=== PATIENT | male | born 1980 | race Hispanic/Latino ===

== ENCOUNTER 2016-05-14 04:59 | Inpatient (IN) | payer OTHER ==
[~2016-05-14 04:59] MED LIST: NARCAN 2 MG/2 ML ONE
[2016-05-14] MEDS ORDERED: NARCAN 2 MG/2 ML IV ONE (05:05)
[2016-05-14] MEDS ORDERED: AMIDATE IV ONE ×2 (05:08→11:13)
[2016-05-14] MEDS ORDERED: QUELICIN IV ONE (05:08)
[2016-05-14] MEDS ORDERED: NACL 0.9% 1000 ML 1,000 ML IV ONE (05:30)
[2016-05-14 05:33] LABS: Urine Drugs of Abuse Note Disclamer
[2016-05-14 05:44] LABS: Basophils % (Auto) 0.2 % (0.0-1.8); Eosinophils % (Auto) 0.8 % (0.0-4.3); Hematocrit 41.7 % (35.5-45.6); Mean Corpuscular HGB Conc 34 % (32-34); Mean Corpuscular Hemoglobin 31 pg (28-32); Mean Corpuscular Volume 92 fl (84-94); Platelet Count 367 K/mm3 (140-440); Red Blood Count 4.56 M/mm3 (3.65-5.03); Red Cell Distribution Width 12.8 % (13.2-15.2); White Blood Count 8.3 K/mm3 (4.5-11.0)
[2016-05-14 05:44] LABS: Bacteria,Urine 1+ /HPF (Negative); Bilirubin,Urine NEG (Negative); Blood,Urine NEG (Negative); Ketones,Urine 20 mg/dL (Negative); Leukocyte Esterase,Urine NEG (Negative); Mucus,Urine 2+ /HPF; Nitrite,Urine NEG (Negative); Urobilinogen,Urine < 2.0 mg/dL (<2.0)
[2016-05-14 05:58] LABS: Alanine Aminotransferase 29 units/L (7-56); Albumin 4.1 g/dL (3.9-5); Albumin/Globulin Ratio 1.9 %; Alkaline Phosphatase 81 units/L (35-129); BUN/Creatinine Ratio 21.66; Bilirubin,Total 0.6 mg/dL (0.1-1.2); Blood Urea Nitrogen 13 mg/dL (9-20); Calcium 8.6 mg/dL (8.4-10.2); Carbon Dioxide 25 mmol/L (22-30); Chloride 100.8 mmol/L (98-107); Glucose 191 mg/dL (75-100); Potassium 3.1 mmol/L (3.6-5.0); Sodium 140 mmol/L (137-145); Total Protein 6.3 g/dL (6.3-8.2)
[2016-05-14 06:05] LABS: Anion Gap 17 mmol/L
[2016-05-14 06:18] LABS: ISTAT Base Excess 4; ISTAT HCO3 29.5; ISTAT PCO2 49.9 (35-45); ISTAT PO2 398 (80-105); ISTAT SO2 100; ISTAT TCO2 31
--- NOTE | 2016-05-14 06:30 | Emergency Department Report ---
History of Present Illness - General Chief Complaint: Overdose Stated Complaint: POSSIBLE OD Time Seen by Provider: 05/14/16 05:05 Source: EMS Mode of arrival: Ambulatory Limitations: No Limitations - History of Present Illness Initial Comments: 35-year-old male with a psychiatric history presents to the hospital with unresponsiveness status post possible drug overdose. Patient had a bottle of Seroquel 50 mg 90 tablets that was dated for May 04 that was completely empty at his side. Patient has superficial cutting wounds to bilateral arms and has a history of suicidal ideation and attempts in the past. Patient also has stickers on his chest from previous hospital leads to indicate that he was likely recently seen at a hospital. Patient presents with nasal trumpet in unresponsive and unable to obtain any history of present illness. No meds given in route. - Related Data Allergies Allergy/AdvReac Type Severity Reaction Status Date / Time Unable to Assess Allergy Unverified 05/14/16 05:27 ED Review of Systems ROS: Stated complaint: POSSIBLE OD Other details as noted in HPI Comment: Unobtainable due to pts medical conditions ED Past Medical Hx - Past Medical History Previous Medical History?: Yes Additional medical history: previous OD per EMS - Surgical History Past Surgical History?: No - Social History Smoking Status: Unknown if ever smoked ED Physical Exam - General Limitations: No Limitations - Other Other exam information: General: No limitations, patient is alert in no acute distress Head exam: Atraumatic, normocephalic Eyes exam: Pupils 4 mm equal reactive ENT: Moist mucous membrane, nasal trumpet Neck exam: Normal inspection Respiratory exam: Clear to auscultation bilateral, no wheezes, rales, crackles Cardiovascular: Normal rate and rhythm Abdomen: Soft, nondistended, and nontender, with normal bowel sounds, no rebound, or guarding Extremity: Full range of motion normal inspection no deformity Back: Normal Inspection, full range of motion, no tenderness Neurologic: Patient unresponsive no response to painful stimulation. No spontaneous movement Psychiatric: normal affect, normal mood Skin: Superficial facial lacerations to bilateral arms. Skin adhesive from previous [facility] and chest and abdominal wall ED Course Vital Signs 05/14/16 05/14/16 05/14/16 05:07 05:14 05:41 Temperature 97.9 F Pulse Rate 110 H 111 H Respiratory 12 11 L Rate Blood Pressure 120/76 123/76 O2 Sat by Pulse 100 100 100 Oximetry - Reevaluation(s) Reevaluation #1: 05/14/16 06:33 Narcan 2 mg given without any response. Therefore pt was intubated given that it is likely pt overdosed on seroquel and will need further respiratory support and airway protection 05/14/16 06:38 - Intubation Time Out Performed: Yes Sedative: Etomidate Mg Given: 20 Paralytic: Succinylcholine Mg Given: 100 Laryngoscope: Cm Size: 3 ET Tube Size: 7.5 Tube Secured Depth (cm): 21 Tube Secured Location: teeth Tube Placement Confirmation: visualized tube passing t, equal breath sounds bilat, no breath sounds over epi, confirmation by capnometr Patient Tolerated Procedure: well Intubation Complications: other (initial esophageal intubation. Tube removed and changed with successful reattachment) Additional Comments: Chest x-ray reveals ET tube with high position in the trachea. Respiratory therapist informed to push to down to 23 at the [facility] ED Medical Decision Making - Lab Data Result diagrams: 05/14/16 05:28 05/14/16 05:28 Lab Results 05/14/16 05/14/16 05/14/16 Range/Units 05:22 05:22 05:28 WBC 8.3 (4.5-11.0) K/mm3 RBC 4.56 (3.65-5.03) M/mm3 Hgb 14.0 (11.8-15.2) gm/dl Hct 41.7 (35.5-45.6) % MCV 92 (84-94) fl MCH 31 (28-32) pg MCHC 34 (32-34) % RDW 12.8 L (13.2-15.2) % Plt Count 367 (140-440) K/mm3 Lymph % (Auto) 14.6 (13.4-35.0) % [place] % (Auto) 5.0 (0.0-7.3) % Eos % (Auto) 0.8 (0.0-4.3) % Baso % (Auto) 0.2 (0.0-1.8) % Lymph # 1.2 (1.2-5.4) K/mm3 [place] # 0.4 (0.0-0.8) K/mm3 Eos # 0.1 (0.0-0.4) K/mm3 Baso # 0.0 (0.0-0.1) K/mm3 Seg Neutrophils % 79.4 H (40.0-70.0) % Seg Neutrophils # 6.6 (1.8-7.7) K/mm3 POC ABG pH (7.35-7.45) POC ABG pCO2 (35-45) POC ABG pO2 (80-105) POC ABG HCO3 POC ABG Total CO2 POC ABG O2 Sat POC ABG Base Excess FiO2 % Sodium (137-145) mmol/L Potassium (3.6-5.0) mmol/L Chloride (98-107) mmol/L Carbon Dioxide (22-30) mmol/L Anion Gap mmol/L BUN (9-20) mg/dL Creatinine (0.8-1.5) mg/dL Estimated GFR ml/min BUN/Creatinine Ratio % Glucose (75-100) mg/dL Calcium (8.4-10.2) mg/dL Total Bilirubin (0.1-1.2) mg/dL AST (5-40) units/L ALT (7-56) units/L Alkaline Phosphatase (35-129) units/L Total Creatine Kinase (55-170) units/L Total Protein (6.3-8.2) g/dL Albumin (3.9-5) g/dL Albumin/Globulin Ratio % Urine Color Yellow (Yellow) Urine Turbidity Cloudy (Clear) Urine pH 5.0 (5.0-7.0) Ur Specific [place] 1.027 (1.003-1.030) Urine Protein 30 mg/dl (Negative) mg/dL Urine Glucose (UA) Neg (Negative) mg/dL Urine Ketones 20 (Negative) mg/dL Urine Blood Neg (Negative) Urine Nitrite Neg (Negative) Urine Bilirubin Neg (Negative) Urine Urobilinogen < 2.0 (<2.0) mg/dL Ur Leukocyte Esterase Neg (Negative) Urine WBC (Auto) 6.0 (0.0-6.0) /HPF Urine RBC (Auto) 4.0 (0.0-6.0) /HPF Urine Bacteria (Auto) 1+ (Negative) /HPF Urine Mucus 2+ /HPF Urine Opiates Screen Presumptive negative Urine Methadone Screen Presumptive negative Acetaminophen (10.0-30.0) ug/mL Ur Barbiturates Screen Presumptive negative Ur Phencyclidine Scrn Presumptive negative Ur Amphetamines Screen Presumptive positive U Benzodiazepines Scrn Presumptive negative Urine Cocaine Screen Presumptive positive U Marijuana (THC) Screen Presumptive positive Drugs of Abuse Note Disclamer Plasma/Serum Alcohol (0-0.07) gm% 05/14/16 05/14/16 05/14/16 Range/Units 05:28 05:28 05:28 WBC (4.5-11.0) K/mm3 RBC (3.65-5.03) M/mm3 Hgb (11.8-15.2) gm/dl Hct (35.5-45.6) % MCV (84-94) fl MCH (28-32) pg MCHC (32-34) % RDW (13.2-15.2) % Plt Count (140-440) K/mm3 Lymph % (Auto) (13.4-35.0) % [place] % (Auto) (0.0-7.3) % Eos % (Auto) (0.0-4.3) % Baso % (Auto) (0.0-1.8) % Lymph # (1.2-5.4) K/mm3 [place] # (0.0-0.8) K/mm3 Eos # (0.0-0.4) K/mm3 Baso # (0.0-0.1) K/mm3 Seg Neutrophils % (40.0-70.0) % Seg Neutrophils # (1.8-7.7) K/mm3 POC ABG pH (7.35-7.45) POC ABG pCO2 (35-45) POC ABG pO2 (80-105) POC ABG HCO3 POC ABG Total CO2 POC ABG O2 Sat POC ABG Base Excess FiO2 % Sodium 140 (137-145) mmol/L Potassium 3.1 L (3.6-5.0) mmol/L Chloride 100.8 (98-107) mmol/L Carbon Dioxide 25 (22-30) mmol/L Anion Gap 17 mmol/L BUN 13 (9-20) mg/dL Creatinine 0.6 L (0.8-1.5) mg/dL Estimated GFR > 60 ml/min BUN/Creatinine Ratio 21.66 % Glucose 191 H (75-100) mg/dL Calcium 8.6 (8.4-10.2) mg/dL Total Bilirubin 0.6 (0.1-1.2) mg/dL AST 36 (5-40) units/L ALT 29 (7-56) units/L Alkaline Phosphatase 81 (35-129) units/L Total Creatine Kinase (55-170) units/L Total Protein 6.3 (6.3-8.2) g/dL Albumin 4.1 (3.9-5) g/dL Albumin/Globulin Ratio 1.9 % Urine Color (Yellow) Urine Turbidity (Clear) Urine pH (5.0-7.0) Ur Specific [place] (1.003-1.030) Urine Protein (Negative) mg/dL Urine Glucose (UA) (Negative) mg/dL Urine Ketones (Negative) mg/dL Urine Blood (Negative) Urine Nitrite (Negative) Urine Bilirubin (Negative) Urine Urobilinogen (<2.0) mg/dL Ur Leukocyte Esterase (Negative) Urine WBC (Auto) (0.0-6.0) /HPF Urine RBC (Auto) (0.0-6.0) /HPF Urine Bacteria (Auto) (Negative) /HPF Urine Mucus /HPF Urine Opiates Screen Urine Methadone Screen Acetaminophen < 15.0 (10.0-30.0) ug/mL Ur Barbiturates Screen Ur Phencyclidine Scrn Ur Amphetamines Screen U Benzodiazepines Scrn Urine Cocaine Screen U Marijuana (THC) Screen Drugs of Abuse Note Plasma/Serum Alcohol < 0.01 (0-0.07) gm% 05/14/16 05/14/16 Range/Units 05:28 06:11 WBC (4.5-11.0) K/mm3 RBC (3.65-5.03) M/mm3 Hgb (11.8-15.2) gm/dl Hct (35.5-45.6) % MCV (84-94) fl MCH (28-32) pg MCHC (32-34) % RDW (13.2-15.2) % Plt Count (140-440) K/mm3 Lymph % (Auto) (13.4-35.0) % [place] % (Auto) (0.0-7.3) % Eos % (Auto) (0.0-4.3) % Baso % (Auto) (0.0-1.8) % Lymph # (1.2-5.4) K/mm3 [place] # (0.0-0.8) K/mm3 Eos # (0.0-0.4) K/mm3 Baso # (0.0-0.1) K/mm3 Seg Neutrophils % (40.0-70.0) % Seg Neutrophils # (1.8-7.7) K/mm3 POC ABG pH 7.380 (7.35-7.45) POC ABG pCO2 49.9 H (35-45) POC ABG pO2 398 H (80-105) POC ABG HCO3 29.5 POC ABG Total CO2 31 POC ABG O2 Sat 100 POC ABG Base Excess 4 FiO2 100 % Sodium (137-145) mmol/L Potassium (3.6-5.0) mmol/L Chloride (98-107) mmol/L Carbon Dioxide (22-30) mmol/L Anion Gap mmol/L BUN (9-20) mg/dL Creatinine (0.8-1.5) mg/dL Estimated GFR ml/min BUN/Creatinine Ratio % Glucose (75-100) mg/dL Calcium (8.4-10.2) mg/dL Total Bilirubin (0.1-1.2) mg/dL AST (5-40) units/L ALT (7-56) units/L Alkaline Phosphatase (35-129) units/L Total Creatine Kinase < 7 L (55-170) units/L Total Protein (6.3-8.2) g/dL Albumin (3.9-5) g/dL Albumin/Globulin Ratio % Urine Color (Yellow) Urine Turbidity (Clear) Urine pH (5.0-7.0) Ur Specific [place] (1.003-1.030) Urine Protein (Negative) mg/dL Urine Glucose (UA) (Negative) mg/dL Urine Ketones (Negative) mg/dL Urine Blood (Negative) Urine Nitrite (Negative) Urine Bilirubin (Negative) Urine Urobilinogen (<2.0) mg/dL Ur Leukocyte Esterase (Negative) Urine WBC (Auto) (0.0-6.0) /HPF Urine RBC (Auto) (0.0-6.0) /HPF Urine Bacteria (Auto) (Negative) /HPF Urine Mucus /HPF Urine Opiates Screen Urine Methadone Screen Acetaminophen (10.0-30.0) ug/mL Ur Barbiturates Screen Ur Phencyclidine Scrn Ur Amphetamines Screen U Benzodiazepines Scrn Urine Cocaine Screen U Marijuana (THC) Screen Drugs of Abuse Note Plasma/Serum Alcohol (0-0.07) gm% - EKG Data -: EKG Interpreted by Me (nsr 108 qtc 503) - Radiology Data Radiology results: image reviewed (cxr: et tube at clavicle, lungs clear) - Medical Decision Making abg reveal normal acid base status. O2 adjusted. Intubated For airway protection. IV potassium ordered. Mag pending. Patient was restrained at this time without sedation to monitor mental status and response. Vital signs stable at this time. Poison control was contacted by RN supportive care recommended. Risk of respiratory depression, seizures, and hypotension. no Specific antidote - Differential Diagnosis overdose, encephalopathy Critical Care Time: No Critical care attestation.: If time is entered above; I have spent that time in minutes in the direct care of this critically ill patient, excluding procedure time. ED Disposition Clinical Impression: Endotracheally intubated, Hypokalemia Overdose Qualifiers: Encounter type: initial encounter Disposition: OP ADMITTED IP TO THIS HOSP Is pt being admited?: Yes Condition: Stable Time of Disposition: 06:29 (Dr black/hosp)
[2016-05-14] MEDS: KCL 10MEQ/100ML 10 MEQ/100 ML BAG IV SCH ×4 (07:00→10:59)
--- NOTE | 2016-05-14 07:17 | XRay Report ---
AP CHEST: HISTORY: Endotracheal tube placement, overdose. AP view of the chest demonstrates a normal mediastinal and cardiac contour with clear lungs and normal bony and soft tissue structures. An endotracheal tube has been inserted which terminates at the level of the clavicles 6.9 cm from the [facility]. IMPRESSION: Unremarkable AP chest.
[2016-05-14] MEDS ORDERED: MILK OF MAGNESIA PO PRN (09:00)
[2016-05-14] MEDS ORDERED: ALUM-MAG HYDROX-SIMETH 200-200-20MG/5ML PO PRN (09:00)
[2016-05-14] MEDS: DUONEB 0.5 MG-3 MG/3 ML SOLN IH SCH ×3 (09:01→20:59)
--- NOTE | 2016-05-14 09:22 | Admit Criteria Form ---
Admission Criteria Documentation: DRUG INGESTION OR OVERDOSE Clinical Indications for Admission to Inpatient Care ( Place 'X' for any and all applicable criteria): Admission is indicated for severe toxicity as indicated by ANY ONE of the following(1)(2)(3)(4)(5)(6): [X ]I. Inpatient admission required rather than observation care (Also use Drug Ingestion or Overdose: Observation Care guideline as appropriate) because of ANY ONE of the following: [X ]a) Altered mental status that is severe or persistent [ ]b) Clinical finding (eg, metabolic acidosis, hypoglycemia, bradycardia) that is severe or persistent [ ]c) Toxic drug level that is persistent [X ]d) Psychiatric risk status not acceptable for outpatient management [ ]e) Continuous intravenous infusion of anticoagulation, platelet inhibitor, vasoactive, or antiarrhythmic medication (15)(16) [ ]f) Other condition, treatment or monitoring requiring inpatient admission [ ]II. Respiratory abnormalities [ ]III. Specific finding indicating severe and likely prolonged drug toxicity [ ]IV. Hemodynamic instability [ ]V. Dangerous arrhythmia [ ]. Hypertension requiring inpatient treatment Extended stay beyond goal length of stay may be needed for (4): [ ]a) Neurologic or respiratory compromise [ ]b) Hemodynamic instability [ ]c) Persistent toxic drug levels (25) [ ]d) Severe drug toxicities or complications [ ]e) Ongoing antidote treatment (eg, acetaminophen overdose)(5) [ ]f) Older patients(65 years or older) The original [employer] [facility] [employer] content created by [employer] has been revised. The portions of the content which have been revised are identified through the use of italic text or in bold, and [facility] has neither reviewed nor approved the modified material. All other unmodified content is copyright [facility] [employer]. Please see references footnoted in the original [facility] [employer] edition 2016 Admission Criteria Met: Yes
[2016-05-14] MEDS ORDERED: DULCOLAX PR PRN (10:00)
[2016-05-14] MEDS: LOVENOX SUB-Q SCH (10:59)
[2016-05-14] MEDS ORDERED: PROVENTIL IH PRN (11:00)
[2016-05-14] MEDS ORDERED: QUELICIN ONE (11:13)
--- NOTE | 2016-05-14 12:32 | Consultation ---
History of Present Illness Consult date: 05/14/16 Requesting physician: JOSH BARNES Reason for consult: other (vent management) History of present illness: 35 y/o male admitted through the ED with what is thought to be an overdose. Per report, patient may have taken a substantial amount of seroquel. UDS was also positive for cocaine and amphetamines. patient intubated in Ed for airway protection. Currently not on any sedation. () and mother at bedside. Remainder is negative. Past History Past Medical History: other (unable to assess) Past Surgical History: Other (unable to obtain) Social history: (but per the at the bedside), other Medications and Allergies Allergies Allergy/AdvReac Type Severity Reaction Status Date / Time Unable to Assess Allergy Unverified 05/14/16 05:27 Home Medications Medication Instructions Recorded Confirmed Last Taken Type Atomoxetine HCl [Strattera] 40 mg PO QDAY 05/14/16 05/14/16 Unknown History Buprenorphine HCl/Naloxone HCl 2 film SL QID 05/14/16 05/14/16 Unknown History [Suboxone 8 mg-2 mg SL Film] FLUoxetine HCL [PROzac] 40 mg PO QDAY 05/14/16 05/14/16 Unknown History [place] Carbonate [Eskalith] 300 mg PO BID 05/14/16 05/14/16 Unknown History Quetiapine Fumarate [SEROquel] 50 mg PO QHS 05/14/16 05/14/16 Unknown History hydrOXYzine PAMOATE [Vistaril] 25 mg PO Q6HR PRN 05/14/16 05/14/16 Unknown History Active Meds: Active Medications Al Hydrox/Mg Hydrox/Simethicone (Alum-Mag Hydrox-Simeth [id number]/5ml) 30 ml PO Q4H PRN PRN Reason: Indigestion Albuterol (Proventil) 2.5 mg IH Q3HRT PRN PRN Reason: Shortness Of Breath Albuterol/Ipratropium (Duoneb 0.5 Mg-3 Mg/3 Ml Soln) 1 ampul IH Q6HRT DOLORES Last Admin: 05/14/16 09:01 Dose: Not Given Bisacodyl (Dulcolax) 10 mg MT QDAY PRN PRN Reason: constipation unrelieved by MOM Enoxaparin Sodium (Lovenox) 40 mg SUB-Q QDAY DOLORES Last Admin: 05/14/16 10:59 Dose: 40 mg Magnesium Hydroxide (Milk Of Magnesia) 30 ml PO Q4H PRN PRN Reason: Constipation Review of Systems ROS unobtainable: due to endotracheal tube, due to mental status Physical Examination Vital signs: Vital Signs Temp Pulse Resp BP Pulse Ox 97.9 F 110 H 12 120/76 100 05/14/16 05:07 05/14/16 05:07 05/14/16 05:07 05/14/16 05:07 05/14/16 05:07 General appearance: comatose Eyes: non-icteric ENT: other (orally intubated) Effort: normal Ascultation: Bilateral: clear Percussion: Bilateral: not dull Cardiovascular: regular rate and rhythm Gastrointestinal: normoactive bowel sounds, soft, non-tender Extremities: no cyanosis, no edema unable to assess other (unable to assess) Results - Laboratory Findings CBC and BMP: 05/14/16 05:28 05/14/16 05:28 ABG POC ABG pH 7.380 (7.35-7.45) 05/14/16 06:11 POC ABG pCO2 49.9 (35-45) H 05/14/16 06:11 POC ABG pO2 398 (80-105) H 05/14/16 06:11 POC ABG HCO3 29.5 05/14/16 06:11 POC ABG Total CO2 31 05/14/16 06:11 POC ABG O2 Sat 100 05/14/16 06:11 - Diagnostic Findings Chest x-ray: image reviewed (clear CXR) Assessment and Plan 35 y/o male with acute respiratory failure thought secondary to overdose. 1. Long discussion at bedside with and mother. Explained to them that we would continue support and see if the patient will wake up. Explained that the ventilator, at this time is more of a precautionary measure than a necessity and that EEG monitoring at this time would be ill advised until he has had time to metabolize all the drug out of his system. They expressed understanding. Will insert dobhoff tube and start tube feedings. Will also give free water. Will need psych eval if mental status returns to baseline and patient can be assessed by them. CCT 31 minutes.
--- NOTE | 2016-05-14 14:11 | XRay Report ---
ABDOMEN RADIOGRAPH INDICATION: Dobbhoff tube placement. COMPARISON: None similar. FINDINGS: Frontal abdominal radiograph demonstrates a Dobbhoff tube tip about the gastric pylorus. Nonobstructive bowel gas pattern. Ascending colon stool. Clear imaged lungs. EKG leads. Mild spinal dextrocurvature, possibly positional versus scoliosis. CONCLUSION: Satisfactory Dobbhoff tube placement, as described. Thank you for the opportunity to participate in this patient's care.
[2016-05-14] MEDS ORDERED: SIMPLE SYRUP FEEDTUBE PRN ×2 (16:19)
[2016-05-14] MEDS ORDERED: SODIUM BICARBONATE FEEDTUBE PRN (16:19)
[2016-05-14] MEDS ORDERED: PANCREAZE DR 10,500 UNIT FEEDTUBE PRN (16:19)
[2016-05-14] MEDS ORDERED: D50W (25GM) IV PRN (17:46)
--- NOTE | 2016-05-14 17:57 | History and Physical Report ---
History of Present Illness Date of examination: 05/14/16 Date of admission: 05/14/16 06:30 Chief complaint: overdose History of present illness: Patient is a 35 y/o male admitted through the ED with what is thought to be an overdose and intubated. Information obtained obtained from family (mother) indicates that the patient was recently discharged from [place] hospital stay and was started on lithium, and was subsequently admitted to [facility] with concern for suicidal ideation and was discharged from the hospital and according to the family with seroquel without any psych evaluation. The family reports that the patient subsequently became more suicidal and more withdrawn, he subsequently had altercation with his ex- and also with his children. Per the mother the son had called the police informing them that he had people in his car who he did not know the police on arrival did not see anybody and left the patient continue his drive home. The mother reports that this weekend before admission the patient was hallucinating and seeing people that were not there. This morning he was found unresponsive felt to have overdosed on one of his medications noted seroquel as the bottle had 90 tablets dated May 04 and was completely empty on his side. Was also noted to have multiple superficial cuts in his bilateral arm. And also a history of suicidal ideation and attempts in the past, EMS was called and the patient was intubated in route and tube was exchanged here in the hospital. We are unable to obtain any further information from the patient. Past History Past Medical History: other (suicidal ideation, depression) Past Surgical History: Other (unable to obtain) Social history: (but per the at the bedside), smoking ( according to the family), other Family history: no significant family history Medications and Allergies Allergies Allergy/AdvReac Type Severity Reaction Status Date / Time Unable to Assess Allergy Unverified 05/14/16 05:27 Home Medications Medication Instructions Recorded Confirmed Last Taken Type Atomoxetine HCl [Strattera] 40 mg PO QDAY 05/14/16 05/14/16 Unknown History Buprenorphine HCl/Naloxone HCl 2 film SL QID 05/14/16 05/14/16 Unknown History [Suboxone 8 mg-2 mg SL Film] FLUoxetine HCL [PROzac] 40 mg PO QDAY 05/14/16 05/14/16 Unknown History [place] Carbonate [Eskalith] 300 mg PO BID 05/14/16 05/14/16 Unknown History Quetiapine Fumarate [SEROquel] 50 mg PO QHS 05/14/16 05/14/16 Unknown History hydrOXYzine PAMOATE [Vistaril] 25 mg PO Q6HR PRN 05/14/16 05/14/16 Unknown History Active Meds: Active Medications Al Hydrox/Mg Hydrox/Simethicone (Alum-Mag Hydrox-Simeth [id number]/5ml) 30 ml PO Q4H PRN PRN Reason: Indigestion Albuterol (Proventil) 2.5 mg IH Q3HRT PRN PRN Reason: Shortness Of Breath Albuterol/Ipratropium (Duoneb 0.5 Mg-3 Mg/3 Ml Soln) 1 ampul IH Q6HRT [facility] Last Admin: 05/14/16 15:50 Dose: 1 ampul Lipase/Protease/Amylase (Pancreaze Dr 10,500 Unit) 1 each FEEDTUBE PRN PRN PRN Reason: For Clogged Feeding Tube Bisacodyl (Dulcolax) 10 mg NC QDAY PRN PRN Reason: constipation unrelieved by MOM Dextrose (D50w (25gm)) 50 ml IV PRN PRN PRN Reason: Hypoglycemia Enoxaparin Sodium (Lovenox) 40 mg SUB-Q QDAY [facility] Last Admin: 05/14/16 10:59 Dose: 40 mg Insulin Human Regular (Novolin R) 0 units SUB-Q Q6HR [place] PRN Reason: Protocol Magnesium Hydroxide (Milk Of Magnesia) 30 ml PO Q4H PRN PRN Reason: Constipation Simple Syrup (Simple Syrup) 15 ml FEEDTUBE PRN PRN PRN Reason: Hypoglycemia Simple Syrup (Simple Syrup) 30 ml FEEDTUBE PRN PRN PRN Reason: Hypoglycemia Sodium Bicarbonate (Sodium Bicarbonate) 325 mg FEEDTUBE PRN PRN PRN Reason: For Clogged Feeding Tube Review of Systems ROS unobtainable: due to endotracheal tube (although family reports that he has been depressed, withdrawn, hallucinating) Exam - Physical Exam Narrative exam: VITAL SIGNS: Reviewed. GENERAL: Intubated and mechanically ventilated otherwise normal appearing. Vital signs as documented. HEAD: No signs of head trauma. EYES: Pupils are equal. Extraocular motions intact. EARS: Hearing grossly intact. MOUTH: ET tube in place NECK: No adenopathy, CHEST: Chest with hospital breath sounds bilaterally. CARDIAC: Regular rate and rhythm. S1 and S2, without murmurs, gallops, or rubs. VASCULAR: No Edema. Peripheral pulses normal and equal in all extremities. ABDOMEN: Soft, unable to examine tenderness due to sedation. no sign of distention. No rebound or guarding, and no masses palpated. Bowel Sounds normal. MUSCULOSKELETAL:Extremities without clubbing, cyanosis or edema. NEUROLOGIC EXAM: Intubated sedated. PSYCHIATRIC: Sedated SKIN: Multiple superficial cuts and bilateral upper extremity - Constitutional Vitals: Temp Pulse Resp BP Pulse Ox 97.7 F 89 18 113/67 100 05/14/16 15:00 05/14/16 10:00 05/14/16 12:34 05/14/16 09:30 05/14/16 12:34 Results - Labs CBC & Chem 7: 05/14/16 05:28 05/14/16 05:28 Labs: Laboratory Last Values WBC 8.3 K/mm3 (4.5-11.0) 05/14/16 05:28 RBC 4.56 M/mm3 (3.65-5.03) 05/14/16 05:28 Hgb 14.0 gm/dl (11.8-15.2) 05/14/16 05:28 Hct 41.7 % (35.5-45.6) 05/14/16 05:28 MCV 92 fl (84-94) 05/14/16 05:28 MCH 31 pg (28-32) 05/14/16 05:28 MCHC 34 % (32-34) 05/14/16 05:28 RDW 12.8 % (13.2-15.2) L 05/14/16 05:28 Plt Count 367 K/mm3 (140-440) 05/14/16 05:28 Lymph % (Auto) 14.6 % (13.4-35.0) 05/14/16 05:28 [place] % (Auto) 5.0 % (0.0-7.3) 05/14/16 05:28 Eos % (Auto) 0.8 % (0.0-4.3) 05/14/16 05:28 Baso % (Auto) 0.2 % (0.0-1.8) 05/14/16 05:28 Lymph # 1.2 K/mm3 (1.2-5.4) 05/14/16 05:28 [place] # 0.4 K/mm3 (0.0-0.8) 05/14/16 05:28 Eos # 0.1 K/mm3 (0.0-0.4) 05/14/16 05:28 Baso # 0.0 K/mm3 (0.0-0.1) 05/14/16 05:28 Seg Neutrophils % 79.4 % (40.0-70.0) H 05/14/16 05:28 Seg Neutrophils # 6.6 K/mm3 (1.8-7.7) 05/14/16 05:28 POC ABG pH 7.380 (7.35-7.45) 05/14/16 06:11 POC ABG pCO2 49.9 (35-45) H 05/14/16 06:11 POC ABG pO2 398 (80-105) H 05/14/16 06:11 POC ABG HCO3 29.5 05/14/16 06:11 POC ABG Total CO2 31 05/14/16 06:11 POC ABG O2 Sat 100 05/14/16 06:11 POC ABG Base Excess 4 05/14/16 06:11 FiO2 100 % 05/14/16 06:11 Sodium 140 mmol/L (137-145) 05/14/16 05:28 Potassium 3.1 mmol/L (3.6-5.0) L 05/14/16 05:28 Chloride 100.8 mmol/L (98-107) 05/14/16 05:28 Carbon Dioxide 25 mmol/L (22-30) 05/14/16 05:28 Anion Gap 17 mmol/L 05/14/16 05:28 BUN 13 mg/dL (9-20) 05/14/16 05:28 Creatinine 0.6 mg/dL (0.8-1.5) L 05/14/16 05:28 Estimated GFR > 60 ml/min 05/14/16 05:28 BUN/Creatinine Ratio 21.66 % 05/14/16 05:28 Glucose 191 mg/dL (75-100) H 05/14/16 05:28 Calcium 8.6 mg/dL (8.4-10.2) 05/14/16 05:28 Total Bilirubin 0.6 mg/dL (0.1-1.2) 05/14/16 05:28 AST 36 units/L (5-40) 05/14/16 05:28 ALT 29 units/L (7-56) 05/14/16 05:28 Alkaline Phosphatase 81 units/L (35-129) 05/14/16 05:28 Total Creatine Kinase < 7 units/L (55-170) L 05/14/16 05:28 Total Protein 6.3 g/dL (6.3-8.2) 05/14/16 05:28 Albumin 4.1 g/dL (3.9-5) 05/14/16 05:28 Albumin/Globulin Ratio 1.9 % 05/14/16 05:28 Urine Color Yellow (Yellow) 05/14/16 05:22 Urine Turbidity Cloudy (Clear) 05/14/16 05:22 Urine pH 5.0 (5.0-7.0) 05/14/16 05:22 Ur Specific [place] 1.027 (1.003-1.030) 05/14/16 05:22 Urine Protein 30 mg/dl mg/dL (Negative) 05/14/16 05:22 Urine Glucose (UA) Neg mg/dL (Negative) 05/14/16 05:22 Urine Ketones 20 mg/dL (Negative) 05/14/16 05:22 Urine Blood Neg (Negative) 05/14/16 05:22 Urine Nitrite Neg (Negative) 05/14/16 05:22 Urine Bilirubin Neg (Negative) 05/14/16 05:22 Urine Urobilinogen < 2.0 mg/dL (<2.0) 05/14/16 05:22 Ur Leukocyte Esterase Neg (Negative) 05/14/16 05:22 Urine WBC (Auto) 6.0 /HPF (0.0-6.0) 05/14/16 05:22 Urine RBC (Auto) 4.0 /HPF (0.0-6.0) 05/14/16 05:22 Urine Bacteria (Auto) 1+ /HPF (Negative) 05/14/16 05:22 Urine Mucus 2+ /HPF 05/14/16 05:22 Urine Opiates Screen Presumptive negative 05/14/16 05:22 Urine Methadone Screen Presumptive negative 05/14/16 05:22 Acetaminophen < 15.0 ug/mL (10.0-30.0) 05/14/16 05:28 Ur Barbiturates Screen Presumptive negative 05/14/16 05:22 Ur Phencyclidine Scrn Presumptive negative 05/14/16 05:22 Ur Amphetamines Screen Presumptive positive 05/14/16 05:22 U Benzodiazepines Scrn Presumptive negative 05/14/16 05:22 Urine Cocaine Screen Presumptive positive 05/14/16 05:22 U Marijuana (THC) Screen Presumptive positive 05/14/16 05:22 Drugs of Abuse Note Disclamer 05/14/16 05:22 Plasma/Serum Alcohol < 0.01 gm% (0-0.07) 05/14/16 05:28 - Imaging and Cardiology Chest x-ray: image reviewed (no acute pathology noted ET tube in place) Assessment and Plan Assessment and plan: Patient is a 35 y/o male admitted through the ED with what is thought to be an overdose and intubated. Information obtained obtained from family (mother) indicates that the patient was recently discharged from [place] hospital stay and was started on lithium, and was subsequently admitted to [facility] with concern for suicidal ideation and was discharged from the hospital and according to the family with seroquel without any psych evaluation. The family reports that the patient subsequently became more suicidal and more withdrawn, he subsequently had altercation with his ex- and also with his children. Per the mother the son had called the police informing them that he had people in his car who he did not know the police on arrival did not see anybody and left the patient continue his drive home. The mother reports that this weekend before admission the patient was hallucinating and seeing people that were not there. This morning he was found unresponsive felt to have overdosed on one of his medications noted seroquel as the bottle had 90 tablets dated May 04 and was completely empty on his side. Was also noted to have multiple superficial cuts in his bilateral arm. And also a history of suicidal ideation and attempts in the past, EMS was called and the patient was intubated in route and tube was exchanged here in the hospital. We are unable to obtain any further information from the patient. * Acute respiratory failure likely secondary to overdose * Suspect suicidal attempt * Hypokalemia * Acute psychosis per family report * Hyperglycemia question diabetes Plan * Patient already intubated we'll transfer to the ICU, grain cleaner consulted * We'll monitor to see if patient's mentation improves * Consult psychiatrist * Replace potassium * [place] insulin sliding scale * Requested reports and records from [facility] and also from [place] * Initiate 1013 * DVT and GI prophylaxis * Case discussed in detail with the patient's mother. The high probability of a clinically significant, sudden or life threatening deterioration of the [pulmonary] system(s) required my full and direct attention , intervention and personal management. The aggregate critical care time was [35 ] minutes. This time is in addition to time spent performing reported procedures but includes the following: [x] Data Review and interpretation [x] Patient assessment and monitoring of vital signs [x] Documentation [x] Medication orders and management Advance Directives: Yes Plan of care discussed with patient/family: Yes
[2016-05-14] MEDS: D5/0.45NS 1,000 ML IV SCH (21:30)
[2016-05-15] MEDS: DUONEB 0.5 MG-3 MG/3 ML SOLN IH SCH ×5 (02:17→20:44)
[2016-05-15 05:40] LABS: Basophils % (Auto) 0.3 % (0.0-1.8); Eosinophils % (Auto) 0.9 % (0.0-4.3); Hematocrit 39.9 % (35.5-45.6); Hemoglobin 13.2 gm/dl (11.8-15.2); Mean Corpuscular HGB Conc 33 % (32-34); Mean Corpuscular Hemoglobin 30 pg (28-32); Mean Corpuscular Volume 91 fl (84-94); Platelet Count 393 K/mm3 (140-440); Red Blood Count 4.41 M/mm3 (3.65-5.03)
[2016-05-15 05:43] LABS: ISTAT Base Excess 4; ISTAT HCO3 27.5; ISTAT PH 7.479 (7.35-7.45); ISTAT PO2 151 (80-105); ISTAT SO2 99; ISTAT TCO2 29
[2016-05-15] MEDS ORDERED: ATIVAN IV PRN (05:49)
[2016-05-15 06:07] LABS: BUN/Creatinine Ratio 11.25; Blood Urea Nitrogen 9 mg/dL (9-20); Calcium 8.7 mg/dL (8.4-10.2); Carbon Dioxide 26 mmol/L (22-30); Chloride 102.8 mmol/L (98-107); Glucose 99 mg/dL (75-100); Potassium 3.5 mmol/L (3.6-5.0); Sodium 143 mmol/L (137-145)
[2016-05-15 06:08] LABS: Anion Gap 18 mmol/L
[2016-05-15] MEDS ORDERED: DUONEB 0.5 MG-3 MG/3 ML SOLN IH ONE ×3 (06:08→21:20)
[2016-05-15] MEDS: LOVENOX SUB-Q SCH (11:42)
[2016-05-15] MEDS: PEPCID PO SCH ×2 (11:47→21:14)
[2016-05-15] MEDS ORDERED: POTASSIUM CHLORIDE FEEDTUBE ONE (12:00)
--- NOTE | 2016-05-15 12:36 | Progress Note ---
Assessment and Plan 35 y/o male with acute respiratory failure thought secondary to overdose. 1. Discontinue all sedative and do not give until extubated. 2. May need antipsychotics, like haldol once extubated 3. Tube feeds 4. DVT and GI Prophy 5. Will extubate once he wakes up, mental status will not allow him to tolerated PSV trial CCT 31 minutes. Subjective Date of service: 05/15/16 Interval history: Received sedative medication last night. Now he is comatose again. Family at bedside. Per them, he made purposeful movement with them last night and followed commands. Objective Vital Signs - 12hr 05/15/16 05/15/16 05/15/16 00:40 00:50 01:00 Pulse Rate 100 H 98 H 98 H Pulse Rate [ Anterior Bilateral Throughout] Pulse Rate [ Throughout] Respiratory 17 17 15 Rate Respiratory Rate [Anterior Bilateral Throughout] Respiratory Rate [ Throughout] Blood Pressure 147/92 143/93 147/89 O2 Sat by Pulse 100 100 100 Oximetry 05/15/16 05/15/16 05/15/16 01:10 01:20 01:30 Pulse Rate 97 H 98 H 99 H Pulse Rate [ Anterior Bilateral Throughout] Pulse Rate [ Throughout] Respiratory 18 18 18 Rate Respiratory Rate [Anterior Bilateral Throughout] Respiratory Rate [ Throughout] Blood Pressure 147/89 140/89 138/95 O2 Sat by Pulse 100 100 100 Oximetry 05/15/16 05/15/16 05/15/16 01:40 01:50 02:00 Pulse Rate 99 H 98 H 96 H Pulse Rate [ Anterior Bilateral Throughout] Pulse Rate [ Throughout] Respiratory 17 20 18 Rate Respiratory Rate [Anterior Bilateral Throughout] Respiratory Rate [ Throughout] Blood Pressure 138/95 144/89 146/86 O2 Sat by Pulse 100 100 100 Oximetry 05/15/16 05/15/16 05/15/16 02:10 02:20 02:21 Pulse Rate 96 H 96 H Pulse Rate [ Anterior Bilateral Throughout] Pulse Rate [ 79 Throughout] Respiratory 19 21 Rate Respiratory Rate [Anterior Bilateral Throughout] Respiratory 18 Rate [ Throughout] Blood Pressure 146/86 138/93 O2 Sat by Pulse 100 99 Oximetry 05/15/16 05/15/16 05/15/16 02:30 02:40 02:50 Pulse Rate 98 H 100 H 98 H Pulse Rate [ Anterior Bilateral Throughout] Pulse Rate [ 89 Throughout] Respiratory 17 16 14 Rate Respiratory Rate [Anterior Bilateral Throughout] Respiratory 18 Rate [ Throughout] Blood Pressure 142/91 142/91 150/91 O2 Sat by Pulse 100 99 100 Oximetry 05/15/16 05/15/16 05/15/16 03:00 03:11 03:21 Pulse Rate 98 H 102 H 100 H Pulse Rate [ Anterior Bilateral Throughout] Pulse Rate [ Throughout] Respiratory 17 19 14 Rate Respiratory Rate [Anterior Bilateral Throughout] Respiratory Rate [ Throughout] Blood Pressure 150/91 136/101 O2 Sat by Pulse 100 99 99 Oximetry 05/15/16 05/15/16 05/15/16 03:30 03:41 03:51 Pulse Rate 99 H 98 H 106 H Pulse Rate [ Anterior Bilateral Throughout] Pulse Rate [ Throughout] Respiratory 14 17 19 Rate Respiratory Rate [Anterior Bilateral Throughout] Respiratory Rate [ Throughout] Blood Pressure 142/94 142/94 143/100 O2 Sat by Pulse 100 100 99 Oximetry 05/15/16 05/15/16 05/15/16 04:00 04:11 04:21 Pulse Rate 100 H 101 H 100 H Pulse Rate [ Anterior Bilateral Throughout] Pulse Rate [ Throughout] Respiratory 21 15 16 Rate Respiratory Rate [Anterior Bilateral Throughout] Respiratory Rate [ Throughout] Blood Pressure 143/94 143/94 145/91 O2 Sat by Pulse 99 100 99 Oximetry 05/15/16 05/15/16 05/15/16 04:30 04:41 04:42 Pulse Rate 101 H 100 H 102 H Pulse Rate [ Anterior Bilateral Throughout] Pulse Rate [ Throughout] Respiratory 16 18 Rate Respiratory Rate [Anterior Bilateral Throughout] Respiratory Rate [ Throughout] Blood Pressure 146/89 146/89 146/89 O2 Sat by Pulse 99 99 99 Oximetry 05/15/16 05/15/16 05/15/16 04:51 05:00 05:11 Pulse Rate 107 H 104 H 105 H Pulse Rate [ Anterior Bilateral Throughout] Pulse Rate [ Throughout] Respiratory 14 18 19 Rate Respiratory Rate [Anterior Bilateral Throughout] Respiratory Rate [ Throughout] Blood Pressure 147/82 154/92 154/92 O2 Sat by Pulse 100 99 99 Oximetry 05/15/16 05/15/16 05/15/16 05:21 05:30 05:41 Pulse Rate 103 H 101 H 107 H Pulse Rate [ Anterior Bilateral Throughout] Pulse Rate [ Throughout] Respiratory 13 16 15 Rate Respiratory Rate [Anterior Bilateral Throughout] Respiratory Rate [ Throughout] Blood Pressure 149/104 151/90 151/90 O2 Sat by Pulse 99 99 99 Oximetry 05/15/16 05/15/16 05/15/16 05:51 06:00 06:11 Pulse Rate 107 H 103 H 102 H Pulse Rate [ Anterior Bilateral Throughout] Pulse Rate [ Throughout] Respiratory 14 14 19 Rate Respiratory Rate [Anterior Bilateral Throughout] Respiratory Rate [ Throughout] Blood Pressure 143/94 155/97 155/97 O2 Sat by Pulse 99 99 99 Oximetry 05/15/16 05/15/16 05/15/16 06:21 06:30 06:41 Pulse Rate 100 H 99 H 101 H Pulse Rate [ Anterior Bilateral Throughout] Pulse Rate [ Throughout] Respiratory 17 17 16 Rate Respiratory Rate [Anterior Bilateral Throughout] Respiratory Rate [ Throughout] Blood Pressure 151/93 130/101 130/101 O2 Sat by Pulse 99 99 99 Oximetry 05/15/16 05/15/16 05/15/16 06:51 07:00 07:11 Pulse Rate 99 H 97 H 95 H Pulse Rate [ Anterior Bilateral Throughout] Pulse Rate [ Throughout] Respiratory 16 16 19 Rate Respiratory Rate [Anterior Bilateral Throughout] Respiratory Rate [ Throughout] Blood Pressure 139/90 140/87 140/87 O2 Sat by Pulse 99 99 99 Oximetry 05/15/16 05/15/16 05/15/16 07:21 07:30 07:41 Pulse Rate 94 H 93 H 96 H Pulse Rate [ Anterior Bilateral Throughout] Pulse Rate [ Throughout] Respiratory 17 19 19 Rate Respiratory Rate [Anterior Bilateral Throughout] Respiratory Rate [ Throughout] Blood Pressure 132/87 130/85 130/85 O2 Sat by Pulse 99 99 99 Oximetry 05/15/16 05/15/16 05/15/16 07:51 08:00 08:11 Pulse Rate 97 H 97 H 98 H Pulse Rate [ Anterior Bilateral Throughout] Pulse Rate [ Throughout] Respiratory 16 16 22 Rate Respiratory Rate [Anterior Bilateral Throughout] Respiratory Rate [ Throughout] Blood Pressure 131/93 148/100 148/100 O2 Sat by Pulse 99 99 99 Oximetry 05/15/16 05/15/16 05/15/16 08:12 08:21 08:29 Pulse Rate 100 H 96 H 93 H Pulse Rate [ 98 H 93 H Anterior Bilateral Throughout] Pulse Rate [ Throughout] Respiratory 12 20 Rate Respiratory 21 20 Rate [Anterior Bilateral Throughout] Respiratory Rate [ Throughout] Blood Pressure 148/100 151/101 151/101 O2 Sat by Pulse 99 100 98 Oximetry 05/15/16 05/15/16 05/15/16 08:30 08:41 08:51 Pulse Rate 92 H 93 H 93 H Pulse Rate [ Anterior Bilateral Throughout] Pulse Rate [ Throughout] Respiratory 15 18 20 Rate Respiratory Rate [Anterior Bilateral Throughout] Respiratory Rate [ Throughout] Blood Pressure 142/90 142/90 146/89 O2 Sat by Pulse 98 98 98 Oximetry 05/15/16 05/15/16 05/15/16 09:00 09:11 09:21 Pulse Rate 93 H 92 H 91 H Pulse Rate [ Anterior Bilateral Throughout] Pulse Rate [ Throughout] Respiratory 19 20 17 Rate Respiratory Rate [Anterior Bilateral Throughout] Respiratory Rate [ Throughout] Blood Pressure 122/74 122/74 115/74 O2 Sat by Pulse 98 97 97 Oximetry 05/15/16 05/15/16 05/15/16 09:30 09:41 09:51 Pulse Rate 90 89 92 H Pulse Rate [ Anterior Bilateral Throughout] Pulse Rate [ Throughout] Respiratory 19 18 16 Rate Respiratory Rate [Anterior Bilateral Throughout] Respiratory Rate [ Throughout] Blood Pressure 118/72 118/72 117/72 O2 Sat by Pulse 97 97 98 Oximetry 05/15/16 05/15/16 05/15/16 10:00 10:11 10:21 Pulse Rate 89 93 H 90 Pulse Rate [ Anterior Bilateral Throughout] Pulse Rate [ Throughout] Respiratory 16 19 16 Rate Respiratory Rate [Anterior Bilateral Throughout] Respiratory Rate [ Throughout] Blood Pressure 115/71 115/71 120/77 O2 Sat by Pulse 98 98 98 Oximetry 05/15/16 05/15/16 05/15/16 10:30 10:41 10:51 Pulse Rate 91 H 90 94 H Pulse Rate [ Anterior Bilateral Throughout] Pulse Rate [ Throughout] Respiratory 18 18 17 Rate Respiratory Rate [Anterior Bilateral Throughout] Respiratory Rate [ Throughout] Blood Pressure 119/73 120/77 123/77 O2 Sat by Pulse 99 99 98 Oximetry 05/15/16 05/15/16 05/15/16 11:00 11:11 11:21 Pulse Rate 91 H 91 H 90 Pulse Rate [ Anterior Bilateral Throughout] Pulse Rate [ Throughout] Respiratory 16 16 19 Rate Respiratory Rate [Anterior Bilateral Throughout] Respiratory Rate [ Throughout] Blood Pressure 118/73 123/77 120/73 O2 Sat by Pulse 100 99 98 Oximetry Constitutional: comatose Eyes: non-icteric ENT: other (orally intubated) Effort: normal Ascultation: Bilateral: clear Percussion: Bilateral: not dull Cardiovascular: regular rate and rhythm Gastrointestinal: normoactive bowel sounds, soft, non-tender Extremities: no cyanosis, no edema Neurologic: unable to assess Psychiatric: other (unable to assess) CBC and BMP: 05/15/16 05:06 05/15/16 05:06 ABG, PT/INR, D-dimer: ABG POC ABG pH 7.479 (7.35-7.45) H 05/15/16 04:53 POC ABG pCO2 37.0 (35-45) 05/15/16 04:53 POC ABG pO2 151 (80-105) H 05/15/16 04:53 POC ABG HCO3 27.5 05/15/16 04:53 POC ABG Total CO2 29 05/15/16 04:53 POC ABG O2 Sat 99 05/15/16 04:53 Abnormal lab findings: Abnormal Labs 05/15/16 05/15/16 05/15/16 04:53 05:06 05:06 RDW 13.0 L Lymph % (Auto) 11.3 L Seg Neutrophils % 82.3 H Seg Neutrophils # 9.1 H POC ABG pH 7.479 H POC ABG pO2 151 H Potassium 3.5 L
--- NOTE | 2016-05-15 16:16 | Progress Note ---
Assessment and Plan Assessment and plan: Patient is a 35 y/o male admitted through the ED with what is thought to be an overdose and intubated. Information obtained obtained from family (mother) indicates that the patient was recently discharged from [place] hospital stay and was started on lithium, and was subsequently admitted to [facility] with concern for suicidal ideation and was discharged from the hospital and according to the family with seroquel without any psych evaluation. The family reports that the patient subsequently became more suicidal and more withdrawn, he subsequently had altercation with his ex- and also with his children. Per the mother the son had called the police informing them that he had people in his car who he did not know the police on arrival did not see anybody and left the patient continue his drive home. The mother reports that this weekend before admission the patient was hallucinating and seeing people that were not there. This morning he was found unresponsive felt to have overdosed on one of his medications noted seroquel as the bottle had 90 tablets dated May 04 and was completely empty on his side. Was also noted to have multiple superficial cuts in his bilateral arm. And also a history of suicidal ideation and attempts in the past, EMS was called and the patient was intubated in route and tube was exchanged here in the hospital. We are unable to obtain any further information from the patient. * Acute respiratory failure likely secondary to overdose * Suspect suicidal attempt * Hypokalemia * Acute psychosis per family report * Hyperglycemia question diabetes Plan * Patient remains intubated. I agree with discontinuing all sedatives * Await psychiatric consultation * Replace potassium * [place] insulin sliding scale * Awaiting records from [facility] and also from [place] * Continue 1013 * DVT and GI prophylaxis * and daughter at bedside The high probability of a clinically significant, sudden or life threatening deterioration of the [pulmonary] system(s) required my full and direct attention , intervention and personal management. The aggregate critical care time was [35 ] minutes. This time is in addition to time spent performing reported procedures but includes the following: [x] Data Review and interpretation [x] Patient assessment and monitoring of vital signs [x] Documentation [x] Medication orders and management History Interval history: Follow-up overdose Remains on the ventilator, sedated earlier on in the morning when I saw him. Per family and nursing was responsive somewhat agitated Hospitalist Physical - Physical exam Narrative exam: VITAL SIGNS: Reviewed. GENERAL: Intubated and mechanically ventilated . Vital signs as documented. HEAD: No signs of head trauma. EYES: Pupils are equal. Extraocular motions intact. EARS: Hearing grossly intact. MOUTH: ET tube in place NECK: No adenopathy, CHEST: Chest with hospital breath sounds bilaterally. CARDIAC: Regular rate and rhythm. S1 and S2, without murmurs, gallops, or rubs. VASCULAR: No Edema. Peripheral pulses normal and equal in all extremities. ABDOMEN: Soft, unable to examine tenderness due to sedation. no sign of distention. No rebound or guarding, and no masses palpated. Bowel Sounds normal. MUSCULOSKELETAL:Extremities without clubbing, cyanosis or edema. NEUROLOGIC EXAM: Intubated sedated. PSYCHIATRIC: Sedated SKIN: Multiple superficial cuts and bilateral upper extremity - Constitutional Vitals: Temp Pulse Resp BP Pulse Ox 97.7 F 98 H 17 126/87 100 05/14/16 15:00 05/15/16 13:05 05/15/16 13:05 05/15/16 12:49 05/15/16 13:36 Results - Labs CBC & Chem 7: 05/15/16 05:06 05/15/16 05:06 Labs: Laboratory Last Values WBC 11.0 K/mm3 (4.5-11.0) 05/15/16 05:06 RBC 4.41 M/mm3 (3.65-5.03) 05/15/16 05:06 Hgb 13.2 gm/dl (11.8-15.2) 05/15/16 05:06 Hct 39.9 % (35.5-45.6) 05/15/16 05:06 MCV 91 fl (84-94) 05/15/16 05:06 MCH 30 pg (28-32) 05/15/16 05:06 MCHC 33 % (32-34) 05/15/16 05:06 RDW 13.0 % (13.2-15.2) L 05/15/16 05:06 Plt Count 393 K/mm3 (140-440) 05/15/16 05:06 Lymph % (Auto) 11.3 % (13.4-35.0) L 05/15/16 05:06 [place] % (Auto) 5.2 % (0.0-7.3) 05/15/16 05:06 Eos % (Auto) 0.9 % (0.0-4.3) 05/15/16 05:06 Baso % (Auto) 0.3 % (0.0-1.8) 05/15/16 05:06 Lymph # 1.2 K/mm3 (1.2-5.4) 05/15/16 05:06 [place] # 0.6 K/mm3 (0.0-0.8) 05/15/16 05:06 Eos # 0.1 K/mm3 (0.0-0.4) 05/15/16 05:06 Baso # 0.0 K/mm3 (0.0-0.1) 05/15/16 05:06 Seg Neutrophils % 82.3 % (40.0-70.0) H 05/15/16 05:06 Seg Neutrophils # 9.1 K/mm3 (1.8-7.7) H 05/15/16 05:06 POC ABG pH 7.479 (7.35-7.45) H 05/15/16 04:53 POC ABG pCO2 37.0 (35-45) 05/15/16 04:53 POC ABG pO2 151 (80-105) H 05/15/16 04:53 POC ABG HCO3 27.5 05/15/16 04:53 POC ABG Total CO2 29 05/15/16 04:53 POC ABG O2 Sat 99 05/15/16 04:53 POC ABG Base Excess 4 05/15/16 04:53 FiO2 40 % 05/15/16 04:53 Sodium 143 mmol/L (137-145) 05/15/16 05:06 Potassium 3.5 mmol/L (3.6-5.0) L 05/15/16 05:06 Chloride 102.8 mmol/L (98-107) 05/15/16 05:06 Carbon Dioxide 26 mmol/L (22-30) 05/15/16 05:06 Anion Gap 18 mmol/L 05/15/16 05:06 BUN 9 mg/dL (9-20) 05/15/16 05:06 Creatinine 0.8 mg/dL (0.8-1.5) 05/15/16 05:06 Estimated GFR > 60 ml/min 05/15/16 05:06 BUN/Creatinine Ratio 11.25 % 05/15/16 05:06 Glucose 99 mg/dL (75-100) 05/15/16 05:06 POC Glucose 72 (70-105) 05/15/16 12:15 Calcium 8.7 mg/dL (8.4-10.2) 05/15/16 05:06 Total Bilirubin 0.6 mg/dL (0.1-1.2) 05/14/16 05:28 AST 36 units/L (5-40) 05/14/16 05:28 ALT 29 units/L (7-56) 05/14/16 05:28 Alkaline Phosphatase 81 units/L (35-129) 05/14/16 05:28 Total Creatine Kinase < 7 units/L (55-170) L 05/14/16 05:28 Total Protein 6.3 g/dL (6.3-8.2) 05/14/16 05:28 Albumin 4.1 g/dL (3.9-5) 05/14/16 05:28 Albumin/Globulin Ratio 1.9 % 05/14/16 05:28 Urine Color Yellow (Yellow) 05/14/16 05:22 Urine Turbidity Cloudy (Clear) 05/14/16 05:22 Urine pH 5.0 (5.0-7.0) 05/14/16 05:22 Ur Specific [place] 1.027 (1.003-1.030) 05/14/16 05:22 Urine Protein 30 mg/dl mg/dL (Negative) 05/14/16 05:22 Urine Glucose (UA) Neg mg/dL (Negative) 05/14/16 05:22 Urine Ketones 20 mg/dL (Negative) 05/14/16 05:22 Urine Blood Neg (Negative) 05/14/16 05:22 Urine Nitrite Neg (Negative) 05/14/16 05:22 Urine Bilirubin Neg (Negative) 05/14/16 05:22 Urine Urobilinogen < 2.0 mg/dL (<2.0) 05/14/16 05:22 Ur Leukocyte Esterase Neg (Negative) 05/14/16 05:22 Urine WBC (Auto) 6.0 /HPF (0.0-6.0) 05/14/16 05:22 Urine RBC (Auto) 4.0 /HPF (0.0-6.0) 05/14/16 05:22 Urine Bacteria (Auto) 1+ /HPF (Negative) 05/14/16 05:22 Urine Mucus 2+ /HPF 05/14/16 05:22 Urine Opiates Screen Presumptive negative 05/14/16 05:22 Urine Methadone Screen Presumptive negative 05/14/16 05:22 Acetaminophen < 15.0 ug/mL (10.0-30.0) 05/14/16 05:28 Ur Barbiturates Screen Presumptive negative 05/14/16 05:22 Ur Phencyclidine Scrn Presumptive negative 05/14/16 05:22 Ur Amphetamines Screen Presumptive positive 05/14/16 05:22 U Benzodiazepines Scrn Presumptive negative 05/14/16 05:22 [place] 0.1 mmol/L (0.0-1.2) 05/14/16 19:25 Urine Cocaine Screen Presumptive positive 05/14/16 05:22 U Marijuana (THC) Screen Presumptive positive 05/14/16 05:22 Drugs of Abuse Note Disclamer 05/14/16 05:22 Plasma/Serum Alcohol < 0.01 gm% (0-0.07) 05/14/16 05:28 - Imaging and Cardiology Abdominal x-ray: image reviewed (shows adequate Dobb[place] placement)
--- NOTE | 2016-05-15 16:27 | Event Note ---
Date: 05/15/16 Successfully extubated. Awake and mildly agitated. medically stable for transfer to [facility] facility.
[2016-05-15] MEDS ORDERED: KCL 10MEQ/100ML 10 MEQ/100 ML BAG IV SCH (17:00)
[2016-05-15] MEDS: KCL 10MEQ/100ML 10 MEQ/100 ML BAG IV SCH (19:35)
[2016-05-15] MEDS: HALDOL IM PRN (20:06)
[2016-05-15] MEDS: VISTARIL PO PRN (21:14)
[2016-05-15] MEDS ORDERED: ESKALITH PO SCH (22:00)
[2016-05-16] MEDS: DUONEB 0.5 MG-3 MG/3 ML SOLN IH SCH ×2 (01:41→09:30)
[2016-05-16] MEDS: HALDOL IM PRN ×2 (02:22→10:00)
[2016-05-16] MEDS: D5/0.45NS 1,000 ML IV SCH (04:06)
--- NOTE | 2016-05-16 09:08 | Progress Note ---
Assessment and Plan 35 y/o male with acute respiratory failure thought secondary to overdose. 1. stable, no critical care issues 2. Agree with restarting psych meds 3. As stated previously, medically stable to be discharged to psych facility Will sign off, call if questions. Subjective Date of service: 05/16/16 Interval history: Successful extubation but not transferred as no sitter was available Objective Vital Signs - 12hr 05/15/16 05/15/16 05/15/16 21:11 21:21 21:30 Temperature Pulse Rate 115 H 112 H 112 H Pulse Rate [ Right Dorsalis Pedis] Respiratory 19 19 21 Rate Blood Pressure 153/94 153/94 142/87 O2 Sat by Pulse 97 97 92 Oximetry 05/15/16 05/15/16 05/15/16 21:41 21:51 22:00 Temperature Pulse Rate 111 H 110 H 109 H Pulse Rate [ 105 H Right Dorsalis Pedis] Respiratory 20 21 14 Rate Blood Pressure 142/87 142/87 121/84 O2 Sat by Pulse 94 93 93 Oximetry 05/15/16 05/15/16 05/15/16 22:11 22:15 22:21 Temperature Pulse Rate 104 H 105 H 107 H Pulse Rate [ Right Dorsalis Pedis] Respiratory 20 20 14 Rate Blood Pressure 121/84 132/81 132/81 O2 Sat by Pulse 93 93 92 Oximetry 05/15/16 05/15/16 05/15/16 22:30 22:41 22:51 Temperature Pulse Rate 109 H 110 H 108 H Pulse Rate [ Right Dorsalis Pedis] Respiratory 20 19 19 Rate Blood Pressure 140/77 140/77 127/74 O2 Sat by Pulse 93 92 92 Oximetry 05/15/16 05/15/16 05/15/16 23:00 23:11 23:21 Temperature Pulse Rate 108 H 106 H 105 H Pulse Rate [ Right Dorsalis Pedis] Respiratory 20 18 21 Rate Blood Pressure 128/73 128/73 131/72 O2 Sat by Pulse 92 93 92 Oximetry 05/15/16 05/15/16 05/15/16 23:30 23:41 23:51 Temperature Pulse Rate 104 H 102 H 105 H Pulse Rate [ Right Dorsalis Pedis] Respiratory 19 18 17 Rate Blood Pressure 121/73 121/73 124/81 O2 Sat by Pulse 93 93 92 Oximetry 05/16/16 05/16/16 05/16/16 00:00 00:11 00:21 Temperature 100.8 F H Pulse Rate 104 H 102 H 100 H Pulse Rate [ Right Dorsalis Pedis] Respiratory 20 17 17 Rate Blood Pressure 122/79 122/79 126/80 O2 Sat by Pulse 92 93 93 Oximetry 05/16/16 05/16/16 05/16/16 00:30 00:41 00:51 Temperature Pulse Rate 99 H 100 H 100 H Pulse Rate [ Right Dorsalis Pedis] Respiratory 18 16 20 Rate Blood Pressure 122/77 122/77 130/80 O2 Sat by Pulse 93 93 90 Oximetry 05/16/16 05/16/16 05/16/16 01:00 01:11 01:21 Temperature Pulse Rate 97 H 99 H 100 H Pulse Rate [ Right Dorsalis Pedis] Respiratory 17 14 16 Rate Blood Pressure 124/77 124/77 129/79 O2 Sat by Pulse 92 92 92 Oximetry 05/16/16 05/16/16 05/16/16 01:30 01:41 01:51 Temperature Pulse Rate 101 H 99 H 99 H Pulse Rate [ Right Dorsalis Pedis] Respiratory 17 17 15 Rate Blood Pressure 124/80 124/80 128/75 O2 Sat by Pulse 92 93 93 Oximetry 05/16/16 05/16/16 05/16/16 02:00 02:11 02:21 Temperature Pulse Rate 95 H 96 H 97 H Pulse Rate [ Right Dorsalis Pedis] Respiratory 16 15 17 Rate Blood Pressure 126/77 126/77 122/78 O2 Sat by Pulse 92 92 92 Oximetry 05/16/16 05/16/16 05/16/16 02:30 02:41 02:51 Temperature Pulse Rate 96 H 96 H 92 H Pulse Rate [ Right Dorsalis Pedis] Respiratory 17 16 14 Rate Blood Pressure 124/79 124/79 130/75 O2 Sat by Pulse 92 92 92 Oximetry 05/16/16 05/16/16 05/16/16 03:00 03:11 03:21 Temperature Pulse Rate 94 H 93 H 90 Pulse Rate [ Right Dorsalis Pedis] Respiratory 17 14 16 Rate Blood Pressure 124/79 124/79 129/74 O2 Sat by Pulse 92 94 93 Oximetry 05/16/16 05/16/16 05/16/16 03:30 03:41 03:51 Temperature Pulse Rate 96 H 94 H 92 H Pulse Rate [ Right Dorsalis Pedis] Respiratory 17 17 17 Rate Blood Pressure 133/74 133/74 128/72 O2 Sat by Pulse 92 92 92 Oximetry 05/16/16 05/16/16 05/16/16 04:00 04:11 04:21 Temperature 100.5 F H Pulse Rate 91 H 94 H 92 H Pulse Rate [ Right Dorsalis Pedis] Respiratory 18 18 17 Rate Blood Pressure 129/75 129/75 120/76 O2 Sat by Pulse 92 92 91 Oximetry 05/16/16 05/16/16 05/16/16 04:30 04:41 04:51 Temperature Pulse Rate 95 H 92 H 93 H Pulse Rate [ Right Dorsalis Pedis] Respiratory 16 15 15 Rate Blood Pressure 125/78 125/78 118/82 O2 Sat by Pulse 92 91 92 Oximetry 05/16/16 05:00 Temperature Pulse Rate 95 H Pulse Rate [ Right Dorsalis Pedis] Respiratory 17 Rate Blood Pressure 119/83 O2 Sat by Pulse 92 Oximetry Constitutional: comatose Eyes: non-icteric ENT: other (orally intubated) Effort: normal Ascultation: Bilateral: clear Percussion: Bilateral: not dull Cardiovascular: regular rate and rhythm Gastrointestinal: normoactive bowel sounds, soft, non-tender Extremities: no cyanosis, no edema Neurologic: unable to assess Psychiatric: other (unable to assess) CBC and BMP: 05/15/16 05:06 05/15/16 05:06 ABG, PT/INR, D-dimer: ABG POC ABG pH 7.479 (7.35-7.45) H 05/15/16 04:53 POC ABG pCO2 37.0 (35-45) 05/15/16 04:53 POC ABG pO2 151 (80-105) H 05/15/16 04:53 POC ABG HCO3 27.5 05/15/16 04:53 POC ABG Total CO2 29 05/15/16 04:53 POC ABG O2 Sat 99 05/15/16 04:53 Abnormal lab findings: Abnormal Labs 05/15/16 05/15/16 05/15/16 04:53 05:06 05:06 RDW 13.0 L Lymph % (Auto) 11.3 L Seg Neutrophils % 82.3 H Seg Neutrophils # 9.1 H POC ABG pH 7.479 H POC ABG pO2 151 H Potassium 3.5 L POC Glucose 05/16/16 05/16/16 00:02 05:54 RDW Lymph % (Auto) Seg Neutrophils % Seg Neutrophils # POC ABG pH POC ABG pO2 Potassium POC Glucose 145 H 140 H
[2016-05-16] MEDS ORDERED: PROzac PO SCH (10:00)
[2016-05-16] MEDS: VISTARIL PO PRN (10:11)
[2016-05-16] MEDS: PEPCID PO SCH ×2 (10:11→21:27)
[2016-05-16] MEDS: LOVENOX SUB-Q SCH (10:12)
[2016-05-16] MEDS: SUBOXONE 2 MG-0.5 MG SL SCH (11:48)
[2016-05-16] MEDS: ESKALITH PO SCH ×2 (12:02→21:27)
[2016-05-16] MEDS: PROzac PO SCH (12:02)
[2016-05-16] MEDS: HABITROL TD SCH (12:05)
[2016-05-16] MEDS ORDERED: PROVENTIL IH PRN (16:00)
--- NOTE | 2016-05-16 23:02 | Progress Note ---
Subjective Date of service: 05/16/16 Principal diagnosis: respiratory failure Interval history: Lying quietly in bed with family members in the room including his mother. Patient's mother had refused patient to continued on lithium and antidepressiant Objective - Constitutional Vitals: Vital Signs - 12hr 05/16/16 05/16/16 05/16/16 12:00 14:01 14:51 Temperature 985 F H Pulse Rate 99 H 95 H 93 H Pulse Rate [ Brachial] Respiratory 17 14 14 Rate Blood Pressure 123/81 123/81 123/81 O2 Sat by Pulse 91 90 Oximetry 05/16/16 05/16/16 05/16/16 15:01 15:11 15:21 Temperature Pulse Rate 93 H 93 H 94 H Pulse Rate [ Brachial] Respiratory 14 15 14 Rate Blood Pressure 123/81 123/81 123/81 O2 Sat by Pulse 90 89 89 Oximetry 05/16/16 05/16/16 05/16/16 15:31 15:41 15:51 Temperature Pulse Rate 97 H 94 H 94 H Pulse Rate [ Brachial] Respiratory 13 19 12 Rate Blood Pressure 123/81 123/81 123/81 O2 Sat by Pulse 89 89 87 Oximetry 05/16/16 05/16/16 05/16/16 16:00 16:11 16:21 Temperature 98.4 F Pulse Rate 91 H 92 H 89 Pulse Rate [ Brachial] Respiratory 15 15 12 Rate Blood Pressure 122/78 122/78 122/78 O2 Sat by Pulse 96 96 96 Oximetry 05/16/16 05/16/16 05/16/16 16:31 16:41 16:51 Temperature Pulse Rate 91 H 90 91 H Pulse Rate [ Brachial] Respiratory 13 10 L 10 L Rate Blood Pressure 122/78 122/78 122/78 O2 Sat by Pulse 96 96 96 Oximetry 05/16/16 05/16/16 05/16/16 17:01 17:11 17:21 Temperature Pulse Rate 89 88 96 H Pulse Rate [ Brachial] Respiratory 12 10 L 16 Rate Blood Pressure 122/78 122/78 122/78 O2 Sat by Pulse 96 96 96 Oximetry 05/16/16 05/16/16 05/16/16 17:31 17:41 18:01 Temperature Pulse Rate 94 H 97 H 98 H Pulse Rate [ Brachial] Respiratory 17 10 L 17 Rate Blood Pressure 122/78 122/78 122/78 O2 Sat by Pulse 95 94 94 Oximetry 05/16/16 21:20 Temperature 98.2 F Pulse Rate Pulse Rate [ 100 H Brachial] Respiratory 20 Rate Blood Pressure 119/72 O2 Sat by Pulse 93 Oximetry General appearance: Present: no acute distress, well-nourished - EENT Eyes: PERRL, EOM intact ENT: hearing intact, clear oral mucosa Ears: bilateral: normal - Neck Neck: supple, normal ROM - Respiratory Respiratory effort: normal Respiratory: bilateral: CTA - Breasts Breasts: normal - Cardiovascular Rhythm: regular Heart Sounds: Present: S1 & S2. Absent: gallop, rub Extremities: pulses intact, No edema, normal color, Full ROM - Gastrointestinal General gastrointestinal: Present: soft, non-tender, non-distended, normal bowel sounds - Genitourinary Male genitourinary: normal - Integumentary Integumentary: clear, warm, dry - Musculoskeletal Musculoskeletal: 1, strength equal bilaterally - Neurologic Neurologic: moves all extremities - Psychiatric Psychiatric: agitated (because patient is more does not want him to take it easy and an antidepressive. Theses medications have helped him in the past) - Labs CBC & Chem 7: 05/15/16 05:06 05/15/16 05:06 Labs: Abnormal lab results 05/16/16 05/16/16 Range/Units 00:02 05:54 POC Glucose 145 H 140 H (70-105)
[2016-05-17] MEDS: ATIVAN IV PRN ×2 (06:25→21:14)
[2016-05-17] MEDS: ESKALITH PO SCH ×2 (10:06→21:15)
[2016-05-17] MEDS: PROzac PO SCH (10:06)
[2016-05-17] MEDS: LOVENOX SUB-Q SCH (10:07)
[2016-05-17] MEDS: PEPCID PO SCH ×2 (10:07→21:15)
[2016-05-17] MEDS: SUBOXONE 2 MG-0.5 MG SL SCH (11:05)
[2016-05-17] MEDS: HABITROL TD SCH (12:19)
[2016-05-17] MEDS ORDERED: TYLENOL PO PRN (16:00)
--- NOTE | 2016-05-17 16:58 | Progress Note ---
Assessment and Plan 1. Acute respiratory failure likely secondary to overdose: resolved 2. Suspect suicidal attempt. Suicidice watch with 1013 3. Hypokalemia - supplement 4. Acute psychosis per family report 5. Hyperglycemia question diabetes: A1c 5.8% - Pt is prediabetic Discussed with pt and his mother in the room. Awaiting Psych eval and inpt Psych placement Subjective Date of service: 05/17/16 Principal diagnosis: respiratory failure Interval history: Sitting up in bed. Interactive. Cognitive. Multivitamin bedside. Concerned about regular Accu-Cheks. Blood sugar has been in the 140s. Objective - Constitutional Vitals: Vital Signs - 12hr 05/17/16 15:27 Temperature 99.3 F Pulse Rate [ 92 H Left Radial] Respiratory 20 Rate Blood Pressure 117/71 O2 Sat by Pulse 98 Oximetry General appearance: Present: no acute distress, well-nourished - EENT Eyes: PERRL, EOM intact ENT: hearing intact, clear oral mucosa Ears: bilateral: normal - Neck Neck: supple, normal ROM - Respiratory Respiratory effort: normal Respiratory: bilateral: CTA - Breasts Breasts: normal - Cardiovascular Rhythm: regular Heart Sounds: Present: S1 & S2. Absent: gallop, rub Extremities: pulses intact, No edema, normal color, Full ROM - Gastrointestinal General gastrointestinal: Present: soft, non-tender, non-distended, normal bowel sounds - Integumentary Integumentary: clear, warm, dry - Musculoskeletal Musculoskeletal: 1, strength equal bilaterally - Neurologic Neurologic: moves all extremities - Psychiatric Psychiatric: memory intact, appropriate mood/affect, intact judgment & insight - Labs CBC & Chem 7: 05/15/16 05:06 05/15/16 05:06 Labs: Abnormal lab results 05/17/16 Range/Units 05:28 POC Glucose 144 H (70-105)
[2016-05-17] MEDS: HALDOL IM PRN (22:44)
[2016-05-18] MEDS: ATIVAN IV PRN (00:48)
[2016-05-18] MEDS: VISTARIL PO PRN (01:45)
[2016-05-18] MEDS ORDERED: HABITROL TD SCH (10:00)
[2016-05-18] MEDS: LOVENOX SUB-Q SCH (12:11)
[2016-05-18] MEDS: PROzac PO SCH (12:11)
[2016-05-18] MEDS: PEPCID PO SCH (12:12)
[2016-05-18] MEDS: ESKALITH PO SCH (12:12)
[2016-05-18 16:21] VITALS: BP 117/75
[2016-05-18] MEDS: SUBOXONE 2 MG-0.5 MG SL SCH (17:21)
--- NOTE | 2016-05-18 19:10 | Discharge Summary ---
Providers - Providers Date of Admission: 05/14/16 06:30 Date of discharge: 05/18/16 Attending physician: FRANK GROVES 05/14/16 07:37 Consult to Dietitian/Nutrition [CONS] Routine Physician Instructions: Reason For Exam: Reason for Consult: Malnutrition 05/14/16 07:38 Consult to Mental Health [CONS] Routine Reason For Exam: acute pyschosis Place consult to:: mental healt h Notified:: bernice Phone number called:: [phone] Was contact made?: Yes If yes, spoke with:: bernice Time called:: 10:51 Primary care physician: FRANK GROVES Hospitalization Condition: Stable Hospital course: Pt is a 35-yr old male seen on a mental health consult, as order by pt's attending MD (Dr. Groves). Pt originally presented to the ED, and subsequently admitted to the hospital, after suicide attempt via overdose on his prescribed Seroquel medication. At the time of this assessment, pt does not meet inpatient psychiatric services/detox guidelines: pt denies any current suicidal and/or homicidal ideations, does not report/display any overt signs/symptoms associated with psychosis, and denies any current withdrawal symptoms. Pt and his family, in particular his mother, are interested in pt entering a long-term treatment facility for substance abuse. Pt has been referred to [facility]: they take pt's on the , basis, Wednesday thru Wednesday, from 8AM til 1PM. Pt has been advised that pending discharge from the hospital, he should arrive at [facility] at approximately 7: 30AM, to assure a spot. It is the recommendation of this mental health clinical sales consultant that pt's 1013 be rescinded, and pt follow-up with referral recommendation to [facility]. Initialized on 05/18/16 16:40 - END OF NOTE By Bernice zhou mental health. See Notes from Hospital progress notes. Disposition: DISCHARGED TO HOME OR SELFCARE - Discharge Diagnoses (1) Endotracheally intubated Status: Resolved (2) Hypokalemia Status: Resolved (3) Overdose Status: Resolved Qualifiers: Encounter type: subsequent encounter Injury intent: I Core Measure Documentation - Palliative Care Palliative Care/ Comfort Measures: Not Applicable - Core Measures Any of the following diagnoses?: none Exam - Constitutional Vitals: Temp Pulse Resp BP Pulse Ox 98.4 F 87 20 117/75 95 05/18/16 15:00 05/18/16 15:00 05/18/16 15:00 05/18/16 15:00 05/18/16 08:00 General appearance: Present: no acute distress, well-nourished - EENT Eyes: Present: PERRL ENT: hearing intact, clear oral mucosa - Neck Neck: Present: supple, normal ROM - Respiratory Respiratory effort: normal Respiratory: bilateral: CTA - Cardiovascular Heart Sounds: Present: S1 & S2. Absent: rub, click - Extremities Extremities: pulses symmetrical, No edema Peripheral Pulses: within normal limits - Abdominal General gastrointestinal: Present: soft, non-tender, non-distended, normal bowel sounds Male genitourinary: Present: normal - Integumentary Integumentary: Present: clear, warm, dry - Musculoskeletal Musculoskeletal: gait normal, strength equal bilaterally - Psychiatric Psychiatric: appropriate mood/affect, intact judgment & insight - Neurologic Neurologic: CNII-XII intact, moves all extremities Plan Activity: no restrictions Diet: regular Follow up with: PRIMARY CARE, [Referring] - 3-5 Days Prescriptions: Atomoxetine HCl [Strattera] 40 mg PO QDAY #30 capsule Famotidine [Pepcid] 20 mg PO BID #60 tablet FLUoxetine [PROzac] 40 mg PO QDAY #30 capsule FLUoxetine HCL [PROzac] 40 mg PO QDAY #30 capsule hydrOXYzine PAMOATE [Vistaril] 25 mg PO Q6HR PRN #100 capsule PRN Reason: Allergy Symptoms [place] Carbonate [Eskalith] 300 mg PO BID #60 capsule [place] Carbonate [Eskalith] 300 mg PO BID #60 capsule QUEtiapine [SEROquel] 50 mg PO QHS #30 tablet Quetiapine Fumarate [SEROquel] 50 mg PO QHS #30 tablet
== END 2016-05-18 21:00 | disposition home or self-care (01) | DRG 917 ==
LOC: ED 04:59 → CC1 06:30 → 3A 05-16 20:03
PROVIDERS: ADMIT Internal Medicine; ATTEND Internal Medicine
PROC: 5A1945Z Respiratory Ventilation, 24-96 Consecutive Hours (ICD-10-PCS; principal; 2016-05-14)
PROC: 0BH17EZ Insertion of Endotracheal Airway into Trachea, Via Natural or Artificial Opening (ICD-10-PCS; 2016-05-14)
PROC: 4A033R1 Measurement of Arterial Saturation, Peripheral, Percutaneous Approach (ICD-10-PCS; 2016-05-14)
PROC: 4A033R1 Measurement of Arterial Saturation, Peripheral, Percutaneous Approach (ICD-10-PCS; 2016-05-15)
DX: T43.592A Poisoning by other antipsychotics and neuroleptics, intentional self-harm, initial encounter (principal); J96.00 Acute respiratory failure, unspecified whether with hypoxia or hypercapnia; F23 Brief psychotic disorder; E87.6 Hypokalemia; F17.200 Nicotine dependence, unspecified, uncomplicated; R73.9 Hyperglycemia, unspecified; T14.91 Suicide attempt; Z91.5 Personal history of self-harm; Z87.828 Personal history of other (healed) physical injury and trauma
CPT/HCPCS: 36415; 36600; 51702; 71010; 74000; 80048; 80053; 80178; 80307; 80320; 81001; 82550; 82803; 82962; 83036; 85025; 87205; 93005; 93010; 94002; 94003; 94640; 94760; 96361; 96374; 96375; G0480; J0330; J1630; J1650; J2060; J2310; J3480; J7030; Q0177

== ENCOUNTER 2016-06-17 22:54 | Inpatient (IN) | payer OTHER ==
[2016-06-17] MEDS ORDERED: ATIVAN IV ONE ×2 (23:12→23:14)
[2016-06-17] MEDS ORDERED: NACL 0.9% 1000 ML 1,000 ML IV ONE (23:13)
[2016-06-17] MEDS ORDERED: ATIVAN IM ONE (23:14)
[2016-06-17 23:45] LABS: Basophils % (Auto) 0.6 % (0.0-1.8); Eosinophils % (Auto) 2.4 % (0.0-4.3); Hemoglobin 13.6 gm/dl (11.8-15.2); Mean Corpuscular HGB Conc 33 % (32-34); Mean Corpuscular Hemoglobin 30 pg (28-32); Mean Corpuscular Volume 91 fl (84-94); Platelet Count 362 K/mm3 (140-440); Red Blood Count 4.53 M/mm3 (3.65-5.03); Red Cell Distribution Width 13.4 % (13.2-15.2); White Blood Count 10.1 K/mm3 (4.5-11.0)
[2016-06-18 00:05] LABS: Urine Drugs of Abuse Note Disclamer
[2016-06-18 00:06] LABS: Alanine Aminotransferase 14 units/L (7-56); Albumin 4.2 g/dL (3.9-5); Albumin/Globulin Ratio 1.8 %; Alkaline Phosphatase 86 units/L (35-129); Anion Gap 20 mmol/L; Bilirubin,Total 0.2 mg/dL (0.1-1.2); Blood Urea Nitrogen 7 mg/dL (9-20); Calcium 9.1 mg/dL (8.4-10.2); Carbon Dioxide 24 mmol/L (22-30); Chloride 100.1 mmol/L (98-107); Glucose 122 mg/dL (75-100); Potassium 3.5 mmol/L (3.6-5.0); Sodium 141 mmol/L (137-145); Total Protein 6.5 g/dL (6.3-8.2)
--- NOTE | 2016-06-18 00:06 | Emergency Department Report ---
History of Present Illness - General Chief Complaint: Overdose Stated Complaint: POSS OD Time Seen by Provider: 06/17/16 23:03 Source: patient, EMS, old records reviewed Mode of arrival: Stretcher Limitations: No Limitations - History of Present Illness Initial Comments: 35 yo male with a past psychiatric history presents to the hospital with possible overdose. EMS reports that at approximately 9:30 PM patient took 25 of Seroquel and 15 Wellbutrin tablets. Patient's plan was to kill himself. Patient of pain notified his mother visited overdose and she called 911. Upon arrival patient is belligerent and uncooperative. He is refusing to remove his clothes and demanding to go to [facility]. He states that if we do not submit to his demands we will see what what happened next. No physical complaints reported. Patient states he been feeling suicidal for "a while" Patient's med list includes lithium 300 mg every morning and 2 tablets at bedtime. Seroquel XL 400 mg at bedtime, Suboxone, Wellbutrin 75 mg 1 tab in a.m., and Vyvanse, geodon 60mg qhs, and vistaril. After mother arrival she states that patient did not take Wellbutrin. She found the tablets at home. She states that he did take Seroquel extended release overdose. He states she has a history of Seroquel (immediate release) overdose within the past 1 month resulting in intubation and ICU admission here. She states he was discharged home and stated to a psychiatric facility. He was still hallucinating upon discharge and they had him admitted to [facility]. He was there 1 week for "stabilization" and was discharged home. They state continue to have hallucinations involving his home he is currently . - Related Data Home Medications Medication Instructions Recorded Confirmed Last Taken Buprenorphine HCl/Naloxone HCl 2 film SL QID 05/14/16 05/14/16 Unknown [Suboxone 8 mg-2 mg SL Film] Previous Rx's Medication Instructions Recorded Last Taken Type Atomoxetine HCl [Strattera] 40 mg PO QDAY #30 capsule 05/18/16 Unknown Rx FLUoxetine HCL [PROzac] 40 mg PO QDAY #30 capsule 05/18/16 Unknown Rx FLUoxetine [PROzac] 40 mg PO QDAY #30 capsule 05/18/16 Unknown Rx Famotidine [Pepcid] 20 mg PO BID #60 tablet 05/18/16 Unknown Rx [place] Carbonate [Eskalith] 300 mg PO BID #60 capsule 05/18/16 Unknown Rx [place] Carbonate [Eskalith] 300 mg PO BID #60 capsule 05/18/16 Unknown Rx QUEtiapine [SEROquel] 50 mg PO QHS #30 tablet 05/18/16 Unknown Rx Quetiapine Fumarate [SEROquel] 50 mg PO QHS #30 tablet 05/18/16 Unknown Rx hydrOXYzine PAMOATE [Vistaril] 25 mg PO Q6HR PRN #100 capsule 05/18/16 Unknown Rx Allergies Allergy/AdvReac Type Severity Reaction Status Date / Time Unable to Assess Allergy Unverified 05/14/16 05:27 ED Review of Systems ROS: Stated complaint: POSS OD Other details as noted in HPI Comment: All other systems reviewed and negative Other: Constitutional: No fevers chills Neck: Denies pain Resp: SOB at rest shortness of breath or exertion Cardiovascular: Denies chest pain GI: Denies abdominal pain : Denies dysuria, joint swelling Skin: Denies rash, lesions, erythema Neurologic: Denies headache, numbness, weakness Psychiatric: As per HPI ED Past Medical Hx - Past Medical History Hx Congestive Heart Failure: No Hx Diabetes: No Hx Asthma: No Hx COPD: No Additional medical history: previous OD per EMS - Social History Smoking Status: Current Every Day Smoker Substance Use Type: Alcohol - Medications Home Medications: Home Medications Medication Instructions Recorded Confirmed Last Taken Type Buprenorphine HCl/Naloxone HCl 2 film SL QID 05/14/16 05/14/16 Unknown History [Suboxone 8 mg-2 mg SL Film] Atomoxetine HCl [Strattera] 40 mg PO QDAY #30 capsule 05/18/16 Unknown Rx FLUoxetine HCL [PROzac] 40 mg PO QDAY #30 capsule 05/18/16 Unknown Rx FLUoxetine [PROzac] 40 mg PO QDAY #30 capsule 05/18/16 Unknown Rx Famotidine [Pepcid] 20 mg PO BID #60 tablet 05/18/16 Unknown Rx [place] Carbonate [Eskalith] 300 mg PO BID #60 capsule 05/18/16 Unknown Rx [place] Carbonate [Eskalith] 300 mg PO BID #60 capsule 05/18/16 Unknown Rx QUEtiapine [SEROquel] 50 mg PO QHS #30 tablet 05/18/16 Unknown Rx Quetiapine Fumarate [SEROquel] 50 mg PO QHS #30 tablet 05/18/16 Unknown Rx hydrOXYzine PAMOATE [Vistaril] 25 mg PO Q6HR PRN #100 capsule 05/18/16 Unknown Rx ED Physical Exam - General Limitations: No Limitations - Other Other exam information: General: No limitations, patient is alert in no acute distress Head exam: Atraumatic, normocephalic Eyes exam: Normal appearance, pupils equal reactive to light ENT: Moist mucous membrane, normal oropharynx Neck exam: Normal inspection, full range of motion Respiratory exam: Clear to auscultation bilateral, no wheezes, rales, crackles Cardiovascular: Tachycardic regular rhythm Abdomen: Soft, nondistended, and nontender, with normal bowel sounds, no rebound, or guarding Extremity: Full range of motion normal inspection no deformity Back: Normal Inspection, full range of motion, no tenderness Neurologic: Alert, oriented x3, cranial nerves intact, no motor or sensory deficit Psychiatric: Agitated, belligerent Skin: Warm, dry, intact ED Course Vital Signs 06/17/16 06/18/16 23:09 00:47 Temperature 98.1 F Pulse Rate 128 H Respiratory 16 Rate Blood Pressure 109/64 O2 Sat by Pulse 100 Oximetry - Consultations Consultation #1: 06/18/16 23:05 Case d/w Poision control, do not advise haldol/geodon. Rec Benzo's as needed for agitation ED Medical Decision Making - Lab Data Result diagrams: 06/17/16 23:34 06/17/16 23:34 Lab Results 06/17/16 06/17/16 06/17/16 Range/Units 23:30 23:30 23:34 WBC 10.1 (4.5-11.0) K/mm3 RBC 4.53 (3.65-5.03) M/mm3 Hgb 13.6 (11.8-15.2) gm/dl Hct 41.0 (35.5-45.6) % MCV 91 (84-94) fl MCH 30 (28-32) pg MCHC 33 (32-34) % RDW 13.4 (13.2-15.2) % Plt Count 362 (140-440) K/mm3 Lymph % (Auto) 24.7 (13.4-35.0) % [place] % (Auto) 5.9 (0.0-7.3) % Eos % (Auto) 2.4 (0.0-4.3) % Baso % (Auto) 0.6 (0.0-1.8) % Lymph # 2.5 (1.2-5.4) K/mm3 [place] # 0.6 (0.0-0.8) K/mm3 Eos # 0.2 (0.0-0.4) K/mm3 Baso # 0.1 (0.0-0.1) K/mm3 Seg Neutrophils % 66.4 (40.0-70.0) % Seg Neutrophils # 6.7 (1.8-7.7) K/mm3 Sodium (137-145) mmol/L Potassium (3.6-5.0) mmol/L Chloride (98-107) mmol/L Carbon Dioxide (22-30) mmol/L Anion Gap mmol/L BUN (9-20) mg/dL Creatinine (0.8-1.5) mg/dL Estimated GFR ml/min BUN/Creatinine Ratio % Glucose (75-100) mg/dL Calcium (8.4-10.2) mg/dL Magnesium (1.7-2.3) mg/dL Total Bilirubin (0.1-1.2) mg/dL AST (5-40) units/L ALT (7-56) units/L Alkaline Phosphatase (35-129) units/L Total Creatine Kinase (55-170) units/L CK-MB (CK-2) (0.0-4.0) ng/mL CK-MB (CK-2) Rel Index (0-4) Total Protein (6.3-8.2) g/dL Albumin (3.9-5) g/dL Albumin/Globulin Ratio % Urine Color Straw (Yellow) Urine Turbidity Clear (Clear) Urine pH 7.0 (5.0-7.0) Ur Specific [place] 1.004 (1.003-1.030) Urine Protein <15 mg/dl (Negative) mg/dL Urine Glucose (UA) Neg (Negative) mg/dL Urine Ketones Neg (Negative) mg/dL Urine Blood Neg (Negative) Urine Nitrite Neg (Negative) Urine Bilirubin Neg (Negative) Urine Urobilinogen < 2.0 (<2.0) mg/dL Ur Leukocyte Esterase Neg (Negative) Urine WBC (Auto) 1.0 (0.0-6.0) /HPF Urine RBC (Auto) 1.0 (0.0-6.0) /HPF Urine Opiates Screen Presumptive negative Urine Methadone Screen Presumptive negative Ur Barbiturates Screen Presumptive negative Ur Phencyclidine Scrn Presumptive negative Ur Amphetamines Screen Presumptive positive U Benzodiazepines Scrn Presumptive negative [place] (0.0-1.2) mmol/L Urine Cocaine Screen Presumptive positive U Marijuana (THC) Screen Presumptive negative Drugs of Abuse Note Disclamer Plasma/Serum Alcohol (0-0.07) gm% 06/17/16 06/17/16 06/17/16 Range/Units 23:34 23:34 23:34 WBC (4.5-11.0) K/mm3 RBC (3.65-5.03) M/mm3 Hgb (11.8-15.2) gm/dl Hct (35.5-45.6) % MCV (84-94) fl MCH (28-32) pg MCHC (32-34) % RDW (13.2-15.2) % Plt Count (140-440) K/mm3 Lymph % (Auto) (13.4-35.0) % [place] % (Auto) (0.0-7.3) % Eos % (Auto) (0.0-4.3) % Baso % (Auto) (0.0-1.8) % Lymph # (1.2-5.4) K/mm3 [place] # (0.0-0.8) K/mm3 Eos # (0.0-0.4) K/mm3 Baso # (0.0-0.1) K/mm3 Seg Neutrophils % (40.0-70.0) % Seg Neutrophils # (1.8-7.7) K/mm3 Sodium 141 (137-145) mmol/L Potassium 3.5 L (3.6-5.0) mmol/L Chloride 100.1 (98-107) mmol/L Carbon Dioxide 24 (22-30) mmol/L Anion Gap 20 mmol/L BUN 7 L (9-20) mg/dL Creatinine 0.7 L (0.8-1.5) mg/dL Estimated GFR > 60 ml/min BUN/Creatinine Ratio 10.00 % Glucose 122 H (75-100) mg/dL Calcium 9.1 (8.4-10.2) mg/dL Magnesium (1.7-2.3) mg/dL Total Bilirubin 0.2 (0.1-1.2) mg/dL AST 13 (5-40) units/L ALT 14 (7-56) units/L Alkaline Phosphatase 86 (35-129) units/L Total Creatine Kinase (55-170) units/L CK-MB (CK-2) (0.0-4.0) ng/mL CK-MB (CK-2) Rel Index (0-4) Total Protein 6.5 (6.3-8.2) g/dL Albumin 4.2 (3.9-5) g/dL Albumin/Globulin Ratio 1.8 % Urine Color (Yellow) Urine Turbidity (Clear) Urine pH (5.0-7.0) Ur Specific [place] (1.003-1.030) Urine Protein (Negative) mg/dL Urine Glucose (UA) (Negative) mg/dL Urine Ketones (Negative) mg/dL Urine Blood (Negative) Urine Nitrite (Negative) Urine Bilirubin (Negative) Urine Urobilinogen (<2.0) mg/dL Ur Leukocyte Esterase (Negative) Urine WBC (Auto) (0.0-6.0) /HPF Urine RBC (Auto) (0.0-6.0) /HPF Urine Opiates Screen Urine Methadone Screen Ur Barbiturates Screen Ur Phencyclidine Scrn Ur Amphetamines Screen U Benzodiazepines Scrn [place] 0.2 (0.0-1.2) mmol/L Urine Cocaine Screen U Marijuana (THC) Screen Drugs of Abuse Note Plasma/Serum Alcohol < 0.01 (0-0.07) gm% 06/17/16 06/17/16 Range/Units 23:34 23:34 WBC (4.5-11.0) K/mm3 RBC (3.65-5.03) M/mm3 Hgb (11.8-15.2) gm/dl Hct (35.5-45.6) % MCV (84-94) fl MCH (28-32) pg MCHC (32-34) % RDW (13.2-15.2) % Plt Count (140-440) K/mm3 Lymph % (Auto) (13.4-35.0) % [place] % (Auto) (0.0-7.3) % Eos % (Auto) (0.0-4.3) % Baso % (Auto) (0.0-1.8) % Lymph # (1.2-5.4) K/mm3 [place] # (0.0-0.8) K/mm3 Eos # (0.0-0.4) K/mm3 Baso # (0.0-0.1) K/mm3 Seg Neutrophils % (40.0-70.0) % Seg Neutrophils # (1.8-7.7) K/mm3 Sodium (137-145) mmol/L Potassium (3.6-5.0) mmol/L Chloride (98-107) mmol/L Carbon Dioxide (22-30) mmol/L Anion Gap mmol/L BUN (9-20) mg/dL Creatinine (0.8-1.5) mg/dL Estimated GFR ml/min BUN/Creatinine Ratio % Glucose (75-100) mg/dL Calcium (8.4-10.2) mg/dL Magnesium 2.3 (1.7-2.3) mg/dL Total Bilirubin (0.1-1.2) mg/dL AST (5-40) units/L ALT (7-56) units/L Alkaline Phosphatase (35-129) units/L Total Creatine Kinase 85 (55-170) units/L CK-MB (CK-2) 1.7 (0.0-4.0) ng/mL CK-MB (CK-2) Rel Index 2.0 (0-4) Total Protein (6.3-8.2) g/dL Albumin (3.9-5) g/dL Albumin/Globulin Ratio % Urine Color (Yellow) Urine Turbidity (Clear) Urine pH (5.0-7.0) Ur Specific [place] (1.003-1.030) Urine Protein (Negative) mg/dL Urine Glucose (UA) (Negative) mg/dL Urine Ketones (Negative) mg/dL Urine Blood (Negative) Urine Nitrite (Negative) Urine Bilirubin (Negative) Urine Urobilinogen (<2.0) mg/dL Ur Leukocyte Esterase (Negative) Urine WBC (Auto) (0.0-6.0) /HPF Urine RBC (Auto) (0.0-6.0) /HPF Urine Opiates Screen Urine Methadone Screen Ur Barbiturates Screen Ur Phencyclidine Scrn Ur Amphetamines Screen U Benzodiazepines Scrn [place] (0.0-1.2) mmol/L Urine Cocaine Screen U Marijuana (THC) Screen Drugs of Abuse Note Plasma/Serum Alcohol (0-0.07) gm% - EKG Data -: EKG Interpreted by Me (sinus tach 120, qrs 90. qtc 466 ) - EKG Data When compared to previous EKG there are: no significant change (compared to ) - Medical Decision Making pt will need admission for overdose attempt. 1013 signed - Differential Diagnosis overdose, suicidal, psychosis Critical Care Time: No Critical care attestation.: If time is entered above; I have spent that time in minutes in the direct care of this critically ill patient, excluding procedure time. ED Disposition Clinical Impression: Suicide attempt by multiple drug overdose, Cocaine abuse Disposition: OP ADMITTED IP TO THIS HOSP Is pt being admited?: Yes Condition: Stable Time of Disposition: 01:00 (Dr schmitt/hosp)
[2016-06-18 00:17] LABS: Bilirubin,Urine NEG (Negative); Blood,Urine NEG (Negative); Ketones,Urine NEG (Negative); Leukocyte Esterase,Urine NEG (Negative); Nitrite,Urine NEG (Negative); Protein,Urine <15 mg/dL mg/dL (Negative); Urobilinogen,Urine < 2.0 mg/dL (<2.0)
[2016-06-18 00:57] LABS: Creatine Kinase MB 1.7 ng/mL (0.0-4.0)
--- NOTE | 2016-06-18 01:12 | Admit Criteria Form ---
Admission Criteria Documentation: DRUG INGESTION OR OVERDOSE Clinical Indications for Admission to Inpatient Care ( Place 'X' for any and all applicable criteria): Admission is indicated for severe toxicity as indicated by ANY ONE of the following(1)(2)(3)(4)(5)(6): [X ]I. Inpatient admission required rather than observation care (Also use Drug Ingestion or Overdose: Observation Care guideline as appropriate) because of ANY ONE of the following: [ ]a) Altered mental status that is severe or persistent [ ]b) Clinical finding (eg, metabolic acidosis, hypoglycemia, bradycardia) that is severe or persistent [ ]c) Toxic drug level that is persistent [ X]d) Psychiatric risk status not acceptable for outpatient management [ ]e) Continuous intravenous infusion of anticoagulation, platelet inhibitor, vasoactive, or antiarrhythmic medication (15)(16) [ ]f) Other condition, treatment or monitoring requiring inpatient admission [ ]II. Respiratory abnormalities [ ]III. Specific finding indicating severe and likely prolonged drug toxicity [ ]IV. Hemodynamic instability [ ]V. Dangerous arrhythmia [ ]. Hypertension requiring inpatient treatment Extended stay beyond goal length of stay may be needed for (4): [ ]a) Neurologic or respiratory compromise [ ]b) Hemodynamic instability [ ]c) Persistent toxic drug levels (25) [ ]d) Severe drug toxicities or complications [ ]e) Ongoing antidote treatment (eg, acetaminophen overdose)(5) [ ]f) Older patients(65 years or older) The original [facility] content created by [employer] has been revised. The portions of the content which have been revised are identified through the use of italic text or in bold, and [facility] has neither reviewed nor approved the modified material. All other unmodified content is copyright [facility] [employer]. Please see references footnoted in the original [facility] edition 2016 Admission Criteria Met: Yes
[2016-06-18] MEDS ORDERED: ATIVAN ONE (02:41)
[2016-06-18] MEDS ORDERED: ATIVAN IV ONE (03:00)
[2016-06-18] MEDS ORDERED: MILK OF MAGNESIA PO PRN (03:04)
[2016-06-18] MEDS ORDERED: TYLENOL PO PRN (03:04)
[2016-06-18] MEDS ORDERED: ZOFRAN IV PRN (03:04)
[2016-06-18] MEDS ORDERED: DULCOLAX PR PRN (03:04)
--- NOTE | 2016-06-18 03:08 | History and Physical Report ---
History of Present Illness Date of examination: 06/18/16 History of present illness: 35 -year-old man with a history of bipolar, previous suicide attempt was brought to the emergency room because of suicide attempt. Mother at bedside state that he receive a text message from the patient stating that he took some pills. Patient is having a difficult time, going through a divorce, he was recently admitted for previous suicide attempt. Since discharge she has been hallucinating. Patient is sedated, review of system is unobtainable PAST SURGICAL HISTORY: Tonsillectomy, arthroscopy of the knee SOCIAL HISTORY: Denies tobacco, heavy alcohol use, cocaine use positive on urine FAMILY HISTORY: Hypertension Medications and Allergies Allergies Allergy/AdvReac Type Severity Reaction Status Date / Time Unable to Assess Allergy Unverified 05/14/16 05:27 Home Medications Medication Instructions Recorded Confirmed Last Taken Type Buprenorphine HCl/Naloxone HCl 2 film SL QID 05/14/16 05/14/16 Unknown History [Suboxone 8 mg-2 mg SL Film] Atomoxetine HCl [Strattera] 40 mg PO QDAY #30 capsule 05/18/16 Unknown Rx FLUoxetine HCL [PROzac] 40 mg PO QDAY #30 capsule 05/18/16 Unknown Rx FLUoxetine [PROzac] 40 mg PO QDAY #30 capsule 05/18/16 Unknown Rx Famotidine [Pepcid] 20 mg PO BID #60 tablet 05/18/16 Unknown Rx [place] Carbonate [Eskalith] 300 mg PO BID #60 capsule 05/18/16 Unknown Rx [place] Carbonate [Eskalith] 300 mg PO BID #60 capsule 05/18/16 Unknown Rx QUEtiapine [SEROquel] 50 mg PO QHS #30 tablet 05/18/16 Unknown Rx Quetiapine Fumarate [SEROquel] 50 mg PO QHS #30 tablet 05/18/16 Unknown Rx hydrOXYzine PAMOATE [Vistaril] 25 mg PO Q6HR PRN #100 capsule 05/18/16 Unknown Rx Active Meds: Active Medications Acetaminophen (Tylenol) 650 mg PO Q4H PRN PRN Reason: Pain MILD(1-3)/Fever >100.5/ABRAHAM Bisacodyl (Dulcolax) 10 mg [place] QDAY PRN PRN Reason: Constipation unrelieved by MOM Enoxaparin Sodium (Lovenox) 40 mg SUB-Q QDAY [place] Sodium Chloride (Nacl 0.9% 1000 Ml) 1,000 mls @ 100 mls/hr IV DIRECT [place]OLOR[place] Magnesium Hydroxide (Milk Of Magnesia) 30 ml PO Q4H PRN PRN Reason: Constipation Ondansetron HCl (Zofran) 4 mg IV Q8H PRN PRN Reason: N/V unrelieved by Reglan Exam - Physical Exam Narrative exam: Gen. appearance: Patient lying in bed, no apparent distress HEENT: Normocephalic, atraumatic, pupils equally round and reactive to light, extraocular movement intact, and no sclericterus,. No JVD or thyromegaly or nodule,neck supple, no carotid bruit ,mucous membranes moist, no exudate or erythema Heart: S1, S2, regular rate and rhythm Lungs: Clear to auscultation bilaterally, breathing comfortable Abdomen: Positive bowel sounds, nontender, nondistended, no organomegaly Extremity: No edema, cyanosis, clubbing Skin: No rash, nodules, warm, dry Neuro: Sedated - Constitutional Vitals: Temp Pulse Resp BP Pulse Ox 98.1 F 128 H 16 109/64 100 06/18/16 00:47 06/17/16 23:09 06/17/16 23:09 06/17/16 23:09 06/17/16 23:09 Results - Labs CBC & Chem 7: 06/17/16 23:34 06/17/16 23:34 Labs: Abnormal lab results 06/17/16 Range/Units 23:34 Potassium 3.5 L (3.6-5.0) mmol/L BUN 7 L (9-20) mg/dL Creatinine 0.7 L (0.8-1.5) mg/dL Glucose 122 H (75-100) mg/dL Assessment and Plan Suicide attempt Bipolar Substance abuse Admit to medicine Consult psych, Place with a sitter, start IV fluid Give a dose of Ativan IV now, patient agitated Start DVT prophylaxis
[2016-06-18] MEDS: NACL 0.9% 1000 ML 1,000 ML IV SCH (07:32)
[2016-06-18] MEDS: LOVENOX SUB-Q SCH (10:33)
[2016-06-18] MEDS: HABITROL TD SCH (10:33)
--- NOTE | 2016-06-18 23:18 | Consultation ---
History of Present Illness - Reason for Consult Consult date: 06/18/16 Reason for consult: overdose - History of Present Psychiatric Illness This is a 35 year old male with a history of Bipolar Disorder who attempted overdose on 20 tablets of seroquel xr 400 mg (total dose 8000mg) and wellbutrin 15 tabs dose unknown. He was previously hospitalized in the ICU for a seroquel overdose about 1 months ago. He reportedly has several psychosocial stressors and a history of severe bipolar disorder complicated by non-adherence to his medication regimen. He was admitted to the floor for further monitoring. On examination he is unresponsive and appears sedated. The hospital medical team has started IVF, DVT prophylaxis, and one time lorazepam dose to address his agitation. Medications and Allergies Allergies Allergy/AdvReac Type Severity Reaction Status Date / Time Unable to Assess Allergy Unverified 05/14/16 05:27 Home Medications Medication Instructions Recorded Confirmed Last Taken Type Buprenorphine HCl/Naloxone HCl 2 film SL QID 05/14/16 06/18/16 1 Day Ago History [Suboxone 8 mg-2 mg SL Film] Atomoxetine HCl [Strattera] 40 mg PO QDAY #30 capsule 05/18/16 06/18/16 1 Day Ago Rx FLUoxetine [PROzac] 40 mg PO QDAY #30 capsule 05/18/16 06/18/16 1 Day Ago Rx Famotidine [Pepcid] 20 mg PO BID #60 tablet 05/18/16 06/18/16 1 Day Ago Rx [place] Carbonate [Eskalith] 300 mg PO BID #60 capsule 05/18/16 06/18/16 1 Day Ago Rx Quetiapine Fumarate [SEROquel] 50 mg PO QHS #30 tablet 05/18/16 06/18/16 1 Day Ago Rx hydrOXYzine PAMOATE [Vistaril] 25 mg PO Q6HR PRN #100 capsule 05/18/16 06/18/16 1 Day Ago Rx Active Meds: Active Medications Acetaminophen (Tylenol) 650 mg PO Q4H PRN PRN Reason: Pain MILD(1-3)/Fever >100.5/ABRAHAM Bisacodyl (Dulcolax) 10 mg [place] QDAY PRN PRN Reason: Constipation unrelieved by MOM Enoxaparin Sodium (Lovenox) 40 mg SUB-Q QDAY DOLORES Last Admin: 06/18/16 10:33 Dose: 40 mg Sodium Chloride (Nacl 0.9% 1000 Ml) 1,000 mls @ 100 mls/hr IV DIRECT [facility] Last Admin: 06/18/16 07:32 Dose: 100 mls/hr Influenza Virus Vaccine Quadrival (Fluarix Quad [id number](36 Mos+)) 60 mcg IM .ONCE ONE Stop: 06/19/16 12:01 Magnesium Hydroxide (Milk Of Magnesia) 30 ml PO Q4H PRN PRN Reason: Constipation Nicotine (Habitrol) 21 mg TD QDAY [facility] Last Admin: 06/18/16 10:33 Dose: 21 mg Ondansetron HCl (Zofran) 4 mg IV Q8H PRN PRN Reason: N/V unrelieved by Reglan Pantoprazole Sodium (Protonix) 40 mg IV QDAY [facility] Mental Status Exam - Vital signs Last Vital Signs Temp 97.8 F 06/18/16 20:00 Pulse 92 H 06/18/16 20:00 Resp 24 06/18/16 20:00 BP 135/81 06/18/16 20:00 Pulse Ox 98 06/18/16 20:56 - Exam Narrative exam: Appearance: Patient appears older than stated age, non-ambulatory Behavior: unresponsive, sedated Cooperation: none Insight/Judgment: HAILEY Level of cognition: reduced Level of consciousness: reduced awareness of surroundings Knowledge: unable to assess Speech: unable to assess Thought processes: unable to assess Thought content: unable to assess Perceptions: unable to assess Results Result Diagrams: 06/17/16 23:34 06/17/16 23:34 All other labs normal. Assessment and Plan Assessment and plan: Impression: Acute Intoxication on Seroquel and Wellbutrin related to overdose with subsequent delirium. QTc 460 No autonomic instability noted Renal function unaffected No rhabdomyolysis noted Seroquel is 100% bioavailable with a relatively short half life of 7 hours for extended release formulation, he should clear the seroquel given good renal function in approximately 40 hours Recommendations: - continue IVF, DVT/GI Prophylaxis - Recommend serial 12 lead EKGs q. 48 hrs. to reevaluate QTc, if pt. is placed on an antipsychotic or a medication (e.g. levofloxacin, citalopram) that is known to prolong the QTc interval. - CMP to follow & correct as indicated K & Mag as low levels can potentially increase QTc interval. - do not rechallenge with seroquel at this time - consider low dose lorazepam to reduce muscle rigidity
[2016-06-19] MEDS: ATIVAN IV SCH ×4 (02:32→11:36)
[2016-06-19] MEDS ORDERED: HALDOL IM ONE (03:41)
[2016-06-19 05:43] LABS: Basophils % (Auto) 0.6 % (0.0-1.8); Eosinophils % (Auto) 2.3 % (0.0-4.3); Hematocrit 41.1 % (35.5-45.6); Hemoglobin 13.5 gm/dl (11.8-15.2); Mean Corpuscular HGB Conc 33 % (32-34); Mean Corpuscular Hemoglobin 30 pg (28-32); Mean Corpuscular Volume 91 fl (84-94); Platelet Count 352 K/mm3 (140-440); Red Blood Count 4.51 M/mm3 (3.65-5.03); Red Cell Distribution Width 14.6 % (13.2-15.2); White Blood Count 9.2 K/mm3 (4.5-11.0)
[2016-06-19 05:57] LABS: Anion Gap 17 mmol/L; BUN/Creatinine Ratio 11.66; Blood Urea Nitrogen 7 mg/dL (9-20); Calcium 8.6 mg/dL (8.4-10.2); Carbon Dioxide 23 mmol/L (22-30); Chloride 104.4 mmol/L (98-107); Glucose 81 mg/dL (75-100); Potassium 3.7 mmol/L (3.6-5.0); Sodium 141 mmol/L (137-145)
[2016-06-19] MEDS ORDERED: PROTONIX IV SCH (10:00)
[2016-06-19] MEDS: LOVENOX SUB-Q SCH (10:49)
[2016-06-19] MEDS: HABITROL TD SCH (10:49)
--- NOTE | 2016-06-19 11:02 | Progress Note ---
Assessment and Plan Assessment and plan: 1. Suicide attempt. Continue 1013. Psychiatric following. 2. Acute intoxication on Seroquel and Wellbutrin. Continue to monitor EKGs. Continue to evaluate QT interval. Continue to follow electrolytes closely. 3. Bipolar disorder. Continue medications per psychiatry. History Interval history: 35 -year-old man with a history of bipolar, previous suicide attempt was brought to the emergency room because of suicide attempt. He reportedly has several psychosocial stressors and a history of severe bipolar disorder complicated by non-adherence to his medication regimen. Hospitalist Physical - Constitutional Vitals: Temp Pulse Resp BP Pulse Ox 98.1 F 90 18 124/92 100 06/19/16 09:13 06/19/16 10:07 06/19/16 09:13 06/19/16 09:13 06/19/16 10:07 General appearance: Present: no acute distress, well-nourished - EENT Eyes: Present: PERRL, EOM intact ENT: hearing intact, clear oral mucosa, dentition normal - Neck Neck: Present: supple, normal ROM - Respiratory Respiratory effort: normal Respiratory: bilateral: CTA - Cardiovascular Rhythm: regular Heart Sounds: Present: S1 & S2. Absent: gallop, rub - Extremities Extremities: no ischemia, No edema, Full ROM - Abdominal General gastrointestinal: soft, non-tender, non-distended, normal bowel sounds - Integumentary Integumentary: Present: clear, warm, dry - Neurologic Neurologic: CNII-XII intact, moves all extremities Results - Labs CBC & Chem 7: 06/19/16 05:16 06/19/16 05:16 Labs: Laboratory Last Values WBC 9.2 K/mm3 (4.5-11.0) 06/19/16 05:16 RBC 4.51 M/mm3 (3.65-5.03) 06/19/16 05:16 Hgb 13.5 gm/dl (11.8-15.2) 06/19/16 05:16 Hct 41.1 % (35.5-45.6) 06/19/16 05:16 MCV 91 fl (84-94) 06/19/16 05:16 MCH 30 pg (28-32) 06/19/16 05:16 MCHC 33 % (32-34) 06/19/16 05:16 RDW 14.6 % (13.2-15.2) 06/19/16 05:16 Plt Count 352 K/mm3 (140-440) 06/19/16 05:16 Lymph % (Auto) 25.2 % (13.4-35.0) 06/19/16 05:16 [place] % (Auto) 5.4 % (0.0-7.3) 06/19/16 05:16 Eos % (Auto) 2.3 % (0.0-4.3) 06/19/16 05:16 Baso % (Auto) 0.6 % (0.0-1.8) 06/19/16 05:16 Lymph # 2.3 K/mm3 (1.2-5.4) 06/19/16 05:16 [place] # 0.5 K/mm3 (0.0-0.8) 06/19/16 05:16 Eos # 0.2 K/mm3 (0.0-0.4) 06/19/16 05:16 Baso # 0.1 K/mm3 (0.0-0.1) 06/19/16 05:16 Seg Neutrophils % 66.5 % (40.0-70.0) 06/19/16 05:16 Seg Neutrophils # 6.1 K/mm3 (1.8-7.7) 06/19/16 05:16 Sodium 141 mmol/L (137-145) 06/19/16 05:16 Potassium 3.7 mmol/L (3.6-5.0) 06/19/16 05:16 Chloride 104.4 mmol/L (98-107) 06/19/16 05:16 Carbon Dioxide 23 mmol/L (22-30) 06/19/16 05:16 Anion Gap 17 mmol/L 06/19/16 05:16 BUN 7 mg/dL (9-20) L 06/19/16 05:16 Creatinine 0.6 mg/dL (0.8-1.5) L 06/19/16 05:16 Estimated GFR > 60 ml/min 06/19/16 05:16 BUN/Creatinine Ratio 11.66 % 06/19/16 05:16 Glucose 81 mg/dL (75-100) 06/19/16 05:16 Calcium 8.6 mg/dL (8.4-10.2) 06/19/16 05:16 Magnesium 2.3 mg/dL (1.7-2.3) 06/17/16 23:34 Total Bilirubin 0.2 mg/dL (0.1-1.2) 06/17/16 23:34 AST 13 units/L (5-40) 06/17/16 23:34 ALT 14 units/L (7-56) 06/17/16 23:34 Alkaline Phosphatase 86 units/L (35-129) 06/17/16 23:34 Total Creatine Kinase 85 units/L (55-170) 06/17/16 23:34 CK-MB (CK-2) 1.7 ng/mL (0.0-4.0) 06/17/16 23:34 CK-MB (CK-2) Rel Index 2.0 (0-4) 06/17/16 23:34 Total Protein 6.5 g/dL (6.3-8.2) 06/17/16 23:34 Albumin 4.2 g/dL (3.9-5) 06/17/16 23:34 Albumin/Globulin Ratio 1.8 % 06/17/16 23:34 Urine Color Straw (Yellow) 06/17/16 23:30 Urine Turbidity Clear (Clear) 06/17/16 23:30 Urine pH 7.0 (5.0-7.0) 06/17/16 23:30 Ur Specific [place] 1.004 (1.003-1.030) 06/17/16 23:30 Urine Protein <15 mg/dl mg/dL (Negative) 06/17/16 23:30 Urine Glucose (UA) Neg mg/dL (Negative) 06/17/16 23:30 Urine Ketones Neg mg/dL (Negative) 06/17/16 23:30 Urine Blood Neg (Negative) 06/17/16 23:30 Urine Nitrite Neg (Negative) 06/17/16 23:30 Urine Bilirubin Neg (Negative) 06/17/16 23:30 Urine Urobilinogen < 2.0 mg/dL (<2.0) 06/17/16 23:30 Ur Leukocyte Esterase Neg (Negative) 06/17/16 23:30 Urine WBC (Auto) 1.0 /HPF (0.0-6.0) 06/17/16 23:30 Urine RBC (Auto) 1.0 /HPF (0.0-6.0) 06/17/16 23:30 Urine Opiates Screen Presumptive negative 06/17/16 23:30 Urine Methadone Screen Presumptive negative 06/17/16 23:30 Ur Barbiturates Screen Presumptive negative 06/17/16 23:30 Ur Phencyclidine Scrn Presumptive negative 06/17/16 23:30 Ur Amphetamines Screen Presumptive positive 06/17/16 23:30 U Benzodiazepines Scrn Presumptive negative 06/17/16 23:30 [place] 0.2 mmol/L (0.0-1.2) 06/17/16 23:34 Urine Cocaine Screen Presumptive positive 06/17/16 23:30 U Marijuana (THC) Screen Presumptive negative 06/17/16 23:30 Drugs of Abuse Note Disclamer 06/17/16 23:30 Plasma/Serum Alcohol < 0.01 gm% (0-0.07) 06/17/16 23:34
[2016-06-19] MEDS ORDERED: FLUARIX QUAD 2016-2017(36 MOS+) IM ONE (12:00)
[2016-06-19] MEDS ORDERED: ATIVAN IV ONE ×2 (13:00→16:00)
[2016-06-19] MEDS: NACL 0.9% 1000 ML 1,000 ML IV SCH (13:20)
--- NOTE | 2016-06-19 16:42 | Progress Note ---
Subjective - Reason for Consult Reason for consult: psych management - Chief Complaint Chief complaint: 35 year old WM who presented to [facility] after overdose on his Seroquel. Patient and mother at the bedside note that the patient hasn't been able to cope with his pending divorce very well. This combined with the patient 's inability to stay away from maladaptive coping with illicit drugs led to him trying to kill himself via an overdose on Seroquel. The patient continues to be highly agitated and disorganized- therefore remaining in restraints. He still is hallucinating and wasn't able to comment on his suicidal thoughts. More irritable than depressed at this time, the patient is also confused- not realizing that he is in a hospital. Patient has been to multiple psych inpt hospitalization- each of which he leaves and doesn't follow through with his treatment plan. Instead he turns to illicit drugs to cope. He hasn't been compliant with outpatient treatment. Mental Status Exam - Vital signs Last Vital Signs Temp 98.1 F 06/19/16 09:13 Pulse 90 06/19/16 10:07 Resp 18 06/19/16 09:13 BP 124/92 06/19/16 09:13 Pulse Ox 100 06/19/16 10:07 - Exam Orientation: person Affect: agitated Mood: other Thought content: ideas of reference Thought Process: Circumstantial, Tangential, Disorganized Perceptions: visual, hallucinations Speech: rapid Concentration: distractible Motor activity: restless, agitated Level of consciousness: confused Interaction: uncooperative Assessment and Plan 35 year old WM who presented to [facility] after overdose on his Seroquel. Patient has a history of bipolar disorder. He hasn't been compliant with treatment and instead turning to illicit drugs as a means to cope. Manic behavior/irritability- use thorazine PRN at this time to control some of the agitation along with the ativan. Also goal is to utilize a long acting injectable- therefore start using risperdal 1mg po qhs for kendell/psychosis. Monitor EKG for qtc prolongation. Dispo- transfer to inpt psych when out of restraints - Patient Problems (1) Bipolar 1 disorder Current Visit: Yes Status: Chronic
[2016-06-19] MEDS: THORAZINE 50 MG in NACL 0.9% 100 ML IV PRN (20:30)
[2016-06-20] MEDS: ATIVAN IV SCH ×5 (04:03→18:08)
--- NOTE | 2016-06-20 10:26 | Progress Note ---
Assessment and Plan Assessment and plan: 1. Suicide attempt. Continue 1013. Psychiatric following. 2. Acute intoxication on Seroquel and Wellbutrin. Continue to monitor EKGs. Continue to evaluate QT interval. Continue to follow electrolytes closely. 3. Manic behavior/irritability. Continue Ativan and Thorazine as needed. 4. Bipolar disorder. Continue medications per psychiatry. History Interval history: 35 -year-old man with a history of bipolar, previous suicide attempt was brought to the emergency room because of suicide attempt. He reportedly has several psychosocial stressors and a history of severe bipolar disorder complicated by non-adherence to his medication regimen. Patient has several episodes yesterday with extreme agitation. Patient currently calm and sleeping. Hospitalist Physical - Constitutional Vitals: Temp Pulse Resp BP Pulse Ox 97.4 F L 86 18 144/90 98 06/20/16 09:30 06/20/16 09:30 06/20/16 09:30 06/20/16 09:30 06/20/16 09:30 General appearance: Present: no acute distress, well-nourished - EENT Eyes: Present: PERRL, EOM intact ENT: hearing intact, clear oral mucosa, dentition normal - Neck Neck: Present: supple, normal ROM - Respiratory Respiratory effort: normal Respiratory: bilateral: CTA - Cardiovascular Rhythm: regular Heart Sounds: Present: S1 & S2. Absent: gallop, rub - Extremities Extremities: no ischemia, No edema, Full ROM - Abdominal General gastrointestinal: soft, non-tender, non-distended, normal bowel sounds - Integumentary Integumentary: Present: clear, warm, dry - Neurologic Neurologic: CNII-XII intact, moves all extremities Results - Labs CBC & Chem 7: 06/19/16 05:16 06/19/16 05:16 Labs: Laboratory Last Values WBC 9.2 K/mm3 (4.5-11.0) 06/19/16 05:16 RBC 4.51 M/mm3 (3.65-5.03) 06/19/16 05:16 Hgb 13.5 gm/dl (11.8-15.2) 06/19/16 05:16 Hct 41.1 % (35.5-45.6) 06/19/16 05:16 MCV 91 fl (84-94) 06/19/16 05:16 MCH 30 pg (28-32) 06/19/16 05:16 MCHC 33 % (32-34) 06/19/16 05:16 RDW 14.6 % (13.2-15.2) 06/19/16 05:16 Plt Count 352 K/mm3 (140-440) 06/19/16 05:16 Lymph % (Auto) 25.2 % (13.4-35.0) 06/19/16 05:16 [place] % (Auto) 5.4 % (0.0-7.3) 06/19/16 05:16 Eos % (Auto) 2.3 % (0.0-4.3) 06/19/16 05:16 Baso % (Auto) 0.6 % (0.0-1.8) 06/19/16 05:16 Lymph # 2.3 K/mm3 (1.2-5.4) 06/19/16 05:16 [place] # 0.5 K/mm3 (0.0-0.8) 06/19/16 05:16 Eos # 0.2 K/mm3 (0.0-0.4) 06/19/16 05:16 Baso # 0.1 K/mm3 (0.0-0.1) 06/19/16 05:16 Seg Neutrophils % 66.5 % (40.0-70.0) 06/19/16 05:16 Seg Neutrophils # 6.1 K/mm3 (1.8-7.7) 06/19/16 05:16 Sodium 141 mmol/L (137-145) 06/19/16 05:16 Potassium 3.7 mmol/L (3.6-5.0) 06/19/16 05:16 Chloride 104.4 mmol/L (98-107) 06/19/16 05:16 Carbon Dioxide 23 mmol/L (22-30) 06/19/16 05:16 Anion Gap 17 mmol/L 06/19/16 05:16 BUN 7 mg/dL (9-20) L 06/19/16 05:16 Creatinine 0.6 mg/dL (0.8-1.5) L 06/19/16 05:16 Estimated GFR > 60 ml/min 06/19/16 05:16 BUN/Creatinine Ratio 11.66 % 06/19/16 05:16 Glucose 81 mg/dL (75-100) 06/19/16 05:16 Calcium 8.6 mg/dL (8.4-10.2) 06/19/16 05:16 Magnesium 2.3 mg/dL (1.7-2.3) 06/17/16 23:34 Total Bilirubin 0.2 mg/dL (0.1-1.2) 06/17/16 23:34 AST 13 units/L (5-40) 06/17/16 23:34 ALT 14 units/L (7-56) 06/17/16 23:34 Alkaline Phosphatase 86 units/L (35-129) 06/17/16 23:34 Total Creatine Kinase 85 units/L (55-170) 06/17/16 23:34 CK-MB (CK-2) 1.7 ng/mL (0.0-4.0) 06/17/16 23:34 CK-MB (CK-2) Rel Index 2.0 (0-4) 06/17/16 23:34 Total Protein 6.5 g/dL (6.3-8.2) 06/17/16 23:34 Albumin 4.2 g/dL (3.9-5) 06/17/16 23:34 Albumin/Globulin Ratio 1.8 % 06/17/16 23:34 Urine Color Straw (Yellow) 06/17/16 23:30 Urine Turbidity Clear (Clear) 06/17/16 23:30 Urine pH 7.0 (5.0-7.0) 06/17/16 23:30 Ur Specific [place] 1.004 (1.003-1.030) 06/17/16 23:30 Urine Protein <15 mg/dl mg/dL (Negative) 06/17/16 23:30 Urine Glucose (UA) Neg mg/dL (Negative) 06/17/16 23:30 Urine Ketones Neg mg/dL (Negative) 06/17/16 23:30 Urine Blood Neg (Negative) 06/17/16 23:30 Urine Nitrite Neg (Negative) 06/17/16 23:30 Urine Bilirubin Neg (Negative) 06/17/16 23:30 Urine Urobilinogen < 2.0 mg/dL (<2.0) 06/17/16 23:30 Ur Leukocyte Esterase Neg (Negative) 06/17/16 23:30 Urine WBC (Auto) 1.0 /HPF (0.0-6.0) 06/17/16 23:30 Urine RBC (Auto) 1.0 /HPF (0.0-6.0) 06/17/16 23:30 Urine Opiates Screen Presumptive negative 06/17/16 23:30 Urine Methadone Screen Presumptive negative 06/17/16 23:30 Ur Barbiturates Screen Presumptive negative 06/17/16 23:30 Ur Phencyclidine Scrn Presumptive negative 06/17/16 23:30 Ur Amphetamines Screen Presumptive positive 06/17/16 23:30 U Benzodiazepines Scrn Presumptive negative 06/17/16 23:30 [place] 0.2 mmol/L (0.0-1.2) 06/17/16 23:34 Urine Cocaine Screen Presumptive positive 06/17/16 23:30 U Marijuana (THC) Screen Presumptive negative 06/17/16 23:30 Drugs of Abuse Note Disclamer 06/17/16 23:30 Plasma/Serum Alcohol < 0.01 gm% (0-0.07) 06/17/16 23:34
[2016-06-20] MEDS: LOVENOX SUB-Q SCH (10:52)
[2016-06-20] MEDS: HABITROL TD SCH (10:53)
[2016-06-20] MEDS: PROTONIX PO SCH (10:55)
[2016-06-20] MEDS: RisperDAL PO SCH (10:55)
[2016-06-20] MEDS: NACL 0.9% 1000 ML 1,000 ML IV SCH (11:56)
[2016-06-20] MEDS: THORAZINE 50 MG in NACL 0.9% 100 ML IV PRN ×2 (14:34→22:24)
--- NOTE | 2016-06-20 16:32 | Progress Note ---
Subjective - Reason for Consult Consult date: 06/20/16 Reason for consult: agitation and overdose Mental Status Exam - Vital signs Last Vital Signs Temp 97.4 F L 06/20/16 09:30 Pulse 81 06/20/16 14:00 Resp 18 06/20/16 09:30 BP 144/90 06/20/16 09:30 Pulse Ox 98 06/20/16 09:30 Assessment and Plan Noted by Dr. Lamar Amezcua on his initial assessment on 06/19: 35 year old WM who presented to [facility] after overdose on his Seroquel. Patient and mother at the bedside note that the patient hasn't been able to cope with his pending divorce very well. This combined with the patient 's inability to stay away from maladaptive coping with illicit drugs led to him trying to kill himself via an overdose on Seroquel. The patient continues to be highly agitated and disorganized- therefore remaining in restraints. He still is hallucinating and wasn't able to comment on his suicidal thoughts. More irritable than depressed at this time, the patient is also confused- not realizing that he is in a hospital. Patient has been to multiple psych inpt hospitalization- each of which he leaves and doesn't follow through with his treatment plan. Instead he turns to illicit drugs to cope. He hasn't been compliant with outpatient treatment. On 06/20: Patient was verbal and engaged in a conversation about his care. He was still in 4 point restraints. He Level of consciousness: awake but sleeping just prior to my examination, appeared drowsy Level of cognition: reduced Speech: fluent Appearance: in hospital gown and 4 point restraints Behavior: not rigid Cooperation: full, but not well related Thought processes: unable to assess Thought content: unable to assess Perceptions: unable to assess Insight/Judgment: unable to assess Knowledge: unable to assess Impression: Acute Intoxication on Seroquel and Wellbutrin related to overdose with subsequent delirium. QTc 460 on 06/18 No autonomic instability noted Renal function unaffected No rhabdomyolysis noted Recommendations: - currently on risperidone and lorazepam at current doses - continue thorazine PRN to manage agitation - Recommend serial 12 lead EKGs q. 48 hrs. to reevaluate QTc - CMP to follow & correct as indicated K & Mag as low levels can potentially increase QTc interval. - continue IVF, DVT/GI Prophylaxis Disposition: transfer to inpatient psychiatry when out of restraints
[2016-06-21] MEDS: NACL 0.9% 1000 ML 1,000 ML IV SCH (07:38)
[2016-06-21] MEDS: ATIVAN IV SCH ×2 (07:39→13:40)
[2016-06-21] MEDS: HABITROL TD SCH (09:56)
[2016-06-21] MEDS: LOVENOX SUB-Q SCH (09:56)
[2016-06-21] MEDS: PROTONIX PO SCH (09:56)
[2016-06-21] MEDS: RisperDAL PO SCH (09:56)
--- NOTE | 2016-06-21 10:06 | Progress Note ---
Assessment and Plan Assessment and plan: 1. Suicide attempt. Continue 1013. Psychiatric following. 2. Acute intoxication on Seroquel and Wellbutrin. Continue to monitor EKGs. Continue to evaluate QT interval. Continue to follow electrolytes closely. 3. Manic behavior/irritability. Continue Ativan and Thorazine as needed. 4. Bipolar disorder. Continue medications per psychiatry. History Interval history: 35 -year-old man with a history of bipolar, previous suicide attempt was brought to the emergency room because of suicide attempt. He reportedly has several psychosocial stressors and a history of severe bipolar disorder complicated by non-adherence to his medication regimen. Again, patient had episodes yesterday with agitation. Patient currently calm and sleeping. Hospitalist Physical - Constitutional Vitals: Temp Pulse Resp BP Pulse Ox 97.9 F 98 H 18 132/86 98 06/21/16 08:00 06/21/16 08:00 06/21/16 08:00 06/21/16 08:00 06/21/16 08:00 General appearance: Present: no acute distress, well-nourished - EENT Eyes: Present: PERRL, EOM intact ENT: hearing intact, clear oral mucosa, dentition normal - Neck Neck: Present: supple, normal ROM - Respiratory Respiratory effort: normal Respiratory: bilateral: CTA - Cardiovascular Rhythm: regular Heart Sounds: Present: S1 & S2. Absent: gallop, rub - Extremities Extremities: no ischemia, No edema, Full ROM - Abdominal General gastrointestinal: soft, non-tender, non-distended, normal bowel sounds - Integumentary Integumentary: Present: clear, warm, dry - Neurologic Neurologic: CNII-XII intact, moves all extremities Results - Labs CBC & Chem 7: 06/19/16 05:16 06/19/16 05:16 Labs: Laboratory Last Values WBC 9.2 K/mm3 (4.5-11.0) 06/19/16 05:16 RBC 4.51 M/mm3 (3.65-5.03) 06/19/16 05:16 Hgb 13.5 gm/dl (11.8-15.2) 06/19/16 05:16 Hct 41.1 % (35.5-45.6) 06/19/16 05:16 MCV 91 fl (84-94) 06/19/16 05:16 MCH 30 pg (28-32) 06/19/16 05:16 MCHC 33 % (32-34) 06/19/16 05:16 RDW 14.6 % (13.2-15.2) 06/19/16 05:16 Plt Count 352 K/mm3 (140-440) 06/19/16 05:16 Lymph % (Auto) 25.2 % (13.4-35.0) 06/19/16 05:16 [place] % (Auto) 5.4 % (0.0-7.3) 06/19/16 05:16 Eos % (Auto) 2.3 % (0.0-4.3) 06/19/16 05:16 Baso % (Auto) 0.6 % (0.0-1.8) 06/19/16 05:16 Lymph # 2.3 K/mm3 (1.2-5.4) 06/19/16 05:16 [place] # 0.5 K/mm3 (0.0-0.8) 06/19/16 05:16 Eos # 0.2 K/mm3 (0.0-0.4) 06/19/16 05:16 Baso # 0.1 K/mm3 (0.0-0.1) 06/19/16 05:16 Seg Neutrophils % 66.5 % (40.0-70.0) 06/19/16 05:16 Seg Neutrophils # 6.1 K/mm3 (1.8-7.7) 06/19/16 05:16 Sodium 141 mmol/L (137-145) 06/19/16 05:16 Potassium 3.7 mmol/L (3.6-5.0) 06/19/16 05:16 Chloride 104.4 mmol/L (98-107) 06/19/16 05:16 Carbon Dioxide 23 mmol/L (22-30) 06/19/16 05:16 Anion Gap 17 mmol/L 06/19/16 05:16 BUN 7 mg/dL (9-20) L 06/19/16 05:16 Creatinine 0.6 mg/dL (0.8-1.5) L 06/19/16 05:16 Estimated GFR > 60 ml/min 06/19/16 05:16 BUN/Creatinine Ratio 11.66 % 06/19/16 05:16 Glucose 81 mg/dL (75-100) 06/19/16 05:16 Calcium 8.6 mg/dL (8.4-10.2) 06/19/16 05:16 Magnesium 2.3 mg/dL (1.7-2.3) 06/17/16 23:34 Total Bilirubin 0.2 mg/dL (0.1-1.2) 06/17/16 23:34 AST 13 units/L (5-40) 06/17/16 23:34 ALT 14 units/L (7-56) 06/17/16 23:34 Alkaline Phosphatase 86 units/L (35-129) 06/17/16 23:34 Total Creatine Kinase 85 units/L (55-170) 06/17/16 23:34 CK-MB (CK-2) 1.7 ng/mL (0.0-4.0) 06/17/16 23:34 CK-MB (CK-2) Rel Index 2.0 (0-4) 06/17/16 23:34 Total Protein 6.5 g/dL (6.3-8.2) 06/17/16 23:34 Albumin 4.2 g/dL (3.9-5) 06/17/16 23:34 Albumin/Globulin Ratio 1.8 % 06/17/16 23:34 Urine Color Straw (Yellow) 06/17/16 23:30 Urine Turbidity Clear (Clear) 06/17/16 23:30 Urine pH 7.0 (5.0-7.0) 06/17/16 23:30 Ur Specific [place] 1.004 (1.003-1.030) 06/17/16 23:30 Urine Protein <15 mg/dl mg/dL (Negative) 06/17/16 23:30 Urine Glucose (UA) Neg mg/dL (Negative) 06/17/16 23:30 Urine Ketones Neg mg/dL (Negative) 06/17/16 23:30 Urine Blood Neg (Negative) 06/17/16 23:30 Urine Nitrite Neg (Negative) 06/17/16 23:30 Urine Bilirubin Neg (Negative) 06/17/16 23:30 Urine Urobilinogen < 2.0 mg/dL (<2.0) 06/17/16 23:30 Ur Leukocyte Esterase Neg (Negative) 06/17/16 23:30 Urine WBC (Auto) 1.0 /HPF (0.0-6.0) 06/17/16 23:30 Urine RBC (Auto) 1.0 /HPF (0.0-6.0) 06/17/16 23:30 Urine Opiates Screen Presumptive negative 06/17/16 23:30 Urine Methadone Screen Presumptive negative 06/17/16 23:30 Ur Barbiturates Screen Presumptive negative 06/17/16 23:30 Ur Phencyclidine Scrn Presumptive negative 06/17/16 23:30 Ur Amphetamines Screen Presumptive positive 06/17/16 23:30 U Benzodiazepines Scrn Presumptive negative 06/17/16 23:30 [place] 0.2 mmol/L (0.0-1.2) 06/17/16 23:34 Urine Cocaine Screen Presumptive positive 06/17/16 23:30 U Marijuana (THC) Screen Presumptive negative 06/17/16 23:30 Drugs of Abuse Note Disclamer 06/17/16 23:30 Plasma/Serum Alcohol < 0.01 gm% (0-0.07) 06/17/16 23:34
--- NOTE | 2016-06-21 13:53 | Progress Note ---
Subjective - Reason for Consult Reason for consult: psych management - Chief Complaint Chief complaint: 35 year old WM who presented to [facility] after overdose on his Seroquel. Patient and mother at the bedside again. Patient is much calmer today and out of restraints. He notes that his mood is better- he realizes he needs to transition to an inpatient facility or [facility]. He notes that his mood is good. No SI/HI/AH/VH. He denies any withdrawal symptoms. He's been compliant with meds and tolerating them. we once again discussed the side effects, risk, benefits of the antipsychotic meds. Mental Status Exam - Vital signs Last Vital Signs Temp 97.9 F 06/21/16 08:00 Pulse 98 H 06/21/16 08:00 Resp 18 06/21/16 08:00 BP 132/86 06/21/16 08:00 Pulse Ox 98 06/21/16 08:00 - Exam Orientation: time, place, person Affect: normal Mood: appropriate Thought Process: Intact Perceptions: none Speech: normal rate and pattern Concentration: distractible Motor activity: normal Level of consciousness: alert Memory: Intact Interaction: cooperative Mini mental status exam(if necessary): 24-30 Assessment and Plan 35 year old WM who presented to [facility] after overdose on his Seroquel. Patient has a history of bipolar disorder. He hasn't been compliant with treatment and instead turning to illicit drugs as a means to cope. Today patient has improved. His family is with him and have noted the same. He currently isn't in acute risk of self harm to himself or others and is willing to go into a treatment program. Manic behavior/irritability- Also goal is to utilize a long acting injectable- therefore continue using risperdal 1mg po qhs for kendell/psychosis. Dispo- transfer to [facility] today if medically cleared- rescind 1013 - Patient Problems (1) Bipolar 1 disorder Current Visit: Yes Status: Chronic
[2016-06-21 17:50] VITALS: BP 124/93
--- NOTE | 2016-06-22 15:18 | Discharge Summary ---
Providers - Providers Date of Admission: 06/18/16 03:04 Date of discharge: 06/22/16 Attending physician: DONG AGUILAR Primary care physician: [employer] Hospitalization Reason for admission: OD Condition: Stable Hospital course: This is a 35 year old male with a history of Bipolar Disorder who attempted overdose on 20 tablets of seroquel xr 400 mg (total dose 8000mg) and wellbutrin 15 tabs dose unknown. He was previously hospitalized in the ICU for a seroquel overdose about 1 months ago. He reportedly has several psychosocial stressors and a history of severe bipolar disorder complicated by non-adherence to his medication regimen. He was admitted to the floor for further monitoring. Patient was noted to have acute intoxication related to the overdose and subsequent delirium. Patient has serial EKGs to monitor and reevaluate QT prolongation. Medications that prolong QT interval were avoided. Patient also has serial CMP is to monitor for electrolyte abnormalities. Patient was treated with medications and eventually stabilized. Patient was seen by psychiatry in consultation. On 06/21/16 patient was noted to have no acute risk of self harm to himself or others as documented by psychiatry. Psychiatry recommended transfer to [facility] and rescinded 1013. The dictated discharge time 35 minutes. Disposition: DC/TX PSY HOSP/PSY UNIT - Discharge Diagnoses (1) Suicide attempt by multiple drug overdose Status: Resolved Qualifiers: Encounter type: E (2) Bipolar 1 disorder Status: Resolved (3) Overdose Status: Resolved Qualifiers: Encounter type: subsequent encounter Injury intent: I Core Measure Documentation - Palliative Care Palliative Care/ Comfort Measures: Not Applicable - Core Measures Any of the following diagnoses?: none Exam - Constitutional Vitals: Temp Pulse Resp BP Pulse Ox 98.7 F 111 H 18 124/93 98 06/21/16 16:00 06/21/16 16:00 06/21/16 16:00 06/21/16 16:00 06/21/16 16:00 General appearance: Present: no acute distress, well-nourished - EENT Eyes: Present: PERRL ENT: hearing intact, clear oral mucosa - Neck Neck: Present: supple, normal ROM - Respiratory Respiratory effort: normal Respiratory: bilateral: CTA - Cardiovascular Heart Sounds: Present: S1 & S2. Absent: rub, click - Extremities Extremities: pulses symmetrical, No edema Peripheral Pulses: within normal limits - Abdominal General gastrointestinal: Present: soft, non-tender, non-distended, normal bowel sounds Male genitourinary: Present: normal - Integumentary Integumentary: Present: clear, warm, dry - Musculoskeletal Musculoskeletal: gait normal, strength equal bilaterally - Psychiatric Psychiatric: appropriate mood/affect, intact judgment & insight - Neurologic Neurologic: CNII-XII intact, moves all extremities Plan Activity: no restrictions Weight Bearing Status: Full Weight Bearing Diet: regular
== END 2016-06-21 22:36 | DRG 918 ==
LOC: ED 22:54 → 4A 06-18 03:04
PROVIDERS: ADMIT Internal Medicine; ATTEND Hospitalist
DX: T43.592A Poisoning by other antipsychotics and neuroleptics, intentional self-harm, initial encounter (principal); T43.292A Poisoning by other antidepressants, intentional self-harm, initial encounter; F19.10 Other psychoactive substance abuse, uncomplicated; F31.9 Bipolar disorder, unspecified; F17.200 Nicotine dependence, unspecified, uncomplicated; Z79.899 Other long term (current) drug therapy; Z82.49 Family history of ischemic heart disease and other diseases of the circulatory system; Z98.890 Other specified postprocedural states; Z91.14 Patient's other noncompliance with medication regimen; Y92.89 Other specified places as the place of occurrence of the external cause; Z78.1 Physical restraint status
CPT/HCPCS: 36415; 80048; 80053; 80178; 80307; 80320; 81001; 82550; 82553; 83735; 85025; 90686; 93005; 93010; 96361; 96374; 96376; C9113; G0480; J1630; J1650; J2060; J3230; J7030

== ENCOUNTER 2017-01-23 11:16 | Inpatient (IN) | payer OTHER ==
[2017-01-23 12:37] LABS: Basophils % (Auto) 0.3 % (0.0-1.8); Eosinophils % (Auto) 0.9 % (0.0-4.3); Hematocrit 43.6 % (35.5-45.6); Mean Corpuscular HGB Conc 34 % (32-34); Mean Corpuscular Hemoglobin 31 pg (28-32); Mean Corpuscular Volume 91 fl (84-94); Platelet Count 360 K/mm3 (140-440); Red Blood Count 4.82 M/mm3 (3.65-5.03); Red Cell Distribution Width 13.7 % (13.2-15.2); White Blood Count 8.3 K/mm3 (4.5-11.0)
--- NOTE | 2017-01-23 12:41 | XRay Report ---
AP CHEST :01/23/17 11:16:00 CLINICAL: Drug overdose. COMPARISON:08/27/16 FINDINGS: Normal heart and pulmonary vasculature. The lungs are normally expanded and clear. Scoliosis. IMPRESSION: No acute cardiopulmonary process.
[2017-01-23] MEDS ORDERED: NACL 0.9% 1000 ML 1,000 ML IV ONE (12:48)
[2017-01-23 12:51] LABS: Urine Drugs of Abuse Note Disclamer
[2017-01-23 12:53] LABS: Alanine Aminotransferase 18 units/L (7-56); Albumin 4.6 g/dL (3.9-5); Albumin/Globulin Ratio 1.8 %; Alkaline Phosphatase 76 units/L (35-129); Anion Gap 18 mmol/L; BUN/Creatinine Ratio 12; Blood Urea Nitrogen 7 mg/dL (9-20); Calcium 9.5 mg/dL (8.4-10.2); Carbon Dioxide 25 mmol/L (22-30); Chloride 100.6 mmol/L (98-107); Glucose 114 mg/dL (75-100); Potassium 3.8 mmol/L (3.6-5.0); Sodium 140 mmol/L (137-145); Total Protein 7.2 g/dL (6.3-8.2)
--- NOTE | 2017-01-23 13:07 | History and Physical Report ---
History of Present Illness Chief complaint: He took a lot of seroquel tablets History of present illness: 36 YO Male with Previous Suicide Attempts, Bipolar with Behavior Disturbance, Cocaine Dependence presents to ED for evaluation. Pt stuporous and unable to provide history. Pt history provided by parents who are at bedside during exam and interview. Pt family states that patient was admitted to [facility] for 5 days and released on Wednesday. Pt family states that patient took an undetermined number of seroquel tablets today, and has been unresponsive for the past 2 hours. No reports of fever, chills, CP, Palpitations, NVD, Trauma, Syncope, or recent ill contacts. Pt seen and evaluated in ED and found to be stuporous but able to protect his airway. Poison control notified. Will Admit to ICU for close monitoring. Past History Past Medical History: other (Bipolar, suicide attempt) Past Surgical History: Other (Knee surgery, T&A,) Social history: , lives with family. denies: smoking, alcohol abuse, IV drug use Family history: hypertension Medications and Allergies Allergies Allergy/AdvReac Type Severity Reaction Status Date / Time No Known Drug Allergies Allergy Unknown Verified 06/19/16 07:49 Home Medications Medication Instructions Recorded Confirmed Last Taken Type Buprenorphine HCl/Naloxone HCl 1 film SL BID 05/14/16 08/28/16 1 Day Ago History [Suboxone 8 mg-2 mg SL Film] Famotidine [Pepcid] 20 mg PO BID #60 tablet 05/18/16 06/18/16 1 Day Ago Rx [place] Carbonate [Eskalith] 300 mg PO BID #60 capsule 05/18/16 06/18/16 1 Day Ago Rx Buprenorphine HCl/Naloxone HCl 1 film SUBLINGUAL BID MDD 08/27/16 08/28/1608/2808/27/16 History [Suboxone 8 mg-2 mg SL Film] 1 film Doxepin HCl 100 mg PO HS MDD 100 mg 08/28/16 08/28/16 08/26/16 History 100 mg [place] 600 mg PO HS MDD 600 mg 08/28/16 08/28/16 08/26/16 History 600 mg [place] [Eskalith] 300 mg PO DAILY MDD 300 mg 08/28/16 08/28/16 History 300mg Paliperidone ER 9 mg PO HS MDD 9 mg 08/28/16 08/28/16 08/26/16 History 9 mg Levofloxacin [Levaquin] 750 mg PO QDAY #10 tablet 08/30/16 Unknown Rx oxyCODONE /ACETAMINOPHEN [Percocet 1 tab PO Q6H PRN #10 tablet 08/30/16 Unknown Rx 5/325 mg] Active Meds: Active Medications Sodium Chloride (Nacl 0.9% 1000 Ml) 1,000 mls @ 999 mls/hr IV BOLUS ONE Stop: 01/23/17 13:48 Review of Systems ROS unobtainable: due to mental status Exam - Constitutional Vitals: Temp Pulse Resp BP Pulse Ox 98.1 F 116 H 12 113/74 98 01/23/17 11:35 01/23/17 12:00 01/23/17 12:00 01/23/17 12:00 01/23/17 12:00 General appearance: Present: severe distress - EENT Eyes: Present: PERRL ENT: hearing intact, clear oral mucosa - Neck Neck: Present: supple, normal ROM - Respiratory Respiratory effort: labored Respiratory: bilateral: diminished - Cardiovascular Heart Sounds: Present: S1 & S2. Absent: rub, click - Extremities Extremities: pulses symmetrical, No edema Peripheral Pulses: within normal limits - Abdominal General gastrointestinal: Present: soft, non-tender, non-distended, normal bowel sounds Male genitourinary: Present: normal - Integumentary Integumentary: Present: clear, dry, decreased turgor - Musculoskeletal Musculoskeletal: generalized weakness - Psychiatric Psychiatric: no intact judgment & insight, no memory intact, agitated - Neurologic Neurologic: CNII-XII intact, moves all extremities Results - Labs CBC & Chem 7: 01/23/17 12:01 01/23/17 12:01 Labs: Abnormal lab results 01/23/17 01/23/17 Range/Units 12:01 12:01 Seg Neutrophils % 73.2 H (40.0-70.0) % BUN 7 L (9-20) mg/dL Creatinine 0.6 L (0.8-1.5) mg/dL Glucose 114 H (75-100) mg/dL Assessment and Plan - Patient Problems (1) Overdose of antipsychotic Current Visit: Yes Status: Acute Qualifiers: Encounter type: initial encounter Injury intent: I Plan to address problem: Seroquel Overdose: Poison control notified, supportive care, Psych consult, hold seroquel. (2) Bipolar disorder, current episode manic severe with psychotic features Current Visit: Yes Status: Acute Plan to address problem: 4 point restraints, supportive care, Geodon IM PRN (3) Encephalopathy acute Current Visit: Yes Status: Acute Plan to address problem: Secondary to seroquel OD, neuro checks, supportive care (4) Cocaine abuse Current Visit: No Status: Acute Plan to address problem: Supportive care, IVF replacement, (5) Suicide attempt by multiple drug overdose Current Visit: No Status: Resolved Qualifiers: Encounter type: E Plan to address problem: Psych consulted, supportive care, (6) DVT prophylaxis Current Visit: Yes Status: Acute
[2017-01-23 13:09] LABS: Bilirubin,Urine NEG (Negative); Blood,Urine NEG (Negative); Ketones,Urine NEG (Negative); Leukocyte Esterase,Urine NEG (Negative); Mucus,Urine FEW /HPF; Nitrite,Urine NEG (Negative); Protein,Urine <15 mg/dL mg/dL (Negative); Urobilinogen,Urine < 2.0 mg/dL (<2.0)
[2017-01-23 13:46] LABS: ABG Base Excess -0.7 mmol/L (-2.0-3.0); ABG HCO3 24.8 mmol/L (20.0-26.0); ABG Oxygen Saturation 98.4 % (95.0-99.0); ABG PH 7.37 pH Units (7.350-7.450); ABG PO2 122.9 mm Hg (80.0-90.0)
--- NOTE | 2017-01-23 13:53 | Emergency Department Report ---
ED General Adult HPI - General Chief complaint: Overdose Stated complaint: OVERDOSE Time Seen by Provider: 01/23/17 12:38 Source: family, EMS Mode of arrival: Stretcher Limitations: Altered Mental Status - History of Present Illness Initial comments: Upon my encounter of the patient, his mother informs me that this is his third similar such event. She he has overdosed on Seroquel, ecstasy and cocaine twice before. She found him somnolent with it at the Seroquel bottle of 30 was again. She tells me that she has asked the doctors not to prescribe Seroquel because he repeatedly overdoses. He has a history of bipolar disorder. He has a history of polydrug abuse. He was recently admitted to [facility] and placed on Suboxone. He has been on Suboxone before. There is no reported Suboxone overdose. His previous medicines do include lithium. I have entered orders for lithium level centimeter fan as well as what was previously placed by protocol. No injury was reported. Mother reports that the patient has become extremely agitated and belligerent upon intubation in the past and upon awakening in the ICU. -: This morning Radiation: other Consistency: other Associated Symptoms: other (unable to obtain) - Related Data Home Medications Medication Instructions Recorded Confirmed Last Taken Buprenorphine HCl/Naloxone HCl 1 film SL BID 05/14/16 08/28/16 1 Day Ago [Suboxone 8 mg-2 mg SL Film] Buprenorphine HCl/Naloxone HCl 1 film SUBLINGUAL BID MDD 08/27/16 08/28/1608/2808/27/16 [Suboxone 8 mg-2 mg SL Film] 1 film Doxepin HCl 100 mg PO HS MDD 100 mg 08/28/16 08/28/16 08/26/16 100 mg [place] Carbonate 600 mg PO HS MDD 600 mg 08/28/16 08/28/16 08/26/16 600 mg [place] Carbonate [Eskalith] 300 mg PO DAILY MDD 300 mg 08/28/16 08/28/16 300mg Paliperidone ER 9 mg PO HS MDD 9 mg 08/28/16 08/28/16 08/26/16 9 mg Previous Rx's Medication Instructions Recorded Last Taken Type Famotidine [Pepcid] 20 mg PO BID #60 tablet 05/18/16 1 Day Ago Rx [place] Carbonate [Eskalith] 300 mg PO BID #60 capsule 05/18/16 1 Day Ago Rx Levofloxacin [Levaquin] 750 mg PO QDAY #10 tablet 08/30/16 Unknown Rx oxyCODONE /ACETAMINOPHEN [Percocet 1 tab PO Q6H PRN #10 tablet 08/30/16 Unknown Rx 5/325 mg] Allergies Allergy/AdvReac Type Severity Reaction Status Date / Time No Known Drug Allergies Allergy Unknown Verified 06/19/16 07:49 ED Review of Systems ROS: Stated complaint: OVERDOSE Other details as noted in HPI Comment: Unobtainable due to pts medical conditions ED Past Medical Hx - Past Medical History Hx Congestive Heart Failure: No Hx Diabetes: No Hx Psychiatric Treatment: Yes (bipolar) Hx Asthma: No Hx COPD: No Additional medical history: previous OD per EMS - Surgical History Additional Surgical History: T&A, Left knee surgery x 2 - Social History Smoking Status: Former Smoker - Medications Home Medications: Home Medications Medication Instructions Recorded Confirmed Last Taken Type Buprenorphine HCl/Naloxone HCl 1 film SL BID 05/14/16 08/28/16 1 Day Ago History [Suboxone 8 mg-2 mg SL Film] Famotidine [Pepcid] 20 mg PO BID #60 tablet 05/18/16 06/18/16 1 Day Ago Rx [place] Carbonate [Eskalith] 300 mg PO BID #60 capsule 05/18/16 06/18/16 1 Day Ago Rx Buprenorphine HCl/Naloxone HCl 1 film SUBLINGUAL BID MDD 08/27/16 08/28/1608/2808/27/16 History [Suboxone 8 mg-2 mg SL Film] 1 film Doxepin HCl 100 mg PO HS MDD 100 mg 08/28/16 08/28/16 08/26/16 History 100 mg [place] Carbonate 600 mg PO HS MDD 600 mg 08/28/16 08/28/16 08/26/16 History 600 mg [place] Carbonate [Eskalith] 300 mg PO DAILY MDD 300 mg 08/28/16 08/28/16 History 300mg Paliperidone ER 9 mg PO HS MDD 9 mg 08/28/16 08/28/16 08/26/16 History 9 mg Levofloxacin [Levaquin] 750 mg PO QDAY #10 tablet 08/30/16 Unknown Rx oxyCODONE /ACETAMINOPHEN [Percocet 1 tab PO Q6H PRN #10 tablet 08/30/16 Unknown Rx 5/325 mg] ED Physical Exam - General Limitations: Altered Mental Status General appearance: obtunded, other (tachypnea) - Head Head exam: Present: atraumatic, normocephalic - Eye Eye exam: Present: normal appearance, other (somewhat myotic pupils reactive) - ENT ENT exam: Present: normal exam - Neck Neck exam: Present: normal inspection. Absent: tenderness, meningismus - Respiratory Respiratory exam: Present: normal lung sounds bilaterally. Absent: respiratory distress - Cardiovascular Cardiovascular Exam: Present: regular rate, normal rhythm. Absent: systolic murmur, diastolic murmur, rubs, gallop - GI/Abdominal GI/Abdominal exam: Present: soft, normal bowel sounds. Absent: distended, tenderness, guarding, rebound, rigid - Extremities Exam Extremities exam: Present: normal inspection, full ROM. Absent: tenderness, normal capillary refill, pedal edema, joint swelling, calf tenderness - Back Exam Back exam: Present: normal inspection - Neurological Exam Neurological exam: Present: other (the patient apparently nonfocal exam) ED Course Vital Signs 01/23/17 01/23/17 01/23/17 11:29 11:32 11:35 Temperature 98.1 F Pulse Rate 113 H Respiratory 12 16 Rate Blood Pressure 120/68 125/72 O2 Sat by Pulse 94 94 Oximetry 01/23/17 01/23/17 01/23/17 12:00 12:30 13:00 Temperature Pulse Rate 116 H 111 H 108 H Respiratory 12 10 L 14 Rate Blood Pressure 113/74 108/75 116/73 O2 Sat by Pulse 98 98 99 Oximetry 01/23/17 01/23/17 01/23/17 13:30 14:00 14:30 Temperature Pulse Rate 95 H 98 H 108 H Respiratory 13 12 12 Rate Blood Pressure 102/69 112/64 121/68 O2 Sat by Pulse 98 97 98 Oximetry - Reevaluation(s) Reevaluation #1: The patient's arterial blood gas: pH 7.370 ABG pCO2 44.0 ABG pO2 122.9 H ABG HCO3 24.8 ABG O2 Saturation 98.4 ABG O2 Content 19.1 ABG Base Excess -0.7 ABG Hemoglobin 14.6 ABG Carboxyhemoglobin 6.0 H ABG Methemoglobin 0.4 Oxyhemoglobin 92.1 L FiO2 32 01/23/17 15:14 Shows good oxygenation and no significant hypercapnia. He does not require intubation or noninvasive positive pressure ventilation. Obviously he will require very close monitoring. This case has been referred to Dr. Magallanes of the hospitalist service. He will determine as to whether he improves enough to be admitted to telemetry versus the ICU. 01/23/17 15:19 I added a CK concerning the patient's cocaine abuse. I will leave the decision as to whether patient will require cerebral hemorrhaging to Dr. Magallanes. This third time the patient has taken an apparent overdose. At this point I don't feel compelled to order a CT. ED Medical Decision Making - Lab Data Result diagrams: 01/23/17 12:01 01/23/17 12:01 Laboratory Results - last 24 hr 01/23/17 01/23/17 01/23/17 12:01 12:01 12:01 WBC 8.3 RBC 4.82 Hgb 15.0 Hct 43.6 MCV 91 MCH 31 MCHC 34 RDW 13.7 Plt Count 360 Lymph % (Auto) 19.1 [place] % (Auto) 6.5 Eos % (Auto) 0.9 Baso % (Auto) 0.3 Lymph # 1.6 [place] # 0.5 Eos # 0.1 Baso # 0.0 Seg Neutrophils % 73.2 H Seg Neutrophils # 6.1 ABG pH ABG pCO2 ABG pO2 ABG HCO3 ABG O2 Saturation ABG O2 Content ABG Base Excess ABG Hemoglobin ABG Carboxyhemoglobin ABG Methemoglobin Oxyhemoglobin FiO2 Sodium 140 Potassium 3.8 Chloride 100.6 Carbon Dioxide 25 Anion Gap 18 BUN 7 L Creatinine 0.6 L Estimated GFR > 60 BUN/Creatinine Ratio 12 Glucose 114 H Calcium 9.5 Total Bilirubin 0.70 AST 14 ALT 18 Alkaline Phosphatase 76 Total Protein 7.2 Albumin 4.6 Albumin/Globulin Ratio 1.8 Urine Color Urine Turbidity Urine pH Ur Specific [place] Urine Protein Urine Glucose (UA) Urine Ketones Urine Blood Urine Nitrite Urine Bilirubin Urine Urobilinogen Ur Leukocyte Esterase Urine WBC (Auto) Urine RBC (Auto) Urine Mucus Urine Opiates Screen Urine Methadone Screen Ur Barbiturates Screen Ur Phencyclidine Scrn Ur Amphetamines Screen U Benzodiazepines Scrn U Marijuana (THC) Screen Plasma/Serum Alcohol < 0.01 01/23/17 01/23/17 01/23/17 13:08 Unknown Unknown WBC RBC Hgb Hct MCV MCH MCHC RDW Plt Count Lymph % (Auto) [place] % (Auto) Eos % (Auto) Baso % (Auto) Lymph # [place] # Eos # Baso # Seg Neutrophils % Seg Neutrophils # ABG pH 7.370 ABG pCO2 44.0 ABG pO2 122.9 H ABG HCO3 24.8 ABG O2 Saturation 98.4 ABG O2 Content 19.1 ABG Base Excess -0.7 ABG Hemoglobin 14.6 ABG Carboxyhemoglobin 6.0 H ABG Methemoglobin 0.4 Oxyhemoglobin 92.1 L FiO2 32 Sodium Potassium Chloride Carbon Dioxide Anion Gap BUN Creatinine Estimated GFR BUN/Creatinine Ratio Glucose Calcium Total Bilirubin AST ALT Alkaline Phosphatase Total Protein Albumin Albumin/Globulin Ratio Urine Color Yellow Urine Turbidity Clear Urine pH 6.0 Ur Specific [place] 1.016 Urine Protein <15 mg/dl Urine Glucose (UA) Neg Urine Ketones Neg Urine Blood Neg Urine Nitrite Neg Urine Bilirubin Neg Urine Urobilinogen < 2.0 Ur Leukocyte Esterase Neg Urine WBC (Auto) 2.0 Urine RBC (Auto) 1.0 Urine Mucus Few Urine Opiates Screen Presumptive negative Urine Methadone Screen Presumptive negative Ur Barbiturates Screen Presumptive negative Ur Phencyclidine Scrn Presumptive negative Ur Amphetamines Screen Presumptive negative U Benzodiazepines Scrn Presumptive negative U Marijuana (THC) Screen Presumptive negative Plasma/Serum Alcohol Laboratory Results - last 24 hr 01/23/17 01/23/17 01/23/17 12:01 12:01 12:01 WBC 8.3 RBC 4.82 Hgb 15.0 Hct 43.6 MCV 91 MCH 31 MCHC 34 RDW 13.7 Plt Count 360 Lymph % (Auto) 19.1 [place] % (Auto) 6.5 Eos % (Auto) 0.9 Baso % (Auto) 0.3 Lymph # 1.6 [place] # 0.5 Eos # 0.1 Baso # 0.0 Seg Neutrophils % 73.2 H Seg Neutrophils # 6.1 ABG pH ABG pCO2 ABG pO2 ABG HCO3 ABG O2 Saturation ABG O2 Content ABG Base Excess ABG Hemoglobin ABG Carboxyhemoglobin ABG Methemoglobin Oxyhemoglobin FiO2 Sodium 140 Potassium 3.8 Chloride 100.6 Carbon Dioxide 25 Anion Gap 18 BUN 7 L Creatinine 0.6 L Estimated GFR > 60 BUN/Creatinine Ratio 12 Glucose 114 H Calcium 9.5 Total Bilirubin 0.70 AST 14 ALT 18 Alkaline Phosphatase 76 Total Protein 7.2 Albumin 4.6 Albumin/Globulin Ratio 1.8 Urine Color Urine Turbidity Urine pH Ur Specific [place] Urine Protein Urine Glucose (UA) Urine Ketones Urine Blood Urine Nitrite Urine Bilirubin Urine Urobilinogen Ur Leukocyte Esterase Urine WBC (Auto) Urine RBC (Auto) Urine Mucus Urine Opiates Screen Urine Methadone Screen Acetaminophen Ur Barbiturates Screen Ur Phencyclidine Scrn Ur Amphetamines Screen U Benzodiazepines Scrn [place] Urine Cocaine Screen U Marijuana (THC) Screen Drugs of Abuse Note Plasma/Serum Alcohol < 0.01 01/23/17 01/23/17 01/23/17 12:57 13:08 14:26 WBC RBC Hgb Hct MCV MCH MCHC RDW Plt Count Lymph % (Auto) [place] % (Auto) Eos % (Auto) Baso % (Auto) Lymph # [place] # Eos # Baso # Seg Neutrophils % Seg Neutrophils # ABG pH 7.370 ABG pCO2 44.0 ABG pO2 122.9 H ABG HCO3 24.8 ABG O2 Saturation 98.4 ABG O2 Content 19.1 ABG Base Excess -0.7 ABG Hemoglobin 14.6 ABG Carboxyhemoglobin 6.0 H ABG Methemoglobin 0.4 Oxyhemoglobin 92.1 L FiO2 32 Sodium Potassium Chloride Carbon Dioxide Anion Gap BUN Creatinine Estimated GFR BUN/Creatinine Ratio Glucose Calcium Total Bilirubin AST ALT Alkaline Phosphatase Total Protein Albumin Albumin/Globulin Ratio Urine Color Urine Turbidity Urine pH Ur Specific [place] Urine Protein Urine Glucose (UA) Urine Ketones Urine Blood Urine Nitrite Urine Bilirubin Urine Urobilinogen Ur Leukocyte Esterase Urine WBC (Auto) Urine RBC (Auto) Urine Mucus Urine Opiates Screen Urine Methadone Screen Acetaminophen < 15.0 Ur Barbiturates Screen Ur Phencyclidine Scrn Ur Amphetamines Screen U Benzodiazepines Scrn [place] 0.2 Urine Cocaine Screen U Marijuana (THC) Screen Drugs of Abuse Note Plasma/Serum Alcohol 01/23/17 01/23/17 Unknown Unknown WBC RBC Hgb Hct MCV MCH MCHC RDW Plt Count Lymph % (Auto) [place] % (Auto) Eos % (Auto) Baso % (Auto) Lymph # [place] # Eos # Baso # Seg Neutrophils % Seg Neutrophils # ABG pH ABG pCO2 ABG pO2 ABG HCO3 ABG O2 Saturation ABG O2 Content ABG Base Excess ABG Hemoglobin ABG Carboxyhemoglobin ABG Methemoglobin Oxyhemoglobin FiO2 Sodium Potassium Chloride Carbon Dioxide Anion Gap BUN Creatinine Estimated GFR BUN/Creatinine Ratio Glucose Calcium Total Bilirubin AST ALT Alkaline Phosphatase Total Protein Albumin Albumin/Globulin Ratio Urine Color Yellow Urine Turbidity Clear Urine pH 6.0 Ur Specific [place] 1.016 Urine Protein <15 mg/dl Urine Glucose (UA) Neg Urine Ketones Neg Urine Blood Neg Urine Nitrite Neg Urine Bilirubin Neg Urine Urobilinogen < 2.0 Ur Leukocyte Esterase Neg Urine WBC (Auto) 2.0 Urine RBC (Auto) 1.0 Urine Mucus Few Urine Opiates Screen Presumptive negative Urine Methadone Screen Presumptive negative Acetaminophen Ur Barbiturates Screen Presumptive negative Ur Phencyclidine Scrn Presumptive negative Ur Amphetamines Screen Presumptive negative U Benzodiazepines Scrn Presumptive negative [place] Urine Cocaine Screen Presumptive positive U Marijuana (THC) Screen Presumptive negative Drugs of Abuse Note Disclamer Plasma/Serum Alcohol - EKG Data -: EKG Interpreted by Me EKG shows normal: sinus rhythm, axis, intervals, QRS complexes, ST-T waves Rate: tachycardia - EKG Data Interpretation: other (QTC is normal) Critical Care Time: Yes Critical care time in (mins) excluding proc time.: 40 Critical care attestation.: If time is entered above; I have spent that time in minutes in the direct care of this critically ill patient, excluding procedure time. ED Disposition Clinical Impression: Cocaine abuse Overdose of antipsychotic Qualifiers: Encounter type: initial encounter Injury intent: intentional self-harm Qualified Code(s): T43.502A - Poisoning by unspecified antipsychotics and neuroleptics, intentional self-harm, initial encounter Altered mental status Qualifiers: Altered mental status type: stupor Qualified Code(s): R40.1 - Stupor Disposition: -09 OP ADMIT IP TO THIS HOSP Is pt being admited?: Yes Does the pt Need Aspirin: No Condition: Stable Referrals: PRIMARY CARE, [Primary Care Provider] - 3-5 Days Time of Disposition: 15:20
[2017-01-23] MEDS ORDERED: ALUM-MAG HYDROX-SIMETH 200-200-20MG/5ML PO PRN (14:27)
[2017-01-23] MEDS ORDERED: MILK OF MAGNESIA PO PRN (14:27)
[2017-01-23] MEDS ORDERED: DULCOLAX PR PRN (14:27)
[2017-01-23] MEDS ORDERED: PROVENTIL IH PRN (14:27)
[2017-01-23] MEDS ORDERED: GEODON IM PRN (14:32)
[2017-01-23 16:12] LABS: Creatine Kinase MB 1.7 ng/mL (0.0-4.0)
--- NOTE | 2017-01-24 08:32 | Progress Note ---
Assessment and Plan Assessment and plan: 36-year-old man with history of bipolar disorder, polysubstance abuse. Multiple episodes of suicide attempt in the past. In the past he has overdosed by taking all his psych meds at once. This time, he was brought into the hospital altered and confused, and family convinced that he probably overdosed on his medication Suspected Overdose of antipsychotic/ Suicide attempt by multiple drug overdose possible Seroquel Overdose: Poison control notified, supportive care, Psych consult, hold seroquel. Bipolar disorder, current episode manic severe with psychotic features continue 1012, mental health consult Toxic Encephalopathy ,acute Secondary to seroquel OD and cocaine , neuro checks, supportive care improving Cocaine abuse was counseled about cessation dvt ppx lovenox History Interval history: Patient is more responsive, he denies having suicidal ideation, he claims he does not remember what happened. His family convinced that he overdosed on pills which he does frequently Admits using cocaine 2 days prior to coming to the hospital Hospitalist Physical - Physical exam Narrative exam: General.: Appears well, no distress, nontoxic HEENT: Moist mucous membranes, extraocular muscles intact, no lymphadenopathy Neck: supple Cardiac: S1-S2 heard Lungs: clear to auscultation bilaterally Abdomen: soft , nontender, nondistended, bowel sounds positive Extremities: no edema clubbing or cyanosis Skin: no rash or lesions Neurologic: no gross focal deficits Psych: Evasive, flat affect - Constitutional Vitals: Temp Pulse Resp BP Pulse Ox 98.2 F 92 H 13 129/88 96 01/24/17 00:20 01/24/17 08:00 01/24/17 08:00 01/24/17 08:00 01/24/17 08:00 Results - Labs CBC & Chem 7: 01/23/17 12:01 01/23/17 12:01 Labs: Laboratory Last Values WBC 8.3 K/mm3 (4.5-11.0) 01/23/17 12:01 RBC 4.82 M/mm3 (3.65-5.03) 01/23/17 12:01 Hgb 15.0 gm/dl (11.8-15.2) 01/23/17 12:01 Hct 43.6 % (35.5-45.6) 01/23/17 12:01 MCV 91 fl (84-94) 01/23/17 12:01 MCH 31 pg (28-32) 01/23/17 12:01 MCHC 34 % (32-34) 01/23/17 12:01 RDW 13.7 % (13.2-15.2) 01/23/17 12:01 Plt Count 360 K/mm3 (140-440) 01/23/17 12:01 Lymph % (Auto) 19.1 % (13.4-35.0) 01/23/17 12:01 [place] % (Auto) 6.5 % (0.0-7.3) 01/23/17 12:01 Eos % (Auto) 0.9 % (0.0-4.3) 01/23/17 12:01 Baso % (Auto) 0.3 % (0.0-1.8) 01/23/17 12:01 Lymph # 1.6 K/mm3 (1.2-5.4) 01/23/17 12:01 [place] # 0.5 K/mm3 (0.0-0.8) 01/23/17 12:01 Eos # 0.1 K/mm3 (0.0-0.4) 01/23/17 12:01 Baso # 0.0 K/mm3 (0.0-0.1) 01/23/17 12:01 Seg Neutrophils % 73.2 % (40.0-70.0) H 01/23/17 12:01 Seg Neutrophils # 6.1 K/mm3 (1.8-7.7) 01/23/17 12:01 ABG pH 7.370 pH Units (7.350-7.450) 01/23/17 13:08 ABG pCO2 44.0 mm Hg 01/23/17 13:08 ABG pO2 122.9 mm Hg (80.0-90.0) H 01/23/17 13:08 ABG HCO3 24.8 mmol/L (20.0-26.0) 01/23/17 13:08 ABG O2 Saturation 98.4 % (95.0-99.0) 01/23/17 13:08 ABG O2 Content 19.1 (0.0-44) 01/23/17 13:08 ABG Base Excess -0.7 mmol/L (-2.0-3.0) 01/23/17 13:08 ABG Hemoglobin 14.6 gm/dl (14.0-18.0) 01/23/17 13:08 ABG Carboxyhemoglobin 6.0 % (0.0-5.0) H 01/23/17 13:08 ABG Methemoglobin 0.4 % (0.0-1.5) 01/23/17 13:08 Oxyhemoglobin 92.1 % (95.0-99.0) L 01/23/17 13:08 FiO2 32 % 01/23/17 13:08 Sodium 140 mmol/L (137-145) 01/23/17 12:01 Potassium 3.8 mmol/L (3.6-5.0) 01/23/17 12:01 Chloride 100.6 mmol/L (98-107) 01/23/17 12:01 Carbon Dioxide 25 mmol/L (22-30) 01/23/17 12:01 Anion Gap 18 mmol/L 01/23/17 12:01 BUN 7 mg/dL (9-20) L 01/23/17 12:01 Creatinine 0.6 mg/dL (0.8-1.5) L 01/23/17 12:01 Estimated GFR > 60 ml/min 01/23/17 12:01 BUN/Creatinine Ratio 12 % 01/23/17 12:01 Glucose 114 mg/dL (75-100) H 01/23/17 12:01 Calcium 9.5 mg/dL (8.4-10.2) 01/23/17 12:01 Total Bilirubin 0.70 mg/dL (0.1-1.2) 01/23/17 12:01 AST 14 units/L (5-40) 01/23/17 12:01 ALT 18 units/L (7-56) 01/23/17 12:01 Alkaline Phosphatase 76 units/L (35-129) 01/23/17 12:01 Total Creatine Kinase 148 units/L (55-170) 01/23/17 12:01 CK-MB (CK-2) 1.7 ng/mL (0.0-4.0) 01/23/17 12:01 CK-MB (CK-2) Rel Index 1.1 (0-4) 01/23/17 12:01 Total Protein 7.2 g/dL (6.3-8.2) 01/23/17 12:01 Albumin 4.6 g/dL (3.9-5) 01/23/17 12:01 Albumin/Globulin Ratio 1.8 % 01/23/17 12:01 Urine Color Yellow (Yellow) 01/23/17 Unknown Urine Turbidity Clear (Clear) 01/23/17 Unknown Urine pH 6.0 (5.0-7.0) 01/23/17 Unknown Ur Specific [place] 1.016 (1.003-1.030) 01/23/17 Unknown Urine Protein <15 mg/dl mg/dL (Negative) 01/23/17 Unknown Urine Glucose (UA) Neg mg/dL (Negative) 01/23/17 Unknown Urine Ketones Neg mg/dL (Negative) 01/23/17 Unknown Urine Blood Neg (Negative) 01/23/17 Unknown Urine Nitrite Neg (Negative) 01/23/17 Unknown Urine Bilirubin Neg (Negative) 01/23/17 Unknown Urine Urobilinogen < 2.0 mg/dL (<2.0) 01/23/17 Unknown Ur Leukocyte Esterase Neg (Negative) 01/23/17 Unknown Urine WBC (Auto) 2.0 /HPF (0.0-6.0) 01/23/17 Unknown Urine RBC (Auto) 1.0 /HPF (0.0-6.0) 01/23/17 Unknown Urine Mucus Few /HPF 01/23/17 Unknown Urine Opiates Screen Presumptive negative 01/23/17 Unknown Urine Methadone Screen Presumptive negative 01/23/17 Unknown Acetaminophen < 15.0 ug/mL (10.0-30.0) 01/23/17 14:26 Ur Barbiturates Screen Presumptive negative 01/23/17 Unknown Ur Phencyclidine Scrn Presumptive negative 01/23/17 Unknown Ur Amphetamines Screen Presumptive negative 01/23/17 Unknown U Benzodiazepines Scrn Presumptive negative 01/23/17 Unknown [place] 0.2 mmol/L (0.0-1.2) 01/23/17 12:57 Urine Cocaine Screen Presumptive positive 01/23/17 Unknown U Marijuana (THC) Screen Presumptive negative 01/23/17 Unknown Drugs of Abuse Note Disclamer 01/23/17 Unknown Plasma/Serum Alcohol < 0.01 gm% (0-0.07) 01/23/17 12:01
--- NOTE | 2017-01-24 16:54 | Consultation ---
History of Present Illness - Reason for Consult Consult date: 01/24/17 Reason for consult: psychiatric evaluation (overdose & behavioral disturbance) - Chief Complaint Chief complaint: "You can only hold me 72 hours or I'll give you a reason to hold me." 36 year old male brought in by EMS status post suicide attempt via overdose. He admits to taking approximately 26 Seroquel 200mg tablets. Pt has a history of Bipolar disorder and cocaine dependence with multiple prior suicide attempts. He has been treated at this facility twice this year for similar presentation, and discharged from [facility] ago. Per report of family Pt was found unresponsive following the ingestion. He is angry with his family and says they are setting him up. He states he plans to return to his life of using cocaine and does not want his family involved. He frequently looked around the room and appeared suspicious. Medications and Allergies Allergies Allergy/AdvReac Type Severity Reaction Status Date / Time No Known Drug Allergies Allergy Unknown Verified 06/19/16 07:49 Home Medications Medication Instructions Recorded Confirmed Last Taken Type Famotidine [Pepcid] 20 mg PO BID #60 tablet 05/18/16 01/23/17 1 Day Ago Rx [place] Carbonate [Eskalith] 300 mg PO BID #60 capsule 05/18/16 01/23/17 1 Day Ago Rx Doxepin HCl 100 mg PO HS MDD 100 mg 08/28/16 01/23/17 08/26/16 History 100 mg [place] Carbonate 600 mg PO HS MDD 600 mg 08/28/16 01/23/17 08/26/16 History 600 mg Paliperidone ER 9 mg PO HS MDD 9 mg 08/28/16 01/23/17 08/26/16 History 9 mg Active Meds: Active Medications Al Hydrox/Mg Hydrox/Simethicone (Alum-Mag Hydrox-Simeth 270-212-65pm/5ml) 30 ml PO Q4H PRN PRN Reason: Indigestion Albuterol (Proventil) 2.5 mg IH Q3H PRN PRN Reason: Shortness Of Breath Bisacodyl (Dulcolax) 10 mg DE QDAY PRN PRN Reason: constipation unrelieved by MOM Enoxaparin Sodium (Lovenox) 40 mg SUB-Q QDAY@2200 DOLORES Sodium Chloride (Nacl 0.45% 1000 Ml) 1,000 mls @ 125 mls/hr IV DIRECT DOLORES Magnesium Hydroxide (Milk Of Magnesia) 30 ml PO Q4H PRN PRN Reason: Constipation Past psychiatric history - past Psychiatric treatment and history Psych: Addictions, Bipolar psychiatric treatment history: reports cocaine use every other day and marijuana use daily Previous suicide attempts. See HPI - Social History Social history: lives with family Mental Status Exam - Vital signs Last Vital Signs Temp 98.2 F 01/24/17 00:20 Pulse 85 01/24/17 11:29 Resp 13 01/24/17 11:29 BP 132/93 01/24/17 11:29 Pulse Ox 98 01/24/17 11:29 - Exam Orientation: time, place, person Affect: agitated Mood: congruent with affect Thought content: paranoia Thought Process: Tangential Perceptions: none Speech: other (loud) Concentration: distractible Motor activity: restless Level of consciousness: alert Memory: Intact Sleep Symptoms: Insomnia Interaction: hostile, guarded Results Result Diagrams: 01/23/17 12:01 01/23/17 12:01 All other labs normal. Assessment and Plan Assessment and plan: Impression: suicidal attempt cocaine use disorder-severe substance induced mood disorder vs bipolar disorder previous medications of lithium, invega, and doxepin. Hold at this time. Recommendation: 1013 and transfer to inpatient psych facility when medically cleared Hold antipsychotics Give Ativan 1 mg [id number] prn agitation.
[2017-01-24] MEDS: ATIVAN PO PRN (17:34)
[2017-01-24] MEDS ORDERED: HABITROL TD ONE (18:30)
[2017-01-24] MEDS: LOVENOX SUB-Q SCH (21:37)
[2017-01-24] MEDS: NACL 0.45% 1000 ML 1,000 ML IV SCH (21:37)
[2017-01-25] MEDS: NACL 0.45% 1000 ML 1,000 ML IV SCH (04:42)
--- NOTE | 2017-01-25 11:03 | Progress Note ---
Subjective - Reason for Consult Consult date: 01/25/17 Reason for consult: Psychiatry Follow-up - Chief Complaint Chief complaint: "I know my rights" 36 year old male brought in by EMS status post suicide attempt via overdose. Today patient is irritable and uncooperative during the assessment. He stated that he knew his rights and didn't want to talk. Per the 1:1 sitter, she stated that the patient has been upset since the start of her shift. Per the ER note, patient admitted to taking approximately 26 Seroquel 200mg tablets. Pt has a history of Bipolar disorder and cocaine dependence with multiple prior suicide attempts. Mental Status Exam - Vital signs Last Vital Signs Temp 97.8 F 01/25/17 07:36 Pulse 80 01/25/17 07:36 Resp 18 01/25/17 07:36 BP 115/75 01/25/17 07:36 Pulse Ox 96 01/24/17 22:00 - Exam Narrative exam: MSE: Appearance: irritable, uncooperative Behavior: regular eye contact Speech: regular rate and tone Mood: angry Affect: congruent to mood Thought Process: unable to assess Thought Content: unable to assess Motor Activity: lying in bed Cognition: A/O x3 Insight: unable to assess Judgment: unable to assess Assessment and Plan Impression: Suicidal Attempt. Cocaine use disorder-severe. Substance induced mood disorder vs bipolar disorder. Recommendation/Plan: Continue 1013 and transfer to inpatient psych facility when medically cleared. Hold antipsychotics. Continue Ativan 1 mg [id number] prn for agitation. Previous medications of lithium, invega, and doxepin, hold at this time.
[2017-01-25] MEDS: PEPCID PO SCH ×2 (12:00→21:58)
--- NOTE | 2017-01-25 14:45 | Discharge Summary ---
Providers - Providers Date of Admission: 01/24/17 14:27 Date of discharge: 01/26/17 Attending physician: KIRSTIE MONTALVO Primary care physician: RESEARCH PROJECT COORDINATOR Hospitalization Condition: Good Hospital course: Patient is a 36 years old male with Previous Suicide Attempts, Bipolar with Behavior Disturbance, Cocaine Dependence presents to ED for evaluation. Pt stuporous and unable to provide history. Pt history provided by parents who are at bedside during exam and interview. Pt family states that patient was admitted to [place] for 5 days and released on 01/18/2017. Pt family states that patient took an undetermined number of seroquel tablets today, and has been unresponsive for the past 2 hours. Patient was diagnosis was acute toxic encephalopathy, Overdose of antipsychotic/ Suicide attempt by multiple drug overdose, Bipolar disorder, current episode manic severe with psychotic features and cocaine abuse. UA postive for cocaine, Normal CT of the head, ECGs shows normal sinus rythm, CXR was wnl. Patient presented with altered mental status. Patient Encephalopathy probably from seroquel overdoes and cocaine. He was treated with IV fluid hydration. Cocaine abuse counseling done patient to stop using cocaine drugs. Patient agreed upon course of action. Patient medically clear discharge to inpatient psychiatric unit. Discharge Diagnosed Acute Toxic Encephalopathy Overdose of antipsychotic/ Suicide attempt by multiple drug overdose Bipolar disorder, current episode manic severe with psychotic features Cocaine abuse Disposition: DC/TX-65 PSY HOSP/PSY UNIT Core Measure Documentation - Palliative Care Palliative Care/ Comfort Measures: Not Applicable - Core Measures Any of the following diagnoses?: none Exam - Constitutional Vitals: Temp Pulse Resp BP Pulse Ox 97.8 F 80 20 115/75 96 01/25/17 07:36 01/25/17 07:36 01/25/17 11:50 01/25/17 07:36 01/24/17 22:00 General appearance: Present: no acute distress - EENT Eyes: Present: PERRL ENT: hearing intact - Neck Neck: Present: supple - Respiratory Respiratory effort: normal Respiratory: bilateral: CTA - Cardiovascular Rhythm: regular Heart Sounds: Present: S1 & S2 - Extremities Extremities: no ischemia Peripheral Pulses: within normal limits - Abdominal General gastrointestinal: Present: soft, non-tender Male genitourinary: Present: deferred - Rectal Rectal Exam: deferred - Integumentary Integumentary: Present: clear, warm, dry - Musculoskeletal Musculoskeletal: strength equal bilaterally - Psychiatric Psychiatric: appropriate mood/affect - Neurologic Neurologic: CNII-XII intact - Allied Health Allied health notes reviewed: nursing Plan Activity: no restrictions Follow up with: PRIMARY CARE, [Primary Care Provider] - 3-5 Days
--- NOTE | 2017-01-25 14:45 | Progress Note ---
<ADAN LEE - Last Filed: 01/26/17 08:12> Assessment and Plan Assessment and plan: Acute Toxic Encephalopathy Resolved Secondary to seroquel OD and cocaine Frequent neuro checks Supportive care Patient medically clear discharge to inpatient psychiatric unit Suspected Overdose of antipsychotic/ Suicide attempt by multiple drug overdose possible Seroquel Overdose Poison control notified supportive care Psych consult Hold seroquel Bipolar disorder, current episode manic severe with psychotic features continue 1013, mental health consult Cocaine abuse was counseled about cessation DVT prophylaxis lovenox History Interval history: Patient denies pain at present time Hospitalist Physical - Constitutional Vitals: Temp Pulse Resp BP Pulse Ox 97.8 F 80 20 115/75 96 01/25/17 07:36 01/25/17 07:36 01/25/17 11:50 01/25/17 07:36 01/24/17 22:00 General appearance: Present: no acute distress, severe distress - EENT Eyes: Present: PERRL ENT: hearing intact - Neck Neck: Present: supple - Respiratory Respiratory: bilateral: CTA - Cardiovascular Rhythm: regular Heart Sounds: Present: S1 & S2 - Extremities Extremities: no ischemia - Abdominal General gastrointestinal: soft, non-tender - Integumentary Integumentary: Present: clear, warm, dry - Psychiatric Psychiatric: appropriate mood/affect - Neurologic Neurologic: CNII-XII intact - Allied Health Allied health notes reviewed: nursing Results - Labs CBC & Chem 7: 01/23/17 12:01 01/23/17 12:01 Labs: Laboratory Last Values WBC 8.3 K/mm3 (4.5-11.0) 01/23/17 12:01 RBC 4.82 M/mm3 (3.65-5.03) 01/23/17 12:01 Hgb 15.0 gm/dl (11.8-15.2) 01/23/17 12:01 Hct 43.6 % (35.5-45.6) 01/23/17 12:01 MCV 91 fl (84-94) 01/23/17 12:01 MCH 31 pg (28-32) 01/23/17 12:01 MCHC 34 % (32-34) 01/23/17 12:01 RDW 13.7 % (13.2-15.2) 01/23/17 12:01 Plt Count 360 K/mm3 (140-440) 01/23/17 12:01 Lymph % (Auto) 19.1 % (13.4-35.0) 01/23/17 12:01 [place] % (Auto) 6.5 % (0.0-7.3) 01/23/17 12:01 Eos % (Auto) 0.9 % (0.0-4.3) 01/23/17 12:01 Baso % (Auto) 0.3 % (0.0-1.8) 01/23/17 12:01 Lymph # 1.6 K/mm3 (1.2-5.4) 01/23/17 12:01 [place] # 0.5 K/mm3 (0.0-0.8) 01/23/17 12:01 Eos # 0.1 K/mm3 (0.0-0.4) 01/23/17 12:01 Baso # 0.0 K/mm3 (0.0-0.1) 01/23/17 12:01 Seg Neutrophils % 73.2 % (40.0-70.0) H 01/23/17 12:01 Seg Neutrophils # 6.1 K/mm3 (1.8-7.7) 01/23/17 12:01 ABG pH 7.370 pH Units (7.350-7.450) 01/23/17 13:08 ABG pCO2 44.0 mm Hg 01/23/17 13:08 ABG pO2 122.9 mm Hg (80.0-90.0) H 01/23/17 13:08 ABG HCO3 24.8 mmol/L (20.0-26.0) 01/23/17 13:08 ABG O2 Saturation 98.4 % (95.0-99.0) 01/23/17 13:08 ABG O2 Content 19.1 (0.0-44) 01/23/17 13:08 ABG Base Excess -0.7 mmol/L (-2.0-3.0) 01/23/17 13:08 ABG Hemoglobin 14.6 gm/dl (14.0-18.0) 01/23/17 13:08 ABG Carboxyhemoglobin 6.0 % (0.0-5.0) H 01/23/17 13:08 ABG Methemoglobin 0.4 % (0.0-1.5) 01/23/17 13:08 Oxyhemoglobin 92.1 % (95.0-99.0) L 01/23/17 13:08 FiO2 32 % 01/23/17 13:08 Sodium 140 mmol/L (137-145) 01/23/17 12:01 Potassium 3.8 mmol/L (3.6-5.0) 01/23/17 12:01 Chloride 100.6 mmol/L (98-107) 01/23/17 12:01 Carbon Dioxide 25 mmol/L (22-30) 01/23/17 12:01 Anion Gap 18 mmol/L 01/23/17 12:01 BUN 7 mg/dL (9-20) L 01/23/17 12:01 Creatinine 0.6 mg/dL (0.8-1.5) L 01/23/17 12:01 Estimated GFR > 60 ml/min 01/23/17 12:01 BUN/Creatinine Ratio 12 % 01/23/17 12:01 Glucose 114 mg/dL (75-100) H 01/23/17 12:01 Calcium 9.5 mg/dL (8.4-10.2) 01/23/17 12:01 Total Bilirubin 0.70 mg/dL (0.1-1.2) 01/23/17 12:01 AST 14 units/L (5-40) 01/23/17 12:01 ALT 18 units/L (7-56) 01/23/17 12:01 Alkaline Phosphatase 76 units/L (35-129) 01/23/17 12:01 Total Creatine Kinase 148 units/L (55-170) 01/23/17 12:01 CK-MB (CK-2) 1.7 ng/mL (0.0-4.0) 01/23/17 12:01 CK-MB (CK-2) Rel Index 1.1 (0-4) 01/23/17 12:01 Total Protein 7.2 g/dL (6.3-8.2) 01/23/17 12:01 Albumin 4.6 g/dL (3.9-5) 01/23/17 12:01 Albumin/Globulin Ratio 1.8 % 01/23/17 12:01 Urine Color Yellow (Yellow) 01/23/17 Unknown Urine Turbidity Clear (Clear) 01/23/17 Unknown Urine pH 6.0 (5.0-7.0) 01/23/17 Unknown Ur Specific [place] 1.016 (1.003-1.030) 01/23/17 Unknown Urine Protein <15 mg/dl mg/dL (Negative) 01/23/17 Unknown Urine Glucose (UA) Neg mg/dL (Negative) 01/23/17 Unknown Urine Ketones Neg mg/dL (Negative) 01/23/17 Unknown Urine Blood Neg (Negative) 01/23/17 Unknown Urine Nitrite Neg (Negative) 01/23/17 Unknown Urine Bilirubin Neg (Negative) 01/23/17 Unknown Urine Urobilinogen < 2.0 mg/dL (<2.0) 01/23/17 Unknown Ur Leukocyte Esterase Neg (Negative) 01/23/17 Unknown Urine WBC (Auto) 2.0 /HPF (0.0-6.0) 01/23/17 Unknown Urine RBC (Auto) 1.0 /HPF (0.0-6.0) 01/23/17 Unknown Urine Mucus Few /HPF 01/23/17 Unknown Urine Opiates Screen Presumptive negative 01/23/17 Unknown Urine Methadone Screen Presumptive negative 01/23/17 Unknown Acetaminophen < 15.0 ug/mL (10.0-30.0) 01/23/17 14:26 Ur Barbiturates Screen Presumptive negative 01/23/17 Unknown Ur Phencyclidine Scrn Presumptive negative 01/23/17 Unknown Ur Amphetamines Screen Presumptive negative 01/23/17 Unknown U Benzodiazepines Scrn Presumptive negative 01/23/17 Unknown [place] 0.2 mmol/L (0.0-1.2) 01/23/17 12:57 Urine Cocaine Screen Presumptive positive 01/23/17 Unknown U Marijuana (THC) Screen Presumptive negative 01/23/17 Unknown Drugs of Abuse Note Disclamer 01/23/17 Unknown Plasma/Serum Alcohol < 0.01 gm% (0-0.07) 01/23/17 12:01 - Imaging and Cardiology Chest x-ray: image reviewed (unremarkable) <KIRSTIE MONTALVO - Last Filed: 01/26/17 09:14> Assessment and Plan Assessment and plan: I saw and evaluated the patient. I agree with the findings and the plan of care as documented in the Nurse Practitioner's~note. He is waiting for inpt psych placement. Hospitalist Physical - Constitutional Vitals: Temp Pulse Resp BP Pulse Ox 97.9 F 75 16 137/91 98 01/26/17 05:25 01/26/17 05:23 01/26/17 05:25 01/26/17 05:23 01/26/17 05:23 Results - Labs CBC & Chem 7: 01/23/17 12:01 01/23/17 12:01 Labs: Laboratory Last Values WBC 8.3 K/mm3 (4.5-11.0) 01/23/17 12:01 RBC 4.82 M/mm3 (3.65-5.03) 01/23/17 12:01 Hgb 15.0 gm/dl (11.8-15.2) 01/23/17 12:01 Hct 43.6 % (35.5-45.6) 01/23/17 12:01 MCV 91 fl (84-94) 01/23/17 12:01 MCH 31 pg (28-32) 01/23/17 12:01 MCHC 34 % (32-34) 01/23/17 12:01 RDW 13.7 % (13.2-15.2) 01/23/17 12:01 Plt Count 360 K/mm3 (140-440) 01/23/17 12:01 Lymph % (Auto) 19.1 % (13.4-35.0) 01/23/17 12:01 [place] % (Auto) 6.5 % (0.0-7.3) 01/23/17 12:01 Eos % (Auto) 0.9 % (0.0-4.3) 01/23/17 12:01 Baso % (Auto) 0.3 % (0.0-1.8) 01/23/17 12:01 Lymph # 1.6 K/mm3 (1.2-5.4) 01/23/17 12:01 [place] # 0.5 K/mm3 (0.0-0.8) 01/23/17 12:01 Eos # 0.1 K/mm3 (0.0-0.4) 01/23/17 12:01 Baso # 0.0 K/mm3 (0.0-0.1) 01/23/17 12:01 Seg Neutrophils % 73.2 % (40.0-70.0) H 01/23/17 12:01 Seg Neutrophils # 6.1 K/mm3 (1.8-7.7) 01/23/17 12:01 ABG pH 7.370 pH Units (7.350-7.450) 01/23/17 13:08 ABG pCO2 44.0 mm Hg 01/23/17 13:08 ABG pO2 122.9 mm Hg (80.0-90.0) H 01/23/17 13:08 ABG HCO3 24.8 mmol/L (20.0-26.0) 01/23/17 13:08 ABG O2 Saturation 98.4 % (95.0-99.0) 01/23/17 13:08 ABG O2 Content 19.1 (0.0-44) 01/23/17 13:08 ABG Base Excess -0.7 mmol/L (-2.0-3.0) 01/23/17 13:08 ABG Hemoglobin 14.6 gm/dl (14.0-18.0) 01/23/17 13:08 ABG Carboxyhemoglobin 6.0 % (0.0-5.0) H 01/23/17 13:08 ABG Methemoglobin 0.4 % (0.0-1.5) 01/23/17 13:08 Oxyhemoglobin 92.1 % (95.0-99.0) L 01/23/17 13:08 FiO2 32 % 01/23/17 13:08 Sodium 140 mmol/L (137-145) 01/23/17 12:01 Potassium 3.8 mmol/L (3.6-5.0) 01/23/17 12:01 Chloride 100.6 mmol/L (98-107) 01/23/17 12:01 Carbon Dioxide 25 mmol/L (22-30) 01/23/17 12:01 Anion Gap 18 mmol/L 01/23/17 12:01 BUN 7 mg/dL (9-20) L 01/23/17 12:01 Creatinine 0.6 mg/dL (0.8-1.5) L 01/23/17 12:01 Estimated GFR > 60 ml/min 01/23/17 12:01 BUN/Creatinine Ratio 12 % 01/23/17 12:01 Glucose 114 mg/dL (75-100) H 01/23/17 12:01 Calcium 9.5 mg/dL (8.4-10.2) 01/23/17 12:01 Total Bilirubin 0.70 mg/dL (0.1-1.2) 01/23/17 12:01 AST 14 units/L (5-40) 01/23/17 12:01 ALT 18 units/L (7-56) 01/23/17 12:01 Alkaline Phosphatase 76 units/L (35-129) 01/23/17 12:01 Total Creatine Kinase 148 units/L (55-170) 01/23/17 12:01 CK-MB (CK-2) 1.7 ng/mL (0.0-4.0) 01/23/17 12:01 CK-MB (CK-2) Rel Index 1.1 (0-4) 01/23/17 12:01 Total Protein 7.2 g/dL (6.3-8.2) 01/23/17 12:01 Albumin 4.6 g/dL (3.9-5) 01/23/17 12:01 Albumin/Globulin Ratio 1.8 % 01/23/17 12:01 Urine Color Yellow (Yellow) 01/23/17 Unknown Urine Turbidity Clear (Clear) 01/23/17 Unknown Urine pH 6.0 (5.0-7.0) 01/23/17 Unknown Ur Specific [place] 1.016 (1.003-1.030) 01/23/17 Unknown Urine Protein <15 mg/dl mg/dL (Negative) 01/23/17 Unknown Urine Glucose (UA) Neg mg/dL (Negative) 01/23/17 Unknown Urine Ketones Neg mg/dL (Negative) 01/23/17 Unknown Urine Blood Neg (Negative) 01/23/17 Unknown Urine Nitrite Neg (Negative) 01/23/17 Unknown Urine Bilirubin Neg (Negative) 01/23/17 Unknown Urine Urobilinogen < 2.0 mg/dL (<2.0) 01/23/17 Unknown Ur Leukocyte Esterase Neg (Negative) 01/23/17 Unknown Urine WBC (Auto) 2.0 /HPF (0.0-6.0) 01/23/17 Unknown Urine RBC (Auto) 1.0 /HPF (0.0-6.0) 01/23/17 Unknown Urine Mucus Few /HPF 01/23/17 Unknown Urine Opiates Screen Presumptive negative 01/23/17 Unknown Urine Methadone Screen Presumptive negative 01/23/17 Unknown Acetaminophen < 15.0 ug/mL (10.0-30.0) 01/23/17 14:26 Ur Barbiturates Screen Presumptive negative 01/23/17 Unknown Ur Phencyclidine Scrn Presumptive negative 01/23/17 Unknown Ur Amphetamines Screen Presumptive negative 01/23/17 Unknown U Benzodiazepines Scrn Presumptive negative 01/23/17 Unknown [place] 0.2 mmol/L (0.0-1.2) 01/23/17 12:57 Urine Cocaine Screen Presumptive positive 01/23/17 Unknown U Marijuana (THC) Screen Presumptive negative 01/23/17 Unknown Drugs of Abuse Note Disclamer 01/23/17 Unknown Plasma/Serum Alcohol < 0.01 gm% (0-0.07) 01/23/17 12:01
[2017-01-25] MEDS: ATIVAN PO PRN (17:23)
[2017-01-25] MEDS: LOVENOX SUB-Q SCH (21:57)
[2017-01-25] MEDS ORDERED: SINEquan PO SCH (22:00)
[2017-01-26] MEDS: ATIVAN PO PRN ×2 (00:07→10:06)
[2017-01-26] MEDS: NACL 0.45% 1000 ML 1,000 ML IV SCH (00:08)
[2017-01-26 05:25] VITALS: BP 137/91
[2017-01-26] MEDS: PEPCID PO SCH (10:06)
--- NOTE | 2017-01-26 14:35 | Progress Note ---
Subjective - Reason for Consult Consult date: 01/26/17 Reason for consult: Psychiatry Follow-up - Chief Complaint Chief complaint: "What" 36 year old male brought in by EMS status post suicide attempt via overdose. Today patient is irritable and uncooperative during the assessment. The patient is verbally abusive to staff. Per his mother Shana Nelson, she believe her son tried to kill himself by overdosing on Seroquel piils. She stated he attempted suicide in the past by overdosing. He denies SI/HI's and AVH's. Mental Status Exam - Vital signs Last Vital Signs Temp 97.9 F 01/26/17 05:25 Pulse 75 01/26/17 05:23 Resp 16 01/26/17 05:25 BP 137/91 01/26/17 05:23 Pulse Ox 98 01/26/17 05:23 - Exam Narrative exam: MSE: Appearance: irritable, uncooperative Behavior: regular eye contact Speech: regular rate and tone Mood: angry Affect: congruent to mood Thought Process: circumstantial Thought Content: denies SI/HI's and AVH's Motor Activity: lying in bed Cognition: A/O x3 Insight: variable Judgment: variable Assessment and Plan Impression: Suicidal Attempt. Cocaine use disorder-severe. Substance induced mood disorder vs bipolar disorder. Recommendation/Plan: Continue 1013 and transfer to [facility] today.
--- NOTE | 2017-01-26 15:33 | Progress Note ---
Assessment and Plan Assessment and plan: Acute Toxic Encephalopathy Resolved Secondary to seroquel OD and cocaine Frequent neuro checks Supportive care Patient medically clear discharge to inpatient psychiatric unit Patient awaiting for bed. Suspected Overdose of antipsychotic/ Suicide attempt by multiple drug overdose possible Seroquel Overdose Poison control notified supportive care Psych consult Hold seroquel Bipolar disorder, current episode manic severe with psychotic features continue 1013, mental health consult Cocaine abuse was counseled about cessation DVT prophylaxis lovenox History Interval history: Patient denies pain suicidal/homicidal ideation at present time. Hospitalist Physical - Constitutional Vitals: Temp Pulse Resp BP Pulse Ox 97.9 F 75 16 137/91 98 01/26/17 05:25 01/26/17 05:23 01/26/17 05:25 01/26/17 05:23 01/26/17 05:23 General appearance: Present: no acute distress - EENT Eyes: Present: PERRL ENT: hearing intact - Neck Neck: Present: supple - Respiratory Respiratory effort: normal Respiratory: bilateral: CTA - Cardiovascular Rhythm: regular Heart Sounds: Present: S1 & S2 - Extremities Extremities: no ischemia - Abdominal General gastrointestinal: soft, non-tender - Integumentary Integumentary: Present: clear, warm, dry - Psychiatric Psychiatric: appropriate mood/affect - Neurologic Neurologic: CNII-XII intact - Allied Health Allied health notes reviewed: nursing Results - Labs CBC & Chem 7: 01/23/17 12:01 01/23/17 12:01 Labs: Laboratory Last Values WBC 8.3 K/mm3 (4.5-11.0) 01/23/17 12:01 RBC 4.82 M/mm3 (3.65-5.03) 01/23/17 12:01 Hgb 15.0 gm/dl (11.8-15.2) 01/23/17 12:01 Hct 43.6 % (35.5-45.6) 01/23/17 12:01 MCV 91 fl (84-94) 01/23/17 12:01 MCH 31 pg (28-32) 01/23/17 12:01 MCHC 34 % (32-34) 01/23/17 12:01 RDW 13.7 % (13.2-15.2) 01/23/17 12:01 Plt Count 360 K/mm3 (140-440) 01/23/17 12:01 Lymph % (Auto) 19.1 % (13.4-35.0) 01/23/17 12:01 [place] % (Auto) 6.5 % (0.0-7.3) 01/23/17 12:01 Eos % (Auto) 0.9 % (0.0-4.3) 01/23/17 12:01 Baso % (Auto) 0.3 % (0.0-1.8) 01/23/17 12:01 Lymph # 1.6 K/mm3 (1.2-5.4) 01/23/17 12:01 [place] # 0.5 K/mm3 (0.0-0.8) 01/23/17 12:01 Eos # 0.1 K/mm3 (0.0-0.4) 01/23/17 12:01 Baso # 0.0 K/mm3 (0.0-0.1) 01/23/17 12:01 Seg Neutrophils % 73.2 % (40.0-70.0) H 01/23/17 12:01 Seg Neutrophils # 6.1 K/mm3 (1.8-7.7) 01/23/17 12:01 ABG pH 7.370 pH Units (7.350-7.450) 01/23/17 13:08 ABG pCO2 44.0 mm Hg 01/23/17 13:08 ABG pO2 122.9 mm Hg (80.0-90.0) H 01/23/17 13:08 ABG HCO3 24.8 mmol/L (20.0-26.0) 01/23/17 13:08 ABG O2 Saturation 98.4 % (95.0-99.0) 01/23/17 13:08 ABG O2 Content 19.1 (0.0-44) 01/23/17 13:08 ABG Base Excess -0.7 mmol/L (-2.0-3.0) 01/23/17 13:08 ABG Hemoglobin 14.6 gm/dl (14.0-18.0) 01/23/17 13:08 ABG Carboxyhemoglobin 6.0 % (0.0-5.0) H 01/23/17 13:08 ABG Methemoglobin 0.4 % (0.0-1.5) 01/23/17 13:08 Oxyhemoglobin 92.1 % (95.0-99.0) L 01/23/17 13:08 FiO2 32 % 01/23/17 13:08 Sodium 140 mmol/L (137-145) 01/23/17 12:01 Potassium 3.8 mmol/L (3.6-5.0) 01/23/17 12:01 Chloride 100.6 mmol/L (98-107) 01/23/17 12:01 Carbon Dioxide 25 mmol/L (22-30) 01/23/17 12:01 Anion Gap 18 mmol/L 01/23/17 12:01 BUN 7 mg/dL (9-20) L 01/23/17 12:01 Creatinine 0.6 mg/dL (0.8-1.5) L 01/23/17 12:01 Estimated GFR > 60 ml/min 01/23/17 12:01 BUN/Creatinine Ratio 12 % 01/23/17 12:01 Glucose 114 mg/dL (75-100) H 01/23/17 12:01 Calcium 9.5 mg/dL (8.4-10.2) 01/23/17 12:01 Total Bilirubin 0.70 mg/dL (0.1-1.2) 01/23/17 12:01 AST 14 units/L (5-40) 01/23/17 12:01 ALT 18 units/L (7-56) 01/23/17 12:01 Alkaline Phosphatase 76 units/L (35-129) 01/23/17 12:01 Total Creatine Kinase 148 units/L (55-170) 01/23/17 12:01 CK-MB (CK-2) 1.7 ng/mL (0.0-4.0) 01/23/17 12:01 CK-MB (CK-2) Rel Index 1.1 (0-4) 01/23/17 12:01 Total Protein 7.2 g/dL (6.3-8.2) 01/23/17 12:01 Albumin 4.6 g/dL (3.9-5) 01/23/17 12:01 Albumin/Globulin Ratio 1.8 % 01/23/17 12:01 Urine Color Yellow (Yellow) 01/23/17 Unknown Urine Turbidity Clear (Clear) 01/23/17 Unknown Urine pH 6.0 (5.0-7.0) 01/23/17 Unknown Ur Specific [place] 1.016 (1.003-1.030) 01/23/17 Unknown Urine Protein <15 mg/dl mg/dL (Negative) 01/23/17 Unknown Urine Glucose (UA) Neg mg/dL (Negative) 01/23/17 Unknown Urine Ketones Neg mg/dL (Negative) 01/23/17 Unknown Urine Blood Neg (Negative) 01/23/17 Unknown Urine Nitrite Neg (Negative) 01/23/17 Unknown Urine Bilirubin Neg (Negative) 01/23/17 Unknown Urine Urobilinogen < 2.0 mg/dL (<2.0) 01/23/17 Unknown Ur Leukocyte Esterase Neg (Negative) 01/23/17 Unknown Urine WBC (Auto) 2.0 /HPF (0.0-6.0) 01/23/17 Unknown Urine RBC (Auto) 1.0 /HPF (0.0-6.0) 01/23/17 Unknown Urine Mucus Few /HPF 01/23/17 Unknown Urine Opiates Screen Presumptive negative 01/23/17 Unknown Urine Methadone Screen Presumptive negative 01/23/17 Unknown Acetaminophen < 15.0 ug/mL (10.0-30.0) 01/23/17 14:26 Ur Barbiturates Screen Presumptive negative 01/23/17 Unknown Ur Phencyclidine Scrn Presumptive negative 01/23/17 Unknown Ur Amphetamines Screen Presumptive negative 01/23/17 Unknown U Benzodiazepines Scrn Presumptive negative 01/23/17 Unknown [place] 0.2 mmol/L (0.0-1.2) 01/23/17 12:57 Urine Cocaine Screen Presumptive positive 01/23/17 Unknown U Marijuana (THC) Screen Presumptive negative 01/23/17 Unknown Drugs of Abuse Note Disclamer 01/23/17 Unknown Plasma/Serum Alcohol < 0.01 gm% (0-0.07) 01/23/17 12:01
== END 2017-01-26 12:30 | DRG 917 ==
LOC: ED 11:16 → 3A 01-24 14:27
PROVIDERS: ADMIT Internal Medicine; ATTEND Internal Medicine
PROC: 4A033R1 Measurement of Arterial Saturation, Peripheral, Percutaneous Approach (ICD-10-PCS; principal; 2017-01-24)
DX: T43.502A Poisoning by unspecified antipsychotics and neuroleptics, intentional self-harm, initial encounter (principal); G92 Toxic encephalopathy; F31.2 Bipolar disorder, current episode manic severe with psychotic features; F91.9 Conduct disorder, unspecified; F14.10 Cocaine abuse, uncomplicated; Z87.891 Personal history of nicotine dependence
CPT/HCPCS: 36415; 71010; 80053; 80178; 80307; 80320; 81001; 82550; 82553; 82803; 85025; 93005; 93010; 99406; G0480; J1650; J7030

== ENCOUNTER 2017-03-31 10:17 | Emergency (ER) | payer SELFPAY ==
[2017-03-31 10:23] VITALS: BP 148/104
[2017-03-31] MEDS ORDERED: TYLENOL PO ONE (12:08)
[2017-03-31] MEDS ORDERED: MOTRIN PO ONE (12:08)
--- NOTE | 2017-03-31 12:21 | Emergency Department Report ---
ED General Adult HPI - General Chief complaint: Fall Stated complaint: BACK PAIN Time Seen by Provider: 03/31/17 11:46 Source: patient Mode of arrival: Ambulatory Limitations: No Limitations - History of Present Illness Initial comments: Patient is a 36-year-old male past medical history of substance abuse who presents with lower back pain. Patient states that he fell backwards on to his back 3 days ago. He states that his lower back pain has progressively gotten worse. He states that laying still makes the pain better bending and moving makes it worse. He denies having any loss of consciousness in the headache any shortness of breath or any numbness to his lower legs. 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 States that his lower back pain is a 410 soap in his lower back illicit tingling type of pain does not radiate. Severity scale (0 -10): 6 - Related Data Home Medications Medication Instructions Recorded Confirmed Last Taken Doxepin HCl 100 mg PO HS MDD 100 mg 08/28/16 01/23/17 08/26/16 100 mg [place] Carbonate 600 mg PO HS MDD 600 mg 08/28/16 01/23/17 08/26/16 600 mg Paliperidone ER 9 mg PO HS MDD 9 mg 08/28/16 01/23/17 08/26/16 9 mg Previous Rx's Medication Instructions Recorded Last Taken Type Famotidine [Pepcid] 20 mg PO BID #60 tablet 05/18/16 1 Day Ago Rx ~06/17/16 [place] Carbonate [Eskalith] 300 mg PO BID #60 capsule 05/18/16 1 Day Ago Rx ~06/17/16 Diclofenac Sodium [Voltaren] 100 gm TP Q6HR #1 gel..gram. 03/31/17 Unknown Rx Allergies Allergy/AdvReac Type Severity Reaction Status Date / Time No Known Drug Allergies Allergy Unknown Verified 06/19/16 07:49 ED Review of Systems ROS: Stated complaint: BACK PAIN Other details as noted in HPI Constitutional: denies: chills, fever Eyes: denies: eye pain, eye discharge, vision change ENT: denies: ear pain, throat pain Respiratory: denies: cough, shortness of breath, wheezing Cardiovascular: denies: chest pain, palpitations Endocrine: no symptoms reported Gastrointestinal: denies: abdominal pain, nausea, diarrhea Genitourinary: denies: urgency, dysuria Musculoskeletal: back pain. denies: joint swelling, arthralgia Skin: denies: rash, lesions Neurological: denies: headache, weakness, paresthesias Psychiatric: denies: anxiety, depression Hematological/Lymphatic: denies: easy bleeding, easy bruising ED Past Medical Hx - Past Medical History Previous Medical History?: Yes Hx Congestive Heart Failure: No Hx Diabetes: No Hx Psychiatric Treatment: Yes (bipolar) Hx Asthma: No Hx COPD: No Additional medical history: previous OD per EMS - Surgical History Past Surgical History?: Yes Additional Surgical History: T&A, Left knee surgery x 2 - Social History Smoking Status: Current Every Day Smoker Substance Use Type: Non Opiate Pain, Prescribed - Medications Home Medications: Home Medications Medication Instructions Recorded Confirmed Last Taken Type Famotidine [Pepcid] 20 mg PO BID #60 tablet 05/18/16 01/23/17 1 Day Ago Rx ~06/17/16 [place] Carbonate [Eskalith] 300 mg PO BID #60 capsule 05/18/16 01/23/17 1 Day Ago Rx ~06/17/16 Doxepin HCl 100 mg PO HS MDD 100 mg 08/28/16 01/23/17 08/26/16 History 100 mg [place] Carbonate 600 mg PO HS MDD 600 mg 08/28/16 01/23/17 08/26/16 History 600 mg Paliperidone ER 9 mg PO HS MDD 9 mg 08/28/16 01/23/17 08/26/16 History 9 mg Diclofenac Sodium [Voltaren] 100 gm TP Q6HR #1 gel..gram. 03/31/17 Unknown Rx ED Physical Exam - General Limitations: No Limitations General appearance: alert, in no apparent distress - Head Head exam: Present: atraumatic, normocephalic - Eye Eye exam: Present: normal appearance - ENT ENT exam: Present: mucous membranes moist - Neck Neck exam: Present: normal inspection - Respiratory Respiratory exam: Present: normal lung sounds bilaterally. Absent: respiratory distress - Cardiovascular Cardiovascular Exam: Present: regular rate, normal rhythm. Absent: systolic murmur, diastolic murmur, rubs, gallop - GI/Abdominal GI/Abdominal exam: Present: soft, normal bowel sounds - Rectal Rectal exam: Present: deferred - Extremities Exam Extremities exam: Present: normal inspection - Back Exam Back exam: Present: paraspinal tenderness - Neurological Exam Neurological exam: Present: alert, oriented X3 - Psychiatric Psychiatric exam: Present: normal affect, normal mood - Skin Skin exam: Present: warm, dry, intact, normal color. Absent: rash ED Course Vital Signs 03/31/17 10:20 Temperature 97.3 F L Pulse Rate 93 H Respiratory 18 Rate Blood Pressure 148/104 O2 Sat by Pulse 100 Oximetry ED Medical Decision Making - Medical Decision Making Chief medical diagnosis: Lumbosacral strain Differential medical diagnosis: Illiopsoas muscle tear, herniated disc I will give patient oral pain medication and outpatient referral. Patient's medical condition does not require any imaging for his lower back pain as its gradual nor any diagnostic workup. I will clinically diagnosed patient with lumbago and give patient ibuprofen and sensed to take also give patient a letter for work. And I will give patient follow up for his lower back pain. Discussed plan with patient and he agrees with plan. Critical care attestation.: If time is entered above; I have spent that time in minutes in the direct care of this critically ill patient, excluding procedure time. ED Disposition Clinical Impression: Lumbar back pain Fall Qualifiers: Encounter type: subsequent encounter Qualified Code(s): W19.XXXD - Unspecified fall, subsequent encounter Disposition: DC-01 TO HOME OR SELFCARE Is pt being admited?: No Does the pt Need Aspirin: No Condition: Stable Instructions: Low Back Strain (ED), Core Strengthening Exercises (GEN) Prescriptions: Diclofenac Sodium [Voltaren] 100 gm TP Q6HR #1 gel..gram. Referrals: REBECCA STODDARD MD [Staff Physician] - 3-5 Days Forms: Work/School Release Form(ED)
== END 2017-03-31 12:42 | disposition home or self-care (01) ==
LOC: ED 10:17
DX: M54.5 Low back pain (principal); F17.200 Nicotine dependence, unspecified, uncomplicated
CPT/HCPCS: 99282

== ENCOUNTER 2017-06-09 16:27 | Emergency (ER) | payer SELFPAY ==
[2017-06-09 16:33] VITALS: BP 129/73
[2017-06-09] MEDS ORDERED: MOTRIN PO ONE (17:57)
--- NOTE | 2017-06-09 17:59 | Emergency Department Report ---
Blank Doc - Documentation Documentation: Patient is a 36-year-old male who was presented with right hand pain. Patient states he punched a steel door out of anger about a week ago and is having significant pain to the right hand on the ulnar side. X-ray will be performed.
== END 2017-06-09 18:19 ==
LOC: ED 16:27
DX: M79.641 Pain in right hand (principal); Z53.21 Procedure and treatment not carried out due to patient leaving prior to being seen by health care provider

== ENCOUNTER 2017-06-10 18:13 | Emergency (ER) | payer SELFPAY ==
[2017-06-10 18:28] VITALS: BP 147/79
[2017-06-10] MEDS ORDERED: MOTRIN PO ONE (19:01)
--- NOTE | 2017-06-10 19:10 | Emergency Department Report ---
ED Upper Extremity Inj HPI - General Chief Complaint: Extremity Injury, Upper Stated Complaint: RIGHT HAND PAIN Time Seen by Provider: 06/10/17 18:52 Source: patient Mode of arrival: Ambulatory Limitations: No Limitations - History of Present Illness Initial Comments: This is a 36-year-old male nontoxic, well nourished in appearance, no acute signs of distress presents to the ED with c/o of right hand pain and swelling x1 week. Patient stated he punched a steel door out of anger last week. Patient denies any numbness, tingling, fever, chills, headadche, nausea, vomiting, chest pain, shortness of breathe. Patient stated has significant pain to the ulnar side. Patient denies any other trauma. Patient denies any allergies or significant PMH. MD Complaint: Injury to:: right, hand -: week(s) (1) Other Extremity Injury: Hand: Right Other Injuries: none Severity scale (0 -10): 8 Improves With: immobilization Worsens With: movement of extremity Context: direct blow Associated Symptoms: denies other symptoms. denies: weakness, numbness, neck pain, suspects foreign body, nausea/vomiting, heard/felt popping sensat - Related Data Home Medications Medication Instructions Recorded Confirmed Last Taken Doxepin HCl 100 mg PO HS MDD 100 mg 08/28/16 01/23/17 08/26/16 100 mg [place] Carbonate 600 mg PO HS MDD 600 mg 08/28/16 01/23/17 08/26/16 600 mg Paliperidone ER 9 mg PO HS MDD 9 mg 08/28/16 01/23/17 08/26/16 9 mg Previous Rx's Medication Instructions Recorded Last Taken Type Famotidine [Pepcid] 20 mg PO BID #60 tablet 05/18/16 1 Day Ago Rx ~06/17/16 [place] Carbonate [Eskalith] 300 mg PO BID #60 capsule 05/18/16 1 Day Ago Rx ~06/17/16 Diclofenac Sodium [Voltaren] 100 gm TP Q6HR #1 gel..gram. 03/31/17 Unknown Rx Ibuprofen [Motrin] 600 mg PO Q8H PRN #30 tablet 06/10/17 Unknown Rx Allergies Allergy/AdvReac Type Severity Reaction Status Date / Time No Known Drug Allergies Allergy Unknown Verified 06/10/17 18:25 ED Review of Systems ROS: Stated complaint: RIGHT HAND PAIN Other details as noted in HPI Constitutional: denies: chills, fever Eyes: denies: eye pain, eye discharge, vision change ENT: denies: ear pain, throat pain Respiratory: denies: cough, shortness of breath, wheezing Cardiovascular: denies: chest pain, palpitations Endocrine: no symptoms reported Gastrointestinal: denies: abdominal pain, nausea, diarrhea Genitourinary: denies: urgency, dysuria Musculoskeletal: arthralgia. denies: back pain, joint swelling Skin: denies: rash, lesions Neurological: denies: headache, weakness, paresthesias Psychiatric: denies: anxiety, depression Hematological/Lymphatic: denies: easy bleeding, easy bruising ED Past Medical Hx - Past Medical History Hx Congestive Heart Failure: No Hx Diabetes: No Hx Psychiatric Treatment: Yes (bipolar) Hx Asthma: No Hx COPD: No Additional medical history: previous OD per EMS - Surgical History Additional Surgical History: T&A, Left knee surgery x 2 - Social History Smoking Status: Current Every Day Smoker Substance Use Type: None - Medications Home Medications: Home Medications Medication Instructions Recorded Confirmed Last Taken Type Famotidine [Pepcid] 20 mg PO BID #60 tablet 05/18/16 01/23/17 1 Day Ago Rx ~06/17/16 [place] Carbonate [Eskalith] 300 mg PO BID #60 capsule 05/18/16 01/23/17 1 Day Ago Rx ~06/17/16 Doxepin HCl 100 mg PO HS MDD 100 mg 08/28/16 01/23/17 08/26/16 History 100 mg [place] Carbonate 600 mg PO HS MDD 600 mg 08/28/16 01/23/17 08/26/16 History 600 mg Paliperidone ER 9 mg PO HS MDD 9 mg 08/28/16 01/23/17 08/26/16 History 9 mg Diclofenac Sodium [Voltaren] 100 gm TP Q6HR #1 gel..gram. 03/31/17 Unknown Rx Ibuprofen [Motrin] 600 mg PO Q8H PRN #30 tablet 06/10/17 Unknown Rx ED Physical Exam - General Limitations: No Limitations General appearance: alert, in no apparent distress - Head Head exam: Present: atraumatic, normocephalic - Eye Eye exam: Present: normal appearance - ENT ENT exam: Present: mucous membranes moist - Neck Neck exam: Present: normal inspection - Respiratory Respiratory exam: Present: normal lung sounds bilaterally. Absent: respiratory distress, wheezes, rales, rhonchi, stridor, chest wall tenderness, accessory muscle use, decreased breath sounds, prolonged expiratory - Cardiovascular Cardiovascular Exam: Present: regular rate, normal rhythm, normal heart sounds. Absent: irregular rhythm, systolic murmur, diastolic murmur, rubs, gallop - GI/Abdominal GI/Abdominal exam: Present: soft, normal bowel sounds - Rectal Rectal exam: Present: deferred - Extremities Exam Extremities exam: Present: normal inspection, full ROM, tenderness, normal capillary refill. Absent: pedal edema, joint swelling, calf tenderness - Expanded Upper Extremity Exam Right General: Present: normal inspection Shoulder Exam: Present: normal inspection, full ROM Upper Arm exam: Present: normal inspection, full ROM Elbow exam: Present: normal inspection, full ROM Forearm Wrist exam: Present: normal inspection, full ROM. Absent: tenderness, swelling, abrasion, laceration, ecchymosis, deformity, crepidus, dislocation, erythema, tenderness over anatomical snuff box, pain with axial thumb loading Hand Wrist exam: Present: normal inspection, full ROM, tenderness, swelling. Absent: abrasion, laceration, ecchymosis, deformity, crepidus, dislocation, erythema, amputation, nail avulsion, subungual hematoma Hand L/R Back: 1 - pain with swelling Neuro motor exam: Present: wrist extension intact, thumb opposition intact, thumb IP flexion intact, thumb adduction intact, fingers 2-5 abduction intact Neurosensory exam: Present: 2-point discrimination, radial nerve intact, ulnar nerve intact, median nerve intact Vascular: Present: vascular compromise, normal capillary refill, radial pulse, brachial pulse, ulnar pulse - Back Exam Back exam: Present: normal inspection, full ROM - Neurological Exam Neurological exam: Present: alert, oriented X3, CN II-XII intact, normal gait, reflexes normal - Psychiatric Psychiatric exam: Present: normal affect, normal mood - Skin Skin exam: Present: warm, dry, intact, normal color. Absent: rash ED Course Vital Signs 06/10/17 18:25 Temperature 98.5 F Pulse Rate 91 H Respiratory 18 Rate Blood Pressure 147/79 O2 Sat by Pulse 96 Oximetry - Reevaluation(s) Reevaluation #1: 06/10/17 19:12 Patient is speaking in full sentences with no signs of distress noted. ED Medical Decision Making - Medical Decision Making This is a 36-year-old male that presents with boxer fracture. Patient is stable and was examined by me. A boxer ulnar gutter splint has been placed. Post splint assessment: neurovacular intact, cap refill <2 seconds, normal ROM, normal sensation. Patient was instructed to rice therapy. Patient is discharged with Motrin. Patient was instructed and referred to Follow-up with a orthopedic doctor in 3-5 days or if symptoms worsen and continue return to emergency room as soon as possible. At time of discharge, the patient does not seem toxic or ill in appearance. No acute signs of distress noted. Patient agrees to discharge treatment plan of care. No further questions noted by the patient. Critical care attestation.: If time is entered above; I have spent that time in minutes in the direct care of this critically ill patient, excluding procedure time. ED Disposition Clinical Impression: Boxers fracture Qualifiers: Encounter type: initial encounter Fracture type: closed Qualified Code(s): S62.339A - Displaced fracture of neck of unspecified metacarpal bone, initial encounter for closed fracture Disposition: - TO HOME OR SELFCARE Is pt being admited?: No Does the pt Need Aspirin: No Condition: Stable Instructions: Boxer Fracture (ED), RICE Therapy (ED), Splint Care (ED), Ibuprofen (By mouth) Additional Instructions: Follow-up with a orthopedic doctor in 3-5 days or if symptoms worsen and continue return to emergency room as soon as possible. Prescriptions: Ibuprofen [Motrin] 600 mg PO Q8H PRN #30 tablet PRN Reason: Pain Referrals: PRIMARY CAREMD [Referring] - 3-5 Days VEE COLMENARES MD [Staff Physician] - 3-5 Days [facility] [Outside] - 3-5 Days [facility] [Outside] - 3-5 Days Forms: Work/School Release Form(ED)
--- NOTE | 2017-06-10 20:22 | XRay Report ---
FINAL REPORT PROCEDURE: XR HAND 3+V RT TECHNIQUE: Three-view right hand HISTORY: pain and swelling to hand COMPARISON: No prior studies are available for comparison. FINDINGS: Comminuted fracture of the distal right 5th metacarpal with ulnar angulation. 1 centimeter of distraction and displacement. Soft tissue swelling IMPRESSION: Boxer's fracture distal right 5th metacarpal
--- NOTE | 2017-06-10 20:26 | Emergency Department Report ---
Blank Doc - Documentation Documentation: Patient is a 36-year-old male who is presenting with right hand pain. Patient was seen here by me yesterday but I get angry about our x-ray procedures and left before getting his x-ray. Patient was returned today because of continued pain. X-ray shows a boxer's fracture. Patient was splinted by nursing staff. Because of the patient's erratic behavior with continuously leaving and arguing even after being splinted today, I have elected to not give this patient narcotics. His been several days this patient has been without treatment patient is showing behavior and aggressiveness. Emergency department and I did not feel as though it's appropriate to give the patient anything stronger than NSAIDs.
== END 2017-06-10 19:50 | disposition home or self-care (01) ==
LOC: ED 18:13
DX: S62.330A Displaced fracture of neck of second metacarpal bone, right hand, initial encounter for closed fracture (principal); F31.9 Bipolar disorder, unspecified; F17.200 Nicotine dependence, unspecified, uncomplicated; W22.8XXA Striking against or struck by other objects, initial encounter; Y93.89 Activity, other specified; Y92.89 Other specified places as the place of occurrence of the external cause; Y99.8 Other external cause status

== ENCOUNTER 2019-03-12 18:46 | Emergency (ER) | payer SELFPAY ==
--- NOTE | 2019-03-12 19:08 | Event Note ---
ED Screening Note Date of service: 03/12/19 Time: 19:05 ED Screening Note: This initial assessment/diagnostic orders/clinical plan/treatment(s) is/are subject to change based on patients health status, clinical progression and re- assessment by fellow clinical providers in the ED. Further treatment and workup at subsequent clinical providers discretion. Patient/guardian urged not to elope from the ED as their condition may be serious if not clinically assessed and managed. 38 yo male c/o hearing voices. He denies any suicidal ideation. Denies recent drug or alcohol use. Admits to previous psychiatric history. Pt calm and cooperative Initial orders include: MEDICAL CLEARANCE ORDER SET
[2019-03-12 19:23] LABS: Basophils # (Auto) 0.1 K/mm3 (0.0-0.1); Basophils % (Auto) 0.7 % (0.0-1.8); Eosinophils # (Auto) 0.1 K/mm3 (0.0-0.4); Eosinophils % (Auto) 1.1 % (0.0-4.3); Hematocrit 42.9 % (35.5-45.6); Hemoglobin 14.5 gm/dl (11.8-15.2); Lymphocytes # (Auto) 1.6 K/mm3 (1.2-5.4); Lymphocytes % (Auto) 20.3 % (13.4-35.0); Mean Corpuscular HGB Conc 34 % (32-34); Mean Corpuscular Volume 94 fl (84-94); Monocytes # (Auto) 0.7 K/mm3 (0.0-0.8); Monocytes % (Auto) 8.5 % (0.0-7.3); Platelet Count 464 K/mm3 (140-440); Red Blood Count 4.55 M/mm3 (3.65-5.03); Red Cell Distribution Width 14.5 % (13.2-15.2)
[2019-03-12 19:43] LABS: BUN/Creatinine Ratio 12; Blood Urea Nitrogen 7 mg/dL (9-20); Calcium 9.6 mg/dL (8.4-10.2); Hemolysis Index 21
--- NOTE | 2019-03-12 19:52 | Emergency Department Report ---
<SURENDRA REED - Last Filed: 03/12/19 19:45> ED Psych HPI - General Chief Complaint: Psych Stated Complaint: PSYCH Time Seen by Provider: 03/12/19 19:04 Source: patient Mode of arrival: Ambulatory - History of Present Illness Initial Comments: 38-year-old male with a past medical history of bipolar disorder admits to being off his medications. The last one week however has engaged in illicit drug use in the form of amphetamine/utilize yesterday presents to the emergency department complaining of paranoia feeling that someone is out to kill him. He reports no suicidal or homicidal ideation. Reports no chest pain, fever, chills, sweats, cough, coryza Complaint: other -: Gradual Associated Psychiatric Symptoms: none History of same: No Improves With: none Worsens With: none Context: recent drug abuse Treatments Prior to Arrival: none - Related Data Home Medications Medication Instructions Recorded Confirmed Last Taken Doxepin HCl 100 mg PO HS MDD 100 mg 08/28/16 03/12/19 08/26/16 100 mg [place] Carbonate 600 mg PO HS MDD 600 mg 08/28/16 03/12/19 08/26/16 600 mg Paliperidone ER 9 mg PO HS MDD 9 mg 08/28/16 03/12/19 08/26/16 9 mg Previous Rx's Medication Instructions Recorded Last Taken Type Famotidine [Pepcid] 20 mg PO BID #60 tablet 05/18/16 1 Day Ago Rx ~06/17/16 [place] Carbonate [Eskalith] 300 mg PO BID #60 capsule 05/18/16 1 Day Ago Rx ~06/17/16 Diclofenac Sodium [Voltaren] 100 gm TP Q6HR #1 gel..gram. 03/31/17 Unknown Rx Ibuprofen [Motrin] 600 mg PO Q8H PRN #30 tablet 06/10/17 Unknown Rx hydrOXYzine HCL [Atarax] 25 mg PO Q6HR PRN #16 tablet 05/23/18 Unknown Rx predniSONE [Prednisone] 10 mg PO QAM 6 Days #1 tab.ds.pk 05/23/18 Unknown Rx Allergies Allergy/AdvReac Type Severity Reaction Status Date / Time No Known Drug Allergies Allergy Unknown Verified 06/10/17 18:25 ED Review of Systems Comment: All other systems reviewed and negative ED Past Medical Hx - Past Medical History Previous Medical History?: Yes Hx Congestive Heart Failure: No Hx Diabetes: No Hx Psychiatric Treatment: Yes (bipolar) Hx Asthma: No Hx COPD: No Additional medical history: previous OD per EMS - Surgical History Past Surgical History?: Yes Additional Surgical History: T&A, Left knee surgery x 2 - Social History Smoking Status: Current Every Day Smoker Substance Use Type: None - Medications Home Medications: Home Medications Medication Instructions Recorded Confirmed Last Taken Type Famotidine [Pepcid] 20 mg PO BID #60 tablet 05/18/16 03/12/19 1 Day Ago Rx ~06/17/16 [place] Carbon[place] [Eskalith] 300 mg PO BID #60 capsule 05/18/16 03/12/19 1 Day Ago Rx ~06/17/16 Doxepin HCl 100 mg PO HS MDD 100 mg 08/28/16 03/12/19 08/26/16 History 100 mg [place] Carbonate 600 mg PO HS MDD 600 mg 08/28/16 03/12/19 08/26/16 History 600 mg Paliperidone ER 9 mg PO HS MDD 9 mg 08/28/16 03/12/19 08/26/16 History 9 mg Diclofenac Sodium [Voltaren] 100 gm TP Q6HR #1 gel..gram. 03/31/17 03/12/19 Unknown Rx Ibuprofen [Motrin] 600 mg PO Q8H PRN #30 tablet 06/10/17 03/12/19 Unknown Rx hydrOXYzine HCL [Atarax] 25 mg PO Q6HR PRN #16 tablet 05/23/18 03/12/19 Unknown Rx predniSONE [Prednisone] 10 mg PO QAM 6 Days #1 tab.ds.pk 05/23/18 03/12/19 Unknown Rx ED Physical Exam - General Limitations: No Limitations General appearance: alert, in no apparent distress - Head Head exam: Present: atraumatic, normocephalic - Eye Eye exam: Present: normal appearance - ENT ENT exam: Present: mucous membranes moist - Neck Neck exam: Present: normal inspection - Respiratory Respiratory exam: Present: normal lung sounds bilaterally. Absent: respiratory distress - Cardiovascular Cardiovascular Exam: Present: regular rate, normal rhythm. Absent: systolic murmur, diastolic murmur, rubs, gallop - GI/Abdominal GI/Abdominal exam: Present: soft, normal bowel sounds - Rectal Rectal exam: Present: deferred - Extremities Exam Extremities exam: Present: normal inspection - Back Exam Back exam: Present: normal inspection - Neurological Exam Neurological exam: Present: alert, oriented X3 - Psychiatric Psychiatric exam: Present: anxious (paranoia). Absent: homicidal ideation, suicidal ideation - Skin Skin exam: Present: warm, dry, intact, normal color. Absent: rash ED Medical Decision Making - Lab Data Result diagrams: 03/12/19 19:08 03/12/19 19:08 - Medical Decision Making Mr. Nelson presents with symptoms consistent with an underlying psychiatric disorder, most likely drug-induced psychosis. Differential diagnosis includes bipolar episode, schizophrenia, anxiety. Presentation not consistent with acute organic causes to include delirium, dementia or drug induced disorders (acute ingestions or withdrawal; no evidence of toxidrome). Given the H&P, I suspect this patient is not suicidal/homicidal/however due to the current mental capacity does not feel the patient is able to care for himself and and will require psychiatric care. Will consult psychiatry to evaluate the patient for potential hold for [place]. Will also obtain labs for medical clearance. Plan: labs, EKG, ASA/APAP levels, ETOH level, UDS,, Psych consult, medical detainment, reassess Patient was evaluated by the mental health electrical contacts adjuster who advised that the patient needs to stay in for admission at this present time voluntary however if patient attempts to the advised and placed on a 2013 due to substance related psychosis. Patient is not suicidal or homicidal. After evaluation in the emergency department for a psychiatric disease, no findings exacerbating or causing the psychiatric complaint. This patient demonstrates no contributing medical instability or "condition facilitating this psychiatric presentation. See the accompanying mental health electrical contacts adjuster's note for more detail ED Disposition Clinical Impression: Alcoholic psychosis with hallucinosis Disposition: DC-01 TO HOME OR SELFCARE Condition: Stable Instructions: Brief Psychotic Disorder (ED) Referrals: PRIMARY CARE, [Primary Care Provider] - 3-5 Days [facility] [Outside] - 3-5 Days <ALPA RICHARD - Last Filed: 03/13/19 10:16> ED Review of Systems ROS: Stated complaint: PSYCH Other details as noted in HPI ED Course Vital Signs 03/12/19 03/12/19 03/13/19 18:49 18:51 01:03 Temperature 98.8 F 98.8 F 97.4 F L Pulse Rate 121 H 121 H 89 Respiratory 20 20 18 Rate Blood Pressure 149/112 149/112 Blood Pressure 129/85 [Left] O2 Sat by Pulse 98 98 100 Oximetry 03/13/19 07:00 Temperature 97.5 F L Pulse Rate 82 Respiratory 18 Rate Blood Pressure Blood Pressure 142/91 [Left] O2 Sat by Pulse 99 Oximetry ED Medical Decision Making - Lab Data Result diagrams: 03/12/19 19:08 03/12/19 19:08 - Medical Decision Making After evaluation in the emergency department for a psychiatric disease, no findings exacerbating or causing the psychiatric complaint. This patient demonstrates no contributing medical instability or "condition facilitating this psychiatric presentation. See the accompanying mental health electrical contacts adjuster's note for more detail Health nurse practitioner evaluated patient finds that he does not need 1013 criteria or 2013 criteria. Patient is to follow up with [facility]. Critical care attestation.: If time is entered above; I have spent that time in minutes in the direct care of this critically ill patient, excluding procedure time. ED Disposition Is pt being admited?: No Does the pt Need Aspirin: No
[2019-03-12] MEDS ORDERED: LORazepam 2 MG/ML VIAL IM STA (20:03)
[2019-03-12] MEDS ORDERED: LORazepam 2 MG/ML VIAL ONE (20:06)
[2019-03-12 20:33] LABS: Benzodiazepines Screen,Urine PRESUMPTIVE NEGATIVE; Cocaine Screen,Urine PRESUMPTIVE NEGATIVE
[2019-03-12 20:38] LABS: Methadone Screen,Urine PRESUMPTIVE NEGATIVE; Opiate Screen,Urine PRESUMPTIVE NEGATIVE
[2019-03-12 20:46] LABS: Bilirubin,Urine NEG (Negative); Blood,Urine NEG (Negative); Color,Urine Yellow (Yellow); Mucus,Urine 2+ /HPF; Urobilinogen,Urine < 2.0 mg/dL (<2.0)
[2019-03-12 20:49] LABS: Amphetamine Screen,Urine PRESUMPTIVE POSITIVE; Cannabinoid Screen,Urine PRESUMPTIVE POSITIVE
[2019-03-12] MEDS ORDERED: ZIPRASIDONE MESYLATE 20 MG VIAL IM STA (20:49)
[2019-03-12] MEDS ORDERED: WATER FOR INJ Sterile (PF) 10 ML ONE (21:03)
[2019-03-13] MEDS ORDERED: carvediloL 6.25 MG TAB ONE (04:11)
[2019-03-13] MEDS ORDERED: LORazepam 2 MG/ML VIAL ONE (04:12)
[2019-03-13 08:39] VITALS: BP 142/91
--- NOTE | 2019-03-13 08:55 | Consultation ---
History of Present Illness - Reason for Consult Consult date: 03/13/19 Reason for consult: Mental Health Evaluation Requesting physician: SURENDRA REED - Chief Complaint Chief complaint: "It was the drugs" - History of Present Psychiatric Illness 38 y.o. white male who presented to the ER. This patient is known to me. Today the patient was calm and cooperative during the assessment. He stated that he "mixed" his drugs together prior to coming to the ER. He stated that he used "meth and marijuana."He stated that he started seeing things and hearing voices and decided to come to the ER. He stated that his actions were not safe. He stated that he will follow up with rehab services once discharged. He denies SI/HI's and AVH's. He denies erratic sleep and a poor appetite. He denies alcohol consumption (etoh). Per the record, no behavioral disturbances overnight by the patient. Medications and Allergies Allergies Allergy/AdvReac Type Severity Reaction Status Date / Time No Known Drug Allergies Allergy Unknown Verified 06/10/17 18:25 Home Medications Medication Instructions Recorded Confirmed Last Taken Type Famotidine [Pepcid] 20 mg PO BID #60 tablet 05/18/16 03/12/19 1 Day Ago Rx ~06/17/16 [place] Carbonate [Eskalith] 300 mg PO BID #60 capsule 05/18/16 03/12/19 1 Day Ago Rx ~06/17/16 Doxepin HCl 100 mg PO HS MDD 100 mg 08/28/16 03/12/19 08/26/16 History 100 mg [place] Carbonate 600 mg PO HS MDD 600 mg 08/28/16 03/12/19 08/26/16 History 600 mg Paliperidone ER 9 mg PO HS MDD 9 mg 08/28/16 03/12/19 08/26/16 History 9 mg Diclofenac Sodium [Voltaren] 100 gm TP Q6HR #1 gel..gram. 03/31/17 03/12/19 Unknown Rx Ibuprofen [Motrin] 600 mg PO Q8H PRN #30 tablet 06/10/17 03/12/19 Unknown Rx hydrOXYzine HCL [Atarax] 25 mg PO Q6HR PRN #16 tablet 05/23/18 03/12/19 Unknown Rx predniSONE [Prednisone] 10 mg PO QAM 6 Days #1 tab.ds.pk 05/23/18 03/12/19 Unk nown Rx Past psychiatric history - Past Medical History Past Medical History: No medical history Past Surgical History: No surgical history - past Psychiatric treatment and history psychiatric treatment history: Hx of psychosis. Denies a fam psy hx. - Social History Social history: lives with family Mental Status Exam - Vital signs Last Vital Signs Temp 97.5 F L 03/13/19 07:00 Pulse 82 03/13/19 07:00 Resp 18 03/13/19 07:00 BP 142/91 03/13/19 07:00 Pulse Ox 99 03/13/19 07:00 - Exam Narrative exam: MSE: Appearance: calm, cooperative Behavior: regular eye contact Speech: regular rate and tone Mood: "okay" Affect: congruent to mood Thought Process: logical Thought Content: denies SI/HI's and AVH's Motor Activity: sitting up in bed Cognition: A/O x3 Insight: fair Judgment: fair Results Result Diagrams: 03/12/19 19:08 03/12/19 19:08 Abnormal lab results 03/12/19 03/12/19 03/12/19 Range/Units 19:08 19:08 19:08 Plt Count (140-440) K/mm3 [place] % (Auto) (0.0-7.3) % Potassium 3.3 L (3.6-5.0) mmol/L Carbon Dioxide 21 L (22-30) mmol/L BUN 7 L (9-20) mg/dL Creatinine 0.6 L (0.8-1.5) mg/dL Glucose 101 H (75-100) mg/dL Ur Specific [place] (1.003-1.030) Salicylates < 0.3 L (2.8-20.0) mg/dL Acetaminophen < 5.0 L (10.0-30.0) ug/mL 03/12/19 03/12/19 Range/Units 19:08 20:10 Plt Count 464 H (140-440) K/mm3 [place] % (Auto) 8.5 H (0.0-7.3) % Potassium (3.6-5.0) mmol/L Carbon Dioxide (22-30) mmol/L BUN (9-20) mg/dL Creatinine (0.8-1.5) mg/dL Glucose (75-100) mg/dL Ur Specific [place] 1.036 H (1.003-1.030) Salicylates (2.8-20.0) mg/dL Acetaminophen (10.0-30.0) ug/mL All other labs normal. Assessment and Plan Assessment and plan: Impression: Substance Induced Psychosis. Substance Use DO (amphetamines). Cannabis Use DO. No overt psychosis with the patient. Today the patient was calm and cooperative during the assessment. Recommendation/Plan: The patient do not meed 1013/2013 criteria. Discussed the importance to abstain from recreational drug use with the patient, he verbalized understanding. Dispo: The patient can follow up with [facility] for rehab services. Will staff with Dr. Lamar Amezcua.
== END 2019-03-13 10:50 | disposition home or self-care (01) ==
LOC: ED 18:46
DX: F10.951 Alcohol use, unspecified with alcohol-induced psychotic disorder with hallucinations (principal); F31.9 Bipolar disorder, unspecified; F17.200 Nicotine dependence, unspecified, uncomplicated; Z98.890 Other specified postprocedural states; Z79.899 Other long term (current) drug therapy
CPT/HCPCS: 36415; 80048; 80307; 81001; 85025; 96372; 99284; J2060; J3486; 80320; G0480

== ENCOUNTER 2019-07-02 16:45 | Inpatient (IN) | payer OTHER ==
--- NOTE | 2019-07-02 17:05 | Emergency Department Report ---
Blank Doc - Documentation Documentation: This is a 38-year-old male that presents with hearing voice and paranoid. Den ies any SI/HI. This initial assessment/diagnostic orders/clinical plan/treatment(s) is/are subject to change based on patient's health status, clinical progression and re- assessment by fellow clinical providers in the ED. Further treatment and workup at subsequent clinical providers discretion. Patient/guardians urged not to elope from the ED as their condition may be serious if not clinically assessed and managed. Initial orders include: 1- Patient sent to MAIN ED for further evaluation and treatment 2- scrap shear operator was notified to have patient be brought back [facility]. 3- RN was notified to keep patient as close range and observation until room available 4- Patient presents with substantial risk of imminent harm to self, appears to be so unable to care for his/her own physical health and safety as to create an imminently life-endangering crisis, and has committed/expressed life endangering crisis to self. Due to this and other complaints, patient is put on psych hold.
[2019-07-02 18:01] LABS: Basophils # (Auto) 0.1 K/mm3 (0.0-0.1); Basophils % (Auto) 0.4 % (0.0-1.8); Eosinophils % (Auto) 0.1 % (0.0-4.3); Hemoglobin 14.9 gm/dl (11.8-15.2); Lymphocytes # (Auto) 1.7 K/mm3 (1.2-5.4); Lymphocytes % (Auto) 10.7 % (13.4-35.0); Mean Corpuscular HGB Conc 33 % (32-34); Mean Corpuscular Volume 92 fl (84-94); Monocytes # (Auto) 1.1 K/mm3 (0.0-0.8); Monocytes % (Auto) 6.8 % (0.0-7.3); Platelet Count 435 K/mm3 (140-440); Red Blood Count 4.89 M/mm3 (3.65-5.03); Red Cell Distribution Width 14.1 % (13.2-15.2)
[2019-07-02 18:13] LABS: Alanine Aminotransferase 117 units/L (7-56); BUN/Creatinine Ratio 16; Blood Urea Nitrogen 14 mg/dL (9-20); Calcium 10.1 mg/dL (8.4-10.2); Hemolysis Index 4
[2019-07-02] MEDS ORDERED: ZIPRASIDONE MESYLATE 20 MG VIAL IM ONE ×2 (18:27→18:30)
[2019-07-02] MEDS ORDERED: WATER FOR INJ Sterile (PF) 10 ML ONE (18:27)
--- NOTE | 2019-07-02 18:34 | Emergency Department Report ---
HPI - General Chief Complaint: Psych Time Seen by Provider: 07/02/19 17:03 - HPI HPI: 38-year-old male presents to the emergency department for a mental health evaluation. He has a history of schizophrenia and appears to be very paranoid that someone is trying to kill him. This is apparent as the patient is standing in the hallway yelling out for someone to call the police because "someone is trying to kill me." He says that he does not know exactly who that is. The patient was just discharged from this facility this morning after he w as seen here for similar symptoms. The patient is standing in the hallway in a threatening manner with a cord wrapped around his hand and then extended into his other hand. Unknown if the patient plans to use it as some type of a weapon but given the patient's paranoia he appears that he is at least ready to defend himself against this unknown assailant. ED Past Medical Hx - Past Medical History Previous Medical History?: Yes Hx Congestive Heart Failure: No Hx Diabetes: No Hx Psychiatric Treatment: Yes (bipolar) Hx Asthma: No Hx COPD: No Additional medical history: previous OD per EMS - Surgical History Past Surgical History?: Yes Additional Surgical History: T&A, Left knee surgery x 2 - Social History Smoking Status: Never Smoker Substance Use Type: None - Medications Home Medications: Home Medications Medication Instructions Recorded Confirmed Last Taken Type Famotidine [Pepcid] 20 mg PO BID #60 tablet 05/18/16 03/12/19 1 Day Ago Rx ~06/17/16 Fleming-Neon Carbonate [Eskalith] 300 mg PO BID #60 capsule 05/18/16 03/12/19 1 Day Ago Rx ~06/17/16 Doxepin HCl 100 mg PO HS MDD 100 mg 08/28/16 03/12/19 08/26/16 History 100 mg Fleming-Neon Carbonate 600 mg PO HS MDD 600 mg 08/28/16 03/12/19 08/26/16 History 600 mg Paliperidone ER 9 mg PO HS MDD 9 mg 08/28/16 03/12/19 08/26/16 History 9 mg Diclofenac Sodium [Voltaren] 100 gm TP Q6HR #1 gel..gram. 03/31/17 03/12/19 Unknown Rx Ibuprofen [Motrin] 600 mg PO Q8H PRN #30 tablet 06/10/17 03/12/19 Unknown Rx hydrOXYzine HCL [Atarax] 25 mg PO Q6HR PRN #16 tablet 05/23/18 03/12/19 Unknown Rx predniSONE [Prednisone] 10 mg PO QAM 6 Days #1 tab.ds.pk 05/23/18 03/12/19 Unknown Rx ED Review of Systems ROS: Stated complaint: PSYCH Other details as noted in HPI Comment: All other systems reviewed and negative Constitutional: denies: chills, fever Respiratory: denies: cough, shortness of breath Cardiovascular: denies: chest pain Gastrointestinal: denies: abdominal pain, vomiting Musculoskeletal: denies: back pain, arthralgia Skin: denies: rash, lesions Neurological: denies: headache, weakness Psychiatric: auditory hallucinations. denies: suicidal thoughts Physical Exam - Physical Exam Vital Signs: Vital Signs 07/02/19 17:09 Temperature 99.1 F Pulse Rate 125 H Respiratory 20 Rate Blood Pressure 144/109 O2 Sat by Pulse 96 Oximetry Physical Exam: GENERAL: The patient is well-developed well-nourished. HENT: Normocephalic. Atraumatic. Patient has moist mucous membranes. EYES: Extraocular motions are intact. NECK: Supple. Trachea is midline. CHEST/LUNGS: Clear to auscultation. There is no respiratory distress noted. HEART/CARDIOVASCULAR: Regular. There is mild to moderate tachycardia. There is no murmur. ABDOMEN: Abdomen is soft. Mild upper abdominal tenderness to palpation. Patient has normal bowel sounds. There is no abdominal distention. SKIN: Skin is warm and dry. NEURO: The patient is awake, alert, and oriented. Normal speech. MUSCULOSKELETAL: There is no tenderness or deformity. There is no limitation range of motion. PSYCH: The patient is exhibiting some acute psychosis. He is visibly paranoid and anxious. ED Course Vital Signs 07/02/19 17:09 Temperature 99.1 F Pulse Rate 125 H Respiratory 20 Rate Blood Pressure 144/109 O2 Sat by Pulse 96 Oximetry - Reevaluation(s) Reevaluation #1: 07/02/19 22:39 Lab Results 07/02/19 07/02/19 07/02/19 Range/Units 17:10 17:10 17:10 WBC 16.1 H (4.5-11.0) K/mm3 RBC 4.89 (3.65-5.03) M/mm3 Hgb 14.9 (11.8-15.2) gm/dl Hct 45.0 (35.5-45.6) % MCV 92 (84-94) fl MCH 30 (28-32) pg MCHC 33 (32-34) % RDW 14.1 (13.2-15.2) % Plt Count 435 (140-440) K/mm3 Lymph % (Auto) 10.7 L (13.4-35.0) % [place] % (Auto) 6.8 (0.0-7.3) % Eos % (Auto) 0.1 (0.0-4.3) % Baso % (Auto) 0.4 (0.0-1.8) % Lymph # 1.7 (1.2-5.4) K/mm3 [place] # 1.1 H (0.0-0.8) K/mm3 Eos # 0.0 (0.0-0.4) K/mm3 Baso # 0.1 (0.0-0.1) K/mm3 Seg Neutrophils % 82.0 H (40.0-70.0) % Seg Neutrophils # 13.2 H (1.8-7.7) K/mm3 Sodium 139 (137-145) mmol/L Potassium 3.8 (3.6-5.0) mmol/L Chloride 99.6 (98-107) mmol/L Carbon Dioxide 20 L (22-30) mmol/L Anion Gap 23 mmol/L BUN 14 (9-20) mg/dL Creatinine 0.9 (0.8-1.5) mg/dL Estimated GFR > 60 ml/min BUN/Creatinine Ratio 16 % Glucose 109 H (75-100) mg/dL Calcium 10.1 (8.4-10.2) mg/dL Total Bilirubin 0.50 (0.1-1.2) mg/dL AST 301 H (5-40) units/L ALT 117 H (7-56) units/L Alkaline Phosphatase 90 (35-129) units/L Total Protein 8.2 (6.3-8.2) g/dL Albumin 5.0 (3.9-5) g/dL Albumin/Globulin Ratio 1.6 % Urine Color (Yellow) Urine Turbidity (Clear) Urine pH (5.0-7.0) Ur Specific [place] (1.003-1.030) Urine Protein (Negative) mg/dL Urine Glucose (UA) (Negative) mg/dL Urine Ketones (Negative) mg/dL Urine Blood (Negative) Urine Nitrite (Negative) Urine Bilirubin (Negative) Urine Urobilinogen (<2.0) mg/dL Ur Leukocyte Esterase (Negative) Urine WBC (Auto) (0.0-6.0) /HPF Urine RBC (Auto) (0.0-6.0) /HPF Urine Mucus /HPF Salicylates < 0.3 L (2.8-20.0) mg/dL Urine Opiates Screen Urine Methadone Screen Acetaminophen (10.0-30.0) ug/mL Ur Barbiturates Screen Ur Phencyclidine Scrn Ur Amphetamines Screen U Benzodiazepines Scrn Urine Cocaine Screen U Marijuana (THC) Screen Drugs of Abuse Note Plasma/Serum Alcohol (0-0.07) % 07/02/19 07/02/19 07/02/19 Range/Units 17:10 17:10 21:11 WBC (4.5-11.0) K/mm3 RBC (3.65-5.03) M/mm3 Hgb (11.8-15.2) gm/dl Hct (35.5-45.6) % MCV (84-94) fl MCH (28-32) pg MCHC (32-34) % RDW (13.2-15.2) % Plt Count (140-440) K/mm3 Lymph % (Auto) (13.4-35.0) % [place] % (Auto) (0.0-7.3) % Eos % (Auto) (0.0-4.3) % Baso % (Auto) (0.0-1.8) % Lymph # (1.2-5.4) K/mm3 [place] # (0.0-0.8) K/mm3 Eos # (0.0-0.4) K/mm3 Baso # (0.0-0.1) K/mm3 Seg Neutrophils % (40.0-70.0) % Seg Neutrophils # (1.8-7.7) K/mm3 Sodium (137-145) mmol/L Potassium (3.6-5.0) mmol/L Chloride (98-107) mmol/L Carbon Dioxide (22-30) mmol/L Anion Gap mmol/L BUN (9-20) mg/dL Creatinine (0.8-1.5) mg/dL Estimated GFR ml/min BUN/Creatinine Ratio % Glucose (75-100) mg/dL Calcium (8.4-10.2) mg/dL Total Bilirubin (0.1-1.2) mg/dL AST (5-40) units/L ALT (7-56) units/L Alkaline Phosphatase (35-129) units/L Total Protein (6.3-8.2) g/dL Albumin (3.9-5) g/dL Albumin/Globulin Ratio % Urine Color Yellow (Yellow) Urine Turbidity Cloudy (Clear) Urine pH 5.0 (5.0-7.0) Ur Specific [place] 1.024 (1.003-1.030) Urine Protein 100 mg/dl (Negative) mg/dL Urine Glucose (UA) Neg (Negative) mg/dL Urine Ketones Tr (Negative) mg/dL Urine Blood Lg (Negative) Urine Nitrite Neg (Negative) Urine Bilirubin Neg (Negative) Urine Urobilinogen < 2.0 (<2.0) mg/dL Ur Leukocyte Esterase Neg (Negative) Urine WBC (Auto) 14.0 H (0.0-6.0) /HPF Urine RBC (Auto) 1.0 (0.0-6.0) /HPF Urine Mucus 3+ /HPF Salicylates (2.8-20.0) mg/dL Urine Opiates Screen Urine Methadone Screen Acetaminophen < 5.0 L (10.0-30.0) ug/mL Ur Barbiturates Screen Ur Phencyclidine Scrn Ur Amphetamines Screen U Benzodiazepines Scrn Urine Cocaine Screen U Marijuana (THC) Screen Drugs of Abuse Note Plasma/Serum Alcohol < 0.01 (0-0.07) % 07/02/19 Range/Units 21:11 WBC (4.5-11.0) K/mm3 RBC (3.65-5.03) M/mm3 Hgb (11.8-15.2) gm/dl Hct (35.5-45.6) % MCV (84-94) fl MCH (28-32) pg MCHC (32-34) % RDW (13.2-15.2) % Plt Count (140-440) K/mm3 Lymph % (Auto) (13.4-35.0) % [place] % (Auto) (0.0-7.3) % Eos % (Auto) (0.0-4.3) % Baso % (Auto) (0.0-1.8) % Lymph # (1.2-5.4) K/mm3 [place] # (0.0-0.8) K/mm3 Eos # (0.0-0.4) K/mm3 Baso # (0.0-0.1) K/mm3 Seg Neutrophils % (40.0-70.0) % Seg Neutrophils # (1.8-7.7) K/mm3 Sodium (137-145) mmol/L Potassium (3.6-5.0) mmol/L Chloride (98-107) mmol/L Carbon Dioxide (22-30) mmol/L Anion Gap mmol/L BUN (9-20) mg/dL Creatinine (0.8-1.5) mg/dL Estimated GFR ml/min BUN/Creatinine Ratio % Glucose (75-100) mg/dL Calcium (8.4-10.2) mg/dL Total Bilirubin (0.1-1.2) mg/dL AST (5-40) units/L ALT (7-56) units/L Alkaline Phosphatase (35-129) units/L Total Protein (6.3-8.2) g/dL Albumin (3.9-5) g/dL Albumin/Globulin Ratio % Urine Color (Yellow) Urine Turbidity (Clear) Urine pH (5.0-7.0) Ur Specific [place] (1.003-1.030) Urine Protein (Negative) mg/dL Urine Glucose (UA) (Negative) mg/dL Urine Ketones (Negative) mg/dL Urine Blood (Negative) Urine Nitrite (Negative) Urine Bilirubin (Negative) Urine Urobilinogen (<2.0) mg/dL Ur Leukocyte Esterase (Negative) Urine WBC (Auto) (0.0-6.0) /HPF Urine RBC (Auto) (0.0-6.0) /HPF Urine Mucus /HPF Salicylates (2.8-20.0) mg/dL Urine Opiates Screen Presumptive negative Urine Methadone Screen Presumptive negative Acetaminophen (10.0-30.0) ug/mL Ur Barbiturates Screen Presumptive negative Ur Phencyclidine Scrn Presumptive negative Ur Amphetamines Screen Presumptive positive U Benzodiazepines Scrn Presumptive negative Urine Cocaine Screen Presumptive negative U Marijuana (THC) Screen Presumptive negative Drugs of Abuse Note Disclamer Plasma/Serum Alcohol (0-0.07) % ED Medical Decision Making - Lab Data Result diagrams: 07/02/19 17:10 07/02/19 17:10 - Radiology Data Radiology results: report reviewed Abdominal ultrasound does not show any acute process. - Medical Decision Making This patient was discharged earlier today after being seen here for a mental health evaluation. The patient presents with signs of acute psychosis with visible paranoia and anxiety. The patient is standing in the hallway, yelling for someone to call the police as he believes someone is trying to kill him. We try to redirect the patient back into room 17 but he continuously comes out into the hallway and/or yells out for assistance. Patient was given some chemical sedation and eventually we were able to get him to lay down on the gurney. Patient's labs came back showing some transaminitis. When he was seen here earlier in the day, which has a different account number, the patient had AST/ALT of about 55. With this visit, the patient's AST is greater than 300 and ALT is 117. He complains of some mild abdominal pain, only when asked. Abdomen is soft, nondistended and nontoxic in appearance. The rest the patient's labs are mostly unremarkable except for urine drug screen positive for methamphetamines. An abdominal ultrasound was done that does not show any abnormalities to the gallbladder, liver, pancreas or biliary tract. However, given the rapid increase in the patient's liver enzymes, I feel it would be difficult to medically clear him for psychiatric placement. The patient will be admitted to the hospital for a probable GI consult and was accepted for admission by the hospitalist, Dr. Samuels. - Differential Diagnosis Drug abuse, schizophrenia, cholelithiasis, choledocholithias Critical Care Time: No Critical care attestation.: If time is entered above; I have spent that time in minutes in the direct care of this critically ill patient, excluding procedure time. ED Disposition Clinical Impression: Methamphetamine abuse, Transaminitis, Bipolar disorder, current episode manic severe with psychotic features Disposition: OP ADMIT IP TO THIS HOSP Is pt being admited?: Yes Condition: Fair Time of Disposition: 22:44
[2019-07-02 21:44] LABS: Benzodiazepines Screen,Urine PRESUMPTIVE NEGATIVE; Cannabinoid Screen,Urine PRESUMPTIVE NEGATIVE; Cocaine Screen,Urine PRESUMPTIVE NEGATIVE; Methadone Screen,Urine PRESUMPTIVE NEGATIVE; Opiate Screen,Urine PRESUMPTIVE NEGATIVE
[2019-07-02 21:47] LABS: Bilirubin,Urine NEG (Negative); Blood,Urine LG (Negative); Color,Urine Yellow (Yellow); Mucus,Urine 3+ /HPF; Urobilinogen,Urine < 2.0 mg/dL (<2.0)
--- NOTE | 2019-07-02 21:47 | Ultrasound Report ---
ULTRASOUND ABDOMEN, LIMITED (RIGHT UPPER QUADRANT) INDICATION / CLINICAL INFORMATION: abd pain, elevated liver enzymes. COMPARISON: Abdominal ultrasound 08/28/2016 FINDINGS: PANCREAS: Visualized portion shows no significant abnormality. LIVER: Mildly enlarged, 17.8 cm right lobe in craniocaudal dimension. No focal hepatic lesion. GALLBLADDER: No significant abnormality. BILE DUCTS: No significant abnormality. Common bile duct measures 3 mm. FREE FLUID: None. ADDITIONAL FINDINGS: Right kidney and aorta have an unremarkable sonographic appearance. IMPRESSION: 1. No significant sonographic abnormality of the right upper quadrant. Signer Name: Maurice Caro MD Signed: 07/02/2019 9:43 PM Workstation Name: [id number]
[2019-07-02 22:02] LABS: Amphetamine Screen,Urine PRESUMPTIVE POSITIVE
--- NOTE | 2019-07-02 23:18 | XRay Report ---
CHEST 1 VIEW INDICATION / CLINICAL INFORMATION: elevated white count. COMPARISON: 07/02/2019 at 0500 hours FINDINGS: SUPPORT DEVICES: None. HEART / MEDIASTINUM: No significant abnormality. LUNGS / PLEURA: No significant pulmonary or pleural abnormality. No pneumothorax. ADDITIONAL FINDINGS: No significant additional findings. IMPRESSION: No acute disease or interval change from earlier today Signer Name: Gerry Clayton MD FACR Signed: 07/02/2019 11:13 PM Workstation Name: [id number]
--- NOTE | 2019-07-02 23:52 | Cat Scan Report ---
CT abdomen pelvis w con INDICATION / CLINICAL INFORMATION: Leukocytosis, elevated Liver Enzymes. TECHNIQUE: All CT scans at this location are performed using CT dose reduction for ALARA by means of automated e xposure control. COMPARISON: 05/15/2019 FINDINGS: No free fluid is seen in the abdomen. Diffuse fatty infiltration is present in the liver without foca l abnormality. Spleen, kidneys, pancreas, adrenal glands and great vessels are normal. No mesenteric or retroperitoneal lymph nodes are seen. In the pelvis, no free fluid is seen. No enlarged lymph nodes are identified. The bladder and the tia endix are normal. No significant skeletal abnormalities identified. IMPRESSION: Diffuse fatty infiltration in the liver without focal abnormality. No acute findings Signer Name: Gerry Clayton MD FACR Signed: 07/02/2019 11:48 PM Workstation Name: [id number]
[2019-07-03] MEDS ORDERED: ONDANSETRON 4 MG/2 ML INJ IV PRN (00:11)
[2019-07-03] MEDS ORDERED: MAGNESIUM HYDROXIDE (MOM) ORAL LIQD UDC PO PRN (00:11)
[2019-07-03 00:28] LABS: Hepatitis C Virus Antibody Non-Reactive (NonReactive)
--- NOTE | 2019-07-03 00:58 | History and Physical Report ---
History of Present Illness Date of examination: 07/02/19 Date of admission: 07/02/19 23:56 Chief complaint: Paranoia History of present illness: 38-year-old male seen in the emergency room for mental health evaluation. He has known history of schizophrenia and paranoia. Patient was seen earlier in the emergency room today and discharge for this from this facility. He however presents again in the emergency room stating that some people were trying to kill him. Upon arrival in the emergency room patient had an object in his hand trying to defend himself against an unknown killer. He was also said to be yelling in the hallway slightly agitated. Work-up in the emergency room however reveals elevated liver enzymes. Patient has denied alcohol abuse, denies excessive intake of acetaminophen, however he has known history of methamphetamine and cocaine abuse. Past History Past Medical History: other (Schizophrenia, paranoia, depression) Past Surgical History: Other (Tonsillectomy and adenoidectomy, left knee surgery) Social history: no significant social history, other (History of methamphetamine and cocaine abuse) Family history: no significant family history Medications and Allergies Allergies Allergy/AdvReac Type Severity Reaction Status Date / Time No Known Drug Allergies Allergy Unknown Verified 06/10/17 18:25 Home Medications Medication Instructions Recorded Confirmed Last Taken Type Doxepin [SINEquan] 10 mg PO QHS 07/02/19 07/02/19 Unknown History FLUoxetine [PROzac] 10 mg PO QDAY 07/02/19 07/02/19 Unknown History QUEtiapine [SEROquel] 200 mg PO QHS 07/02/19 07/02/19 Unknown History Active Meds: Active Medications Sodium Chloride (Nacl 0.9% 1000 Ml) 1,000 mls @ 125 mls/hr IV DIRECT DOLORES Magnesium Hydroxide (Milk Of Magnesia) 30 ml PO Q4H PRN PRN Reason: Constipation Ondansetron HCl (Zofran) 4 mg IV Q8H PRN PRN Reason: Nausea And Vomiting Sodium Chloride (Sodium Chloride Flush Syringe 10 Ml) 10 ml IV BID DOLORES Sodium Chloride (Sodium Chloride Flush Syringe 10 Ml) 10 ml IV PRN PRN PRN Reason: LINE FLUSH Review of Systems Constitutional: no fever, no chills Cardiovascular: no chest pain, no palpitations Respiratory: no cough, no shortness of breath Gastrointestinal: no abdominal pain, no nausea, no vomiting, no diarrhea Genitourinary Male: no dysuria, no hematuria Musculoskeletal: no neck pain, no low back pain Integumentary: no rash, no pruritis Neurological: no headaches, no change in mentation Psychiatric: hallucinations, paranoia, depression Exam - Constitutional Vitals: Temp Pulse Resp BP Pulse Ox 98.2 F 94 H 18 104/66 98 07/03/19 00:00 07/03/19 00:00 07/03/19 00:00 07/03/19 00:00 07/03/19 00:00 General appearance: Present: no acute distress, well-nourished - EENT Eyes: Present: PERRL, EOM intact ENT: hearing intact, clear oral mucosa, dentition normal - Neck Neck: Present: supple, normal ROM - Respiratory Respiratory effort: normal Respiratory: bilateral: CTA - Cardiovascular Rhythm: regular Heart Sounds: Present: S1 & S2 - Extremities Extremities: no ischemia, pulses intact, pulses symmetrical, No edema, Full ROM Peripheral Pulses: within normal limits - Abdominal General gastrointestinal: Present: soft, non-tender, non-distended - Integumentary Integumentary: Present: clear, warm, dry - Musculoskeletal Musculoskeletal: strength equal bilaterally - Psychiatric Psychiatric: appropriate mood/affect, intact judgment & insight, cooperative - Neurologic Neurologic: CNII-XII intact, moves all extremities Results - Labs CBC & Chem 7: 07/02/19 17:10 07/02/19 17:10 Labs: Abnormal lab results 07/02/19 07/02/19 07/02/19 Range/Units 17:10 17:10 17:10 WBC 16.1 H (4.5-11.0) K/mm3 Lymph % (Auto) 10.7 L (13.4-35.0) % [place] # 1.1 H (0.0-0.8) K/mm3 Seg Neutrophils % 82.0 H (40.0-70.0) % Seg Neutrophils # 13.2 H (1.8-7.7) K/mm3 Carbon Dioxide 20 L (22-30) mmol/L Glucose 109 H (75-100) mg/dL AST 301 H (5-40) units/L ALT 117 H (7-56) units/L Urine WBC (Auto) (0.0-6.0) /HPF Salicylates < 0.3 L (2.8-20.0) mg/dL Acetaminophen (10.0-30.0) ug/mL 07/02/19 07/02/19 Range/Units 17:10 21:11 WBC (4.5-11.0) K/mm3 Lymph % (Auto) (13.4-35.0) % [place] # (0.0-0.8) K/mm3 Seg Neutrophils % (40.0-70.0) % Seg Neutrophils # (1.8-7.7) K/mm3 Carbon Dioxide (22-30) mmol/L Glucose (75-100) mg/dL AST (5-40) units/L ALT (7-56) units/L Urine WBC (Auto) 14.0 H (0.0-6.0) /HPF Salicylates (2.8-20.0) mg/dL Acetaminophen < 5.0 L (10.0-30.0) ug/mL Assessment and Plan - Patient Problems (1) Transaminitis Current Visit: Yes Status: Acute Plan to address problem: Etiology is unclear. We will place a consult to gastroenterology for further evaluation and recommendation. Meanwhile will monitor only and liver enzymes. (2) Bipolar disorder, current episode manic severe with psychotic features Current Visit: Yes Status: Acute Plan to address problem: We will resume routine home medications once reconciled (3) DVT prophylaxis Current Visit: No Status: Acute Plan to address problem: Patient placed on subcutaneous heparin. (4) Full code status Current Visit: Yes Status: Acute (5) Full code status Current Visit: Yes Status: Acute
[2019-07-03] MEDS: SODIUM CHLORIDE 0.9% 1000 ML 1,000 ML IV SCH ×3 (02:03→18:12)
--- NOTE | 2019-07-03 10:51 | Gastroenterology Consultation ---
History of Present Illness - Reason for Consult Consult date: 07/03/19 abnormal liver enzymes Requesting physician: ODETTE JORDAN - History of Present Illness The patient is a 38 yo male with h/o schizophrenia and substance abuse who presented to ED with paranoia/psychosis. Patient found to have elevated liver enzymes in hepatocellular pattern on admission. Previous labs on prior admissions showed relatively normal enzymes. Patient with sitter at bedside, does not provide detailed history, but reports generalized abdominal pain. No known h/o liver disease. Denies alcohol use. H/o methamphetamine and cocaine use. Past History Past Medical History: other (Schizophrenia, paranoia, depression) Past Surgical History: Other (Tonsillectomy and adenoidectomy, left knee surgery) Social history: no significant social history, other (History of methamphetamine and cocaine abuse) Family history: no significant family history Medications and Allergies Allergies Allergy/AdvReac Type Severity Reaction Status Date / Time No Known Drug Allergies Allergy Unknown Verified 06/10/17 18:25 Home Medications Medication Instructions Recorded Confirmed Last Taken Type Doxepin [SINEquan] 10 mg PO QHS 07/02/19 07/02/19 Unknown History FLUoxetine [PROzac] 10 mg PO QDAY 07/02/19 07/02/19 Unknown History QUEtiapine [SEROquel] 200 mg PO QHS 07/02/19 07/02/19 Unknown History Active Meds: Active Medications Sodium Chloride (Nacl 0.9% 1000 Ml) 1,000 mls @ 125 mls/hr IV DIRECT [facility] Last Admin: 07/03/19 09:32 Dose: 125 mls/hr Documented by: Magnesium Hydroxide (Milk Of Magnesia) 30 ml PO Q4H PRN PRN Reason: Constipation Ondansetron HCl (Zofran) 4 mg IV Q8H PRN PRN Reason: Nausea And Vomiting Sodium Chloride (Sodium Chloride Flush Syringe 10 Ml) 10 ml IV BID [facility] Last Admin: 07/03/19 09:35 Dose: 10 ml Documented by: Sodium Chloride (Sodium Chloride Flush Syringe 10 Ml) 10 ml IV PRN PRN PRN Reason: LINE FLUSH Last Admin: 07/03/19 02:02 Dose: 10 ml Documented by: Reviewed/updated patient's home and current medications Review of Systems - Review of Systems ROS unobtainable: due to mental status All systems: negative (per HPI) Exam - Constitutional Vital Signs: Temp Pulse Resp BP Pulse Ox 98.7 F 85 18 128/77 99 07/03/19 07:30 07/03/19 07:30 07/03/19 07:30 07/03/19 07:30 07/03/19 07:30 General appearance: no acute distress - EENT Eyes: PERRL, EOM intact - Respiratory Respiratory effort: normal Respiratory: bilateral: CTA - Cardiovascular Rhythm: regular Heart Sounds: Present: S1 & S2 - Gastrointestinal General gastrointestinal: Present: soft, non-tender, non-distended - Integumentary Integumentary: Present: clear, warm - Neurologic Neurological: oriented to person, oriented to place - Psychiatric Psychiatric: other (paranoia ) - Labs CBC & Chem 7: 07/02/19 17:10 07/02/19 17:10 Lab Results: Laboratory Results - last 24 hr 07/02/19 07/02/19 07/02/19 17:10 17:10 17:10 WBC 16.1 H RBC 4.89 Hgb 14.9 Hct 45.0 MCV 92 MCH 30 MCHC 33 RDW 14.1 Plt Count 435 Lymph % (Auto) 10.7 L [place] % (Auto) 6.8 Eos % (Auto) 0.1 Baso % (Auto) 0.4 Lymph # 1.7 [place] # 1.1 H Eos # 0.0 Baso # 0.1 Seg Neutrophils % 82.0 H Seg Neutrophils # 13.2 H Sodium 139 Potassium 3.8 Chloride 99.6 Carbon Dioxide 20 L Anion Gap 23 BUN 14 Creatinine 0.9 Estimated GFR > 60 BUN/Creatinine Ratio 16 Glucose 109 H Calcium 10.1 Total Bilirubin 0.50 AST 301 H ALT 117 H Alkaline Phosphatase 90 Total Protein 8.2 Albumin 5.0 Albumin/Globulin Ratio 1.6 Urine Color Urine Turbidity Urine pH Ur Specific [place] Urine Protein Urine Glucose (UA) Urine Ketones Urine Blood Urine Nitrite Urine Bilirubin Urine Urobilinogen Ur Leukocyte Esterase Urine WBC (Auto) Urine RBC (Auto) Urine Mucus Salicylates < 0.3 L Urine Opiates Screen Urine Methadone Screen Acetaminophen Ur Barbiturates Screen Ur Phencyclidine Scrn Ur Amphetamines Screen U Benzodiazepines Scrn Urine Cocaine Screen U Marijuana (THC) Screen Drugs of Abuse Note Plasma/Serum Alcohol Hep Bs Antigen Hep B Core IgM Ab Hepatitis C Antibody 07/02/19 07/02/19 07/02/19 17:10 17:10 21:11 WBC RBC Hgb Hct MCV MCH MCHC RDW Plt Count Lymph % (Auto) [place] % (Auto) Eos % (Auto) Baso % (Auto) Lymph # [place] # Eos # Baso # Seg Neutrophils % Seg Neutrophils # Sodium Potassium Chloride Carbon Dioxide Anion Gap BUN Creatinine Estimated GFR BUN/Creatinine Ratio Glucose Calcium Total Bilirubin AST ALT Alkaline Phosphatase Total Protein Albumin Albumin/Globulin Ratio Urine Color Yellow Urine Turbidity Cloudy Urine pH 5.0 Ur Specific [place] 1.024 Urine Protein 100 mg/dl Urine Glucose (UA) Neg Urine Ketones Tr Urine Blood Lg Urine Nitrite Neg Urine Bilirubin Neg Urine Urobilinogen < 2.0 Ur Leukocyte Esterase Neg Urine WBC (Auto) 14.0 H Urine RBC (Auto) 1.0 Urine Mucus 3+ Salicylates Urine Opiates Screen Urine Methadone Screen Acetaminophen < 5.0 L Ur Barbiturates Screen Ur Phencyclidine Scrn Ur Amphetamines Screen U Benzodiazepines Scrn Urine Cocaine Screen U Marijuana (THC) Screen Drugs of Abuse Note Plasma/Serum Alcohol < 0.01 Hep Bs Antigen Hep B Core IgM Ab Hepatitis C Antibody 07/02/19 07/02/19 07/02/19 21:11 23:32 23:32 WBC RBC Hgb Hct MCV MCH MCHC RDW Plt Count Lymph % (Auto) [place] % (Auto) Eos % (Auto) Baso % (Auto) Lymph # [place] # Eos # Baso # Seg Neutrophils % Seg Neutrophils # Sodium Potassium Chloride Carbon Dioxide Anion Gap BUN Creatinine Estimated GFR BUN/Creatinine Ratio Glucose Calcium Total Bilirubin AST ALT Alkaline Phosphatase Total Protein Albumin Albumin/Globulin Ratio Urine Color Urine Turbidity Urine pH Ur Specific [place] Urine Protein Urine Glucose (UA) Urine Ketones Urine Blood Urine Nitrite Urine Bilirubin Urine Urobilinogen Ur Leukocyte Esterase Urine WBC (Auto) Urine RBC (Auto) Urine Mucus Salicylates Urine Opiates Screen Presumptive negative Urine Methadone Screen Presumptive negative Acetaminophen Ur Barbiturates Screen Presumptive negative Ur Phencyclidine Scrn Presumptive negative Ur Amphetamines Screen Presumptive positive U Benzodiazepines Scrn Presumptive negative Urine Cocaine Screen Presumptive negative U Marijuana (THC) Screen Presumptive negative Drugs of Abuse Note Disclamer Plasma/Serum Alcohol Hep Bs Antigen Non-reactive Hep B Core IgM Ab Non-reactive Hepatitis C Antibody Non-reactive Assessment and Plan 1. Abnormal liver enzymes - new hepatocellular elevation with AST > ALT. viral hep serologies negative. possibly drug induce liver injury. will check CK to rule out rhabdo. trend liver enzymes and supportive care from gi stand point otherwise at this time while psych issues are being addressed
--- NOTE | 2019-07-03 13:11 | Progress Note ---
Assessment and Plan / Transaminitis Etiology is unclear. GI consulted hepatitis panel negative, monitor LFT /drug induced psychosis - haldol as needed, /Rhabdomyolysis, cont fluid, monitor level / Bipolar disorder, current episode manic severe with psychotic features started on seroquel, consulted psych / Amphetamine abuse Patient being monitored at tele /DVT prophylaxis Patient placed on subcutaneous heparin /Full code status Subjective Date of service: 07/03/19 Interval history: Patient seen and examined appears agitated and irritated, c/o back pain ambulating inside the room Objective - Constitutional Vitals: Vital Signs - 12hr 07/03/19 07/03/19 07/03/19 01:43 07:30 11:46 Temperature 98.2 F 98.7 F 98.0 F Pulse Rate 107 H 85 84 Respiratory 18 18 18 Rate Blood Pressure 138/99 128/77 134/69 O2 Sat by Pulse 97 99 99 Oximetry General appearance: Present: no acute distress, well-nourished - EENT Eyes: PERRL, EOM intact ENT: hearing intact, clear oral mucosa Ears: bilateral: normal - Neck Neck: supple, normal ROM - Respiratory Respiratory effort: normal Respiratory: bilateral: CTA - Cardiovascular Rhythm: regular Heart Sounds: Present: S1 & S2. Absent: gallop, rub Extremities: pulses intact, No edema, normal color, Full ROM - Gastrointestinal General gastrointestinal: Present: soft, non-tender, non-distended, normal bowel sounds - Integumentary Integumentary: clear, warm, dry - Musculoskeletal Musculoskeletal: 1, strength equal bilaterally - Neurologic Neurologic: moves all extremities - Psychiatric Psychiatric: no appropriate mood/affect, agitated - Labs CBC & Chem 7: 07/04/19 04:27 07/04/19 04:27 Labs: Abnormal lab results 07/02/19 07/02/19 07/02/19 Range/Units 17:10 17:10 17:10 WBC 16.1 H (4.5-11.0) K/mm3 Lymph % (Auto) 10.7 L (13.4-35.0) % [place] # 1.1 H (0.0-0.8) K/mm3 Seg Neutrophils % 82.0 H (40.0-70.0) % Seg Neutrophils # 13.2 H (1.8-7.7) K/mm3 Carbon Dioxide 20 L (22-30) mmol/L Glucose 109 H (75-100) mg/dL AST 301 H (5-40) units/L ALT 117 H (7-56) units/L Urine WBC (Auto) (0.0-6.0) /HPF Salicylates < 0.3 L (2.8-20.0) mg/dL Acetaminophen (10.0-30.0) ug/mL 07/02/19 07/02/19 Range/Units 17:10 21:11 WBC (4.5-11.0) K/mm3 Lymph % (Auto) (13.4-35.0) % [place] # (0.0-0.8) K/mm3 Seg Neutrophils % (40.0-70.0) % Seg Neutrophils # (1.8-7.7) K/mm3 Carbon Dioxide (22-30) mmol/L Glucose (75-100) mg/dL AST (5-40) units/L ALT (7-56) units/L Urine WBC (Auto) 14.0 H (0.0-6.0) /HPF Salicylates (2.8-20.0) mg/dL Acetaminophen < 5.0 L (10.0-30.0) ug/mL
[2019-07-03] MEDS: traMADol 50 MG TAB PO PRN ×2 (14:35→21:05)
[2019-07-03] MEDS: PANTOPRAZOLE 40 MG TAB PO SCH (14:35)
--- NOTE | 2019-07-03 16:40 | Consultation ---
History of Present Illness - Reason for Consult Consult date: 07/03/19 Reason for consult: Psych eval - Chief Complaint Chief complaint: Paranoia - History of Present Psychiatric Illness The patient is 38yo unemployed male with history of Schizoaffective disorder who presented to the ED with paranoia. Psychiatry consulted to evaluate patient and recommend disposition. Patient seen by me with a Adult Basic Education Manager at bedside. He is alert, fully oriented, calm and pleasant. He endorses being paranoid on admission but not at present. He takes Seroquel which he finds beneficial and wants to resume it.. Patient describes a good and stable mood, denies being depressed or excessively nervous. Patient eats and sleeps well. Patient denies panic attacks, recurrent nightmares or flashbacks. Patient denies symptoms suggestive of OCD or PTSD. Patient denies hallucinations, paranoia, thought interference and no features suggestive of hypomania or kendell. He completely denies suicidal or homicidal thoughts. He admits using drugs including pain medications, cocaine and meth. PAST PSYCHIATRIC HISTORY: Diagnoses: Schizoaffective disorder, bipolar type Suicide attempts or Self-harm behavior: yes Prior psychiatric hospitalizations : yes Substance Abuse history: Yes, Opiates Outpatient treatment: no Family Psychiatric History None reported or documented SOCIAL HISTORY Marital Status: Living Arrangements: Parents Employment Status: Unemployed Access to guns/weapons: Patient denies Education: GED History of Abuse: Patient denies Legal History: Patient denies ROS: Constitutional: Negative for weight loss ENT: Negative for stridor Respiratory: Negative for cough or hemoptysis All other systems reviewed and are negative MENTAL STATUS General Appearance and Behavior: age appropriate, good eye contact, cooperative with questioning and polite Cooperation: Cooperative Psychomotor Behavior: within normal limits Mood: OK Affect and affective range: Congruent with stated mood Thought Process: Fluent/Logical and Goal-directed Thought Content: Within reality Speech: Normal volume and Regular rate and rhythm Intellectual Functioning Average Suicidal Ideation: Denies SI Homicidal Ideation: Denies HI Impulse Control: intact Insight and Judgment: normal insight and judgment Memory: Normal Attention: Normal Orientation: alert and oriented DIAGNOSIS: Assessment and Plan - Psychiatric problem (1) Substance-induced psychotic disorder (Resolved) Current Visit: Yes Status: Acute (2) Methamphetamine abuse Current Visit: Yes Status: Acute (3) Cocaine abuse Current Visit: No Status: Acute RECOMMENDATIONS MEDICATIONS:Resume Seroquel 200mg qhs Risks, benefits and alternatives of medications discussed with the patient, qu estions answered and consent obtained from patient. PSYCHOTHERAPY: Supportive psychotherapy provided MEDICAL: Per primary team [facility]: May discontinue DISPOSITION: Per primary team; no indication for acute inpatient psychiatric hospitalization at this time LEGAL STATUS: Voluntary FOLLOW-UP: Will sign off The patient agreed on the treatment plan, understood the risk, benefit, alternative treatment, potential consequence of no treatment, and gave informed consent. Please contact with any questions and/or concerns. Medications and Allergies Allergies Allergy/AdvReac Type Severity Reaction Status Date / Time No Known Drug Allergies Allergy Unknown Verified 06/10/17 18:25 Home Medications Medication Instructions Recorded Confirmed Last Taken Type Doxepin [SINEquan] 10 mg PO QHS 07/02/19 07/02/19 Unknown History FLUoxetine [PROzac] 10 mg PO QDAY 07/02/19 07/02/19 Unknown History QUEtiapine [SEROquel] 200 mg PO QHS 07/02/19 07/02/19 Unknown History Active Meds: Active Medications Haloperidol Lactate (Haldol) 5 mg IM Q6H PRN PRN Reason: Agitation Last Admin: 07/03/19 16:17 Dose: 5 mg Documented by: Sodium Chloride (Nacl 0.9% 1000 Ml) 1,000 mls @ 125 mls/hr IV DIRECT [facility] Last Admin: 07/03/19 09:32 Dose: 125 mls/hr Documented by: Magnesium Hydroxide (Milk Of Magnesia) 30 ml PO Q4H PRN PRN Reason: Constipation Ondansetron HCl (Zofran) 4 mg IV Q8H PRN PRN Reason: Nausea And Vomiting Pantoprazole Sodium (Protonix) 40 mg PO QDAY [facility] Last Admin: 07/03/19 14:35 Dose: 40 mg Documented by: Sodium Chloride (Sodium Chloride Flush Syringe 10 Ml) 10 ml IV BID [facility] Last Admin: 07/03/19 09:35 Dose: 10 ml Documented by: Sodium Chloride (Sodium Chloride Flush Syringe 10 Ml) 10 ml IV PRN PRN PRN Reason: LINE FLUSH Last Admin: 07/03/19 02:02 Dose: 10 ml Documented by: Tramadol HCl (Ultram) 50 mg PO Q6H PRN PRN Reason: Pain, Moderate (4-6) Last Admin: 07/03/19 14:35 Dose: 50 mg Documented by: Mental Status Exam - Vital signs Last Vital Signs Temp 98.0 F 07/03/19 11:46 Pulse 84 07/03/19 11:46 Resp 18 07/03/19 11:46 BP 134/69 07/03/19 11:46 Pulse Ox 99 07/03/19 11:46 Results Result Diagrams: 07/02/19 17:10 07/02/19 17:10 Abnormal lab results 07/02/19 07/02/19 07/02/19 Range/Units 17:10 17:10 17:10 WBC 16.1 H (4.5-11.0) K/mm3 Lymph % (Auto) 10.7 L (13.4-35.0) % [place] # 1.1 H (0.0-0.8) K/mm3 Seg Neutrophils % 82.0 H (40.0-70.0) % Seg Neutrophils # 13.2 H (1.8-7.7) K/mm3 Carbon Dioxide 20 L (22-30) mmol/L Glucose 109 H (75-100) mg/dL AST 301 H (5-40) units/L ALT 117 H (7-56) units/L Total Creatine Kinase (55-170) units/L Urine WBC (Auto) (0.0-6.0) /HPF Salicylates < 0.3 L (2.8-20.0) mg/dL Acetaminophen (10.0-30.0) ug/mL 07/02/19 07/02/19 07/03/19 Range/Units 17:10 21:11 13:23 WBC (4.5-11.0) K/mm3 Lymph % (Auto) (13.4-35.0) % [place] # (0.0-0.8) K/mm3 Seg Neutrophils % (40.0-70.0) % Seg Neutrophils # (1.8-7.7) K/mm3 Carbon Dioxide (22-30) mmol/L Glucose (75-100) mg/dL AST (5-40) units/L ALT (7-56) units/L Total Creatine Kinase 9102 H (55-170) units/L Urine WBC (Auto) 14.0 H (0.0-6.0) /HPF Salicylates (2.8-20.0) mg/dL Acetaminophen < 5.0 L (10.0-30.0) ug/mL All other labs normal. Assessment and Plan - Psychiatric problem (1) Substance-induced psychotic disorder Current Visit: Yes Status: Acute (2) Methamphetamine abuse Current Visit: Yes Status: Acute (3) Cocaine abuse Current Visit: No Status: Acute
[2019-07-03] MEDS ORDERED: HALOPERIDOL LACTATE 5 MG/1 ML INJ IM PRN (17:00)
[2019-07-03 20:48] VITALS: BP 151/84
[2019-07-03] MEDS ORDERED: QUEtiapine 200 MG TAB PO SCH (22:00)
[2019-07-04] MEDS: SODIUM CHLORIDE 0.9% 1000 ML 1,000 ML IV SCH ×2 (01:23→12:21)
[2019-07-04 05:31] LABS: Basophils % (Auto) 0.5 % (0.0-1.8); Eosinophils # (Auto) 0.1 K/mm3 (0.0-0.4); Eosinophils % (Auto) 2.3 % (0.0-4.3); Hemoglobin 13.3 gm/dl (11.8-15.2); Lymphocytes # (Auto) 2.5 K/mm3 (1.2-5.4); Lymphocytes % (Auto) 39.8 % (13.4-35.0); Mean Corpuscular HGB Conc 34 % (32-34); Mean Corpuscular Volume 92 fl (84-94); Monocytes # (Auto) 0.4 K/mm3 (0.0-0.8); Monocytes % (Auto) 7.1 % (0.0-7.3); Platelet Count 319 K/mm3 (140-440); Red Blood Count 4.22 M/mm3 (3.65-5.03); Red Cell Distribution Width 14.2 % (13.2-15.2)
[2019-07-04 05:40] LABS: INR 0.92 (0.87-1.13)
[2019-07-04 05:51] LABS: BUN/Creatinine Ratio 15; Blood Urea Nitrogen 9 mg/dL (9-20); Hemolysis Index 4
[2019-07-04] MEDS: PANTOPRAZOLE 40 MG TAB PO SCH (09:16)
--- NOTE | 2019-07-04 09:23 | Gastroenterology Progress Note ---
Assessment and Plan 1. elevated liver enzymes - repeat labs pending, high CK so ? rhabdo component. repeat liver enzymes pending. if improving, then hold off on further work-up from gi stand point at this time. will sign off, please call as needed or with questions. Subjective Date of service: 07/04/19 Principal diagnosis: elevated liver enzymes Interval history: pt seen and examined; sleeping/arousable. ate breakfast this morning w/o issues. Objective - Constitutional Vitals: Temp Pulse Resp BP Pulse Ox 97.6 F 72 16 151/84 97 07/03/19 20:26 07/03/19 20:26 07/03/19 20:26 07/03/19 20:26 07/03/19 20:26 General appearance: no acute distress - Respiratory Respiratory effort: normal Respiratory: bilateral: CTA - Cardiovascular Rhythm: regular Heart Sounds: Present: S1 & S2 - Gastrointestinal General gastrointestinal: Present: soft, non-tender, non-distended - Labs CBC & Chem 7: 07/04/19 04:27 07/04/19 04:27 Labs: Laboratory Results - last 24 hr 07/03/19 07/04/19 07/04/19 13:23 04:27 04:27 WBC 6.3 RBC 4.22 Hgb 13.3 Hct 39.0 D MCV 92 MCH 32 MCHC 34 RDW 14.2 Plt Count 319 Lymph % (Auto) 39.8 H [place] % (Auto) 7.1 Eos % (Auto) 2.3 Baso % (Auto) 0.5 Lymph # 2.5 [place] # 0.4 Eos # 0.1 Baso # 0.0 Seg Neutrophils % 50.3 Seg Neutrophils # 3.2 PT 12.5 INR 0.92 APTT 24.0 L Sodium Potassium Chloride Carbon Dioxide Anion Gap BUN Creatinine Estimated GFR BUN/Creatinine Ratio Glucose Calcium Total Creatine Kinase 9102 H 07/04/19 04:27 WBC RBC Hgb Hct MCV MCH MCHC RDW Plt Count Lymph % (Auto) [place] % (Auto) Eos % (Auto) Baso % (Auto) Lymph # [place] # Eos # Baso # Seg Neutrophils % Seg Neutrophils # PT INR APTT Sodium 142 Potassium 3.5 L Chloride 105.5 Carbon Dioxide 23 Anion Gap 17 BUN 9 Creatinine 0.6 L Estimated GFR > 60 BUN/Creatinine Ratio 15 Glucose 92 Calcium 9.0 Total Creatine Kinase
[2019-07-04] MEDS ORDERED: POTASSIUM CHLORIDE ER 20 MEQ TAB PO ONE (14:25)
--- NOTE | 2019-07-04 14:31 | Discharge Summary ---
Providers - Providers Date of Admission: 07/02/19 23:56 Date of discharge: 07/04/19 Attending physician: KIRSTIE MONTALVO 07/02/19 17:05 Consult to Mental Health [CONS] Stat Reason For Exam: hearing voices 07/03/19 00:11 Consult to Physician [CONS] Routine Comment: Consulting Provider: NORMA TALLEY Physician Instructions: Reason For Exam: ELEVATED LIVER ENZYMES Primary care physician: CASE MANAGEMENT DIRECTOR Hospitalization Condition: Fair Pertinent studies: Abdomen US Abdomen/pelvis CT CXR Hospital course: Discharge diagnosis: / Transaminitis Etiology is unclear. GI consulted hepatitis panel negative, monitor LFT /drug induced psychosis - haldol as needed, /Rhabdomyolysis, cont fluid, monitor level / Bipolar disorder, current episode manic severe with psychotic features started on seroquel, consulted psych /hypokalemia, repleted / Amphetamine abuse Patient being monitored at tele /DVT prophylaxis Patient placed on subcutaneous heparin /Full code status Disposition: - TO HOME OR SELFCARE Time spent for discharge: 34 minutes Core Measure Documentation - Palliative Care Palliative Care/ Comfort Measures: Not Applicable - Core Measures Any of the following diagnoses?: none Exam - Physical Exam Narrative exam: General appearance: Present: no acute distress, well-nourished - EENT Eyes: PERRL, EOM intact ENT: hearing intact, clear oral mucosa Ears: bilateral: normal - Neck Neck: supple, normal ROM - Respiratory Respiratory effort: normal Respiratory: bilateral: CTA - Cardiovascular Rhythm: regular Heart Sounds: Present: S1 & S2. Absent: gallop, rub Extremities: pulses intact, No edema, normal color, Full ROM - Gastrointestinal General gastrointestinal: Present: soft, non-tender, non-distended, normal bowel sounds - Integumentary Integumentary: clear, warm, dry - Musculoskeletal Musculoskeletal: 1, strength equal bilaterally - Neurologic Neurologic: moves all extremities - Psychiatric Psychiatric: no appropriate mood/affect, agitated - Constitutional Vitals: Temp Pulse Resp BP Pulse Ox 97.6 F 72 16 151/84 97 07/03/19 20:26 07/03/19 20:26 07/03/19 20:26 07/03/19 20:26 07/03/19 20:26 Plan Activity: advance as tolerated Weight Bearing Status: Weight Bear as Tolerated Diet: low fat, low salt Additional Instructions: repeat LFT in one week. Follow up with: PRIMARY CARE, [Primary Care Provider] - 3-5 Days Prescriptions: QUEtiapine [SEROquel] 200 mg PO QHS #14 QUEtiapine [SEROquel] 200 mg PO QHS #14 tablet
[2019-07-04 15:50] LABS: Bilirubin,Direct 0.2 mg/dL (0-0.2)
[2019-07-04 15:51] LABS: Albumin 3.6 g/dL (3.9-5)
[2019-07-04] MEDS: traMADol 50 MG TAB PO PRN (17:34)
== END 2019-07-04 18:25 | disposition home or self-care (01) | DRG 948 ==
LOC: ED 16:45 → EEVIPCON 23:56 → 4A 23:56 → 3A 07-03 22:57
PROVIDERS: ADMIT Internal Medicine Geriatric Medicine; ATTEND Internal Medicine
DX: R74.0 Nonspecific elevation of levels of transaminase and lactic acid dehydrogenase [LDH] (principal); M62.82 Rhabdomyolysis; F31.2 Bipolar disorder, current episode manic severe with psychotic features; F15.151 Other stimulant abuse with stimulant-induced psychotic disorder with hallucinations; F14.10 Cocaine abuse, uncomplicated; Z90.89 Acquired absence of other organs
CPT/HCPCS: 36415; 71045; 74177; 76705; 80048; 80053; 80076; 80307; 80320; 81001; 82550; 85025; 85610; 85730; 86705; 86706; 86709; 86803; 87086; G0378; G0480; J1630; J3486; J7030; Q9967

== ENCOUNTER 2019-08-13 20:32 | Emergency (ER) | payer SELFPAY ==
[2019-08-13 21:05] LABS: Basophils # (Auto) 0.1 K/mm3 (0.0-0.1); Basophils % (Auto) 0.7 % (0.0-1.8); Eosinophils # (Auto) 0.1 K/mm3 (0.0-0.4); Eosinophils % (Auto) 0.7 % (0.0-4.3); Hematocrit 45.9 % (35.5-45.6); Hemoglobin 15.3 gm/dl (11.8-15.2); Lymphocytes # (Auto) 1.7 K/mm3 (1.2-5.4); Lymphocytes % (Auto) 20.9 % (13.4-35.0); Mean Corpuscular HGB Conc 33 % (32-34); Mean Corpuscular Volume 91 fl (84-94); Monocytes # (Auto) 0.7 K/mm3 (0.0-0.8); Monocytes % (Auto) 8.9 % (0.0-7.3); Platelet Count 407 K/mm3 (140-440); Red Blood Count 5.03 M/mm3 (3.65-5.03); Red Cell Distribution Width 13.9 % (13.2-15.2)
[2019-08-13 21:06] LABS: Bilirubin,Urine NEG (Negative); Blood,Urine SM (Negative); Color,Urine Yellow (Yellow); Mucus,Urine 3+ /HPF; Urobilinogen,Urine < 2.0 mg/dL (<2.0)
[2019-08-13 21:13] LABS: Benzodiazepines Screen,Urine PRESUMPTIVE NEGATIVE; Cannabinoid Screen,Urine PRESUMPTIVE NEGATIVE; Cocaine Screen,Urine PRESUMPTIVE NEGATIVE; Methadone Screen,Urine PRESUMPTIVE NEGATIVE; Opiate Screen,Urine PRESUMPTIVE NEGATIVE
--- NOTE | 2019-08-13 21:15 | Emergency Department Report ---
ED Psych HPI - General Chief Complaint: Psych Stated Complaint: MH Time Seen by Provider: 08/13/19 20:55 Source: patient, EMS Mode of arrival: Ambulatory - History of Present Illness Initial Comments: 38-year-old male with history of bipolar disorder presents to ED stating that bassam herrera is trying to kill his family. Patient does not specify who is trying to kill his family or why. Patient denies SI or HI. He reports substernal chest pain, onset today, sharp in nature, intermittent. He reports shortness of breath and dizziness. Patient reports acute exacerbation of his chronic lower back pain as well. MD Complaint: other -: unknown Associated Psychiatric Symptoms: other (paranoia) Quality: constant Improves With: none Worsens With: none Associated Symptoms: shortness of breath, other (chest pain, chronic lower back pain) Treatments Prior to Arrival: none - Related Data Previous Rx's Medication Instructions Recorded Last Taken Type QUEtiapine [SEROquel] 200 mg PO QHS #14 tablet 07/04/19 Unknown Rx Allergies Allergy/AdvReac Type Severity Reaction Status Date / Time No Known Drug Allergies Allergy Unknown Verified 06/10/17 18:25 ED Review of Systems ROS: Stated complaint: MH Other details as noted in HPI Comment: All other systems reviewed and negative Constitutional: denies: chills, fever Respiratory: shortness of breath. denies: cough Cardiovascular: chest pain Gastrointestinal: denies: nausea, vomiting Musculoskeletal: back pain Psychiatric: denies: homicidal thoughts, suicidal thoughts ED Past Medical Hx - Past Medical History Previous Medical History?: Yes Hx Congestive Heart Failure: No Hx Diabetes: No Hx Psychiatric Treatment: Yes (bipolar, schizoaffective) Hx Asthma: No Hx COPD: No Additional medical history: previous OD per EMS - Surgical History Past Surgical History?: Yes Additional Surgical History: T&A, Left knee surgery x 2 - Social History Smoking Status: Unknown if ever smoked - Medications Home Medications: Home Medications Medication Instructions Recorded Confirmed Last Taken Type QUEtiapine [SEROquel] 200 mg PO QHS #14 tablet 07/04/19 08/13/19 Unknown Rx ED Physical Exam - General Limitations: No Limitations General appearance: alert, in no apparent distress - Head Head exam: Present: atraumatic, normocephalic - Eye Eye exam: Present: normal appearance, EOMI - ENT ENT exam: Present: mucous membranes moist - Neck Neck exam: Present: normal inspection - Respiratory Respiratory exam: Present: normal lung sounds bilaterally. Absent: respiratory distress - Cardiovascular Cardiovascular Exam: Present: normal rhythm, tachycardia - GI/Abdominal GI/Abdominal exam: Absent: distended - Extremities Exam Extremities exam: Present: normal inspection - Neurological Exam Neurological exam: Present: alert, oriented X3 - Psychiatric Psychiatric exam: Present: flat affect, other (paranoid) - Skin Skin exam: Present: warm, dry, intact, normal color ED Course Vital Signs 08/13/19 08/14/19 08/14/19 20:40 02:27 08:00 Temperature 98.1 F 97.8 F 97.5 F L Pulse Rate 122 H 87 111 H Respiratory 20 16 17 Rate Blood Pressure 162/92 144/106 143/98 [Left] O2 Sat by Pulse 97 100 96 Oximetry ED Medical Decision Making - Lab Data Result diagrams: 08/13/19 20:54 08/13/19 20:54 - EKG Data -: EKG Interpreted by Ok EKG shows normal: sinus rhythm, axis, intervals, QRS complexes, ST-T waves Rate: tachycardia (rate 109) - EKG Data Interpretation: no acute changes - Medical Decision Making 38 yo M with paranoia. Labs drawn, appear unremarkable. Complained of chest pain. Troponin negative x 2, EKG shows no ST elevations, CXR is normal. Pt has chronic back pain. He is medically clear for mental health assessment. Will dispo per psych. Critical care attestation.: If time is entered above; I have spent that time in minutes in the direct care of this critically ill patient, excluding procedure time. ED Disposition Clinical Impression: Bipolar disorder Disposition: DC-01 TO HOME OR SELFCARE Is pt being admited?: No Condition: Stable Referrals: PRIMARY CARE, [Primary Care Provider] - 3-5 Days
[2019-08-13 21:22] LABS: BUN/Creatinine Ratio 6; Blood Urea Nitrogen 6 mg/dL (9-20); Calcium 10.1 mg/dL (8.4-10.2); Hemolysis Index 7
[2019-08-13 21:26] LABS: Amphetamine Screen,Urine PRESUMPTIVE POSITIVE
--- NOTE | 2019-08-13 21:49 | XRay Report ---
CHEST 2 VIEWS INDICATION / CLINICAL INFORMATION: chest pain. COMPARISON: None available. FINDINGS: SUPPORT DEVICES: None. HEART / MEDIASTINUM: No significant abnormality. LUNGS / PLEURA: No significant pulmonary or pleural abnormality. No pneumothorax. ADDITIONAL FINDINGS: No significant additional findings. IMPRESSION: 1. No acute findings. Signer Name: Laci Chawla MD Signed: 08/13/2019 9:44 PM Workstation Name: [id number]
[2019-08-13] MEDS ORDERED: LORazepam 2 MG/ML VIAL IM ONE (22:19)
[2019-08-13] MEDS: POTASSIUM CHLORIDE ER 20 MEQ TAB PO ONE ×2 (22:50→23:01)
[2019-08-13] MEDS ORDERED: POTASSIUM CHLORIDE 20 MEQ PACKET FEEDTUBE ONE (23:00)
[2019-08-14 08:43] VITALS: BP 143/98
== END 2019-08-14 12:07 | disposition home or self-care (01) ==
LOC: ED 20:32
DX: F31.9 Bipolar disorder, unspecified (principal); Z79.899 Other long term (current) drug therapy
CPT/HCPCS: 36415; 71046; 80048; 80307; 81001; 84484; 85025; 93005; 96372; 99285; J2060; 80320; G0480

== ENCOUNTER 2019-09-23 20:50 | Emergency (ER) | payer SELFPAY ==
[2019-09-23] MEDS ORDERED: ZIPRASIDONE MESYLATE 20 MG VIAL IM ONE ×2 (21:06→21:08)
[2019-09-23] MEDS ORDERED: WATER FOR INJ Sterile (PF) 10 ML ONE (21:06)
--- NOTE | 2019-09-23 21:11 | Emergency Department Report ---
ED Psych HPI - General Chief Complaint: Psych Stated Complaint: MH EVALUATION Time Seen by Provider: 09/23/19 21:02 Source: EMS Mode of arrival: Ambulatory - History of Present Illness Initial Comments: Patient is 38 years old male with history of bipolar disorder. Patient brought to the emergency room via EMS after patient was observed with bizarre behavior in the neighborhood according to EMS report. In the emergency room patient is agitated, hyper-vigilance, patient kept looking to the right and left. Patient is very delusional and paranoid. He told me that people are after him trying to kill him. Patient denied any recent alcohol or drug abuse. Patient have to be chemically sedated with Geodon 20 mg IM for his own safety and safety of the staff. MD Complaint: altered mental status - Related Data Previous Rx's Medication Instructions Recorded Last Taken Type QUEtiapine [SEROquel] 200 mg PO QHS #14 tablet 09/14/19 Unknown Rx cefUROXime [Ceftin] 250 mg PO Q12H #6 tablet 09/14/19 Unknown Rx Allergies Allergy/AdvReac Type Severity Reaction Status Date / Time No Known Drug Allergies Allergy Unknown Verified 06/10/17 18:25 ED Review of Systems ROS: Stated complaint: MH EVALUATION Other details as noted in HPI Comment: All other systems reviewed and negative Constitutional: denies: chills, fever Respiratory: denies: cough, shortness of breath, SOB with exertion, wheezing Cardiovascular: denies: chest pain, palpitations Gastrointestinal: denies: abdominal pain, nausea, vomiting, diarrhea Musculoskeletal: denies: back pain ED Past Medical Hx - Past Medical History Hx Congestive Heart Failure: No Hx Diabetes: No Hx Psychiatric Treatment: Yes (bipolar, schizoaffective) Hx Asthma: No Hx COPD: No Additional medical history: previous OD per EMS. Bipolar. Schizophrenia. Anxiety - Surgical History Additional Surgical History: T&A, Left knee surgery x 2 - Social History Smoking Status: Current Every Day Smoker - Medications Home Medications: Home Medications Medication Instructions Recorded Confirmed Last Taken Type QUEtiapine [SEROquel] 200 mg PO QHS #14 tablet 09/14/19 Unknown Rx cefUROXime [Ceftin] 250 mg PO Q12H #6 tablet 09/14/19 Unknown Rx ED Physical Exam - General Limitations: Other General appearance: alert, in no apparent distress, other (Agitated) - Head Head exam: Present: atraumatic, normocephalic, normal inspection, other - Eye Eye exam: Present: normal appearance - ENT ENT exam: Present: normal exam, normal orophraynx, mucous membranes moist - Neck Neck exam: Present: normal inspection, full ROM. Absent: tenderness, meningismus, lymphadenopathy, thyromegaly - Respiratory Respiratory exam: Present: normal lung sounds bilaterally - Cardiovascular Cardiovascular Exam: Present: regular rate, normal rhythm, normal heart sounds - GI/Abdominal GI/Abdominal exam: Present: soft, normal bowel sounds. Absent: distended, tenderness, guarding, rebound, rigid - Extremities Exam Extremities exam: Present: normal inspection, full ROM - Neurological Exam Neurological exam: Present: alert - Psychiatric Psychiatric exam: Present: agitated, anxious, manic. Absent: homicidal ideation, suicidal ideation - Skin Skin exam: Present: warm, intact, normal color ED Course Vital Signs 09/23/19 09/23/19 09/24/19 21:05 22:51 02:25 Temperature 97.9 F 98.7 F Pulse Rate 107 H 98 H Respiratory 18 18 18 Rate Blood Pressure 110/82 121/93 [Left] O2 Sat by Pulse 96 96 Oximetry 09/24/19 09/24/19 09/24/19 07:32 19:10 20:00 Temperature 98.6 F 97.9 F Pulse Rate 90 90 Respiratory 18 18 18 Rate Blood Pressure 143/96 144/78 [Left] O2 Sat by Pulse 100 97 100 Oximetry 09/25/19 09/25/19 09/25/19 01:00 03:15 09:24 Temperature 98.1 F 97.4 F L Pulse Rate 108 H 88 Respiratory 18 18 19 Rate Blood Pressure 118/78 [Left] O2 Sat by Pulse 100 96 Oximetry 09/25/19 09/25/19 09/26/19 12:00 20:20 02:33 Temperature 98.7 F 97.6 F Pulse Rate 81 75 Respiratory 18 18 16 Rate Blood Pressure 110/69 113/80 [Left] O2 Sat by Pulse 97 97 Oximetry 09/26/19 09/26/19 09/27/19 08:00 22:04 01:35 Temperature 98.1 F 98.6 F 97.5 F L Pulse Rate 82 74 64 Respiratory 18 12 18 Rate Blood Pressure 128/88 108/57 116/61 [Left] O2 Sat by Pulse 96 95 97 Oximetry 09/27/19 07:46 Temperature 97.6 F Pulse Rate 88 Respiratory 18 Rate Blood Pressure 139/82 [Left] O2 Sat by Pulse 97 Oximetry ED Medical Decision Making - Lab Data Result diagrams: 09/25/19 04:28 09/23/19 21:18 Critical care attestation.: If time is entered above; I have spent that time in minutes in the direct care of this critically ill patient, excluding procedure time. ED Disposition Clinical Impression: Acute psychosis Disposition: DC-01 TO HOME OR SELFCARE Is pt being admited?: No Condition: Stable Referrals: PRIMARY CARE [Primary Care Provider] - 3-5 Days
[2019-09-23 21:36] LABS: Basophils # (Auto) 0.1 K/mm3 (0.0-0.1); Basophils % (Auto) 0.5 % (0.0-1.8); Eosinophils % (Auto) 0.1 % (0.0-4.3); Lymphocytes # (Auto) 1.6 K/mm3 (1.2-5.4); Lymphocytes % (Auto) 9.9 % (13.4-35.0); Mean Corpuscular HGB Conc 36 % (32-34); Mean Corpuscular Volume 92 fl (84-94); Monocytes # (Auto) 0.8 K/mm3 (0.0-0.8); Monocytes % (Auto) 5.2 % (0.0-7.3); Platelet Count 445 K/mm3 (140-440); Red Blood Count 4.97 M/mm3 (3.65-5.03); Red Cell Distribution Width 13.7 % (13.2-15.2)
[2019-09-23 21:38] LABS: BUN/Creatinine Ratio 8; Blood Urea Nitrogen 9 mg/dL (9-20); Hemolysis Index 22
[2019-09-23 21:39] LABS: Hematocrit 45.6 % (35.5-45.6); Hemoglobin 16.3 gm/dl (11.8-15.2)
[2019-09-23 21:42] LABS: Alanine Aminotransferase 53 units/L (7-56); Albumin 5.1 g/dL (3.9-5)
[2019-09-23 21:43] LABS: Bilirubin,Direct < 0.2 mg/dL (0-0.2)
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
[2019-09-24] MEDS: FLUoxetine 10 MG TAB PO SCH (11:16)
[2019-09-24] MEDS: HALOPERIDOL 2 MG TAB PO SCH ×2 (11:16→22:17)
[2019-09-24 11:58] LABS: Bilirubin,Urine NEG (Negative); Blood,Urine NEG (Negative); Color,Urine Yellow (Yellow); Hyaline Casts,Urine 7 /LPF; Mucus,Urine FEW /HPF; Protein,Urine <15 mg/dL mg/dL (Negative); Urobilinogen,Urine < 2.0 mg/dL (<2.0)
[2019-09-24 11:59] LABS: Benzodiazepines Screen,Urine PRESUMPTIVE NEGATIVE; Cannabinoid Screen,Urine PRESUMPTIVE NEGATIVE; Cocaine Screen,Urine PRESUMPTIVE NEGATIVE; Methadone Screen,Urine PRESUMPTIVE NEGATIVE; Opiate Screen,Urine PRESUMPTIVE NEGATIVE
[2019-09-24 12:12] LABS: Amphetamine Screen,Urine PRESUMPTIVE POSITIVE
[2019-09-24] MEDS: QUEtiapine 200 MG TAB PO SCH (22:17)
[2019-09-25] MEDS ORDERED: ACETAMINOPHEN 500 MG TAB ONE (03:01)
[2019-09-25] MEDS ORDERED: ACETAMINOPHEN 500 MG TAB PO ONE (03:14)
[2019-09-25 05:06] LABS: Basophils % (Auto) 0.6 % (0.0-1.8); Eosinophils # (Auto) 0.1 K/mm3 (0.0-0.4); Eosinophils % (Auto) 2.2 % (0.0-4.3); Hematocrit 42.2 % (35.5-45.6); Hemoglobin 14.3 gm/dl (11.8-15.2); Lymphocytes # (Auto) 2.5 K/mm3 (1.2-5.4); Lymphocytes % (Auto) 38.4 % (13.4-35.0); Mean Corpuscular HGB Conc 34 % (32-34); Mean Corpuscular Volume 92 fl (84-94); Monocytes # (Auto) 0.7 K/mm3 (0.0-0.8); Monocytes % (Auto) 10.4 % (0.0-7.3); Platelet Count 336 K/mm3 (140-440); Red Cell Distribution Width 13.7 % (13.2-15.2)
[2019-09-25] MEDS: FLUoxetine 10 MG TAB PO SCH (11:00)
[2019-09-25] MEDS: HALOPERIDOL 2 MG TAB PO SCH ×3 (11:00→22:13)
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
[2019-09-25] MEDS ORDERED: ZIPRASIDONE MESYLATE 20 MG VIAL IM ONE (11:56)
[2019-09-25] MEDS ORDERED: LORazepam 2 MG/ML VIAL IV ONE (11:57)
[2019-09-25] MEDS: QUEtiapine 200 MG TAB PO SCH (22:13)
[2019-09-26] MEDS ORDERED: LORazepam 2 MG/ML VIAL ONE (11:07)
[2019-09-26] MEDS ORDERED: HALOPERIDOL LACTATE 5 MG/1 ML INJ ONE (11:07)
[2019-09-26] MEDS ORDERED: diphenhydrAMINE 50 MG/ML VIAL ONE (11:07)
[2019-09-26] MEDS ORDERED: IBUPROFEN 600 MG TAB PO ONE ×2 (11:21→11:24)
[2019-09-26] MEDS ORDERED: diphenhydrAMINE 50 MG/ML VIAL IM ONE (11:21)
[2019-09-26] MEDS ORDERED: LORazepam 2 MG/ML VIAL IM ONE (11:21)
[2019-09-26] MEDS ORDERED: HALOPERIDOL LACTATE 5 MG/1 ML INJ IM ONE (11:22)
--- NOTE | 2019-09-26 14:12 | Progress Note ---
Subjective - Reason for Consult Consult date: 09/26/19 Reason for consult: MHE Requesting physician: BEV RICHARDSON - Chief Complaint Chief complaint: ED NURSE NOTE: Pt getting very agitated towards , miguel VO for ativan and shanna (see MAR). PSYCH HPI Patient seen and interviewed by me this AM. Patients nurse notes reviewed as above, it shows patient was agitated towards the ED Provider, when asked why, pt says he thought that person was me. Patient then became aggressive and irritated, says he wants a medical bed, he wants a 1010 and he wants to leave here. Patient is displaying same symptoms as initial complaints, paranoid, agitation and physical aggression. REVIEW OF SYSTEMS Constitutional: Negative for weight loss ENT: Negative for stridor Respiratory: Negative for cough or hemoptysis All other systems reviewed and are negative MENTAL STATUS EXAMINATION General Appearance and Behavior: Age appropriate, fair hygiene, wearing ap propriate clothes, lying in bed, poor eye contact, cooperative irritable with questioning. Cooperation: Withdrawn and Guarded Psychomotor Behavior: unremarkable and within normal limits Mood: Good Affect and affective range: flat Thought Process: Fluent/logical blocked Thought Content: Phobia and Paranoid Speech: Normal volume, Regular rate and rhythm Intellectual Functioning: Average Suicidal Ideation: Denies SI Homicidal Ideation: Denies HI Impulse Control: Impaired Insight and Judgment: Limited insight and judgment, Impaired Memory: Short term memory impaired Attention: Distractible Orientation: Alert, oriented, and anxious RECOMMENDATIONS Patient is displaying same symptoms as initial complaints, paranoid, agitation and physical aggression towards strangers assuming they are another person. New diagnosis of Schizophrenia paranoia. Patient seroquel increased and started on Valproate for mood MEDICATIONS: Home meds restarted Risks, benefits and alternatives of medications discussed with the patient, questions answered and consent obtained from patient. PSYCHOTHERAPY: Supportive psychotherapy provided MEDICAL: Per primary team DELIRIUM PRECAUTIONS: Please re-orient patient frequently, keep lights on during the day, and minimize benzodiazepines and opiates as these medications could worsen patient's confusion. ENVIRONMENTAL PROGRAM MANAGER: Per medical team DISPOSITION: Recommends acute inpatient psychiatric hospitalization at this time LEGAL STATUS: 1013 FOLLOW-UP: Will follow Thank you for the consult. Please contact with any questions and/or concerns. Mental Status Exam - Vital signs Last Vital Signs Temp 98.1 F 09/26/19 08:00 Pulse 82 06/16/20 08:00 Resp 18 09/26/19 08:00 BP 128/88 09/26/19 08:00 Pulse Ox 96 09/26/19 08:00
[2019-09-26] MEDS: FLUoxetine 10 MG TAB PO SCH (14:39)
[2019-09-26] MEDS: HALOPERIDOL 2 MG TAB PO SCH (14:39)
[2019-09-26] MEDS: VALPROIC ACID 250 MG CAP PO SCH ×2 (16:44→22:08)
[2019-09-26] MEDS: QUEtiapine 200 MG TAB PO SCH (22:08)
[2019-09-26] MEDS: HALOPERIDOL 5 MG TAB PO SCH (22:08)
[2019-09-27 07:48] VITALS: BP 139/82
[2019-09-27] MEDS: VALPROIC ACID 250 MG CAP PO SCH (09:39)
[2019-09-27] MEDS: FLUoxetine 10 MG TAB PO SCH (09:39)
[2019-09-27] MEDS: HALOPERIDOL 5 MG TAB PO SCH (09:40)
== END 2019-09-27 10:30 | disposition home or self-care (01) ==
LOC: ED 20:50 → EEVIPCON 20:50 → ED 09-27 10:30
DX: F23 Brief psychotic disorder (principal); F25.0 Schizoaffective disorder, bipolar type; F41.9 Anxiety disorder, unspecified; F17.200 Nicotine dependence, unspecified, uncomplicated; Z79.899 Other long term (current) drug therapy; Z98.890 Other specified postprocedural states
CPT/HCPCS: 36415; 80048; 80076; 80307; 81001; 82550; 85025; 96372; 96374; 99285; J1200; J1630; J2060; J3486; 80320; G0480

== ENCOUNTER 2020-03-19 21:41 | Emergency (ER) | payer SELFPAY ==
[2020-03-19] MEDS ORDERED: SODIUM CHLORIDE 0.9% 1000 ML 1,000 ML IV ONE (22:19)
[2020-03-19] MEDS ORDERED: LORazepam 2 MG/ML VIAL IM PRN (22:23)
[2020-03-19] MEDS ORDERED: diphenhydrAMINE 50 MG/ML VIAL IM PRN (22:23)
[2020-03-19] MEDS ORDERED: HALOPERIDOL LACTATE 5 MG/1 ML INJ IM PRN (22:23)
--- NOTE | 2020-03-19 22:27 | Emergency Department Report ---
HPI - General Chief Complaint: Psych Time Seen by Provider: 03/19/20 22:18 - HPI HPI: Room 16 The patient is a 39-year-old male present with a chief complaint of "psychotic episode. "Patient was found at home behaving in a paranoid fashion. Per EMS th e patient thinks that someone is trying to kill him. Patient was found to be diaphoretic and tachycardic at 132. Patient has a history of methamphetamine use but denies it when asked. Patient denies suicidal homicidal ideation. Patient denies auditory visual hallucinations. When asked what made him come to the emergency department today the patient states he had a panic attack which included feeling as though he was overheating and shortness of breath. When asked how he is feeling currently the patient replies he feels "all right." ED Past Medical Hx - Past Medical History Hx Psychiatric Treatment: Yes (bipolar, schizoaffective) Additional medical history: previous OD per EMS. Bipolar. Schizophrenia. Anxiety - Surgical History Past Surgical History?: Yes Additional Surgical History: T&A, Left knee surgery x 2 - Family History Family history: no significant - Social History Smoking Status: Current Every Day Smoker (1 pack/day) Substance Use Type: None (Denies illicit drug use) - Medications Home Medications: Home Medications Medication Instructions Recorded Confirmed Last Taken Type QUEtiapine [SEROquel] 200 mg PO QHS #14 tablet 09/14/19 03/25/20 Unknown Rx ED Review of Systems ROS: Stated complaint: EXCITED DELIRIUM Other details as noted in HPI Constitutional: no symptoms reported Eyes: denies: eye pain ENT: denies: throat pain Respiratory: shortness of breath Cardiovascular: denies: chest pain Endocrine: no symptoms reported Gastrointestinal: denies: abdominal pain Genitourinary: denies: dysuria Musculoskeletal: denies: back pain Neurological: denies: headache Psychiatric: denies: auditory hallucinations, visual hallucinations, homicidal thoughts, suicidal thoughts Physical Exam - Physical Exam Vital Signs: Vital Signs 03/19/20 22:14 Temperature 97.7 F Pulse Rate 132 H Respiratory 19 Rate Blood Pressure 140/93 [Left] O2 Sat by Pulse 98 Oximetry Physical Exam: GENERAL: The patient is well-developed well-nourished male sitting on stretcher not appearing to be in acute distress. [] HEENT: Normocephalic. Atraumatic. Extraocular motions are intact. Patient has moist mucous membranes. NECK: Supple. Trachea midline CHEST/LUNGS: Clear to auscultation. There is no respiratory distress noted. HEART/CARDIOVASCULAR: Regular. There is tachycardia. There is no gallop rub or murmur. ABDOMEN: Abdomen is soft, nontender. Patient has normal bowel sounds. There is no abdominal distention. SKIN: There is no rash. There is no edema. There is no diaphoresis. NEURO: The patient is awake, alert, and oriented. The patient is cooperative. The patient has normal speech MUSCULOSKELETAL: There is no evidence of acute injury. ED Course Vital Signs 03/19/20 22:14 Temperature 97.7 F Pulse Rate 132 H Respiratory 19 Rate Blood Pressure 140/93 [Left] O2 Sat by Pulse 98 Oximetry ED Medical Decision Making - Lab Data Result diagrams: 03/19/20 22:40 03/19/20 22:40 Laboratory Tests 03/19/20 03/19/20 03/19/20 22:40 22:40 22:40 WBC RBC Hgb Hct MCV MCH MCHC RDW Plt Count Seg Neutrophils % Sodium 140 Potassium 4.1 Chloride 102.4 Carbon Dioxide 22 Anion Gap 20 BUN 13 Creatinine 1.4 H Estimated GFR 56 BUN/Creatinine Ratio 9 Glucose 85 Calcium 10.7 H Total Creatine Kinase CK-MB (CK-2) CK-MB (CK-2) Rel Index Troponin T Urine Color Urine Turbidity Urine pH Ur Specific Aguirre Urine Protein Urine Glucose (UA) Urine Ketones Urine Blood Urine Nitrite Urine Bilirubin Urine Urobilinogen Ur Leukocyte Esterase Urine WBC (Auto) Urine RBC (Auto) U Epithel Cells (Auto) Hyaline Casts Urine Mucus Salicylates < 0.3 L Urine Opiates Screen Urine Methadone Screen Acetaminophen 5.0 L Ur Barbiturates Screen Ur Phencyclidine Scrn Ur Amphetamines Screen U Benzodiazepines Scrn Urine Cocaine Screen U Marijuana (THC) Screen Drugs of Abuse Note Plasma/Serum Alcohol 03/19/20 03/19/20 03/19/20 22:40 22:40 22:40 WBC 18.9 H RBC 4.78 Hgb 14.9 Hct 43.7 MCV 91 MCH 31 MCHC 34 RDW 14.7 Plt Count 425 Seg Neutrophils % [employer] Sodium Potassium Chloride Carbon Dioxide Anion Gap BUN Creatinine Estimated GFR BUN/Creatinine Ratio Glucose Calcium Total Creatine Kinase 314 H CK-MB (CK-2) 5.3 H CK-MB (CK-2) Rel Index 1.6 Troponin T < 0.010 Urine Color Urine Turbidity Urine pH Ur Specific Aguirre Urine Protein Urine Glucose (UA) Urine Ketones Urine Blood Urine Nitrite Urine Bilirubin Urine Urobilinogen Ur Leukocyte Esterase Urine WBC (Auto) Urine RBC (Auto) U Epithel Cells (Auto) Hyaline Casts Urine Mucus Salicylates Urine Opiates Screen Urine Methadone Screen Acetaminophen Ur Barbiturates Screen Ur Phencyclidine Scrn Ur Amphetamines Screen U Benzodiazepines Scrn Urine Cocaine Screen U Marijuana (THC) Screen Drugs of Abuse Note Plasma/Serum Alcohol < 0.01 03/19/20 03/19/20 Unknown Unknown WBC RBC Hgb Hct MCV MCH MCHC RDW Plt Count Seg Neutrophils % Sodium Potassium Chloride Carbon Dioxide Anion Gap BUN Creatinine Estimated GFR BUN/Creatinine Ratio Glucose Calcium Total Creatine Kinase CK-MB (CK-2) CK-MB (CK-2) Rel Index Troponin T Urine Color Yellow Urine Turbidity Slightly-cloudy Urine pH 7.0 Ur Specific Aguirre 1.016 Urine Protein 30 mg/dl Urine Glucose (UA) Neg Urine Ketones Tr Urine Blood Neg Urine Nitrite Neg Urine Bilirubin Neg Urine Urobilinogen < 2.0 Ur Leukocyte Esterase Neg Urine WBC (Auto) 8.0 H Urine RBC (Auto) 7.0 U Epithel Cells (Auto) < 1.0 Hyaline Casts 9 Urine Mucus 2+ Salicylates Urine Opiates Screen Presumptive negative Urine Methadone Screen Presumptive negative Acetaminophen Ur Barbiturates Screen Presumptive negative Ur Phencyclidine Scrn Presumptive negative Ur Amphetamines Screen Presumptive positive U Benzodiazepines Scrn Presumptive positive Urine Cocaine Screen Presumptive positive U Marijuana (THC) Screen Presumptive negative Drugs of Abuse Note Disclamer Plasma/Serum Alcohol - Differential Diagnosis Schizophrenia, substance abuse, Critical care attestation.: If time is entered above; I have spent that time in minutes in the direct care of this critically ill patient, excluding procedure time. ED Disposition Clinical Impression: Methamphetamine abuse, Cocaine abuse, Substance-induced psychotic disorder Disposition: DC-01 TO HOME OR SELFCARE Is pt being admited?: No Does the pt Need Aspirin: No Condition: Stable Instructions: Amphetamines Use Disorder, Stimulant Use Disorder-Cocaine Additional Instructions: Professional and Agency Contacts To help [facility](02/11) [place] Crisis Line: Suicide Prevention Line: Crisis Text Line: Text START to 605843 Emergency: 911 Outpatient COMMUNITY Behavioral Health Resources: DEKALB: [facility] [address] [place], [place] [address] TARUN: [facility] - [address] [place] [address] Wednesday thru Wednesday - 8am - 5pm JOSE: [facility] Address: [address] [place] [address] Wednesday thru Wednesday- 7am-2pm [facility] Address: [address] [place] [address] Wednesday thru Wednesday: 8:30AM-5PM In case of an emergency, please contact the following numbers: [place] Crisis and Access Line: Number: Crisis Text Line: (Text START) Number: 881352 Suicide Prevention Line: Number: Emergency Number: 911 SUBSTANCE ABUSE PROGRAMS: [facility]: Location: [place], [place] [facility] Address: [address] [place] [address] [facility]: Address: [address] [place] [address] [facility] Rehabilitation: Address: [address] [place] [address] [facility] Community: Address: [address] [place] [address] [facility] Address: [address] [place] [address]. Please contact above numbers to attempt placement into free based program. Medicaid Programs: [facility]: Address: [address] [place] [address] [facility]: Address: [address] [place] [id number] Referrals: PRIMARY CARE, [Primary Care Provider] - 2-3 Days
[2020-03-19 23:04] LABS: Hematocrit 43.7 % (35.5-45.6); Hemoglobin 14.9 gm/dl (11.8-15.2); Mean Corpuscular HGB Conc 34 % (32-34); Mean Corpuscular Volume 91 fl (84-94); Platelet Count 425 K/mm3 (140-440); Red Blood Count 4.78 M/mm3 (3.65-5.03); Red Cell Distribution Width 14.7 % (13.2-15.2)
[2020-03-19 23:13] LABS: Calcium 10.7 mg/dL (8.4-10.2)
[2020-03-19 23:15] LABS: Creatine Kinase MB 5.3 ng/mL (0.0-4.0)
[2020-03-19 23:19] LABS: Bilirubin,Urine NEG (Negative); Blood,Urine NEG (Negative); Color,Urine Yellow (Yellow); Hyaline Casts,Urine 9 /LPF; Mucus,Urine 2+ /HPF; Urobilinogen,Urine < 2.0 mg/dL (<2.0)
[2020-03-19 23:20] LABS: Amphetamine Screen,Urine PRESUMPTIVE POSITIVE; Benzodiazepines Screen,Urine PRESUMPTIVE POSITIVE; Cannabinoid Screen,Urine PRESUMPTIVE NEGATIVE; Cocaine Screen,Urine PRESUMPTIVE POSITIVE; Methadone Screen,Urine PRESUMPTIVE NEGATIVE; Opiate Screen,Urine PRESUMPTIVE NEGATIVE
[2020-03-20 00:32] LABS: Basophils % (Manual) 0 % (0.0-1.8); Platelet Estimate Consistent w Auto; Total Cells Counted 100
--- NOTE | 2020-03-20 10:42 | Consultation ---
History of Present Illness - Reason for Consult Consult date: 03/20/20 Reason for consult: paranoid - History of Present Psychiatric Illness John Nelson is a 39y/o male patient who presented to the ER for paranoia. During my interview with the patient today, he is calm and cooperative. He is lucid and conversational. The patient describes his mood as "great." He says he had an argument with his family and had a panic attack. The patient says he's "been off psych meds for about a year." He says "I stopped taking them on my own. They are no good and don't work for me." He denies SI/HI, states "I was never that. I just have bad panic attacks." The patient also denies hallucinations of any kind. He verbalizes a suicide attempt "a long time ago." He denies any recent psychiatric admits. The patient also denies illicit drug use although his UDS is positive for amphetamines and cocaine." PAST PSYCHIATRIC HISTORY Diagnoses: Panic attacks Suicide attempts or Self-harm behavior: once Prior psychiatric hospitalizations: Yes Substance Abuse history: Denies, but positive for amphetamines and cocaine Previous psychiatric medications tried: could not recall Outpatient treatment: not currently PAST MEDICAL HISTORY: None reported Family Psychiatric History: None reported or documented SOCIAL HISTORY Marital Status: Single Living Arrangements: with family Employment Status: employed Access to guns/weapons: Denies Education: some college History of Abuse: Denies Legal History: Yes REVIEW OF SYSTEMS Constitutional: Negative for weight loss ENT: Negative for stridor Respiratory: Negative for cough or hemoptysis All other systems reviewed and are negative MENTAL STATUS EXAMINATION General Appearance and Behavior: Age appropriate, good hygiene, not wearing appropriate clothes, good eye contact, cooperative polite with questioning. Cooperation: Participating/engaged Psychomotor Behavior: Psychomotor normal Mood: "great" Affect and affective range: congruent with stated mood Thought Process: goal directed Thought Content: None Speech: Normal tone and pace Suicidal Ideation: Denies Homicidal Ideation: Denies Hallucinations: Denies Delusions: None elicited Impulse Control: Limited Insight and Judgment: Limited insight and judgment Memory: Normal Attention: limited Orientation: Alert, oriented Assessment and Plan Methamphetamine Use Disorder Cocaine Use Disorder Substance Induced Mood Disorder Noncompliance with Other Treatment and Medical Regimen TREATMENT follow up with outpatient psychiatry Sitter: defer to primary Medical: Per primary Disposition: Do not Recommend acute inpatient treatment at this time. The patient understands that if suicidal thoughts or homicidal thoughts or tendencies are to arise he is to seek immediate assistance including but not limited to the crisis hotline, 911/ER. The sheet metal shop helper is to give the patient outpatient resources, cog-behavior therapy, and safety plan, drug rehab. The patient to follow up with outpatient psych in 7 to 14 days upon discharge Abstain from all illicit drug use. Will sign off. Thank you for this consult. Case discussed with Dr Keene Medications and Allergies Allergies Allergy/AdvReac Type Severity Reaction Status Date / Time No Known Drug Allergies Allergy Unknown Verified 06/10/17 18:25 Home Medications Medication Instructions Recorded Confirmed Last Taken Type QUEtiapine [SEROquel] 200 mg PO QHS #14 tablet 09/14/19 Unknown Rx cefUROXime [Ceftin] 250 mg PO Q12H #6 tablet 09/14/19 Unknown Rx Active Meds: Active Medications Diphenhydramine HCl (Benadryl) 50 mg IM Q6H PRN PRN Reason: Agitation Haloperidol Lactate (Haldol) 10 mg IM Q8H PRN PRN Reason: Agitation Lorazepam (Ativan) 2 mg IM Q8H PRN PRN Reason: Agitation Mental Status Exam - Vital signs Last Vital Signs Temp 97.1 F L 03/20/20 08:29 Pulse 89 03/20/20 08:10 Resp 20 03/20/20 08:10 BP 105/65 03/20/20 10:00 Pulse Ox 99 03/20/20 10:00 Results Result Diagrams: 03/19/20 22:40 03/19/20 22:40 Abnormal lab results 03/19/20 03/19/20 03/19/20 Range/Units 22:40 22:40 22:40 WBC (4.5-11.0) K/mm3 Seg Neuts % (Manual) (40.0-70.0) % Lymphocytes % (Manual) (13.4-35.0) % Seg Neutrophils # Man (1.8-7.7) K/mm3 Monocytes # (Manual) (0.0-0.8) K/mm3 Creatinine 1.4 H (0.8-1.3) mg/dL Calcium 10.7 H (8.4-10.2) mg/dL Total Creatine Kinase (55-170) units/L CK-MB (CK-2) (0.0-4.0) ng/mL Urine WBC (Auto) (0.0-6.0) /HPF Salicylates < 0.3 L (2.8-20.0) mg/dL Acetaminophen 5.0 L (10.0-30.0) ug/mL 03/19/20 03/19/20 03/19/20 Range/Units 22:40 22:40 Unknown WBC 18.9 H (4.5-11.0) K/mm3 Seg Neuts % (Manual) 84.0 H (40.0-70.0) % Lymphocytes % (Manual) 10.0 L (13.4-35.0) % Seg Neutrophils # Man 15.9 H (1.8-7.7) K/mm3 Monocytes # (Manual) 0.9 H (0.0-0.8) K/mm3 Creatinine (0.8-1.3) mg/dL Calcium (8.4-10.2) mg/dL Total Creatine Kinase 314 H (55-170) units/L CK-MB (CK-2) 5.3 H (0.0-4.0) ng/mL Urine WBC (Auto) 8.0 H (0.0-6.0) /HPF Salicylates (2.8-20.0) mg/dL Acetaminophen (10.0-30.0) ug/mL All other labs normal.
[2020-03-20 15:33] VITALS: BP 151/79
== END 2020-03-20 15:35 | disposition home or self-care (01) ==
LOC: ED 21:41
DX: F25.0 Schizoaffective disorder, bipolar type (principal); F41.9 Anxiety disorder, unspecified; F17.200 Nicotine dependence, unspecified, uncomplicated; Z79.899 Other long term (current) drug therapy
CPT/HCPCS: 36415; 80048; 80307; 81001; 82550; 82553; 84484; 85007; 85025; 93005; 96360; 96361; 99285; J7030; 80320; G0480

== ENCOUNTER 2020-03-25 18:22 | Emergency (ER) | payer SELFPAY ==
[2020-03-25] MEDS ORDERED: ZIPRASIDONE MESYLATE 20 MG VIAL IM ONE ×2 (18:43→18:46)
[2020-03-25] MEDS ORDERED: WATER FOR INJ Sterile (PF) 10 ML ONE (18:43)
[2020-03-25] MEDS ORDERED: MAGNESIUM HYDROXIDE (MOM) ORAL LIQD UDC PO PRN (19:04)
[2020-03-25] MEDS ORDERED: ACETAMINOPHEN 325 MG TAB PO PRN (19:04)
[2020-03-25] MEDS ORDERED: ALUM-MAG HYDROXIDE-SIMETHICONE 200-200-20MG/5ML ORAL LIQD 30 ML PO PRN (19:04)
[2020-03-25 23:09] LABS: Basophils # (Auto) 0.1 K/mm3 (0.0-0.1); Basophils % (Auto) 0.7 % (0.0-1.8); Eosinophils # (Auto) 0.1 K/mm3 (0.0-0.4); Eosinophils % (Auto) 0.6 % (0.0-4.3); Hematocrit 43.4 % (35.5-45.6); Hemoglobin 14.8 gm/dl (11.8-15.2); Lymphocytes # (Auto) 1.9 K/mm3 (1.2-5.4); Mean Corpuscular HGB Conc 34 % (32-34); Mean Corpuscular Volume 93 fl (84-94); Monocytes # (Auto) 0.7 K/mm3 (0.0-0.8); Monocytes % (Auto) 7.5 % (0.0-7.3); Platelet Count 374 K/mm3 (140-440); Red Blood Count 4.68 M/mm3 (3.65-5.03); Red Cell Distribution Width 14.5 % (13.2-15.2)
[2020-03-25 23:24] LABS: BUN/Creatinine Ratio 10; Blood Urea Nitrogen 9 mg/dL (9-20); Calcium 9.8 mg/dL (8.4-10.2); Hemolysis Index 5
--- NOTE | 2020-03-25 23:31 | Emergency Department Report ---
ED Psych HPI - General Chief Complaint: Medical Clearance Stated Complaint: EXCITED DELIRIUM Time Seen by Provider: 03/25/20 19:02 Source: EMS Mode of arrival: Stretcher Limitations: Altered Mental Status - History of Present Illness Initial Comments: Chief complaint abnormal behavior HPI: This is a 39-year-old male with history of bipolar disorder, schizophrenia, polysubstance abuse and several suicide attempts who presents with abnormal behavior. Police discovered patient waving around the [address] outside of his home. He was transported to the emergency department per EMS. Patient will not cooperate with history taking. He desires to leave the department. -: unknown Associated Psychiatric Symptoms: other (Impulsive violent behavior) History of same: Yes Quality: constant Improves With: none Worsens With: none Context: other (History of polysubstance abuse) Associated Symptoms: other (Patient would not cooperate with history taking) Treatments Prior to Arrival: other (EMS transport) - Related Data Previous Rx's Medication Instructions Recorded Last Taken Type QUEtiapine [SEROquel] 200 mg PO QHS #14 tablet 09/14/19 Unknown Rx Allergies Allergy/AdvReac Type Severity Reaction Status Date / Time No Known Drug Allergies Allergy Unknown Verified 06/10/17 18:25 ED Review of Systems ROS: Stated complaint: EXCITED DELIRIUM Other details as noted in HPI Comment: Unobtainable due to pts medical conditions (Abnormal behavior) ED Past Medical Hx - Past Medical History Previous Medical History?: Yes Hx Congestive Heart Failure: No Hx Diabetes: No Hx Psychiatric Treatment: Yes (bipolar, schizoaffective) Hx Asthma: No Hx COPD: No Additional medical history: previous OD per EMS. Bipolar. Schizophrenia. Anxiety - Surgical History Past Surgical History?: Yes Additional Surgical History: T&A, Left knee surgery x 2 - Social History Smoking Status: Unknown if ever smoked Substance Use Type: None, Methamphetamines - Medications Home Medications: Home Medications Medication Instructions Recorded Confirmed Last Taken Type QUEtiapine [SEROquel] 200 mg PO QHS #14 tablet 09/14/19 03/25/20 Unknown Rx ED Physical Exam - General Limitations: Altered Mental Status General appearance: alert, other (Agitated, pacing the room, hypervigilant) - Head Head exam: Present: atraumatic, normocephalic - Eye Eye exam: Present: normal appearance - ENT ENT exam: Present: mucous membranes moist - Neck Neck exam: Present: normal inspection, full ROM - Respiratory Respiratory exam: Present: normal lung sounds bilaterally. Absent: respiratory distress, wheezes, rales, rhonchi - Cardiovascular Cardiovascular Exam: Present: normal rhythm, tachycardia, normal heart sounds. Absent: systolic murmur, diastolic murmur, rubs, gallop - GI/Abdominal GI/Abdominal exam: Present: soft, normal bowel sounds. Absent: distended, tenderness, guarding, rebound - Rectal Rectal exam: Present: deferred - Extremities Exam Extremities exam: Present: normal inspection - Neurological Exam Neurological exam: Present: alert, altered - Psychiatric Psychiatric exam: Present: agitated, flat affect, other (Obviously responding to internal stimuli, poor eye contact, impulsive movements) - Skin Skin exam: Present: warm, dry, intact, normal color. Absent: rash ED Course Vital Signs 03/25/20 03/25/20 03/25/20 18:28 18:34 20:10 Temperature 98 F 98.2 F Pulse Rate 140 H 104 H Respiratory 20 20 18 Rate Blood Pressure 150/98 Blood Pressure 140/88 [Right] O2 Sat by Pulse 97 97 99 Oximetry 03/26/20 03/26/20 03:00 09:39 Temperature 98 F 97.7 F Pulse Rate 94 H 84 Respiratory 18 18 Rate Blood Pressure Blood Pressure 138/84 131/91 [Right] O2 Sat by Pulse 99 98 Oximetry ED Medical Decision Making - Lab Data Result diagrams: 03/25/20 22:52 03/25/20 22:52 - Medical Decision Making Mr. Nelson is a 39-year-old male with history of bipolar disorder, polysubstance abuse, schizophrenia who presents with abnormal behavior. Patient appeared acutely psychotic. He was responding to internal stimuli. Impulsive aggressive. Upon arrival I evaluated patient. With the assistance of security staff he was redirected to seclusion room. I was concerned for his safety. I was concerned for the safety of others. I suspect substance-induced psychosis. Drug screen obtained 6 days ago at this hospital positive for amphetamines, benzodiazepine and cocaine. Patient is medically clear for psychiatric care. Tachycardia has resolved. I have reviewed labs obtained including CBC chemistry serum toxicology all within normal limits. UDS positive for amphetamines. Critical care attestation.: If time is entered above; I have spent that time in minutes in the direct care of this critically ill patient, excluding procedure time. ED Disposition Clinical Impression: Substance-induced psychotic disorder, Bipolar disorder, current episode manic severe with psychotic features, Methamphetamine abuse Disposition: DC/TX-65 PSY HOSP/PSY UNIT Is pt being admited?: No Does the pt Need Aspirin: No Condition: Stable Referrals: PRIMARY CARE, [Primary Care Provider] - 3-5 Days
--- NOTE | 2020-03-26 10:42 | Consultation ---
History of Present Illness - Reason for Consult Consult date: 03/26/20 Reason for consult: MHE Requesting physician: JAJA HAMMONDS - History of Present Psychiatric Illness Per ED Provider: This is a 39-year-old male with history of bipolar disorder, schizophrenia, polysubstance abuse and several suicide attempts who presents with abnormal behavior. Police discovered patient waving around the [address] his [place]. He was transported to the emergency department per EMS. Patient will not cooperate with history taking. He desires to leave the department. PSYCH HPI Patient is a 39-year-old unemployed male who currently resides with his parents with past psychiatric history of bipolar who presented to the ER for mental health evaluation. Patient states he knows where he is and knows why he is here, patient came his aunt because he was just and she is at home, got into an argument with his mom after he picked up the keys and attempt to use the car to drive over to his Friend's place and she was not supportive of the idea even though it drives normally which led into a verbal argument, and he felt like he had another of his episode, mom to call the police and EMS brought him to the ED. 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 Patient HPI contradicts what was initially reported, I spoke with mom she reports patient had an episode and grabbed a knife. Concern for patient's manipulative behavior to get out of the hospital PAST PSYCHIATRIC HISTORY Diagnoses: Bipolar Suicide attempts or Self-harm behavior: None reported Prior psychiatric hospitalizations: Yes Substance Abuse history: Opioid Previous psychiatric medications tried: Seroquel Outpatient treatment: Yes PAST MEDICAL HISTORY: None reported Family Psychiatric History: None reported or documented SOCIAL HISTORY Marital Status: Living Arrangements: With parents Employment Status: Employed Access to guns/weapons: None reported Education: GED technical college History of Abuse: None reported Legal History: Years ago REVIEW OF SYSTEMS Constitutional: Negative for weight loss ENT: Negative for stridor Respiratory: Negative for cough or hemoptysis All other systems reviewed and are negative MENTAL STATUS EXAMINATION General Appearance and Behavior: Age appropriate, goodhygiene, wearing appropriate clothes, lying in bed, poor eye contact, cooperative irritable with questioning. Cooperation: Withdrawn and Guarded Psychomotor Behavior: unremarkable and within normal limits Mood: Good Affect and affective range: flat Thought Process: Fluent/logical blocked Thought Content: Preservative Speech: Normal volume, Regular rate and rhythm Intellectual Functioning: Average Suicidal Ideation: Denies SI Homicidal Ideation: Denies HI Impulse Control: Impaired Insight and Judgment: Limited insight and judgment, Impaired Memory: Short term memory impaired Attention: Distractible Orientation: Alert, oriented, and anxious RECOMMENDATIONS Patient HPI contradicts what he told based on collateral, Patient HPI contradicts what was initially reported, I spoke with mom she reports patient had an episode and grabbed a knife. Concern for patient's manipulative behavior to get out of the hospital MEDICATIONS: Home meds restarted Risks, benefits and alternatives of medications discussed with the patient, questions answered and consent obtained from patient. PSYCHOTHERAPY: Supportive psychotherapy provided MEDICAL: Per primary team DELIRIUM PRECAUTIONS: Please re-orient patient frequently, keep lights on during the day, and minimize benzodiazepines and opiates as these medications could worsen patient's confusion. ASSEMBLY LINE SUPERVISOR: Per medical team DISPOSITION: Recommends acute inpatient psychiatric hospitalization at this time LEGAL STATUS: 1013 FOLLOW-UP: Will follow Thank you for the consult. Please contact with any questions and/or concerns. Medications and Allergies Allergies Allergy/AdvReac Type Severity Reaction Status Date / Time No Known Drug Allergies Allergy Unknown Verified 06/10/17 18:25 Home Medications Medication Instructions Recorded Confirmed Last Taken Type QUEtiapine [SEROquel] 200 mg PO QHS #14 tablet 09/14/19 03/25/20 Unknown Rx Active Meds: Active Medications Acetaminophen (Acetaminophen 325 Mg Tab) 650 mg PO Q4HR PRN PRN Reason: Pain MILD(1-3)/Fever >100.5/ABRAHAM Al Hydrox/Mg Hydrox/Simethicone (Alum-Mag Hydroxide-Simethicone [phone]/5ml Oral Liqd 30 Ml) 30 ml PO Q4HR PRN PRN Reason: Indigestion Magnesium Hydroxide (Magnesium Hydroxide (Mom) Oral Liqd Udc) 30 ml PO Q12HR PRN PRN Reason: Constipation Mental Status Exam - Vital signs Last Vital Signs Temp 97.7 F 03/26/20 09:39 Pulse 84 03/26/20 09:39 Resp 18 03/26/20 09:39 BP 131/91 03/26/20 09:39 Pulse Ox 98 12/15/20 09:39 Results Result Diagrams: 03/25/20 22:52 03/25/20 22:52 Abnormal lab results 03/25/20 03/25/20 03/25/20 Range/Units 22:52 22:52 22:52 [place] % (Auto) 7.5 H (0.0-7.3) % Seg Neutrophils % 71.2 H (40.0-70.0) % Salicylates < 0.3 L (2.8-20.0) mg/dL Acetaminophen 5.0 L (10.0-30.0) ug/mL All other labs normal.
[2020-03-26 12:13] LABS: Bilirubin,Urine NEG (Negative); Blood,Urine NEG (Negative); Color,Urine Yellow (Yellow); Mucus,Urine 2+ /HPF; Protein,Urine <15 mg/dL mg/dL (Negative)
[2020-03-26 12:21] LABS: Benzodiazepines Screen,Urine Negative; Cannabinoid Screen,Urine Negative; Cocaine Screen,Urine Negative; Methadone Screen,Urine Negative; Opiate Screen,Urine Negative
[2020-03-26 12:54] LABS: Amphetamine Screen,Urine PRESUMPTIVE POSITIVE
[2020-03-26] MEDS: VALPROIC ACID 250 MG CAP PO SCH ×2 (16:07→20:35)
[2020-03-27 09:23] VITALS: BP 133/84
[2020-03-27] MEDS: VALPROIC ACID 250 MG CAP PO SCH ×2 (11:01→15:27)
== END 2020-03-27 18:53 ==
LOC: ED 18:22
DX: F15.10 Other stimulant abuse, uncomplicated (principal); F19.959 Other psychoactive substance use, unspecified with psychoactive substance-induced psychotic disorder, unspecified; F25.0 Schizoaffective disorder, bipolar type; F41.9 Anxiety disorder, unspecified; Z98.890 Other specified postprocedural states; Z79.899 Other long term (current) drug therapy
CPT/HCPCS: 36415; 80048; 80307; 81001; 85025; 96372; 99285; J3486; 80320; G0480

== ENCOUNTER 2020-03-30 23:20 | Emergency (ER) | payer SELFPAY | END 2020-03-30 23:30 | disposition left against medical advice (07) | LOC: ED 23:20 | DX: R41.82 Altered mental status, unspecified (principal); Z53.21 Procedure and treatment not carried out due to patient leaving prior to being seen by health care provider ==

== ENCOUNTER 2020-04-15 19:50 | Emergency (ER) | payer SELFPAY | END 2020-04-15 20:45 | disposition left against medical advice (07) | LOC: ED 19:50 | DX: F31.9 Bipolar disorder, unspecified (principal); Z53.21 Procedure and treatment not carried out due to patient leaving prior to being seen by health care provider ==

== ENCOUNTER 2020-10-08 21:57 | Emergency (ER) | payer OTHER, SELFPAY ==
[2020-10-08] MEDS ORDERED: LORazepam 2 MG/ML VIAL IM PRN (22:11)
[2020-10-08] MEDS ORDERED: diphenhydrAMINE 50 MG/ML VIAL IM ONE (22:11)
[2020-10-08] MEDS ORDERED: HALOPERIDOL LACTATE 5 MG/1 ML INJ IM PRN (22:11)
[2020-10-08] MEDS ORDERED: HALOPERIDOL LACTATE 5 MG/1 ML INJ ONE (22:12)
[2020-10-08] MEDS ORDERED: diphenhydrAMINE 50 MG/ML VIAL ONE (22:12)
[2020-10-08] MEDS ORDERED: LORazepam 2 MG/ML VIAL ONE (22:12)
--- NOTE | 2020-10-08 22:13 | Emergency Department Report ---
ED General Adult HPI - General Chief complaint: Psych Stated complaint: PSYCHOTIC EPISODE/SUBSTANCE ABUSE PUI?: No Time Seen by Provider: 10/08/20 22:11 Source: patient, family, police, RN notes reviewed Mode of arrival: Ambulatory Limitations: Other (Patient is acutely psychotic) - History of Present Illness Initial comments: The patient is a 39-year-old gentleman. He is brought to the hospital in police custody, with his father. The patient is acutely psychotic, yelling, screaming, thrashing, making nonsensical statements. History is entirely obtained from speaking to his father, Mr. River Nelson; [phone] As per his father, the patient has a history of psychosis and substance abuse. The patient has not been taking any medications. The patient has been acting psychotically. As per his father, the patient is erratic, psychotic, he is uncertain if the patient has attempted to overdose. As per his father, there is no fever, exposure to Covid, loss of consciousness, nausea, vomiting or diarrhea. His father gave verbal informed consent to have the patient physically and chemically restrained secondary to acute psychosis. His father requested call back once laboratory studies have resulted. His fatricky r request that the patient have a long-term stay at a receiving psychiatric facility, preferably [facility]. This patient has presented multiple times to this hospital in the past for similar symptoms. The patient himself is awake, agitated psychotic, screaming. He was medicated with haloperidol, Ativan and Geodon, and he subsequently improved his symptoms. As per his father, no exacerbating or relieving factors, radiation factors that he is aware of. -: days(s) Radiation: other Quality: other Consistency: other Improves with: other Worsens with: other Associated Symptoms: other - Related Data Previous Rx's Medication Instructions Recorded Last Taken Type QUEtiapine [SEROquel] 200 mg PO QHS #14 tablet 09/14/19 Unknown Rx Allergies Allergy/AdvReac Type Severity Reaction Status Date / Time No Known Drug Allergies Allergy Unknown Verified 10/08/20 22:49 ED Review of Systems ROS: Stated complaint: PSYCHOTIC EPISODE/SUBSTANCE ABUSE Other details as noted in HPI Comment: Unobtainable due to pts medical conditions (With patient is acutely psychotic. Review of systems as per father. Please see history of present illness) ED Past Medical Hx - Past Medical History Hx Congestive Heart Failure: No Hx Diabetes: No Hx Psychiatric Treatment: Yes (bipolar, schizoaffective) Hx Asthma: No Hx COPD: No Additional medical history: previous OD per EMS. Bipolar. Schizophrenia. Anxiety - Surgical History Additional Surgical History: T&A, Left knee surgery x 2 - Social History Smoking Status: Unknown if ever smoked Substance Use Type: None, Methamphetamines - Medications Home Medications: Home Medications Medication Instructions Recorded Confirmed Last Taken Type QUEtiapine [SEROquel] 200 mg PO QHS #14 tablet 09/14/19 03/25/20 Unknown Rx ED Physical Exam - General Limitations: Other (Patient is acutely psychotic) General appearance: anxious, in distress, obese - Head Head exam: Present: atraumatic, normocephalic - Eye Eye exam: Present: normal appearance, EOMI, other (Pupils are 2 mm but react to light) - ENT ENT exam: Present: normal exam, normal orophraynx, mucous membranes moist, normal external ear exam - Neck Neck exam: Present: normal inspection, full ROM. Absent: tenderness, meningismus - Respiratory Respiratory exam: Present: normal lung sounds bilaterally. Absent: respiratory distress - Cardiovascular Cardiovascular Exam: Present: normal rhythm, tachycardia, normal heart sounds. Absent: bradycardia, irregular rhythm, systolic murmur, diastolic murmur, rubs, gallop - GI/Abdominal GI/Abdominal exam: Present: soft. Absent: distended, tenderness, guarding, rebound, rigid, pulsatile mass - Rectal Rectal exam: Present: deferred - Extremities Exam Extremities exam: Present: normal inspection, full ROM, other (2+ pulses noted in the bilateral upper and lower extremities. There is no palpable cord. negative Homans sign. Muscular compartments are soft. The pelvis is stable.). Absent: pedal edema, calf tenderness - Back Exam Back exam: Present: normal inspection, full ROM. Absent: tenderness, CVA tenderness (R), CVA tenderness (L), paraspinal tenderness, vertebral tenderness - Neurological Exam Neurological exam: Present: alert, normal gait, other (Patient is awake. Patient is agitated, screaming and yelling. The patient is moving 4 extremities. There is no facial droop.) - Psychiatric Psychiatric exam: Present: agitated, anxious - Skin Skin exam: Present: warm, dry, intact, normal color. Absent: rash ED Course Vital Signs 10/08/20 10/08/20 10/08/20 22:49 23:17 23:36 Temperature 100.0 F H 98.9 F Pulse Rate 129 H Respiratory 12 Rate Blood Pressure 166/88 [Right] O2 Sat by Pulse 98 Oximetry 10/09/20 10/09/20 10/09/20 00:10 01:04 02:05 Temperature Pulse Rate 102 H 89 85 Respiratory 21 20 18 Rate Blood Pressure 119/69 119/69 125/73 [Right] O2 Sat by Pulse 93 95 94 Oximetry 10/09/20 10/09/20 10/09/20 03:53 04:21 05:28 Temperature Pulse Rate 77 84 79 Respiratory 14 19 15 Rate Blood Pressure 105/57 106/63 96/62 [Right] O2 Sat by Pulse 97 97 96 Oximetry - Reevaluation(s) Reevaluation #1: 10/08/20 23:39 Differential diagnosis, including but not limited to: Psychosis, dehydration, sympathomimetic ingestion, medical clearance for psychiatric placement Assessment and plan: 39-year-old gentleman, who is acutely psychotic, with a history of psychiatric disease, who requires 1013. He is placed on hold status, screening laboratory studies obtained for psychiatric placement. His rectal temperature is 98.9 degrees, and his heart rate is currently 106 bpm. Laboratory studies demonstrate hemoconcentration, leukocytosis, which is likely a stress reaction. Is also found to have evidence of dehydration, mild metabolic acidosis. CK within normal limits. Serum toxicology studies otherwise unremarkable. Patient will be given 3 L of IV fluid, and we will repeat basic metabolic panel and CBC. Urinalysis pending at this time. I did contact the patient's father at the listed phone number, called up number, nobody answered, voicemail is not set up. Patient has had nonspecific transaminitis in the past. His liver panel today is improved with compared to prior values. This is likely secondary to dehydration, and probable muscular breakdown secondary to dehy dration, and presumed sympathomimetic ingestion. Given unremarkable acetaminophen level, supportive care for this only. 10/08/20 23:41 10/09/20 00:42 patient resting comfortably. Tachycardia improving. Heart rate 96 bpm. IV fluids infusing. 10/09/20 05:02 Patient resting comfortably in stretcher. Tachycardia resolved. No acute distress. Repeat basic metabolic panel shows resolution of anion gap acidosis, and improvement in renal function. Repeat CBC shows resolution of leukocytosis. Acute hepatitis panel is pending. At this point time, the patient does not appear to have an immediate medical contraindication to psychiatric admission, evaluation, consultation and placement. ED Medical Decision Making - Lab Data Result diagrams: 10/09/20 04:20 10/09/20 04:20 Vital Signs 10/08/20 10/08/20 22:49 23:17 Temperature 100.0 F H Pulse Rate 129 H Respiratory 12 Rate Blood Pressure 166/88 [Right] O2 Sat by Pulse 98 Oximetry Lab Results 10/08/20 10/08/20 10/08/20 Range/Units 22:31 22:31 22:31 WBC 14.0 H (4.5-11.0) K/mm3 RBC 4.94 (3.65-5.03) M/mm3 Hgb 15.7 H (11.8-15.2) gm/dl Hct 44.8 (35.5-45.6) % MCV 91 (84-94) fl MCH 32 (28-32) pg MCHC 35 H (32-34) % RDW 15.2 (13.2-15.2) % Plt Count 483 H (140-440) K/mm3 Sodium 139 (137-145) mmol/L Potassium 3.9 (3.6-5.0) mmol/L Chloride 98.2 (98-107) mmol/L Carbon Dioxide 17 L (22-30) mmol/L Anion Gap 28 mmol/L BUN 18 (9-20) mg/dL Creatinine 1.5 H (0.8-1.3) mg/dL Estimated GFR 52 ml/min BUN/Creatinine Ratio 12 % Glucose 142 H (75-100) mg/dL Calcium 10.3 H (8.4-10.2) mg/dL Magnesium 2.10 (1.7-2.3) mg/dL Total Bilirubin 0.50 (0.1-1.2) mg/dL AST 41 H (5-40) units/L ALT 98 H (7-56) units/L Alkaline Phosphatase 108 (35-129) units/L Total Creatine Kinase 307 H (55-170) units/L Total Protein 8.2 (6.3-8.2) g/dL Albumin 5.2 H (3.9-5) g/dL Albumin/Globulin Ratio 1.7 % TSH (0.270-4.200) mlU/mL Salicylates (2.8-20.0) mg/dL Acetaminophen (10.0-30.0) ug/mL Plasma/Serum Alcohol (0-0.07) % 10/08/20 10/08/20 10/08/20 Range/Units 22:31 22:31 22:31 WBC (4.5-11.0) K/mm3 RBC (3.65-5.03) M/mm3 Hgb (11.8-15.2) gm/dl Hct (35.5-45.6) % MCV (84-94) fl MCH (28-32) pg MCHC (32-34) % RDW (13.2-15.2) % Plt Count (140-440) K/mm3 Sodium (137-145) mmol/L Potassium (3.6-5.0) mmol/L Chloride (98-107) mmol/L Carbon Dioxide (22-30) mmol/L Anion Gap mmol/L BUN (9-20) mg/dL Creatinine (0.8-1.3) mg/dL Estimated GFR ml/min BUN/Creatinine Ratio % Glucose (75-100) mg/dL Calcium (8.4-10.2) mg/dL Magnesium (1.7-2.3) mg/dL Total Bilirubin (0.1-1.2) mg/dL AST (5-40) units/L ALT (7-56) units/L Alkaline Phosphatase (35-129) units/L Total Creatine Kinase (55-170) units/L Total Protein (6.3-8.2) g/dL Albumin (3.9-5) g/dL Albumin/Globulin Ratio % TSH 1.820 (0.270-4.200) mlU/mL Salicylates < 0.3 L (2.8-20.0) mg/dL Acetaminophen 5.0 L (10.0-30.0) ug/mL Plasma/Serum Alcohol (0-0.07) % 10/08/20 Range/Units 22:31 WBC (4.5-11.0) K/mm3 RBC (3.65-5.03) M/mm3 Hgb (11.8-15.2) gm/dl Hct (35.5-45.6) % MCV (84-94) fl MCH (28-32) pg MCHC (32-34) % RDW (13.2-15.2) % Plt Count (140-440) K/mm3 Sodium (137-145) mmol/L Potassium (3.6-5.0) mmol/L Chloride (98-107) mmol/L Carbon Dioxide (22-30) mmol/L Anion Gap mmol/L BUN (9-20) mg/dL Creatinine (0.8-1.3) mg/dL Estimated GFR ml/min BUN/Creatinine Ratio % Glucose (75-100) mg/dL Calcium (8.4-10.2) mg/dL Magnesium (1.7-2.3) mg/dL Total Bilirubin (0.1-1.2) mg/dL AST (5-40) units/L ALT (7-56) units/L Alkaline Phosphatase (35-129) units/L Total Creatine Kinase (55-170) units/L Total Protein (6.3-8.2) g/dL Albumin (3.9-5) g/dL Albumin/Globulin Ratio % TSH (0.270-4.200) mlU/mL Salicylates (2.8-20.0) mg/dL Acetaminophen (10.0-30.0) ug/mL Plasma/Serum Alcohol < 0.01 (0-0.07) % Vital Signs 10/08/20 10/08/20 10/08/20 22:49 23:17 23:36 Temperature 100.0 F H 98.9 F Pulse Rate 129 H Respiratory 12 Rate Blood Pressure 166/88 [Right] O2 Sat by Pulse 98 Oximetry Lab Results 10/08/20 10/08/20 10/08/20 Range/Units 22:31 22:31 22:31 WBC 14.0 H (4.5-11.0) K/mm3 RBC 4.94 (3.65-5.03) M/mm3 Hgb 15.7 H (11.8-15.2) gm/dl Hct 44.8 (35.5-45.6) % MCV 91 (84-94) fl MCH 32 (28-32) pg MCHC 35 H (32-34) % RDW 15.2 (13.2-15.2) % Plt Count 483 H (140-440) K/mm3 Sodium 139 (137-145) mmol/L Potassium 3.9 (3.6-5.0) mmol/L Chloride 98.2 (98-107) mmol/L Carbon Dioxide 17 L (22-30) mmol/L Anion Gap 28 mmol/L BUN 18 (9-20) mg/dL Creatinine 1.5 H (0.8-1.3) mg/dL Estimated GFR 52 ml/min BUN/Creatinine Ratio 12 % Glucose 142 H (75-100) mg/dL Calcium 10.3 H (8.4-10.2) mg/dL Magnesium 2.10 (1.7-2.3) mg/dL Total Bilirubin 0.50 (0.1-1.2) mg/dL AST 41 H (5-40) units/L ALT 98 H (7-56) units/L Alkaline Phosphatase 108 (35-129) units/L Total Creatine Kinase 307 H (55-170) units/L Total Protein 8.2 (6.3-8.2) g/dL Albumin 5.2 H (3.9-5) g/dL Albumin/Globulin Ratio 1.7 % TSH (0.270-4.200) mlU/mL Salicylates (2.8-20.0) mg/dL Acetaminophen (10.0-30.0) ug/mL Plasma/Serum Alcohol (0-0.07) % 10/08/20 10/08/20 10/08/20 Range/Units 22:31 22:31 22:31 WBC (4.5-11.0) K/mm3 RBC (3.65-5.03) M/mm3 Hgb (11.8-15.2) gm/dl Hct (35.5-45.6) % MCV (84-94) fl MCH (28-32) pg MCHC (32-34) % RDW (13.2-15.2) % Plt Count (140-440) K/mm3 Sodium (137-145) mmol/L Potassium (3.6-5.0) mmol/L Chloride (98-107) mmol/L Carbon Dioxide (22-30) mmol/L Anion Gap mmol/L BUN (9-20) mg/dL Creatinine (0.8-1.3) mg/dL Estimated GFR ml/min BUN/Creatinine Ratio % Glucose (75-100) mg/dL Calcium (8.4-10.2) mg/dL Magnesium (1.7-2.3) mg/dL Total Bilirubin (0.1-1.2) mg/dL AST (5-40) units/L ALT (7-56) units/L Alkaline Phosphatase (35-129) units/L Total Creatine Kinase (55-170) units/L Total Protein (6.3-8.2) g/dL Albumin (3.9-5) g/dL Albumin/Globulin Ratio % TSH 1.820 (0.270-4.200) mlU/mL Salicylates < 0.3 L (2.8-20.0) mg/dL Acetaminophen 5.0 L (10.0-30.0) ug/mL Plasma/Serum Alcohol (0-0.07) % 10/08/ Range/Units 22:31 WBC (4.5-11.0) K/mm3 RBC (3.65-5.03) M/mm3 Hgb (11.8-15.2) gm/dl Hct (35.5-45.6) % MCV (84-94) fl MCH (28-32) pg MCHC (32-34) % RDW (13.2-15.2) % Plt Count (140-440) K/mm3 Sodium (137-145) mmol/L Potassium (3.6-5.0) mmol/L Chloride (98-107) mmol/L Carbon Dioxide (22-30) mmol/L Anion Gap mmol/L BUN (9-20) mg/dL Creatinine (0.8-1.3) mg/dL Estimated GFR ml/min BUN/Creatinine Ratio % Glucose (75-100) mg/dL Calcium (8.4-10.2) mg/dL Magnesium (1.7-2.3) mg/dL Total Bilirubin (0.1-1.2) mg/dL AST (5-40) units/L ALT (7-56) units/L Alkaline Phosphatase (35-129) units/L Total Creatine Kinase (55-170) units/L Total Protein (6.3-8.2) g/dL Albumin (3.9-5) g/dL Albumin/Globulin Ratio % TSH (0.270-4.200) mlU/mL Salicylates (2.8-20.0) mg/dL Acetaminophen (10.0-30.0) ug/mL Plasma/Serum Alcohol < 0.01 (0-0.07) % Vital Signs 10/08/20 10/08/20 10/08/20 22:49 23:17 23:36 Temperature 100.0 F H 98.9 F Pulse Rate 129 H Respiratory 12 Rate Blood Pressure 166/88 [Right] O2 Sat by Pulse 98 Oximetry 10/09/20 00:10 Temperature Pulse Rate 102 H Respiratory 21 Rate Blood Pressure 119/69 [Right] O2 Sat by Pulse 93 Oximetry Lab Results 10/08/20 10/08/20 10/08/20 Range/Units 22:31 22:31 22:31 WBC 14.0 H (4.5-11.0) K/mm3 RBC 4.94 (3.65-5.03) M/mm3 Hgb 15.7 H (11.8-15.2) gm/dl Hct 44.8 (35.5-45.6) % MCV 91 (84-94) fl MCH 32 (28-32) pg MCHC 35 H (32-34) % RDW 15.2 (13.2-15.2) % Plt Count 483 H (140-440) K/mm3 Sodium 139 (137-145) mmol/L Potassium 3.9 (3.6-5.0) mmol/L Chloride 98.2 (98-107) mmol/L Carbon Dioxide 17 L (22-30) mmol/L Anion Gap 28 mmol/L BUN 18 (9-20) mg/dL Creatinine 1.5 H (0.8-1.3) mg/dL Estimated GFR 52 ml/min BUN/Creatinine Ratio 12 % Glucose 142 H (75-100) mg/dL Calcium 10.3 H (8.4-10.2) mg/dL Magnesium 2.10 (1.7-2.3) mg/dL Total Bilirubin 0.50 (0.1-1.2) mg/dL AST 41 H (5-40) units/L ALT 98 H (7-56) units/L Alkaline Phosphatase 108 (35-129) units/L Total Creatine Kinase 307 H (55-170) units/L Total Protein 8.2 (6.3-8.2) g/dL Albumin 5.2 H (3.9-5) g/dL Albumin/Globulin Ratio 1.7 % TSH (0.270-4.200) mlU/mL Urine Color (Yellow) Urine Turbidity (Clear) Urine pH (5.0-7.0) Ur Specific Elkins (1.003-1.030) Urine Protein (Negative) mg/dL Urine Glucose (UA) (Negative) mg/dL Urine Ketones (Negative) mg/dL Urine Blood (Negative) Urine Nitrite (Negative) Urine Bilirubin (Negative) Urine Urobilinogen (<2.0) mg/dL Ur Leukocyte Esterase (Negative) Urine WBC (Auto) (0.0-6.0) /HPF Urine RBC (Auto) (0.0-6.0) /HPF U Epithel Cells (Auto) (0-13.0) /HPF Urine Mucus /HPF Salicylates (2.8-20.0) mg/dL Urine Opiates Screen Urine Methadone Screen Acetaminophen (10.0-30.0) ug/mL Ur Barbiturates Screen Ur Phencyclidine Scrn Ur Amphetamines Screen U Benzodiazepines Scrn Urine Cocaine Screen U Marijuana (THC) Screen Drugs of Abuse Note Plasma/Serum Alcohol (0-0.07) % Hepatitis A IgM Ab (NonReactive) Hep Bs Antigen (Negative) Hep B Core IgM Ab (NonReactive) Hepatitis C Antibody (NonReactive) 10/08/20 10/08/20 10/08/20 Range/Units 22:31 22:31 22:31 WBC (4.5-11.0) K/mm3 RBC (3.65-5.03) M/mm3 Hgb (11.8-15.2) gm/dl Hct (35.5-45.6) % MCV (84-94) fl MCH (28-32) pg MCHC (32-34) % RDW (13.2-15.2) % Plt Count (140-440) K/mm3 Sodium (137-145) mmol/L Potassium (3.6-5.0) mmol/L Chloride (98-107) mmol/L Carbon Dioxide (22-30) mmol/L Anion Gap mmol/L BUN (9-20) mg/dL Creatinine (0.8-1.3) mg/dL Estimated GFR ml/min BUN/Creatinine Ratio % Glucose (75-100) mg/dL Calcium (8.4-10.2) mg/dL Magnesium (1.7-2.3) mg/dL Total Bilirubin (0.1-1.2) mg/dL AST (5-40) units/L ALT (7-56) units/L Alkaline Phosphatase (35-129) units/L Total Creatine Kinase (55-170) units/L Total Protein (6.3-8.2) g/dL Albumin (3.9-5) g/dL Albumin/Globulin Ratio % TSH 1.820 (0.270-4.200) mlU/mL Urine Color (Yellow) Urine Turbidity (Clear) Urine pH (5.0-7.0) Ur Specific Elkins (1.003-1.030) Urine Protein (Negative) mg/dL Urine Glucose (UA) (Negative) mg/dL Urine Ketones (Negative) mg/dL Urine Blood (Negative) Urine Nitrite (Negative) Urine Bilirubin (Negative) Urine Urobilinogen (<2.0) mg/dL Ur Leukocyte Esterase (Negative) Urine WBC (Auto) (0.0-6.0) /HPF Urine RBC (Auto) (0.0-6.0) /HPF U Epithel Cells (Auto) (0-13.0) /HPF Urine Mucus /HPF Salicylates < 0.3 L (2.8-20.0) mg/dL Urine Opiates Screen Urine Methadone Screen Acetaminophen 5.0 L (10.0-30.0) ug/mL Ur Barbiturates Screen Ur Phencyclidine Scrn Ur Amphetamines Screen U Benzodiazepines Scrn Urine Cocaine Screen U Marijuana (THC) Screen Drugs of Abuse Note Plasma/Serum Alcohol (0-0.07) % Hepatitis A IgM Ab (NonReactive) Hep Bs Antigen (Negative) Hep B Core IgM Ab (NonReactive) Hepatitis C Antibody (NonReactive) 10/08/20 10/09/20 10/09/20 Range/Units 22:31 00:19 00:19 WBC (4.5-11.0) K/mm3 RBC (3.65-5.03) M/mm3 Hgb (11.8-15.2) gm/dl Hct (35.5-45.6) % MCV (84-94) fl MCH (28-32) pg MCHC (32-34) % RDW (13.2-15.2) % Plt Count (140-440) K/mm3 Sodium (137-145) mmol/L Potassium (3.6-5.0) mmol/L Chloride (98-107) mmol/L Carbon Dioxide (22-30) mmol/L Anion Gap mmol/L BUN (9-20) mg/dL Creatinine (0.8-1.3) mg/dL Estimated GFR ml/min BUN/Creatinine Ratio % Glucose (75-100) mg/dL Calcium (8.4-10.2) mg/dL Magnesium (1.7-2.3) mg/dL Total Bilirubin (0.1-1.2) mg/dL AST (5-40) units/L ALT (7-56) units/L Alkaline Phosphatase (35-129) units/L Total Creatine Kinase (55-170) units/L Total Protein (6.3-8.2) g/dL Albumin (3.9-5) g/dL Albumin/Globulin Ratio % TSH (0.270-4.200) mlU/mL Urine Color Yellow (Yellow) Urine Turbidity Cloudy (Clear) Urine pH 5.0 (5.0-7.0) Ur Specific Elkins 1.025 (1.003-1.030) Urine Protein 30 mg/dl (Negative) mg/dL Urine Glucose (UA) Neg (Negative) mg/dL Urine Ketones Neg (Negative) mg/dL Urine Blood Neg (Negative) Urine Nitrite Neg (Negative) Urine Bilirubin Neg (Negative) Urine Urobilinogen < 2.0 (<2.0) mg/dL Ur Leukocyte Esterase Neg (Negative) Urine WBC (Auto) 4.0 (0.0-6.0) /HPF Urine RBC (Auto) 3.0 (0.0-6.0) /HPF U Epithel Cells (Auto) < 1.0 (0-13.0) /HPF Urine Mucus 2+ /HPF Salicylates (2.8-20.0) mg/dL Urine Opiates Screen Negative Urine Methadone Screen Negative Acetaminophen (10.0-30.0) ug/mL Ur Barbiturates Screen Negative Ur Phencyclidine Scrn Negative Ur Amphetamines Screen Positive U Benzodiazepines Scrn Negative Urine Cocaine Screen Negative U Marijuana (THC) Screen Negative Drugs of Abuse Note Disclamer Plasma/Serum Alcohol < 0.01 (0-0.07) % Hepatitis A IgM Ab (NonReactive) Hep Bs Antigen (Negative) Hep B Core IgM Ab (NonReactive) Hepatitis C Antibody (NonReactive) 10/09/20 10/09/20 10/09/20 Range/Units 04:20 04:20 04:20 WBC 9.8 (4.5-11.0) K/mm3 RBC 4.55 (3.65-5.03) M/mm3 Hgb 13.6 (11.8-15.2) gm/dl Hct 41.4 (35.5-45.6) % MCV 91 (84-94) fl MCH 30 (28-32) pg MCHC 33 (32-34) % RDW 15.4 H (13.2-15.2) % Plt Count 393 (140-440) K/mm3 Sodium 137 (137-145) mmol/L Potassium 3.7 (3.6-5.0) mmol/L Chloride 101.7 (98-107) mmol/L Carbon Dioxide 25 D (22-30) mmol/L Anion Gap 14 mmol/L BUN 17 (9-20) mg/dL Creatinine 0.8 (0.8-1.3) mg/dL Estimated GFR > 60 ml/min BUN/Creatinine Ratio 21 % Glucose 93 (75-100) mg/dL Calcium 8.9 (8.4-10.2) mg/dL Magnesium (1.7-2.3) mg/dL Total Bilirubin (0.1-1.2) mg/dL AST (5-40) units/L ALT (7-56) units/L Alkaline Phosphatase (35-129) units/L Total Creatine Kinase (55-170) units/L Total Protein (6.3-8.2) g/dL Albumin (3.9-5) g/dL Albumin/Globulin Ratio % TSH (0.270-4.200) mlU/mL Urine Color (Yellow) Urine Turbidity (Clear) Urine pH (5.0-7.0) Ur Specific Elkins (1.003-1.030) Urine Protein (Negative) mg/dL Urine Glucose (UA) (Negative) mg/dL Urine Ketones (Negative) mg/dL Urine Blood (Negative) Urine Nitrite (Negative) Urine Bilirubin (Negative) Urine Urobilinogen (<2.0) mg/dL Ur Leukocyte Esterase (Negative) Urine WBC (Auto) (0.0-6.0) /HPF Urine RBC (Auto) (0.0-6.0) /HPF U Epithel Cells (Auto) (0-13.0) /HPF Urine Mucus /HPF Salicylates (2.8-20.0) mg/dL Urine Opiates Screen Urine Methadone Screen Acetaminophen (10.0-30.0) ug/mL Ur Barbiturates Screen Ur Phencyclidine Scrn Ur Amphetamines Screen U Benzodiazepines Scrn Urine Cocaine Screen U Marijuana (THC) Screen Drugs of Abuse Note Plasma/Serum Alcohol (0-0.07) % Hepatitis A IgM Ab Non-reactive (NonReactive) Hep Bs Antigen Non-reactive (Negative) Hep B Core IgM Ab Non-reactive (NonReactive) Hepatitis C Antibody Non-reactive (NonReactive) Vital Signs 10/08/20 10/08/20 10/08/20 22:49 23:17 23:36 Temperature 100.0 F H 98.9 F Pulse Rate 129 H Respiratory 12 Rate Blood Pressure 166/88 [Right] O2 Sat by Pulse 98 Oximetry 10/09/20 10/09/20 10/09/20 00:10 01:04 02:05 Temperature Pulse Rate 102 H 89 85 Respiratory 21 20 18 Rate Blood Pressure 119/69 119/69 125/73 [Right] O2 Sat by Pulse 93 95 94 Oximetry 10/09/20 10/09/20 10/09/20 03:53 04:21 05:28 Temperature Pulse Rate 77 84 79 Respiratory 14 19 15 Rate Blood Pressure 105/57 106/63 96/62 [Right] O2 Sat by Pulse 97 97 96 Oximetry Critical Care Time: Yes Critical care time in (mins) excluding proc time.: 65 Critical care attestation.: If time is entered above; I have spent that time in minutes in the direct care of this critically ill patient, excluding procedure time. ED Disposition Clinical Impression: Psychosis, Methamphetamine abuse, Dehydration, Transaminitis, Medical clearance for psychiatric admission Disposition: [id number]/TX-[id number] PSY HOSP/PSY UNIT Is pt being admited?: No Does the pt Need Aspirin: No Condition: Good Referrals: PRIMARY CARE, [Primary Care Provider] - 3-5 Days
[2020-10-08] MEDS ORDERED: ZIPRASIDONE MESYLATE 20 MG VIAL IM ONE (22:26)
[2020-10-08 22:43] LABS: Hematocrit 44.8 % (35.5-45.6); Hemoglobin 15.7 gm/dl (11.8-15.2); Mean Corpuscular HGB Conc 35 % (32-34); Mean Corpuscular Volume 91 fl (84-94); Platelet Count 483 K/mm3 (140-440); Red Blood Count 4.94 M/mm3 (3.65-5.03); Red Cell Distribution Width 15.2 % (13.2-15.2)
[2020-10-08 23:03] LABS: Albumin 5.2 g/dL (3.9-5); Calcium 10.3 mg/dL (8.4-10.2)
[2020-10-08] MEDS ORDERED: LACTATED RINGERS 3,000 ML IV ONE (23:37)
[2020-10-09 00:43] LABS: Bilirubin,Urine NEG (Negative); Blood,Urine NEG (Negative); Color,Urine Yellow (Yellow); Mucus,Urine 2+ /HPF; Urobilinogen,Urine < 2.0 mg/dL (<2.0)
[2020-10-09 00:44] LABS: Benzodiazepines Screen,Urine Negative; Cannabinoid Screen,Urine Negative; Cocaine Screen,Urine Negative; Methadone Screen,Urine Negative; Opiate Screen,Urine Negative
[2020-10-09 00:59] LABS: Amphetamine Screen,Urine Positive
[2020-10-09 04:35] LABS: Hematocrit 41.4 % (35.5-45.6); Hemoglobin 13.6 gm/dl (11.8-15.2); Mean Corpuscular HGB Conc 33 % (32-34); Mean Corpuscular Volume 91 fl (84-94); Platelet Count 393 K/mm3 (140-440); Red Blood Count 4.55 M/mm3 (3.65-5.03); Red Cell Distribution Width 15.4 % (13.2-15.2)
[2020-10-09 04:51] LABS: BUN/Creatinine Ratio 21; Blood Urea Nitrogen 17 mg/dL (9-20); Calcium 8.9 mg/dL (8.4-10.2); Hemolysis Index 23
[2020-10-09 05:10] LABS: Hepatitis B Surface Antigen Non-Reactive (Negative); Hepatitis C Virus Antibody Non-Reactive (NonReactive)
[2020-10-09 08:12] VITALS: BP 110/68
--- NOTE | 2020-10-09 10:14 | Event Note ---
Date: 10/09/20 This patient presented last night, initially in police custody, for a mental health evaluation. The patient has history of substance abuse and psychosis. Apparently the patient presented in acute psychosis and was made a 1013 and placed on ED hold by the overnight physician. All of the information obtained at that time was from the patient's father. Patient required chemical sedation and/or treatment of his psychosis. The patient's initial labs showed a mild leukocytosis and the patient had some tachycardia. He received a liter of lac tated Ringer's and upon reevaluation the leukocytosis, mild renal insufficiency and tachycardia have resolved. At the time of my examination this morning the patient is resting comfortably in room #12, bed G. His vital signs, listed below, are now reassuring including being afebrile. There are no confirmed medications for reconciliation at this time. I spoke to the emergency department psychiatric nurse, Sujey, who says that there have been no further events since the patient was medicated. He has not yet had an evaluation from the psychiatric assistant accounting manager or psychiatric team and they will help with further disposition or any psychiatric medication changes. We will continue to monitor this patient during his ED course. Vital Signs - 24 hr 10/08/20 10/08/20 10/08/20 22:49 23:17 23:36 Temperature 100.0 F H 98.9 F Pulse Rate 129 H Respiratory 12 Rate Blood Pressure 166/88 [Right] O2 Sat by Pulse 98 Oximetry 10/09/20 10/09/20 10/09/20 00:10 01:04 02:05 Temperature Pulse Rate 102 H 89 85 Respiratory 21 20 18 Rate Blood Pressure 119/69 119/69 125/73 [Right] O2 Sat by Pulse 93 95 94 Oximetry 10/09/20 10/09/20 10/09/20 03:53 04:21 05:28 Temperature Pulse Rate 77 84 79 Respiratory 14 19 15 Rate Blood Pressure 105/57 106/63 96/62 [Right] O2 Sat by Pulse 97 97 96 Oximetry 10/09/20 10/09/20 06:17 08:10 Temperature 98.3 F Pulse Rate 75 89 Respiratory 15 18 Rate Blood Pressure 104/62 110/68 [Right] O2 Sat by Pulse 95 98 Oximetry
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
== END 2020-10-09 18:42 ==
LOC: ED 21:57
DX: Z13.30 Encounter for screening examination for mental health and behavioral disorders, unspecified (principal); Z20.822 Contact with and (suspected) exposure to COVID-19; F29 Unspecified psychosis not due to a substance or known physiological condition; F15.10 Other stimulant abuse, uncomplicated; E86.0 Dehydration; R74.01 Elevation of levels of liver transaminase levels; F31.9 Bipolar disorder, unspecified; F20.9 Schizophrenia, unspecified; Z79.899 Other long term (current) drug therapy
CPT/HCPCS: 36415; 80048; 80053; 80074; 80307; 81001; 82550; 83735; 84443; 85027; 96360; 96372; 99284; J1200; J1630; J2060; J3486; J7120; U0003; 80320; G0480

== ENCOUNTER 2020-11-19 04:53 | Emergency (ER) | payer OTHER ==
[2020-11-19] MEDS ORDERED: ZIPRASIDONE MESYLATE 20 MG VIAL IM ONE (05:16)
[2020-11-19] MEDS ORDERED: diphenhydrAMINE 50 MG/ML VIAL IM ONE (05:16)
--- NOTE | 2020-11-19 05:20 | Emergency Department Report ---
Blank Doc - Documentation Documentation: 40-year-old male with a past medical history of schizophrenia polysubstance ab use presents to the hospital with acute psychosis/excited delirium. Patient has history of similar presentation in past with methamphetamine abuse. Patient is extremely agitated, paranoid, and tachycardic. He required handcuffing in police assistance for transport to the ED. For safety of patient and staff patient was medicated with Geodon 20 mg IM and Benadryl 50 mg IM. Psych labs ordered. Patient will require a 2013 And REevaluation by oncoming provider
[2020-11-19] MEDS ORDERED: WATER FOR INJ Sterile (PF) 10 ML ONE (05:24)
[2020-11-19] MEDS ORDERED: SODIUM CHLORIDE 0.9% 1000 ML 1,000 ML IV ONE ×2 (06:11→06:48)
--- NOTE | 2020-11-19 06:14 | Emergency Department Report ---
HPI - General Chief Complaint: Psych Time Seen by Provider: 11/19/20 05:15 - HPI HPI: 40-year-old male with history of schizophrenia and methamphetamine use brought in by police/EMS with excited delirium. Patient apparently went to the police because he feels like someone is after him. He was apparently floridly psychotic when first brought in and required medication with Geodon and Benadryl. By the time that I examined the patient he had calmed down after the medications. He states that he has no complaints but "someone is trying to hurt me". He will not say who is trying to hurt him. He now denies SI/HI, auditory/visual hallucinations, or any physical symptoms or complaints of any kind. He denies recent methamphetamine or other illicit substance use. ED Past Medical Hx - Past Medical History Previous Medical History?: Yes Hx Congestive Heart Failure: No Hx Diabetes: No Hx Psychiatric Treatment: Yes (bipolar, schizoaffective) Hx Asthma: No Hx COPD: No Additional medical history: previous OD per EMS. Bipolar. Schizophrenia. Anxiety - Surgical History Additional Surgical History: T&A, Left knee surgery x 2 - Social History Smoking Status: Unknown if ever smoked Substance Use Type: None, Methamphetamines - Medications Home Medications: Home Medications Medication Instructions Recorded Confirmed Last Taken Type QUEtiapine [SEROquel] 200 mg PO QHS #14 tablet 09/14/19 03/25/20 Unknown Rx ED Review of Systems ROS: Stated complaint: MH EVAL Other details as noted in HPI Constitutional: denies: chills, fever Eyes: denies: eye pain, vision change ENT: denies: throat pain, congestion Respiratory: denies: cough, shortness of breath Cardiovascular: denies: chest pain, palpitations, syncope Gastrointestinal: denies: abdominal pain, nausea, vomiting, diarrhea, cons tipation Genitourinary: denies: dysuria, frequency Musculoskeletal: denies: back pain, arthralgia Skin: denies: rash, lesions Neurological: denies: headache, weakness, numbness, paresthesias Psychiatric: anxiety. denies: auditory hallucinations, visual hallucinations, homicidal thoughts, suicidal thoughts Physical Exam - Physical Exam Physical Exam: GENERAL: Well developed and well nourished. No acute distress HEAD: Normocephalic. No obvious signs of trauma. ENT: Dry mucous membranes. EYES: Extraocular movements are intact. Pupils are equal round and reactive to light bilaterally NECK: Supple. Full ROM is intact. Trachea is midline. LUNGS: Nonlabored breathing. Equal chest rise bilaterally. Clear to auscultation bilaterally. CARDIOVASCULAR: Tachycardic but with regular rhythm. No murmurs or rubs. VASCULAR: Cap refill < 2 seconds. 2+ peripheral pulses ABDOMEN: Abdomen is slightly distended but soft. There is no significant tenderness, guarding or rebound. SKIN: Skin is warm and slightly diaphoretic NEURO: Patient is awake, alert, and oriented. 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 No focal deficits. Normal motor and sensory exam throughout. Normal speech. MUSCULOSKELETAL: No obvious deformities. No significant tenderness. Normal ROM throughout. BACK/SPINE: No costovertebral angle tenderness. ED Medical Decision Making - Lab Data Result diagrams: 11/19/20 11:22 11/19/20 11:22 Lab Results 11/19/20 11/19/20 11/19/20 Range/Units 05:41 05:41 05:41 WBC 16.7 H (4.5-11.0) K/mm3 RBC 4.88 (3.65-5.03) M/mm3 Hgb 15.3 H (11.8-15.2) gm/dl Hct 45.0 (35.5-45.6) % MCV 92 (84-94) fl MCH 31 (28-32) pg MCHC 34 (32-34) % RDW 15.4 H (13.2-15.2) % Plt Count 507 H (140-440) K/mm3 Lymph % (Auto) 12.6 L (13.4-35.0) % [place] % (Auto) 4.7 (0.0-7.3) % Eos % (Auto) 0.2 (0.0-4.3) % Baso % (Auto) 0.6 (0.0-1.8) % Lymph # (Auto) 2.1 (1.2-5.4) K/mm3 [place] # (Auto) 0.8 (0.0-0.8) K/mm3 Eos # (Auto) 0.0 (0.0-0.4) K/mm3 Baso # (Auto) 0.1 (0.0-0.1) K/mm3 Seg Neutrophils % 81.9 H (40.0-70.0) % Seg Neutrophils # 13.7 H (1.8-7.7) K/mm3 Sodium 145 (137-145) mmol/L Potassium 4.5 (3.6-5.0) mmol/L Chloride 102.9 (98-107) mmol/L Carbon Dioxide 19 L (22-30) mmol/L Anion Gap 28 mmol/L BUN 12 (9-20) mg/dL Creatinine 1.4 H (0.8-1.3) mg/dL Estimated GFR 56 ml/min BUN/Creatinine Ratio 9 % Glucose 133 H (75-100) mg/dL Calcium 11.0 H (8.4-10.2) mg/dL Total Creatine Kinase (55-170) units/L Urine Color (Yellow) Urine Turbidity (Clear) Urine pH (5.0-7.0) Ur Specific [place] (1.003-1.030) Urine Protein (Negative) mg/dL Urine Glucose (UA) (Negative) mg/dL Urine Ketones (Negative) mg/dL Urine Blood (Negative) Urine Nitrite (Negative) Urine Bilirubin (Negative) Urine Urobilinogen (<2.0) mg/dL Ur Leukocyte Esterase (Negative) Urine WBC (Auto) (0.0-6.0) /HPF Urine RBC (Auto) (0.0-6.0) /HPF Hyaline Casts /LPF Urine Mucus /HPF Salicylates < 0.3 L (2.8-20.0) mg/dL Urine Opiates Screen Urine Methadone Screen Acetaminophen (10.0-30.0) ug/mL Ur Barbiturates Screen Ur Phencyclidine Scrn Ur Amphetamines Screen U Benzodiazepines Scrn Urine Cocaine Screen U Marijuana (THC) Screen Drugs of Abuse Note Plasma/Serum Alcohol (0-0.07) % 11/19/20 11/19/20 11/19/20 Range/Units 05:41 05:41 05:41 WBC (4.5-11.0) K/mm3 RBC (3.65-5.03) M/mm3 Hgb (11.8-15.2) gm/dl Hct (35.5-45.6) % MCV (84-94) fl MCH (28-32) pg MCHC (32-34) % RDW (13.2-15.2) % Plt Count (140-440) K/mm3 Lymph % (Auto) (13.4-35.0) % [place] % (Auto) (0.0-7.3) % Eos % (Auto) (0.0-4.3) % Baso % (Auto) (0.0-1.8) % Lymph # (Auto) (1.2-5.4) K/mm3 [place] # (Auto) (0.0-0.8) K/mm3 Eos # (Auto) (0.0-0.4) K/mm3 Baso # (Auto) (0.0-0.1) K/mm3 Seg Neutrophils % (40.0-70.0) % Seg Neutrophils # (1.8-7.7) K/mm3 Sodium (137-145) mmol/L Potassium (3.6-5.0) mmol/L Chloride (98-107) mmol/L Carbon Dioxide (22-30) mmol/L Anion Gap mmol/L BUN (9-20) mg/dL Creatinine (0.8-1.3) mg/dL Estimated GFR ml/min BUN/Creatinine Ratio % Glucose (75-100) mg/dL Calcium (8.4-10.2) mg/dL Total Creatine Kinase 189 H (55-170) units/L Urine Color (Yellow) Urine Turbidity (Clear) Urine pH (5.0-7.0) Ur Specific [place] (1.003-1.030) Urine Protein (Negative) mg/dL Urine Glucose (UA) (Negative) mg/dL Urine Ketones (Negative) mg/dL Urine Blood (Negative) Urine Nitrite (Negative) Urine Bilirubin (Negative) Urine Urobilinogen (<2.0) mg/dL Ur Leukocyte Esterase (Negative) Urine WBC (Auto) (0.0-6.0) /HPF Urine RBC (Auto) (0.0-6.0) /HPF Hyaline Casts /LPF Urine Mucus /HPF Salicylates (2.8-20.0) mg/dL Urine Opiates Screen Urine Methadone Screen Acetaminophen 5.0 L (10.0-30.0) ug/mL Ur Barbiturates Screen Ur Phencyclidine Scrn Ur Amphetamines Screen U Benzodiazepines Scrn Urine Cocaine Screen U Marijuana (THC) Screen Drugs of Abuse Note Plasma/Serum Alcohol < 0.01 (0-0.07) % 11/19/20 11/19/20 11/19/20 Range/Units 11:22 11:22 11:27 WBC 11.4 H (4.5-11.0) K/mm3 RBC 4.40 (3.65-5.03) M/mm3 Hgb 13.4 (11.8-15.2) gm/dl Hct 40.1 (35.5-45.6) % MCV 91 (84-94) fl MCH 31 (28-32) pg MCHC 33 (32-34) % RDW 15.4 H (13.2-15.2) % Plt Count 447 H (140-440) K/mm3 Lymph % (Auto) 14.6 (13.4-35.0) % [place] % (Auto) 8.9 H (0.0-7.3) % Eos % (Auto) 0.3 (0.0-4.3) % Baso % (Auto) 0.4 (0.0-1.8) % Lymph # (Auto) 1.7 (1.2-5.4) K/mm3 [place] # (Auto) 1.0 H (0.0-0.8) K/mm3 Eos # (Auto) 0.0 (0.0-0.4) K/mm3 Baso # (Auto) 0.0 (0.0-0.1) K/mm3 Seg Neutrophils % 75.8 H (40.0-70.0) % Seg Neutrophils # 8.7 H (1.8-7.7) K/mm3 Sodium 144 (137-145) mmol/L Potassium 4.0 (3.6-5.0) mmol/L Chloride 106.2 (98-107) mmol/L Carbon Dioxide 23 (22-30) mmol/L Anion Gap 19 mmol/L BUN 11 (9-20) mg/dL Creatinine 0.8 (0.8-1.3) mg/dL Estimated GFR > 60 ml/min BUN/Creatinine Ratio 14 % Glucose 91 (75-100) mg/dL Calcium 9.4 (8.4-10.2) mg/dL Total Creatine Kinase (55-170) units/L Urine Color Yellow (Yellow) Urine Turbidity Slightly-cloudy (Clear) Urine pH 5.0 (5.0-7.0) Ur Specific [place] 1.013 (1.003-1.030) Urine Protein <15 mg/dl (Negative) mg/dL Urine Glucose (UA) Neg (Negative) mg/dL Urine Ketones Neg (Negative) mg/dL Urine Blood Sm (Negative) Urine Nitrite Neg (Negative) Urine Bilirubin Neg (Negative) Urine Urobilinogen < 2.0 (<2.0) mg/dL Ur Leukocyte Esterase Neg (Negative) Urine WBC (Auto) 4.0 (0.0-6.0) /HPF Urine RBC (Auto) 2.0 (0.0-6.0) /HPF Hyaline Casts 16 /LPF Urine Mucus Few /HPF Salicylates (2.8-20.0) mg/dL Urine Opiates Screen Urine Methadone Screen Acetaminophen (10.0-30.0) ug/mL Ur Barbiturates Screen Ur Phencyclidine Scrn Ur Amphetamines Screen U Benzodiazepines Scrn Urine Cocaine Screen U Marijuana (THC) Screen Drugs of Abuse Note Plasma/Serum Alcohol (0-0.07) % 11/19/20 Range/Units 11:27 WBC (4.5-11.0) K/mm3 RBC (3.65-5.03) M/mm3 Hgb (11.8-15.2) gm/dl Hct (35.5-45.6) % MCV (84-94) fl MCH (28-32) pg MCHC (32-34) % RDW (13.2-15.2) % Plt Count (140-440) K/mm3 Lymph % (Auto) (13.4-35.0) % [place] % (Auto) (0.0-7.3) % Eos % (Auto) (0.0-4.3) % Baso % (Auto) (0.0-1.8) % Lymph # (Auto) (1.2-5.4) K/mm3 [place] # (Auto) (0.0-0.8) K/mm3 Eos # (Auto) (0.0-0.4) K/mm3 Baso # (Auto) (0.0-0.1) K/mm3 Seg Neutrophils % (40.0-70.0) % Seg Neutrophils # (1.8-7.7) K/mm3 Sodium (137-145) mmol/L Potassium (3.6-5.0) mmol/L Chloride (98-107) mmol/L Carbon Dioxide (22-30) mmol/L Anion Gap mmol/L BUN (9-20) mg/dL Creatinine (0.8-1.3) mg/dL Estimated GFR ml/min BUN/Creatinine Ratio % Glucose (75-100) mg/dL Calcium (8.4-10.2) mg/dL Total Creatine Kinase (55-170) units/L Urine Color (Yellow) Urine Turbidity (Clear) Urine pH (5.0-7.0) Ur Specific [place] (1.003-1.030) Urine Protein (Negative) mg/dL Urine Glucose (UA) (Negative) mg/dL Urine Ketones (Negative) mg/dL Urine Blood (Negative) Urine Nitrite (Negative) Urine Bilirubin (Negative) Urine Urobilinogen (<2.0) mg/dL Ur Leukocyte Esterase (Negative) Urine WBC (Auto) (0.0-6.0) /HPF Urine RBC (Auto) (0.0-6.0) /HPF Hyaline Casts /LPF Urine Mucus /HPF Salicylates (2.8-20.0) mg/dL Urine Opiates Screen Negative Urine Methadone Screen Negative Acetaminophen (10.0-30.0) ug/mL Ur Barbiturates Screen Negative Ur Phencyclidine Scrn Negative Ur Amphetamines Screen Positive U Benzodiazepines Scrn Negative Urine Cocaine Screen Negative U Marijuana (THC) Screen Negative Drugs of Abuse Note Disclamer Plasma/Serum Alcohol (0-0.07) % - Radiology Data CHEST 1 VIEW INDICATION: leukocytosis. COMPARISON: 08/13/2019 FINDINGS: SUPPORT DEVICES: None. HEART: Within normal limits. LUNGS/PLEURA: No acute air space or interstitial disease. ADDITIONAL FINDINGS: None. IMPRESSION: 1. No acute findings. Signer Name: Toni Ni MD Signed: 11/19/2020 6:04 AM Workstation Name: [id number] - Medical Decision Making 40-year-old male with history of schizophrenia and methamphetamine use brought in by police/EMS with excited delirium. Patient apparently went to the police because he feels like someone is after him. He was apparently floridly psychot ic with agitation and aggressive behavior when first brought in and required medication with Geodon and Benadryl. By the time that I examined the patient he had calmed down after the medications. He states that he has no complaints but "someone is trying to hurt me". He will not say who is trying to hurt him. He now denies SI/HI, auditory/visual hallucinations, or any physical symptoms or complaints of any kind. He denies recent methamphetamine or other illicit substance use. On initial assessment he is noted to be tachycardic with a heart rate of 110s. Blood pressure is normal. Oxygen saturation is normal. Respiratory rate is normal. On exam, he has slightly dry mucous membranes. He is very slightly diaphoretic. His abdomen is slightly distended but soft and nontender. The remainder of the physical exam is within normal limits. 2013 order was initiated and signed by the previous ER physician. We will follow up labs and mental health/psychiatry consult. We will give 1 L of IV fluids and continue to monitor the patient closely. At 6:27 AM, the patient's CBC has resulted in reveals leukocytosis of 16.7. However, in addition, hemoglobin is elevated at 15.3. Given this additional finding this is more consistent with hemoconcentration due to poor volume status. The patient is afebrile with a temp of 98.4. Chemistry reveals elevated creatinine of 1.4 from his baseline of 0.8. There are no significant electrolyte abnormalities. I have added a chest x-ray to assess for evidence of pneumonia. The patient is not vaccinated against COVID-19. However, he again states that he has no URI symptoms currently. Review of the patient's prior medical records reveals that he has frequent visits with similar presentation, the last being on October 08. At that time he also was found to have a white blood cell count of 14 and ADELINE with creatinine of 1.5 which cleared the next day. We will give additional 1L IVFs and follow up the remaining labs and x-ray and reassess the patient. At 9 AM, the patient's heart rate has improved to the 110s. However, he pulled out his IV and had not finished the first liter of fluids. An IV was replaced and fluids were resumed. On repeat assessment again at 10:30 AM, the patient's heart rate has improved to the low 100s. Chest x-ray is negative. I have ordered repeat CBC and BMP The patient was seen by the mental health/psychiatry team who did not recommend further inpatient psychiatric treatment. The patient is now calm and cooperative and denies SI/HI or hallucinations of any kind. His heart rate has responded appropriately to IV fluids. We will follow up the remaining labs Repeat labs show almost total resolution of the patient's leukocytosis and improvement of his creatinine to 0.8. Urinalysis shows no evidence of infection. UDS is positive for amphetamines. The patient passed a p.o. trial and has ambulated with steady gait. I explained the results of the patient's lab work and the need for continued rehydration after discharge given his stated dehydration. He will be discharged home with outpatient resources for follow- up. He will be given strict return precautions. The patient expressed u nderstanding and agreement with this plan of care. 2013 order has been rescinded. Critical Care Time: Yes Critical care time in (mins) excluding proc time.: 45 Critical care attestation.: If time is entered above; I have spent that time in minutes in the direct care of this critically ill patient, excluding procedure time. Critical care time was spent in the evaluation/assessment, work-up, and management of hyperactive excited delirium and severe dehydration with ADELINE requiring sedative medications, IV fluids, and frequent and continued reevaluation and reassessment. ED Disposition Clinical Impression: Dehydration, Methamphetamine abuse, Psychosis, ADELINE (acute kidney injury) Disposition: DC- TO HOME OR SELFCARE Is pt being admited?: No Condition: Stable Instructions: Substance Use Disorder and Mental Illness, Rehydration, Adult, Methamphetamines Use Disorder, Dehydration, Adult Additional Instructions: Please follow-up using the following outpatient resources. Return to the emergency department should you develop thoughts of killing herself, hurting others, or for any other new concerns. Professional and Agency Contacts To help Resolve Crises(02/11) [place] Crisis Line: Suicide Prevention Line: Crisis Text Line: Text START to 686630 Emergency: 911 Outpatient COMMUNITY Behavioral Health Resources: KOURTNEY: [facility] [address] [place], [place] [address] LORI: [facility] [address] [place] [address] Phone: [phone] TARUN: [facility] - [address] [place] [address] Wednesday thru Wednesday - 8am - 5pm JESÚS: Daniella Huang [facility] Address: [address], [place] [address] JOSE: [facility] Address: [address] [place] [address] Wednesday thru Wednesday- 7am-2pm [facility] Address: [address] [place] [address] Wednesday thru Wednesday: 8:30AM-5PM In case of an emergency, please contact the following numbers: [place] Crisis and Access Line: Number: Crisis Text Line: (Text START) Number: 979566 Suicide Prevention Line: Number: Emergency Number: 911 SUBSTANCE ABUSE PROGRAMS: [facility]: Location: [place], [place] [employer] [facility] Address: [address] [place] [address] [facility]: Address: [address] [place] [address] [facility]: Address: [address] [place] [address] [facility]: Address: [address] [place] [address] [facility] Address: [address] [place] [address]. Please contact above numbers to attempt placement into free based program. Medicaid Programs: [facility]: Address: [address] [place] [address] [facility]: Address: [address] [place] [address] Phone: [phone] Referrals: PRIMARY CARE, [Primary Care Provider] - 3-5 Days
[2020-11-19 06:22] LABS: Basophils # (Auto) 0.1 K/mm3 (0.0-0.1); Basophils % (Auto) 0.6 % (0.0-1.8); Eosinophils % (Auto) 0.2 % (0.0-4.3); Hemoglobin 15.3 gm/dl (11.8-15.2); Lymphocytes # (Auto) 2.1 K/mm3 (1.2-5.4); Lymphocytes % (Auto) 12.6 % (13.4-35.0); Mean Corpuscular HGB Conc 34 % (32-34); Mean Corpuscular Volume 92 fl (84-94); Monocytes # (Auto) 0.8 K/mm3 (0.0-0.8); Monocytes % (Auto) 4.7 % (0.0-7.3); Platelet Count 507 K/mm3 (140-440); Red Blood Count 4.88 M/mm3 (3.65-5.03); Red Cell Distribution Width 15.4 % (13.2-15.2)
[2020-11-19] MEDS ORDERED: LORazepam 2 MG/ML VIAL IV ONE (06:34)
--- NOTE | 2020-11-19 07:08 | XRay Report ---
CHEST 1 VIEW INDICATION: leukocytosis. COMPARISON: 08/13/2019 FINDINGS: SUPPORT DEVICES: None. HEART: Within normal limits. LUNGS/PLEURA: No acute air space or interstitial disease. ADDITIONAL FINDINGS: None. IMPRESSION: 1. No acute findings. Signer Name: Toni Ni MD Signed: 11/19/2020 7:04 AM Workstation Name: [id number]
[2020-11-19 09:42] VITALS: BP 120/71
--- NOTE | 2020-11-19 10:21 | Consultation ---
History of Present Illness - Reason for Consult Consult date: 11/19/20 Reason for consult: Mental health evaluation - History of Present Psychiatric Illness ED Note: 40-year-old male with history of schizophrenia and methamphetamine use brought in by police/EMS with excited delirium. Patient apparently went to the police because he feels like someone is after him. He was apparently floridly psychotic when first brought in and required medication with Geodon and Benadryl. By the time that I examined the patient he had calmed down after the medications. He states that he has no complaints but "someone is trying to hurt me". He will not say who is trying to hurt him. He now denies SI/HI, auditory/visual hallucinations, or any physical symptoms or complaints of any kind. He denies recent methamphetamine or other illicit substance use. John Nelson is a 40 year old male with a history of Bipolar, Schizophrenia and Amphetamine type substance use disorder who present to the ED with delirium. In my interview with the patient, he reports that he got into an argument with someone at a softball game stating " somebody was trying to hurt me." The patient states the person was chasing him so he drove to the [employer]. The patient denies any drug use; pending UDS. The patient reports doing well. He denies any current suicidal/homicidal thoughts and denies hallucinations. Diagnoses: Bipolar, Schizophrenia and Amphetamine type substance use disorder Suicide attempts or Self-harm behavior:Denies Prior psychiatric hospitalizations: Multiple Substance Abuse history:Denies Previous psychiatric medications tried:Seroquel Outpatient treatment: Denies PAST MEDICAL HISTORY: None reported Family Psychiatric History: None reported or documented SOCIAL HISTORY Marital Status: Divorce Living Arrangements:Live with parents and sister Employment Status: unknown Access to guns/weapons: Denies Education: College History of Abuse: None reported Legal History: None reported REVIEW OF SYSTEMS Constitutional: Negative for weight loss ENT: Negative for stridor Respiratory: Negative for cough or hemoptysis All other systems reviewed and are negative MENTAL STATUS EXAMINATION General Appearance and Behavior: Age appropriate, good hygiene, wearing appropriate clothes, cooperative, cooperative Cooperation: Participating/engaged Psychomotor Behavior: normal Mood: "ok" Affect and affective range: congruent with stated mood Thought Process: goal directed Thought Content: Not Suicidal Speech: Normal volume, Regular rate and rhythm Suicidal Ideation: Denies Homicidal Ideation: Denies Hallucinations: Denies Delusions: None elicited Impulse Control: impaired Insight and Judgment: limited insight and judgment, Memory: normal Attention: Normal Orientation: Alert, oriented Assessment and Plan (1) Bipolar Disorder (2) Current Visit: Yes Status: Acute Treatment Plan Sitter: Per primary Medical: Per primary Disposition: Do not recommend acute psychiatric inpatient treatment. The patient understands that if suicidal/homicidal ideas or any endangering thoughts/ behaviors arise, they should seek immediate assistance including but not limited to crisis hotline and emergency room. The patient will follow up with outpatient referrals provided by the mental health order takers supervisor. Will sign off. Thanks Case staffed with Dr. Keene Medications and Allergies Allergies Allergy/AdvReac Type Severity Reaction Status Date / Time No Known Drug Allergies Allergy Unknown Verified 11/19/20 09:05 Home Medications Medication Instructions Recorded Confirmed Last Taken Type QUEtiapine [SEROquel] 200 mg PO QHS #14 tablet 09/14/19 03/25/20 Unknown Rx Mental Status Exam - Vital signs Last Vital Signs Temp 98.4 F 11/19/20 07:18 Pulse 108 H 11/19/20 09:31 Resp 25 H 11/19/20 09:31 BP 120/71 11/19/20 09:31 Pulse Ox 97 11/19/20 09:31 Results Result Diagrams: 11/19/20 05:41 11/19/20 05:41 Abnormal lab results 11/19/20 11/19/20 11/19/20 Range/Units 05:41 05:41 05:41 WBC 16.7 H (4.5-11.0) K/mm3 Hgb 15.3 H (11.8-15.2) gm/dl RDW 15.4 H (13.2-15.2) % Plt Count 507 H (140-440) K/mm3 Lymph % (Auto) 12.6 L (13.4-35.0) % Seg Neutrophils % 81.9 H (40.0-70.0) % Seg Neutrophils # 13.7 H (1.8-7.7) K/mm3 Carbon Dioxide 19 L (22-30) mmol/L Creatinine 1.4 H (0.8-1.3) mg/dL Glucose 133 H (75-100) mg/dL Calcium 11.0 H (8.4-10.2) mg/dL Total Creatine Kinase (55-170) units/L Salicylates < 0.3 L (2.8-20.0) mg/dL Acetaminophen (10.0-30.0) ug/mL 11/19/20 11/19/20 Range/Units 05:41 05:41 WBC (4.5-11.0) K/mm3 Hgb (11.8-15.2) gm/dl RDW (13.2-15.2) % Plt Count (140-440) K/mm3 Lymph % (Auto) (13.4-35.0) % Seg Neutrophils % (40.0-70.0) % Seg Neutrophils # (1.8-7.7) K/mm3 Carbon Dioxide (22-30) mmol/L Creatinine (0.8-1.3) mg/dL Glucose (75-100) mg/dL Calcium (8.4-10.2) mg/dL Total Creatine Kinase 189 H (55-170) units/L Salicylates (2.8-20.0) mg/dL Acetaminophen 5.0 L (10.0-30.0) ug/mL All other labs normal.
[2020-11-19 11:50] LABS: Basophils % (Auto) 0.4 % (0.0-1.8); Eosinophils % (Auto) 0.3 % (0.0-4.3); Hematocrit 40.1 % (35.5-45.6); Hemoglobin 13.4 gm/dl (11.8-15.2); Lymphocytes # (Auto) 1.7 K/mm3 (1.2-5.4); Lymphocytes % (Auto) 14.6 % (13.4-35.0); Mean Corpuscular HGB Conc 33 % (32-34); Mean Corpuscular Volume 91 fl (84-94); Monocytes % (Auto) 8.9 % (0.0-7.3); Platelet Count 447 K/mm3 (140-440); Red Cell Distribution Width 15.4 % (13.2-15.2)
[2020-11-19 12:07] LABS: Benzodiazepines Screen,Urine Negative; Cannabinoid Screen,Urine Negative; Cocaine Screen,Urine Negative; Methadone Screen,Urine Negative; Opiate Screen,Urine Negative
[2020-11-19 12:14] LABS: BUN/Creatinine Ratio 14; Blood Urea Nitrogen 11 mg/dL (9-20); Calcium 9.4 mg/dL (8.4-10.2); Hemolysis Index 3
[2020-11-19 12:29] LABS: Bilirubin,Urine NEG (Negative); Blood,Urine SM (Negative); Color,Urine Yellow (Yellow); Hyaline Casts,Urine 16 /LPF; Mucus,Urine FEW /HPF; Protein,Urine <15 mg/dL mg/dL (Negative); Urobilinogen,Urine < 2.0 mg/dL (<2.0)
[2020-11-19 12:32] LABS: Amphetamine Screen,Urine Positive
== END 2020-11-19 12:57 | disposition home or self-care (01) ==
LOC: EEVIPCON 04:53 → ED 04:53
DX: F25.9 Schizoaffective disorder, unspecified (principal); E86.0 Dehydration; N17.9 Acute kidney failure, unspecified; F15.10 Other stimulant abuse, uncomplicated; F31.9 Bipolar disorder, unspecified
CPT/HCPCS: 36415; 71045; 80048; 80307; 81001; 82550; 85025; 96360; 96361; 96372; 99285; J1200; J3486; J7030; 80320; G0480

== ENCOUNTER 2021-05-21 14:11 | Emergency (ER) | payer OTHER ==
[2021-05-21] MEDS ORDERED: ZIPRASIDONE MESYLATE 20 MG VIAL IM ONE ×2 (14:16→14:20)
--- NOTE | 2021-05-21 14:35 | Emergency Department Report ---
ED Psych HPI - General Chief Complaint: Psych Stated Complaint: "HAVING AN EPISODE" Time Seen by Provider: 05/21/21 14:20 Source: patient Mode of arrival: Ambulatory - History of Present Illness Initial Comments: Chief complaint: "Take me out. Just shoot me." HPI: This is a 40-year-old male with history of bipolar disorder cocaine abuse, methamphetamine abuse, previous suicide attempt who presents with altered mental status. Family member called 911. Family was concerned that he may have used drugs. He has been altered and agitated since this morning. Patient came by police and EMS escort. Patient is agitated paranoid. MD Complaint: suicidal ideation, altered mental status Associated Psychiatric Symptoms: depression, suicidal ideation, racing thoughts, auditory hallucinations History of same: Yes Quality: constant Improves With: none Worsens With: none Context: recent drug abuse (History of cocaine and methamphetamine abuse) Treatments Prior to Arrival: other (EMS and police escort to the emergency department) If Self Harm: admits thoughts of - Related Data Previous Rx's Medication Instructions Recorded Last Taken Type QUEtiapine [SEROquel] 200 mg PO QHS #14 tablet 09/14/19 Unknown Rx Allergies Allergy/AdvReac Type Severity Reaction Status Date / Time No Known Drug Allergies Allergy Unknown Verified 05/21/21 14:25 ED Review of Systems ROS: Stated complaint: "HAVING AN EPISODE" Other details as noted in HPI Comment: Unobtainable due to pts medical conditions (Agitated, altered) ED Past Medical Hx - Past Medical History Previous Medical History?: Yes Hx Congestive Heart Failure: No Hx Diabetes: No Hx Psychiatric Treatment: Yes (bipolar, schizoaffective) Hx Asthma: No Hx COPD: No Additional medical history: previous OD per EMS. Bipolar. Schizophrenia. Anxiety - Surgical History Past Surgical History?: Yes Additional Surgical History: T&A, Left knee surgery x 2 - Family History Family history: other (Noncontributory to this presentation) - Social History Smoking Status: Current Every Day Smoker Substance Use Type: Cocaine, Methamphetamines - Medications Home Medications: Home Medications Medication Instructions Recorded Confirmed Last Taken Type QUEtiapine [SEROquel] 200 mg PO QHS #14 tablet 09/14/19 03/25/20 Unknown Rx ED Physical Exam - General Limitations: No Limitations General appearance: alert, other (Loud, paranoid, agitated, responding to internal stimuli, poor eye contact,) - Head Head exam: Present: atraumatic, normocephalic - Eye Eye exam: Present: normal appearance - ENT ENT exam: Present: mucous membranes moist - Neck Neck exam: Present: normal inspection, full ROM - Respiratory Respiratory exam: Present: normal lung sounds bilaterally. Absent: respiratory distress, wheezes, rales, rhonchi - Cardiovascular Cardiovascular Exam: Present: regular rate, normal rhythm, normal heart sounds. Absent: systolic murmur, diastolic murmur, rubs, gallop - GI/Abdominal GI/Abdominal exam: Present: soft, normal bowel sounds. Absent: distended, tenderness, guarding, rebound - Rectal Rectal exam: Present: deferred - Extremities Exam Extremities exam: Present: normal inspection - Neurological Exam Neurological exam: Present: altered, oriented X3 - Psychiatric Psychiatric exam: Present: agitated, suicidal ideation - Skin Skin exam: Present: warm, dry, intact, normal color. Absent: rash ED Medical Decision Making - Medical Decision Making Acute psychosis: History of bipolar disorder, history of polysubstance abuse. Patient is medically clear for psychiatric care. 1013 form completed. Patient's seclusion order renewed. Awaiting treatment recommendation by psychiatric team. Patient has repeatedly refused blood draw. Critical Care Time: Yes Critical care time in (mins) excluding proc time.: 40 Critical care attestation.: If time is entered above; I have spent that time in minutes in the direct care o f this critically ill patient, excluding procedure time. 40 minutes of critical care time excluding procedures were used in the care of the patient. I was asked by charge nurse to assess patient upon arrival. I obtained history from police and paramedics at the bedside. I came immediately to the bedside upon patient's arrival. patient required immediate chemical restraint due to aggressive unpredictable behavior. I discussed treatment plan with the nursing team members. I reviewed electronic record. Patient placed in seclusion for his safety. Patient required multiple interventions and reassessments. ED Disposition Clinical Impression: Acute psychosis, Bipolar disorder, Substance-induced psychotic disorder Disposition: 30 STILL A PATIENT Is pt being admited?: No Does the pt Need Aspirin: No Condition: Stable Referrals: PRIMARY CARE, [Primary Care Provider] - 3-5 Days
[2021-05-21 23:41] VITALS: BP 127/90
[2021-05-22 00:20] LABS: Hematocrit 48.2 % (35.5-45.6); Hemoglobin 15.7 gm/dl (11.8-15.2); Mean Corpuscular HGB Conc 33 % (32-34); Mean Corpuscular Volume 92 fl (84-94); Platelet Count 412 K/mm3 (140-440); Red Blood Count 5.24 M/mm3 (3.65-5.03); Red Cell Distribution Width 13.9 % (13.2-15.2)
[2021-05-22 00:41] LABS: BUN/Creatinine Ratio 15; Blood Urea Nitrogen 17 mg/dL (9-20); Calcium 9.8 mg/dL (8.4-10.2); Hemolysis Index 9
[2021-05-22 08:05] LABS: Basophils % (Manual) 0 % (0.0-1.8); Myelocytes # (Manual) 0.7 K/mm3; Total Cells Counted 100
[2021-05-22 08:06] LABS: Platelet Estimate Consistent w Auto; RBC Morphology Normal
--- NOTE | 2021-05-22 11:00 | Consultation ---
History of Present Illness - Reason for Consult Consult date: 05/22/21 Reason for consult: mental health evaluation - History of Present Psychiatric Illness ED Note: This is a 40-year-old male with history of bipolar disorder cocaine abuse, methamphetamine abuse, previous suicide attempt who presents with altered mental status. Family member called 911. Family was concerned that he may have used drugs. He has been altered and agitated since this morning. Patient came by police and EMS escort. Patient is agitated paranoid. The patient was seen today. He reports that he is doing better today. He states " I was paranoid about my situation and needed a psych place to go to for a while. The patient reports that he used " speed" yesterday. He denies any current suicidal/homicidal ideation and denies hallucinations. PAST PSYCHIATRIC HISTORY: Diagnoses: Bipolar Suicide attempts or Self-harm behavior: Denied Prior psychiatric hospitalizations:unknown Substance Abuse history: Amphetamines Previous psychiatric medications tried:Seroquel Outpatient treatment:unknown PAST MEDICAL HISTORY: n/a Family Psychiatric History: None reported or documented SOCIAL HISTORY Marital Status: Living Arrangements: lives with Parents Employment Status: unemployed Access to guns/weapons: n/a Education: Vocational school History of Abuse: n/a Legal History: n/a REVIEW OF SYSTEMS Constitutional: Negative for weight loss ENT: Negative for stridor Respiratory: Negative for cough or hemoptysis All other systems reviewed and are negative MENTAL STATUS EXAMINATION General Appearance and Behavior: Age appropriate, good hygiene, wearing appropriate clothes, uncooperative polite with questioning. Cooperation: cooperative Psychomotor Behavior: Psychomotor agitation Mood: ok Affect and affective range: congruent Thought Process: Goal directed Thought Content: Within reality Speech: Normal volume, Regular rate and rhythm Intellectual Functioning:Average Suicidal Ideation: Denied Homicidal Ideation: Denied hallucination: Denied Impulse Control: Intact Insight and Judgment: Limited Memory: Intact Attention:Distractible Orientation: Alert and oriented Diagnoses: Amphetamine type Substance use Disorder RECOMMENDATIONS Patient should be compliant with medications and not to use drugs and not to drink alcohol. PSYCHOTHERAPY: Supportive psychotherapy provided MEDICAL: Per primary team DELIRIUM PRECAUTIONS: Please re-orient patient frequently, keep lights on during the day, and minimize benzodiazepines and opiates as these medications could worsen patient's confusion. JBOSS ARCHITECT: Per medical team DISPOSITION: Do not recommend acute inpatient psychiatric hospitalization at this time FOLLOW-UP: Will sign off Thank you for the consult. Please contact with any questions and/or concerns. Medications and Allergies Medications and Allergies Allergies Allergy/AdvReac Type Severity Reaction Status Date / Time No Known Drug Allergies Allergy Unknown Verified 05/21/21 14:25 Home Medications Medication Instructions Recorded Confirmed Last Taken Type QUEtiapine [SEROquel] 200 mg PO QHS #14 tablet 09/14/19 03/25/20 Unknown Rx Mental Status Exam - Vital signs Last Vital Signs Temp 97.5 F L 05/21/21 23:00 Pulse 80 05/21/21 23:00 Resp 20 05/21/21 23:06 BP 127/90 05/21/21 23:00 Pulse Ox 99 05/21/21 23:06 Results Result Diagrams: 05/21/21 23:13 05/21/21 23:13 Abnormal lab results 05/21/21 05/21/21 05/21/21 Range/Units 23:13 23:13 23:13 WBC 11.1 H (4.5-11.0) K/mm3 RBC 5.24 H (3.65-5.03) M/mm3 Hgb 15.7 H (11.8-15.2) gm/dl Hct 48.2 H (35.5-45.6) % Seg Neuts % (Manual) 79.0 H (40.0-70.0) % Lymphocytes % (Manual) 7.0 L (13.4-35.0) % Seg Neutrophils # Man 8.8 H (1.8-7.7) K/mm3 Lymphocytes # (Manual) 0.8 L (1.2-5.4) K/mm3 Salicylates < 0.3 L (2.8-20.0) mg/dL Acetaminophen 5.0 L (10.0-30.0) ug/mL All other labs normal.
--- NOTE | 2021-05-22 11:52 | Event Note ---
Mr. Nelson is in good spirits. He is calm cooperative polite. He is insightful. He denies suicidal homicidal ideations. He denies hallucinations. He has thanked everyone for taking good care of him. He is discharged home. I have reviewed labs obtained including CBC chemistry serum toxicology. All unremarkable. Coronavirus PCR negative.
== END 2021-05-22 13:48 | disposition home or self-care (01) ==
LOC: ED 14:11 → EEVIPCON 14:11 → ED 05-22 13:48
DX: F23 Brief psychotic disorder (principal); F31.9 Bipolar disorder, unspecified; F19.951 Other psychoactive substance use, unspecified with psychoactive substance-induced psychotic disorder with hallucinations; Z20.822 Contact with and (suspected) exposure to COVID-19
CPT/HCPCS: 36415; 80048; 85007; 85025; 96372; 99284; J3486; U0003; 80320; G0480